=== PATIENT | female | born 1935 | race Caucasian/White ===

== ENCOUNTER 2018-02-13 10:07 | Inpatient (IN) | payer OTHER, MEDICAID ==
[~2018-02-13] VITALS: Ht 160 cm; Wt 59.4 kg
[2018-02-13] VITALS (33 sets, daily range): BP systolic 86–127; BP diastolic 27–73
--- NOTE | 2018-02-13 10:07 | NUR ---
Patient BIBYogesh ACLS accompanied by Haley THOMAS from [facility], transferred to bed 10. Dr. Eden, RN and RT evaluating patient at bedside.
[2018-02-13] MEDS ORDERED: NACL 0.9% 1,000 ML IV SCH ×2 (10:17→12:31)
--- NOTE | 2018-02-13 10:18 | NUR ---
rt at bedside
[2018-02-13] MEDS ORDERED: ALBUTEROL 0.083% 2.5 MG/3 ML NEBU INH ONE (10:20)
[2018-02-13] MEDS ORDERED: methylPREDNISolone SS 125 MG/2 ML VIAL IVP ONE (10:20)
[2018-02-13] MEDS ORDERED: IPRATROPIUM 0.02% 0.5 MG/2.5 ML NEBU INH ONE (10:20)
[2018-02-13] MEDS ORDERED: PIPERACILLIN/TAZOBACTAM 3.375 GM in DEXT 5% MINI-BAG PLUS 50 ML IV ONE (10:20)
--- NOTE | 2018-02-13 10:25 | NUR ---
PATIENT PRESENTS TO ED WITH brought in by [facility] for resp distress--- moderate retractions noted to supraclavicular area, intracostal, and nares--- existing yung catheter noted with paul urine and heavy sediment . contractures to extremities , kyphosis DENIES N/V/D; SKIN IS PINK/WARM/DRY; PT DENIES ANY FEVER, CP, SOB, OR COUGH AT THIS TIME; PATIENT STATES PAIN OF 0/10 AT THIS TIME; VSS; PATIENT POSITIONED FOR COMFORT; HOB ELEVATED; BEDRAILS UP X2; BED DOWN. ER MD MADE AWARE OF PT STATUS.
[2018-02-13] MEDS ORDERED: PRON INH ×2 (10:28)
[2018-02-13] MEDS ORDERED: DOXY100C9 PO (10:28)
[2018-02-13] MEDS ORDERED: DOCU-299 PO (10:28)
[2018-02-13] MEDS ORDERED: MAGN400S60 PO (10:28)
[2018-02-13] MEDS ORDERED: ACET-2619 PO (10:28)
[2018-02-13] MEDS ORDERED: ASCO500T45 PO (10:28)
[2018-02-13] MEDS ORDERED: MULT1SGL58 PO (10:28)
[2018-02-13] MEDS ORDERED: FERR325E14 PO (10:28)
[2018-02-13] MEDS ORDERED: PIPERACILLIN/TAZOBACTAM 3.375 GM VIAL IV ONE (10:31)
--- NOTE | 2018-02-13 10:44 | NUR ---
Breathing treatment administered at bedside by respiratory therapist.
[2018-02-13] MEDS ORDERED: ACETAMINOPHEN 650 MG SUPP RC ONE ×2 (10:58→11:00)
[2018-02-13 11:00] LABS: HEMATOCRIT 29.1 % (36-48); HEMOGLOBIN 9.7 g/dL (12.0-16.0); MEAN CORPUSCULAR HEMOGLOBIN 27 pg (27-31); MEAN CORPUSCULAR HGB CONC 33 g/dL (33-37); MEAN CORPUSCULAR VOLUME 80.6 fL (80-94); PLATELET COUNT (AUTO) 205 K/uL (140-450); RED BLOOD CELL COUNT(AUTO) 3.61 MIL/uL (4.20-5.40)
--- NOTE | 2018-02-13 11:08 | NUR ---
cxr at bedside
[2018-02-13 11:09] LABS: CHLORIDE 105 mmol/L (98-107); CREATININE 0.8 mg/dL (0.6-1.3); GLUCOSE 135 mg/dL (74-106); SODIUM SERUM 140 mmol/L (136-145); UREA NITROGEN, BLOOD 27 mg/dL (7-18)
--- NOTE | 2018-02-13 11:09 | NUR ---
prior to catheter insertion, pt had loose bm incontinence----cleaned , dry clean diaper placed and picture taken of sacral wound
[2018-02-13 11:12] LABS: PROTHROMBIN TIME 11.6 secs (10.8-13.4)
[2018-02-13 11:16] LABS: BASOPHILS % (MANUAL) 0 % (0-2); EOSINOPHILS % (MANUAL) 0 % (0-4); LYMPHOCYTES % (MANUAL) 7 % (20-46); MONOCYTES % (MANUAL) 8 % (5-12)
--- NOTE | 2018-02-13 11:20 | NUR ---
daughter at bedside---lab reported not enough urine sample provided for urine culture and ua. will wait for urine sample as tubing currently has minute amount
[2018-02-13 11:22] LABS: BILIRUBIN,URINE 1+ (NEGATIVE); BLOOD, URINE 3+ (NEGATIVE); COLOR,URINE YELLOW (YELLOW); LEUKOCYTE ESTERASE ,URINE 2+ (NEGATIVE); NITRITE, URINE NEGATIVE (NEGATIVE); UGLUCOSE NEGATIVE (NEGATIVE)
[2018-02-13 11:24] LABS: ALBUMIN 2.3 g/dL (3.4-5.0); ASPARTATE AMINOTRANSFERASE 47 U/L (15-37); TOTAL BILIRUBIN 1.9 mg/dL (0.0-1.0)
[2018-02-13 11:25] LABS: APPEARANCE,URINE HAZY (CLEAR)
[2018-02-13] MEDS ORDERED: NACL 0.9% 1,000 ML IV ONE (11:25)
[2018-02-13] MEDS ORDERED: AZTREONAM 1,000 MG in DEXTROSE 5% 50 ML IV SCH (11:25)
[2018-02-13] MEDS ORDERED: SODIUM BICARBONATE 8.4% PFS 50 MEQ/50 ML SYR IVP ONE (11:25)
[2018-02-13 11:33] LABS: RBC,URINE 11-20 (MOD) /HPF (0-5)
[2018-02-13 11:34] LABS: WBC,URINE 20-60 /HPF (0-5)
[2018-02-13 11:35] LABS: HYALINE CASTS, URINE 0-10 /LPF (None Seen); URINE AMORPHOUS URATE 1+ /HPF (None Seen)
[2018-02-13] MEDS ORDERED: AZTREONAM 1,000 MG VIAL ONE (11:35)
--- NOTE | 2018-02-13 11:45 | NUR ---
reverse trendelenberg position positioned
--- NOTE | 2018-02-13 11:50 | NUR ---
notified of hypotensive
--- NOTE | 2018-02-13 12:00 | NUR ---
pressors suggested to MD---will reassess after 2L bolus
--- NOTE | 2018-02-13 12:04 | NUR ---
md notified pt's breath sounds congested---cxr does not identifies chf as per ok to continue to 2L SHAQ jones
[2018-02-13] MEDS ORDERED: VANCOMYCIN PER PHARMACY MC PRN (12:25)
[2018-02-13] MEDS ORDERED: NOREPINEPHRINE 16 MG in DEXTROSE 5% 250 ML IV PRN (12:25)
[2018-02-13] MEDS ORDERED: NOREPINEPHRINE 8 MG in DEXTROSE 5% 250 ML IV PRN (12:25)
[2018-02-13] MEDS ORDERED: NACL 0.9% 2,000 ML IV SCH (12:34)
[2018-02-13] MEDS ORDERED: ACETAMINOPHEN 325 MG TAB PO PRN (12:35)
[2018-02-13] MEDS ORDERED: MORPHINE SULFATE 2 MG/ML SYR IVP PRN (12:35)
[2018-02-13] MEDS ORDERED: ONDANSETRON 4 MG/2 ML VIAL IM/IVP PRN (12:35)
[2018-02-13] MEDS ORDERED: DOCUSATE SODIUM 100 MG GELCAP PO PRN (12:35)
--- NOTE | 2018-02-13 12:39 | NUR ---
Dr. Contreras evaluating patient at bedside.
[2018-02-13] MEDS ORDERED: PIPER/TAZO 3.375GM/D5W PREMIX 50 ML IV SCH (13:04)
[2018-02-13] MEDS ORDERED: TPN PER PHARMACY MC PRN (13:15)
[2018-02-13] MEDS ORDERED: DOPamine 400 MG/D5W PREMIX 250 ML IV ONE ×2 (13:20→13:22)
[2018-02-13 13:26] LABS: CHOL/HDL RATIO 9.9 (1-4.5); MAGNESIUM 1.7 mg/dL (1.8-2.4); PHOSPHORUS 3.5 mg/dL (2.5-4.9); THYROID STIMULATING HORMONE 0.23 uIU/mL (0.34-3.74)
--- NOTE | 2018-02-13 13:30 | NUR ---
dopamine gtts initiated
[2018-02-13] MEDS ORDERED: ALBUTEROL SULFATE/IPRATROPIU 3 ML SOL INH PRN (13:35)
--- NOTE | 2018-02-13 13:40 | NUR ---
dopamine increased to 15mcg/kg/min
--- NOTE | 2018-02-13 13:45 | NUR ---
increased dopamine to 20mcg/kg/min
--- NOTE | 2018-02-13 13:59 | NUR ---
dopamine gtt decreased back to 15mcg/kg/min
--- NOTE | 2018-02-13 14:05 | NUR ---
RECEIVED PT VIA [place] FROM ER, REPORT FROM MONIQUE, RN AT BEDSIDE, PT IS LETHARGIC, RESPOND TO PAINFUL STIMULI, UNABLE TO FOLLOW COMMANDS AND MAKE NEEDS KNOWN, NO S/S OF DISTRESS, CLEAR LUNG SOUNDS PRAKASH., ON OXYGEN AT 4L VIA NC, SR ON DIRECTOR PATIENT, SOFT ROUND ABDOMEN WITH ACTIVE BOWEL SOUNDS, INCONTINENT WITH B&B'S, F/C IN PLACE DRAINING CLEAR YELLOW URINE VIA GRAVITY, BEDBOUND, CONTRACTURE TO ALL EXTREMITIES. SKIN IS WARM AND DRY TO TOUCH, OPEN WOUND PRESENT ( SEE WOUND ASSESSMENT), IV SITE TO LEFT WRIST, 20GA, PATENT AND SL, PICC LINE TO LEFT UPPER ARM, RUNNING D5 NS AT 90ML/HR, AND DOPAMINE DRIP AT 15MCG/MIN, VSS, FLACC 0, HOB ELEVATED TO 30 DEGREES, SAFETY MEASURES IN PLACE, WILL CONTINUE TO MONITOR.
--- NOTE | 2018-02-13 14:18 | NUR ---
Pt transferred to ICU via [facility] RM 1
[2018-02-13] MEDS: DEXT 5% /NACL 0.9% 1,000 ML IV SCH (14:51)
[2018-02-13] MEDS: VANCOMYCIN 750 MG in DEXTROSE 5% 250 ML IV SCH (14:51)
[2018-02-13] MEDS ORDERED: BISACODYL 10 MG SUPP RC SCH (15:47)
[2018-02-13] MEDS ORDERED: MAG SULF 2000 MG/WATER PREMIX 50 ML IV SCH (15:48)
--- NOTE | 2018-02-13 16:00 | NUR ---
PT IS OFF UNIT FOR CT SCAN VIA BED ACCOMPANIED WITH CT MECH AND RN.
--- NOTE | 2018-02-13 16:15 | NUR ---
WOUND CARE PROVIDED, POSITION CHANGED FOR OFF LOAD PRESSURE.
--- NOTE | 2018-02-13 16:47 | NUR ---
DR. CONN CAME IN TO SEE PT AT BEDSIDE, WILL FOLLOW UP WITH NEW ORDER.
[2018-02-13] MEDS: THERAHONEY GEL 42.5 GM TP SCH (16:52)
--- NOTE | 2018-02-13 18:00 | NUR ---
NO S/S OF DISTRESS, VSS, POSITION CHANGED FOR OFF LOAD PRESSURE.
--- NOTE | 2018-02-13 19:10 | NUR ---
REPORT GIVEN TO MOBILE APPLICATION TESTER NURSE FOR CONTINUE OF CARE, PT IS IN STABLE CONDITION AT THIS TIME.
[2018-02-13] MEDS: ALBUTEROL SULFATE/IPRATROPIU 3 ML SOL IH SCH (19:15)
--- NOTE | 2018-02-13 19:30 | NUR ---
RECEIVED PT FROM FROM DAY NURSE. NO ACUTE DISTRESS NOTED. WILL CONTINUE TO MONITOR.
--- NOTE | 2018-02-13 19:40 | NUR ---
DAUGHTER, DEZ, @ BEDSIDE.
--- NOTE | 2018-02-13 19:45 | NUR ---
DAUGHTER ASKED QUESTIONS REGARDING CODE STATUS; INFORMED ABOUT FULL CODE STATUS AND ADVANCED LIFE SUPPORT. DAUGHTER TO DISCUSS WITH BROTHER AND FOLLOW UP REGARDING ANY CHANGES. PER DAUGHTER DEZ, KEEP FULL CODE @ THIS TIME.
--- NOTE | 2018-02-13 19:50 | NUR ---
PT ASLEEP @ THIS TIME, EYES MOVE UPON VERBAL PROMPT. PT APPEARS COMFORTABLE IN BED, UPPER PERIPHERAL EXTREMITIES FLEXED WITH HANDS CLENCHED; TOWEL WRAPS IN PLACE FOR HANDS. LOWER EXTREMITIES RELAXED. +3 PERRL @ TIME. NO TRACKING NOTED. LUNGS CLEAR/ DIMINISHED @ THIS TIME, EVEN AND UNLABORED. S1 S2, NSR 60-70S, +1 TRACE EDEMA NOTED ABD SOFT NON DISTENDED, HYPOACTIVE BOWEL SOUNDS, NPO EXCEPT MEDS @ THIS TIME. HOOVER CATH IN PLACE, CLEAR YELLOW URINE NOTED. PT HAS WOUND TO SACRAL COCCYX AREA, WITH DRESSING CDI. L UPPER ARM DUAL LUMEN PICC LINE IN PLACE. DOPAMINE @ 5 MCG/KG/MIN AND IVF RUNNING @ 90ML/HR. NO ACUTE DISTRESS NOTED @ THIS TIME. WILL CONTINUE TO OBSERVE.
--- NOTE | 2018-02-13 20:00 | NUR ---
PT TURNED AND REPOSITIONED; KYPHOSIS TO NECK NOTED; PILLOWS IN PLACE FOR SUPPORT. NO S/S OF ACUTE DISTRESS NOTED. WILL CONTINUE TO OBSERVE.
[2018-02-13] MEDS: PIPER/TAZO 3.375GM/D5W PREMIX 50 ML IV SCH (21:04)
--- NOTE | 2018-02-13 21:25 | NUR ---
WOUND CULTURE OF SACRAL COCCYX WOUND TAKEN, NEW OPTIFOAM DRESSING APPLIED WITH THERAHONEY WILL CONTINUE TO OBSERVE
--- NOTE | 2018-02-13 22:00 | NUR ---
PT TURNED AND REPOSITIONED FOR COMFORT. NO ACUTE S/S OF DISTRESS NOTED. WILL CONTINUE TO OBSERVE.
--- NOTE | 2018-02-13 23:00 | NUR ---
DAUGHTER WAYNE @ BEDSIDE. SPOKE WITH BROTHER MYRA REGARDING CODE STATUS. MYRA WISHES TO DO ACLS DRUGS AND BIPAP ONLY; STATED SISTER DEZ WOULD SIGN AND GIVE CONSENT FOR MODIFIED CODE STATUS.
[2018-02-14] VITALS (92 sets, daily range): BP systolic 76–130; BP diastolic 42–84
--- NOTE | 2018-02-14 | NUR ---
UPDATED DR HASTINGS REGARDING FAMILY WISHES; DR. HASTINGS @ BEDSIDE AND SPOKE IN DEPTH ABOUT CODE STATUS. DAUGHTER DEZ AGREEABLE TO ACLS DRUGS, BIPAP, AND CARDIOVERSION ONLY. ANSWERED ALL FAMILY QUESTIONS AND PROVIDED SUPPORT. STATED CODE STATUS WOULD BE UPDATED IN [facility]. WILL CONTINUE TO OBSERVE.
--- NOTE | 2018-02-14 00:15 | NUR ---
PT TURNED @ REPOSITIONED FOR COMFORT, NO S/S OF ACUTE DISTRESS. WILL CONTINUE TO OBSERVE.
--- NOTE | 2018-02-14 02:00 | NUR ---
PT TURNED AND REPOSITIONED; FAMILY @ BEDSIDE. NO S/S OF ACUTE DISTRESS NOTED. WILL CONTINUE TO OBSERVE.
--- NOTE | 2018-02-14 04:00 | NUR ---
ORAL CARE DONE, BATH GIVEN, LINEN CHANGED. PT TURNED AND REPOSITIONED. PICC LINE DRESSING CHANGED. NO S/S OF ACUTE DISTRESS NOTED WILL CONTINUE TO OBSERVE.
[2018-02-14] MEDS: DEXT 5% /NACL 0.9% 1,000 ML IV SCH ×3 (04:14→22:56)
[2018-02-14] MEDS: PIPER/TAZO 3.375GM/D5W PREMIX 50 ML IV SCH ×3 (04:23→20:41)
--- NOTE | 2018-02-14 05:18 | NUR ---
PT AWAKE OPENING EYES SPONTANEOUSLY, DOES NOT FOLLOW COMMANDS. DOPAMINE DRIP @ 3 MCG/KG/MIN. WILL CONTINUE TO OBSERVE.
[2018-02-14] MEDS: ALBUTEROL SULFATE/IPRATROPIU 3 ML SOL IH SCH ×3 (06:19→19:28)
[2018-02-14] MEDS: DOPamine 400 MG/D5W PREMIX 250 ML IV SCH (07:23)
--- NOTE | 2018-02-14 07:28 | NUR ---
REPORT GIVEN TO DAY SHIFT NURSE, ORDERS ENDORSED FOR CONTINUITY OF CARE.
--- NOTE | 2018-02-14 07:35 | NUR ---
RECEIVED REPORT FROM [facility] NURSE. PT AWAKE NON VERBAL. NONTRACKING EYE MOVEMENTS. NO SIGNS OF ACUTE DISTRESS. UNABLE TO VERBALIZE NEEDS. AFEBRILE. LUNG SOUNDS DIMINISHED BILAT. 2LPM O2 VIA NC. NSR. PULSES PRESENT BUE/BLE. ABD SOFT NONTENDER. F/C IN PATENT. CLEAR YELLOW URINE NOTED. BILAT SCDS. RIGHT HAND SALINE LOCK. 20G. PATENT INTACT. SHAILESH PICC LINE DOUBLE LUMEN. PATENT. INTACT. WOUND DRESSING DRY INTACT. SIDE RAILS UP X4, BED IN LOWEST POSITION. CALL LIGHT WITHIN REACH. WILL CONTINUE TO MONITOR
[2018-02-14 08:00] LABS: ALBUMIN 1.9 g/dL (3.4-5.0); ANION GAP 2.7 (8-16); ASPARTATE AMINOTRANSFERASE 30 U/L (15-37); CARBON DIOXIDE 25.3 mmol/L (21-32); CHLORIDE 109 mmol/L (98-107); CREATININE 0.5 mg/dL (0.6-1.3); GLUCOSE 165 mg/dL (74-106); MAGNESIUM 2.3 mg/dL (1.8-2.4); PHOSPHORUS 2.8 mg/dL (2.5-4.9); SODIUM SERUM 134 mmol/L (136-145); TOTAL BILIRUBIN 1.2 mg/dL (0.0-1.0); UREA NITROGEN, BLOOD 18 mg/dL (7-18)
[2018-02-14 08:04] LABS: ANION GAP 7.5 (8-16); CARBON DIOXIDE 25.5 mmol/L (21-32); CHLORIDE 109 mmol/L (98-107); CREATININE 0.5 mg/dL (0.6-1.3); GLUCOSE 165 mg/dL (74-106); SODIUM SERUM 139 mmol/L (136-145); UREA NITROGEN, BLOOD 18 mg/dL (7-18)
[2018-02-14] MEDS ORDERED: DOCUSATE SODIUM 100 MG GELCAP PO SCH (09:00)
[2018-02-14] MEDS: MAGNESIUM HYDROXIDE 2400 MG/30 ML UDC PO SCH (09:00)
[2018-02-14] MEDS: PANTOPRAZOLE 40 MG INJ VIAL IVP SCH (09:03)
--- NOTE | 2018-02-14 09:18 | NUR ---
HOLD PO MEDICATION AT THIS TIME PER DR. KELLEY.
[2018-02-14] MEDS ORDERED: POTASSIUM CHLORIDE 40 MEQ, LIDOCAINE 1% 25 MG in NACL 0.9% 250 ML IV ONE (10:10)
--- NOTE | 2018-02-14 10:10 | NUR ---
02/11/18 RD INITIAL ASSESSMENT COMPLETED PLEASE REFER TO NUTRITION ASSESSMENT UNDER CARE ACTIVITY FOR ESTIMATED NUTRITIONAL NEEDS. 1. ONCE DIET ADVANCES FROM NPO CONSIDER TUBE FEED WITH TWO ELIAS HN AT GOAL RATE 45 ML/HR. START RATE 20 ML/HR, INCREASE BY 20 ML/HR Q6H. -THIS WILL PROVIDE 1080 ML, 2160 KCAL, 90 GM PROTEIN, MEETING 100% OF NEEDS. 2. WATER FLUSH [address] TO FOLLOW-UP 2-3 DAYS, HIGH RISK CHRISTINA YE RD
--- NOTE | 2018-02-14 10:59 | NUR ---
ECHO AT BEDSIDE. NO SIGNS OF ACUTE DISTRESS AT THIS TIME.
--- NOTE | 2018-02-14 11:46 | NUR ---
RAPID BLINKING AND SLIGHT FACIAL SWITCHES NOTED WITH LEFT SHOULDER MOVEMENT. ATIVAN GIVEN. WILL CONTINUE TO MONITOR. Addendum: 02/14/18 at 1247 by Ever Gilmore RN WRONG PATIENT CHARTED
[2018-02-14] MEDS: KCL 20 MEQ/WATER INJ PREMIX 100 ML IV SCH ×2 (12:11→14:27)
--- NOTE | 2018-02-14 12:49 | NUR ---
CXR AT BEDSIDE. NO SIGNS OF ACUTE DISTRESS AT THIS TIME. WILL CONTINUE TO MONITOR.
--- NOTE | 2018-02-14 14:00 | NUR ---
DR. PETERSEN CAME IN TO SEE PT AT BEDSIDE, NO NEW ORDERS AT THIS TIME.
[2018-02-14] MEDS ORDERED: PROBIOTIC SCREEN 1 EA MISC MC PRN (14:30)
[2018-02-14] MEDS: VANCOMYCIN 750 MG in DEXTROSE 5% 250 ML IV SCH (14:30)
--- NOTE | 2018-02-14 14:31 | NUR ---
1030 RECEIVED A CALL FROM SAGAR AT [facility] REQUESTING CLINICAL INFORMATION. PROVIDED SAGAR WITH A VERBAL UPDATE AND WILL SEND REVIEW AND CLINICAL DOCUMENTATION LATER TODAY. SAGAR'S CALL BACK IS [phone] AND FAX [phone].
--- NOTE | 2018-02-14 14:35 | NUR ---
NOTIFIED DR. AGUILLON REGARDING THE GI CONSULT.
--- NOTE | 2018-02-14 15:35 | NUR ---
CLINICAL REVIEW FAXED TO DOMINI[facility] AT [phone]
[2018-02-14] MEDS: THERAHONEY GEL 42.5 GM TP SCH (16:51)
--- NOTE | 2018-02-14 16:51 | NUR ---
General Labor Forklift Operator Note: Per Franklin from [facility] , patient is on a 7 day bed hold and is one of their fdc patients. He stated patient does not have an existing Advance Directive.
--- NOTE | 2018-02-14 18:04 | NUR ---
02/14/18 RD INITIAL ASSESSMENT COMPLETED PLEASE REFER TO NUTRITION ASSESSMENT UNDER CARE ACTIVITY FOR ESTIMATED NUTRITIONAL NEEDS. 1. CONTINUE NPO DIET TOLERATED 2. FOLLOW-UP TO CONFIRM ESTABLISHED FEEDING ROUTE 3. RECOMMEND MVI AND [id number] TO FOLLOW-UP 2-3 DAYS, HIGH RISK CHRISTINA YE, RD
--- NOTE | 2018-02-14 19:21 | NUR ---
ENDORSED CARE TO INCOMING SHIFT. PT IN STABLE CONDITION. NO SIGNS OF ACUTE DISTRESS. FAMILY AT BEDSIDE. CALL LIGHT WITHIN REACH.
--- NOTE | 2018-02-14 19:30 | NUR ---
RECEIVED REPORT FROM MORNING RN FOR CONTINUITY OF CARE. VS STABLE AT THIS TIME. FLACC 0. PT DOES NOT APPEAR TO BE IN ANY PAIN AND NO SIGNS OF DISTRESS. S1+S2 HEARD. SR ON MONITOR. PULSES ARE PALPABLE IN ALL EXTREMITIES. LUNG SOUNDS COARSE. PT ON OXYGEN AT 2L/MIN VIA NC. NO SOB NOTED. ABDOMEN ROUND, SOFT AND NONDISTENDED. BS HYPOACTIVE AT THIS TIME. PT HAS PERIPHERAL IV ACCESS ON RIGHT HAND 20G. PT ALSO HAS SHAILESH PICC LINE. ALL LINES ARE PATENT, INTACT AND ASYMPTOMATIC. PT CURRENTLY ON D5 NS AT 90ML/HR AND DOPAMINE AT 3MCG/MIN. PT DAUGHTER AT BEDSIDE AT THIS TIME. HOB KEPT AT 30 DEGREES. ALL SAFETY PRECAUTIONS ARE IN PLACE. WILL CONTINUE TO MONITOR PT.
--- NOTE | 2018-02-14 21:03 | NUR ---
DR. LIVINGSTON AT BEDSIDE TO SEE PT. PT'S DAUGHTER STILL AT BEDSIDE AND SPOKE WITH DR. LIVINGSTON; PER DR. LIVINGSTON HE WANTS LEFT UPPER ARM PICC LINE TO BE REPLACED. WILL NOTIFY RESIDENT DR. HUSSEIN.
--- NOTE | 2018-02-14 21:08 | NUR ---
CALLED DR. MARTINEZ AND INFORMED HER OF NEW ORDER FROM DR. LIVINGSTON.
--- NOTE | 2018-02-14 21:30 | NUR ---
PT DAUGHTER AT BEDSIDE, ASKING REGARDING GTUBE PLACEMENT THAT DR. AGUILLON DISCUSSED WITH HER. SHE WANTS TO KNOW IF IT IS SAFE FOR HER MOM, HOW LONG IT TAKES, AND IF SHE WILL BE ABLE TO TOLERATE IT. INFORMED HER THAT IT IS BETTER TO DISCUSS HER CONCERNS WITH THE DOCTOR. EDUCATION OFFICER SPOKE WITH PT'S SON REGARDING GIVING CONSENT TO GTUBE PLACEMENT, ACCORDING TO HIM HE HAS TO DISCUSS IT WITH HIS SISTER FIRST BEFORE GIVING CONSENT.
[2018-02-14 22:58] LABS: ANION GAP 11.4 (8-16); CARBON DIOXIDE 22.7 mmol/L (21-32); CHLORIDE 106 mmol/L (98-107); CREATININE 0.6 mg/dL (0.6-1.3); GLUCOSE 331 mg/dL (74-106); POTASSIUM 3.1 mmol/L (3.5-5.1); SODIUM SERUM 137 mmol/L (136-145); UREA NITROGEN, BLOOD 15 mg/dL (7-18)
[2018-02-15] VITALS (95 sets, daily range): BP systolic 80–145; BP diastolic 43–90
--- NOTE | 2018-02-15 | NUR ---
PT'S DAUGHTER CAME AT THE NURSE'S STATION TO ASK AGAIN REGARDING GTUBE PLACEMENT. INFORMED HER THAT WE ALREADY SPOKE WITH HER BROTHER AND THAT HE WILL DISCUSS IT WITH HER BEFORE MAKING DECISION AND GIVING CONSENT. SHE STATES THAT SHE UNDERSTANDS.
--- NOTE | 2018-02-15 00:19 | NUR ---
CONSENT FOR PICC LINE INSERTION OBTAINED. CONSENT GIVEN BY DAUGHTER.
--- NOTE | 2018-02-15 01:15 | NUR ---
VS STABLE AT THIS TIME. PT STILL ON DOPAMINE. PT DAUGHTER STILL AT BEDSIDE AT THIS TIME. PT DOES NOT APPEAR TO BE IN ANY PAIN OR IN ANY DISCOMFORT. HOB AT 30 DEGREES. ALL SAFETY PRECAUTIONS ARE IN PLACE. WILL CONTINUE TO MONITOR PT.
[2018-02-15] MEDS ORDERED: KCL 20 MEQ/WATER INJ PREMIX 100 ML IV SCH (03:00)
--- NOTE | 2018-02-15 03:30 | NUR ---
RT AT BEDSIDE TO SUCTION PT AND COLLECT SPUTUM SPECIMEN.
--- NOTE | 2018-02-15 03:46 | NUR ---
0330 SPUTUM UPTAINED AND SENT TO THE LAB
--- NOTE | 2018-02-15 04:33 | NUR ---
MORNING CARE PROVIDED TO PT. HOOVER CATHETER CARE PROVIDED. TOLERATED BEING TURNED WELL. PT STILL ON DOPAMINE DRIP. VS STABLE AT THIS TIME. ALL SAFETY PRECAUTIONS ARE IN PLACE. BED AT LOW POSSIBLE POSITION. WILL CONTINUE TO MONITOR PT.
[2018-02-15] MEDS: DEXT 5% /NACL 0.9% 1,000 ML IV SCH ×2 (04:55→20:48)
[2018-02-15] MEDS: PIPER/TAZO 3.375GM/D5W PREMIX 50 ML IV SCH ×3 (04:55→20:47)
[2018-02-15 05:05] LABS: BASOPHILS % (AUTO) 0.3 % (0.0-2.0); EOSINOPHILS % (AUTO) 0.2 % (0.0-4.0); HEMATOCRIT 24.1 % (36-48); HEMOGLOBIN 7.9 g/dL (12.0-16.0); LYMPHOCYTES # (AUTO) 0.7 K/uL (2.5-16.5); MEAN CORPUSCULAR HEMOGLOBIN 27 pg (27-31); MEAN CORPUSCULAR HGB CONC 33 g/dL (33-37); MEAN CORPUSCULAR VOLUME 81.8 fL (80-94); MONOCYTES # (AUTO) 0.7 K/uL (0.8-1.0); MONOCYTES % (AUTO) 6.4 % (1.7-9.3); NEUTROPHILS # (AUTO) 9.1 K/uL (1.8-7.7); NEUTROPHILS % (AUTO) 86.1 % (42.2-75.2); PLATELET COUNT (AUTO) 186 K/uL (140-450); RED BLOOD CELL COUNT(AUTO) 2.95 MIL/uL (4.20-5.40); RED CELL DISTRIBUTION WIDTH 17.7 % (11.6-13.7); WHITE BLOOD COUNT (AUTO) 10.6 K/uL (4.8-10.8)
--- NOTE | 2018-02-15 05:20 | NUR ---
LEAVE MESSAGE TO PICCLINE NURSE PT FOR PICCLINE INSERTION, WILL ENDORSE TO INCOMING SHIFT TO FOLLOW UP
[2018-02-15 06:18] LABS: T4 (THYROXINE) 8.3 ug/dL (4.5-12.0)
--- NOTE | 2018-02-15 06:20 | NUR ---
DR. KELLEY AT BEDSIDE TO SEE PT. WILL FOLLOW-UP FOR ANY NEW ORDERS.
[2018-02-15] MEDS: ALBUTEROL SULFATE/IPRATROPIU 3 ML SOL IH SCH ×3 (06:24→19:36)
--- NOTE | 2018-02-15 06:24 | NUR ---
PT SLEEPING NO SIGNS OF DISTRESS NOTED AT THIS TIME NO HHN GIVEN
[2018-02-15 07:01] LABS: ALBUMIN 1.9 g/dL (3.4-5.0); ANION GAP 11.9 (8-16); ASPARTATE AMINOTRANSFERASE 24 U/L (15-37); CARBON DIOXIDE 23.9 mmol/L (21-32); CHLORIDE 109 mmol/L (98-107); CREATININE 0.5 mg/dL (0.6-1.3); GLUCOSE 139 mg/dL (74-106); MAGNESIUM 1.9 mg/dL (1.8-2.4); POTASSIUM 3.8 mmol/L (3.5-5.1); SODIUM SERUM 141 mmol/L (136-145); TOTAL BILIRUBIN 1.2 mg/dL (0.0-1.0); UREA NITROGEN, BLOOD 13 mg/dL (7-18)
--- NOTE | 2018-02-15 07:10 | NUR ---
RECEIVED REPORT FROM PROCESS IMPROVEMENT ENGINEER RN. PT RESTING IN BED V/S WNL. SR ON MONITOR. OPENS EYES SPONTANEOUSLY, NON-VERBAL, WITHDRAWS TO PAIN. SKIN DRY AND WARM TO TOUCH. ON O2 VIA NC AT 2 LTR/MIN. LUNGS DIMINISHED ON AUSCULTATION. PICC LINE ON SHAILESH. DOPAMINE RUNNING AT 3 MCG/KG/MIN AND D5% NS RUNNING AT 90 ML/HR. BRUISES ON BUE. ABDOMINAL SOFT ROUND AND NON-TENDER. ACTIVE BOWEL SOUND. HOOVER CATHETER IN PLACE DRAINING YELLOW URINE VIA GRAVITY. SCDS ON PLACE. SACROCCYX WOUND COVERED WITH DRESSING, INTACT. EDEMATOUS BOTH UPPER AND LOWER EXTREMITIES. SIDE RAILS UP, BED IN LOWEST POSITION, LOCKED. CALL LIGHT WITHIN REACH. WILL CONTINUE TO MONITOR.
--- NOTE | 2018-02-15 07:30 | NUR ---
REMOVED OLD PICC LINE OF SHAILESH. STARTED NEW PERIPHERAL LINE ON RIGHT HAND 24G, INTACT.
--- NOTE | 2018-02-15 08:26 | NUR ---
NO ACTIVE BLEEDING ON S/P PICC LINE SITE. DRESSING INTACT, SECURED IN PLACE.
--- NOTE | 2018-02-15 08:28 | NUR ---
SEEN BY DR. STEELE AND RESIDENT GROUP. MADE AWARE ABOUT UNABLE TO ADMINISTER PO MEDS DUE NO ACCESS AND PT IS UNABLE TO TAKE FROM MOUTH.
[2018-02-15] MEDS: MAGNESIUM HYDROXIDE 2400 MG/30 ML UDC PO SCH (08:30)
--- NOTE | 2018-02-15 08:38 | NUR ---
BP 95/60 MM OF HG.
[2018-02-15] MEDS: PANTOPRAZOLE 40 MG INJ VIAL IVP SCH (08:49)
[2018-02-15] MEDS: MUPIROCIN CA NASAL 2% 1GM TUBE NS SCH (08:51)
[2018-02-15] MEDS: CHLORHEXADINE GLUC 2% CLOTH TP SCH (08:52)
--- NOTE | 2018-02-15 08:57 | NUR ---
ADMINISTERED MEDICATION. TOLERATING WELL.
--- NOTE | 2018-02-15 09:00 | NUR ---
BLANCHABLE REDNESS ON LEFT FOOT BIG TOE,INDEX, MIDDLE AND PINKY FINGER AND RIGHT FOOT INDEX.
--- NOTE | 2018-02-15 09:07 | NUR ---
FAXED CONCURRENT REVIEW TO [facility] [phone] PHONE SAGAR [phone]
--- NOTE | 2018-02-15 10:39 | NUR ---
WOUND ASSESSMENT DONE WITH WOUND NURSE. KEPT WOUND SITE CLEAN AND DRY. NO ACTIVE DRAINAGE AT WOUND SITE.
--- NOTE | 2018-02-15 10:54 | NUR ---
DAUGHTER DEZ AT BEDSIDE. FOLLOW UP WITH DAUGHTER IF SHE IS READY TO GIVE CONSENT FOR GTUBE PLACEMENT. SHE SAID PT MIGHTNOT TOLERATE THE PROCEDURE. EXPLAINED ABOUT PT NEEDS ABOUT FEEDING. STILL REFUSED TO SIGN CONSENT. DAUGHTER SAID HAVE HER BROTHER TO SPEAK WITH DR. AGUILLON. DR. AGUILLON MADE AWARE ABOUT DAUGHTER CONCERN AND PROVIDED SONS NUMBER. DR. AGUILLON SAID HE WILL CALL BROTHER.
--- NOTE | 2018-02-15 11:05 | NUR ---
WOUND CARE EVALUATION NOTES: REASON FOR EVALUATION: PRESSURE INJURY ON SACRALCOCCYX SKIN ASSESSMENT DONE ON THIS 82 [place]O F[place] [facility] [place] [facility], WITH INITIAL DIAGNOSIS OF RESPIRATORY DISTRESS, FEVER AND STAGE 4 PRESSURE INJURY. 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 ALL ABOVE INFORMATION WAS OBTAINED FROM THE ADMISSION H&P. LABS ARE WBC 10.6, H/H 7.9/24.1 GLUCOSE 139, ALBUMIN 1.9. PATIENT IS AWAKE WHEN TOUCHED. NECK, SHOULDER AND FINGERS CONTRACTURES NOTICE. SKIN WARM TO TOUCH, SKIN COLOR JUNDIACE WITH ABDOMEN AND BILATERAL THIGHS EDEMA, BLE NO HAIR GROWTH AND BILATERAL PEDAL PULSES PRESENT. HOOVER CATHETER PATENT AND INTACT TO [place] COLORED URINE IN MODERATE AMOUNT. PLAN OF CARE AND PRESSURE PREVENTIVE MEASURES DISCUSSED WITH PT, DAUGHTER ALEXANDER AND PRIMARY NURSE. PT EYES OPEN, NON-VERBAL. DAUGHTER VERBALIZES UNDERSTANDING. WILL REINFORCE TEACHING. INTEGUMENTARY: -LEFT UPPER ARM S/P PICC LINE REMOVAL SITE DRY, CLEAN AND INTACT -LEFT FOREARM OLD BRUISE 3X2 CM, SKIN INTACT -LEFT FOOT MULTIPLE DIGITS PRESSURE INJURY STAGE 1, HALLUX, 2ND TOE AND 5TH TOE WITH LARGEST ON 5TH DIGIT 1.5X1.5CM -SACRALCOCCYX STAGE 4 PRESSURE INJURY [id number] WITH UNDERMINING 3-5 OCLOCK AND DEEPEST 0.5CM AT 5 OCLOCK, WOUND BED IS PALE PINK, CLEAN SMALL AMOUNT SEROUS DRAINAGE, NO ODOR, WOUND EDGE WELL DEFINED, TEN-WOUND SKIN INTACT, SURROUNDING TISSUE PALE IN COLOR. -BILATERAL HEELS BLANCHABLE REDNESS RECOMMENDATIONS: -CLEANSE SACRALCOCCYX WOUND WITH WOUND CARE SOLUTION, PAT DRY, APPLY THERAHONEY GEL WITH ADAPTIC DRESSING QD AND COVER WITH DRY DRESSING QD AND PRN IF SOILING. -APPLY HYDRAGUARD TO LEFT TOES PRESSURE INJURY BID AND LEAVE IT OPEN TO AIR. -APPLY FORM DRESSING TO POSTERIOR THORACIC AREA CHANGE Q7DAYS AND PRN IF SOILING PREVENTION -TURN AND REPOSITION PATIENT Q2H -ASSESS AND MONITOR SKIN CONDITION DURING POSITION CHANGE, PLEASE PAY ATTENTION TO LEFT AND RIGHT BUTTOCKS -OFFLOAD BILATERAL HEELS BY PLACING PILLOWS UNDER CALVES AT ALL TIMES, UNLESS OTHERWISE CONTRAINDICATED -HEEL RAISERS TO BOTH HEELS AT ALL TIMES -PRESSURE REDISTRIBUTION SURFACE THERAPY -KEEP SKIN CLEAN AND DRY AT ALL TIMES. COMORBIDITIES RELATED TO SKIN BREAKS: -INFECTION -IMPAIRED OF MOBILITY -COGNITIVE IMPAIRMENT -CHRONIC BOWEL INCONTINENT -HOB ELEVATED THE MAJORITY OF THE DAY FOR MEDICAL CONDITION RECOMMENDATIONS DISCUSSED WITH PRIMARY RN WILL FOLLOW UP PATIENT Q 7 -10 DAYS AND PRN. PLEASE CONTACT WOUND CARE NURSE FOR ANY QUESTION OR CHANGES IN WOUND CONDITION
--- NOTE | 2018-02-15 11:26 | NUR ---
RECEIVED CALL FROM SON MYRA. SON WANTED TO KNOW ABOUT PATIENT BP AND CONDITION. UPDATED PT CURRENT BP, V/S AND CONDITION. ALSO, EXPLAIN THE NEED OF G-TUBE FOR PATIENT. STATED HE IS NOT GOING TO MAKE DECISION. HE WILL DISCUSS WITH HIS SISTER DEZ AND LET US KNOW.
--- NOTE | 2018-02-15 11:30 | NUR ---
PICC LINE NURSE AND US TECH AT BEDSIDE. TIME OUT DONE FOR THE PICC LINE PROCEDURE. PT ON STABLE CONDITION. V/S WNL.
--- NOTE | 2018-02-15 11:38 | NUR ---
HAVE MYRA TO SPEAK WITH ROLL ON WORKER.
--- NOTE | 2018-02-15 12:56 | NUR ---
PT SLEEPING WITH FAMILY AT BEDSIDE NO HHN GIVEN NO SIGNS OF DISTRESS NOTED
--- NOTE | 2018-02-15 13:14 | NUR ---
Manager Business Process Note: I met with patient's daughter Britta at bedside. Per Britta, she stated her brother Zhou (patient's son) will be the spokesperson. She stated Zhou and will make decisions together and Zhou will relay their decision to physician/s and/or nursing staff. I called and spoke with Zhou and verified he will be spokesperson, charge nurse Mar made aware.
[2018-02-15] MEDS: DOPamine 400 MG/D5W PREMIX 250 ML IV SCH (14:23)
[2018-02-15] MEDS: VANCOMYCIN 750 MG in DEXTROSE 5% 250 ML IV SCH (14:30)
--- NOTE | 2018-02-15 14:40 | NUR ---
CATHETER CARE DONE. PT CLEANED. KEPT IN COMFORTABLE POSITION. VS WNL. NO ACUTE RESPIRATORY DISTRESS NOTED. WILL CONTINUE TO MONITOR.
--- NOTE | 2018-02-15 15:38 | NUR ---
PT SEEN BY DR MANN. MADE AWARE ABOUT HB 7.9. CALLED SON MYRA LET HIM SPEAK TO DR. MANN. UPDATED PT CONDITION AND PROGNOSIS TO SON MYRA AND DAUGHTER DEZ DR. MANN. SON WANTS GTUBE PLACEMENT.
[2018-02-15] MEDS: THERAHONEY GEL 42.5 GM TP SCH (16:01)
[2018-02-15] MEDS: MIDODRINE 5 MG TAB PO SCH ×3 (16:08→20:02)
--- NOTE | 2018-02-15 16:33 | NUR ---
RECEIVED A CALL EARLIER FROM SAGAR FROM [facility]. SHE SAID THE PHYSICIAN FOR THIS PATIENT SHOULD BE THE PULMINARY GROUP. FESTUS ENCINASTURN OUT WORKER DIRECTOR SPOKE WITH DR. KELLEY AND HE WILL CHANGE THE PHYSICIAN TO DR. LOPEZ.
--- NOTE | 2018-02-15 16:37 | NUR ---
PT UNABLE TO TAKE MEDICINE FROM MOUTH. UNABLE TO OPEN MOUTH AND SWALLOW MEDICINE. DAUGHTER STATED SHE DOESNOT WANT HER MOM TO BE CHOCKED. UNABLE TO ADMINISTER PO MEDICINE. DR. KELLEY MADE AWARE.
--- NOTE | 2018-02-15 18:28 | NUR ---
PT RESTING IN BED. NO ACUTE RESPIRATORY DISTRESS NOTED. NO CHANGE IN LOC. VS WNL. CONTINUE ON DOPAMINE DRIP. CONTINUE ON MONITORING.
--- NOTE | 2018-02-15 19:16 | NUR ---
REPORT GIVEN TO SHEET METAL WORKER RN FOR CONTINUITY OF CARE. PT ON STABLE CONDITION.
--- NOTE | 2018-02-15 19:30 | NUR ---
RECEIVED BEDSIDE REPORT FROM MORNING SHIFT RN. PT IS UNABLE TO RESPOND TO COMMANDS, OPENS EYES SPONTANEOUSLY. LUNG SOUND DIMINISHED ON LOWER BILATERAL LOBES, ON 1LPM N/C. PT IS NPO EXCEPT MEDS. VAP ORAL CARE PROVIDED. BOWEL SOUNDS ARE HYPOACTIVE ON AUSCULTATION. PT IS ON MANAGER AGRICULTURE WITH DOPAMINE DRIP INFUSING 3MCG/MIN ON 24 GAUGE ON RIGHT HAND, PICC LINE IN RIGHT UPPER ARM. HOOVER CATHETER IN PLACE, URINE IS CLEAR AND DARK YELLOW. ON CONTACT ISOLATION, HOB ELEVATED ABOVE 30 DEG, BED IN LOWEST POSITION.
--- NOTE | 2018-02-15 20:30 | NUR ---
HELD MIDODRINE PER REPORT FROM MORNING SHIFT, AWARE. PT UNABLE TO SWALLOW.
--- NOTE | 2018-02-15 20:30 | NUR ---
UNABLE TO OBTAIN SPUTUM, CUP AT BED SIDE, PT WAS INSTRUCTED
--- NOTE | 2018-02-15 21:05 | NUR ---
DR. LIVINGSTON AT BEDSIDE, NO NEW ORDERS AT THIS TIME.
[2018-02-16] VITALS (92 sets, daily range): BP systolic 83–123; BP diastolic 30–81
--- NOTE | 2018-02-16 00:25 | NUR ---
PT REPOSITIONED, PILLOW SUPPORT PROVIDED. HYDRAGUARD CREAM APPLIED TO TOES. PT IS ON 1LPM N/C AND SCDS ON BOTH LEGS.
[2018-02-16] MEDS: HYDRAGUARD CREAM TP SCH ×2 (00:33→12:41)
--- NOTE | 2018-02-16 02:12 | NUR ---
PT REPOSITIONED, IN SEMI-HILL POSITION, HOB ELEVATED ABOVE 30 DEG, AND PILLOW SUPPORT PROVIDED. SCDS IN PLACE WITH BOOTS TO PROTECT FEET. PT VSS, PT ON CONTINUOUS DOPAMINE DRIP 3MCG/MIN AND 1LPM N/C. PT DOES IS SLEEPING QUIETLY AND DOES NOT APPEAR TO BE IN ANY DISTRESS.
--- NOTE | 2018-02-16 03:16 | NUR ---
HOOVER CATHETER IN PLACE. 700ML URINE OUTPUT AT THIS TIME. URINE IS YELLOW AND CLEAR. CONTACT PRECAUTIONS MAINTAINED.
[2018-02-16] MEDS: PIPER/TAZO 3.375GM/D5W PREMIX 50 ML IV SCH ×3 (04:31→21:04)
[2018-02-16] MEDS: MIDODRINE 5 MG TAB PO SCH ×3 (04:50→21:04)
--- NOTE | 2018-02-16 04:51 | NUR ---
HOOVER CARE, CLEAN GOWN, AND FRESH LINENS AND PAD PROVIDED. SACRO-COCCYX WOUND DRESSING IS CLEAN AND INTACT. PT REPOSITIONED AND PILLOW SUPPORT PROVIDED. ELEVATED HOB AND BED IN LOWEST POSITION.
[2018-02-16 05:11] LABS: BASOPHILS # (AUTO) 0.1 K/uL (0.00-0.22); BASOPHILS % (AUTO) 0.9 % (0.0-2.0); EOSINOPHILS # (AUTO) 0.1 K/uL (0-0.4); EOSINOPHILS % (AUTO) 0.9 % (0.0-4.0); HEMATOCRIT 26.4 % (36-48); HEMOGLOBIN 8.7 g/dL (12.0-16.0); LYMPHOCYTES % (AUTO) 13.9 % (20.5-51.1); MEAN CORPUSCULAR HEMOGLOBIN 27 pg (27-31); MEAN CORPUSCULAR HGB CONC 33 g/dL (33-37); MEAN CORPUSCULAR VOLUME 81.5 fL (80-94); MONOCYTES # (AUTO) 0.5 K/uL (0.8-1.0); MONOCYTES % (AUTO) 7.8 % (1.7-9.3); NEUTROPHILS # (AUTO) 5.3 K/uL (1.8-7.7); NEUTROPHILS % (AUTO) 76.5 % (42.2-75.2); PLATELET COUNT (AUTO) 233 K/uL (140-450); RED BLOOD CELL COUNT(AUTO) 3.24 MIL/uL (4.20-5.40); RED CELL DISTRIBUTION WIDTH 18.1 % (11.6-13.7); WHITE BLOOD COUNT (AUTO) 6.9 K/uL (4.8-10.8)
[2018-02-16 05:29] LABS: ANION GAP 10.3 (8-16); CARBON DIOXIDE 24.6 mmol/L (21-32); CHLORIDE 106 mmol/L (98-107); CREATININE 0.5 mg/dL (0.6-1.3); GLUCOSE 135 mg/dL (74-106); SODIUM SERUM 138 mmol/L (136-145); UREA NITROGEN, BLOOD 8 mg/dL (7-18)
[2018-02-16 05:33] LABS: PROTHROMBIN TIME 12.3 secs (10.8-13.4)
[2018-02-16 05:49] LABS: POTASSIUM 2.9 mmol/L (3.5-5.1)
[2018-02-16] MEDS: ALBUTEROL SULFATE/IPRATROPIU 3 ML SOL IH SCH ×3 (07:00→19:28)
[2018-02-16] MEDS ORDERED: KCL 20 MEQ/WATER INJ PREMIX 200 ML IV SCH (07:00)
--- NOTE | 2018-02-16 07:15 | NUR ---
RECEIVED REPORT FROM [place] BARISTA RN. PT RESTING IN BED. SR ON MONITOR. VS WNL. NO ACUTE RESPIRATORY DISTRESS NOTED. SKIN DRY AND WARM TO TOUCH. ON NC 1 LTR/MIN. LUNGS ARE CLEAR ON AUSCULTATION. PICC LINE ON [place], INTACT, GOOD BLOOD RETURNS. DOPAMINE RUNNING AT 3 MCG/KG/MIN AND D5% NS RUNNING AT 90 ML/HR. PERIPHERAL LINE NOTED ON RIGHT HAND 24G, INTACT, SALINE LOCK. MULTIPLE BRUISES ON BOTH UPPER EXTREMITIES. ABDOMEN SOFT, ROUND AND NON-TENDER. ACTIVE BOWEL SOUND. HOOVER CATH IN PLACE DRAINING CLEAR, YELLOW URINE. HEEL RAISER ON BLE. REDNESS ON MULTIPLE AREA OF BOTH FEET. EDEMA ON BOTH UPPER AND LOWER EXTREMITIES. PRESSURE ULCER ON SACRO COCCYX AREA, COVERED WITH DRESSING. DRESSING INTACT. KEPT HOB ELEVATED. BED IN LOW POSITION, LOCKED. WILL CONTINUE TO MONITOR.
--- NOTE | 2018-02-16 07:15 | NUR ---
REPORT GIVEN TO MORNING RN FOR CONTINUITY OF CARE. PT IN STABLE CONDITION AT THIS TIME.
--- NOTE | 2018-02-16 08:31 | NUR ---
RT AT BEDSIDE. PT ON BREATHING TREATMENT.
[2018-02-16] MEDS: PANTOPRAZOLE 40 MG INJ VIAL IVP SCH (08:32)
[2018-02-16] MEDS: MUPIROCIN CA NASAL 2% 1GM TUBE NS SCH (08:33)
[2018-02-16] MEDS: CHLORHEXADINE GLUC 2% CLOTH TP SCH (08:35)
--- NOTE | 2018-02-16 08:54 | NUR ---
RT MADE AWARE ABOUT SPUTUM RECOLLECTION FOR CULTURE.
--- NOTE | 2018-02-16 09:12 | NUR ---
MORNING CARE PROVIDED. KEPT PT CLEAN AND DRY IN COMFORTABLE POSITION.
--- NOTE | 2018-02-16 09:14 | NUR ---
[employer] Note: Per charge nurse Brittney, spoke with patient's son regarding hospice evaluation and she stated Zhou is in agreement with [facility] evaluation. I faxed inquiry to [facility], phone number , supportive employment case manager Keturah zuleta.
--- NOTE | 2018-02-16 10:07 | NUR ---
PAGED AND RECEIVED CALL FROM DR. MANN.UPDATED PT CONDITION. WILL FOLLOW UP ON ORDER.
[2018-02-16] MEDS ORDERED: TPN PER PHARMACY MC PRN (10:10)
--- NOTE | 2018-02-16 10:25 | NUR ---
SATURATION DROPPED DOWN TO 77%. REPOSITIONING AND SUCTIONING DONE. CALLED RT.
[2018-02-16] MEDS: DEXT 5% /NACL 0.9% 1,000 ML IV SCH ×2 (10:28→19:24)
--- NOTE | 2018-02-16 10:28 | NUR ---
RT AT BEDSIDE, EVALUATING PT.
--- NOTE | 2018-02-16 10:30 | NUR ---
SPO2 97% BP 103/47. NO ACUTE RESPIRATORY DISTRESS DISTRESS NOTED. WILL CONTINUE TO MONITOR.
[2018-02-16] MEDS ORDERED: KCL 20 MEQ/WATER INJ PREMIX 100 ML IV SCH (11:00)
--- NOTE | 2018-02-16 11:43 | NUR ---
CALLED LAB FOR BLOOD DRAW FOR MAGNESIUM AND PHOSPHORUS TEST.
[2018-02-16 12:21] LABS: MAGNESIUM 1.5 mg/dL (1.8-2.4); PHOSPHORUS 1.8 mg/dL (2.5-4.9)
[2018-02-16] MEDS ORDERED: DEXT 5% /NACL 0.9% 1,000 ML IV SCH (12:25)
--- NOTE | 2018-02-16 12:41 | NUR ---
MIDODRINE NOT ADMINISTERED. PT IS NOT ABLE TO SWALLOW. DR. MANN MADE AWARE.
[2018-02-16] MEDS ORDERED: MAG SULF 2000 MG/WATER PREMIX 100 ML IV ONE (12:45)
[2018-02-16] MEDS ORDERED: KCL 20 MEQ/WATER INJ PREMIX 200 ML IV ONE ×2 (12:45→17:45)
[2018-02-16] MEDS ORDERED: POTASSIUM PHOSPHATE 15 MM in NACL 0.9% 250 ML IV ONE (12:45)
--- NOTE | 2018-02-16 12:51 | NUR ---
CALLED LAB FOR VANCO TROUGH DRAW.
--- NOTE | 2018-02-16 12:59 | NUR ---
RESTING COMFORTABLY. NO SOB NOTED. VS WNL. ON CONTINUOUS MONITORING.
--- NOTE | 2018-02-16 13:24 | NUR ---
MAXIMO TROUGH TAKEN BY LAB.
--- NOTE | 2018-02-16 13:56 | NUR ---
DR. BOWERS MADE AWARE ABOUT BP 95/34, HR 97. PT ON CONTINUOUS MONITORING.
--- NOTE | 2018-02-16 14:19 | NUR ---
FAXED CONCURRENT REVIEW TO [facility] [phone] PHONE SAGAR [phone] SPOKE WITH SAGAR THIS AM AND INFORMED HER THAT ATTENDING HAS BEEN CHANGED TO DR. LOPEZ. ALSO INFORMED HER OF HOSPICE EVAL AND THAT PATIENT WILL START ON TPN.
[2018-02-16] MEDS: MAGNESIUM SULFATE 1GM in DEXTROSE 5% 100 ML PREMIX IV SCH ×2 (14:25→14:33)
--- NOTE | 2018-02-16 14:28 | NUR ---
Loss Mitigation Specialist Note: I called and spoke with Mansoor from [facility] , I requested for him to provide me with an update on status of referral. He stated he will have Shira Millan from [facility] will call me back and provide me with an update. I received a call from Shira Millan from [facility] , she stated she spoke with patient's son Zhou and she will be meeting with him tomorrow, I informed charge nurse Brittney of this.
[2018-02-16] MEDS: VANCOMYCIN 750 MG in DEXTROSE 5% 250 ML IV SCH (14:45)
[2018-02-16] MEDS: THERAHONEY GEL 42.5 GM TP SCH (15:30)
--- NOTE | 2018-02-16 16:18 | NUR ---
02/16/18 RD FOLLOW UP COMPLETED PLEASE REFER TO NUTRITION PROGRESS NOTE UNDER CARE ACTIVITY FOR ESTIMATED NUTRITIONAL NEEDS. 1. RECOMMEND TPN RATE PER PHARMACIST/MD RECOMMENDATIONS; MONITOR FOR REFEEDING SYNDROME 2. FOLLOW-UP TO REASSESS TPN AND ADJUST RATE/COMPOSITION NEEDED 3. RECOMMEND MVI AND 1000-2000MG VITAMIN C 4. RD TO FOLLOW-UP 2-3 DAYS, HIGH RISK CHRISTINA YE, RD
--- NOTE | 2018-02-16 16:40 | NUR ---
NG TUBE INSERTION DONE. POSITIVE PLACEMENT. PT TOLERATING WELL. WAITING FOR X-RAY RESULT.
--- NOTE | 2018-02-16 17:18 | NUR ---
MAGNESIUM SULFATE 2 BAGS ADMINISTERED. DOSE NOT MISSED.
--- NOTE | 2018-02-16 17:36 | NUR ---
SACROCOCCYX WOUND CULTURE SHOWS: PSEUDOMONAS AERUGINOSA, RARE STAPH AUREUS. DR. RICHTER MADE AWARE.
--- NOTE | 2018-02-16 17:43 | NUR ---
DR. MANN MADE AWARE ABOUT POTASSIUM 3.4 AND NG-TUBE PLACEMENT. ORDERED TO D/C TPN AND START NG-TUBE FEEDING. WILL FOLLOW UP ON ORDER.
--- NOTE | 2018-02-16 17:59 | NUR ---
DAUGHTER AT BEDSIDE.
[2018-02-16] MEDS: ALBUMIN HUMAN 25% 100 ML IV SCH (18:18)
--- NOTE | 2018-02-16 19:30 | NUR ---
RECEIVED REPORT FROM ALF ENCINAS, PT IS LETHARGIC,OPEN EYES TO VOICES,WITHDRAW WITH PAIN,NON VERBAL. CONT ON O2 VIA N/C AT 2LPM TOLERATED WELL, NO S/S OF RESP DISTRESS,NO SOB. BILATERAL LUNGS SOUND DIMINISHED.SR TO MONITOR. NO S/S OF PAIN ,NO FACIAL GRIMMICING NOTED. HOB UP 30-45 DEGREES.PICC LINE TO RIGHT UPPER ARM DOUBLE LUMENS. IV D5 IN NS AT 90 CC/HR,CONT ON KCL 40 LATISHA X1 ON GOING,CONT ON IV ABTS ZOSYN AND VANCOMYCIN ORDER.PT CONTINUE ON DOPAMIN DRIPS.B/P AT THIS TIME 102/51. NGT TO LEFT NARES. PLACEMENT CONFIRM BY AUSCULTATIONS. FEEDING JEVITY 1.2 AT 50 CC/HR AND H20 AT 200 CC Q 6 HRS TOLERATING WELL. ABD SOFT NON DISTENDED. POSITIVE BOWEL SOUNDS TO ALL QUADRANTS.CONTRACTURE TO UPPER EXTREMITY,GENERALIZED EDEMA PITTING+1.PRESSURE INJURY TO SACRAL, DRESSING IN PLACE. F/C IN P[LACE WITH YELLOW CLEAR COLOR. CONTINUE ON CONTACT ISOLATION PRECAUTION FOR MRSA NARES AND URINE.SKIN WARM TO TOUCH. KEPT CLEAN AND DRY. CALL LIGHT IN REACH.
--- NOTE | 2018-02-16 19:37 | NUR ---
IVF BAG NOT CHANGED,STILL RUNNING ORDER, ABOUT 700 CC IN THE BAG
--- NOTE | 2018-02-16 19:37 | NUR ---
REPORT GIVEN TO TEST PULLER RN FOR CONTINUITY OF CARE. PT ON STABLE CONDITION.
[2018-02-16] MEDS ORDERED: AMINO ACIDS IV SCH ×4 (20:00)
[2018-02-16] MEDS ORDERED: DEXTROSE IV SCH ×4 (20:00)
[2018-02-16] MEDS ORDERED: MULTIVITAMIN IV SCH ×4 (20:00)
[2018-02-16] MEDS ORDERED: [UNRECOGNIZED DRUG - OTHER] IV SCH ×4 (20:00)
--- NOTE | 2018-02-16 20:10 | NUR ---
DEZ DAUGHTER COME TO SEE PT AND UPDATE PT CONDITION
[2018-02-16] MEDS: DOPamine 400 MG/D5W PREMIX 250 ML IV SCH (21:09)
--- NOTE | 2018-02-16 21:20 | NUR ---
NIGHT MEDS GIVEN TOLERATING WELL
--- NOTE | 2018-02-16 22:00 | NUR ---
RANDOM BLOOD SUGAR CHECK DONE BS IS 123,NO INSULIN NEEDED.SKIN WARM TO TOUCH.
--- NOTE | 2018-02-16 22:32 | NUR ---
DECREASE THE DOPAMINE TO 10.98 MCG/KG/MIN=20.6 ML/HR. CONT TO MONITOR CLOSELY
--- NOTE | 2018-02-16 22:59 | NUR ---
REPORT GIVEN TO KATI ENCINAS PM SHIFT TO CONTINUE THE CARE.PT IS AWAKE. DAUGHTER AT BED SIDE.
--- NOTE | 2018-02-16 23:00 | NUR ---
RECEIVED REPORT FROM GLENN ENCINAS, PT IS LETHARGIC, OPEN EYES TO LIGHT PAIN, NON VERBAL, UNABLE TO MAKE NEEDS KNOWN. PATIENT ON 2L/M OXYGEN VIA N/C, 99% O2 SAT. BILATERAL LUNGS SOUND DIMINISHED. SR TO MONITOR. FLACC 0 NOTED. NO ACUTE DISTRESS NOTED. PICC LINE TO RIGHT UPPER ARM DOUBLE LUMENS RUNNING D5NS AT 90ML/HR AND DOPAMIN DRIPS 11MCG/KG/MIN. NGT TO LEFT NARES TO FEEDING, PLACEMENT CHECKED, RESIDUAL 20CC NOTED. FEEDING JEVITY 1.2 AT 50 CC/HR AND H20 FLUSH 200ML Q6H, TOLERATING WELL. POSITIVE BOWEL SOUNDS FROM ALL QUADS. CONTRACTURE TO BILATERAL UPPER EX'S AND GENERALIZED PITTING+1 EDEMA NOTED. PRESSURE INJURY TO SACRAL, OPTIFORM DRESSING IN PLACE. F/C IN PLACE WITH DRAINING YELLOW CLEAR COLOR URINE. ON CONTACT ISOLATION PRECAUTION FOR MRSA NARES AND URINE. SKIN WARM TO TOUCH. KEPT CLEAN AND DRY. HOB ELEVATED 30 DEGREE, BED IN LOW POSITION, CALL LIGHT WITHIN REACH. WILL CONTINUE TO MONITOR.
[2018-02-17] VITALS (95 sets, daily range): BP systolic 85–133; BP diastolic 35–84
[2018-02-17] MEDS: ALBUMIN HUMAN 25% 100 ML IV SCH ×5 (00:14→23:30)
[2018-02-17] MEDS: BLOOD GLUCOSE MONITORING 1 DEV DEV MC SCH ×5 (00:14→23:31)
[2018-02-17] MEDS: HYDRAGUARD CREAM TP SCH ×2 (00:16→13:00)
--- NOTE | 2018-02-17 00:20 | NUR ---
BS CHECKED 137 NOTED. ADMINISTERED IV ALBUMIN ORDERED, TOLERATED WELL. NO ACUTE DISTRESS NOTED. FLACC 0. WILL CONTINUE TO MONITOR.
[2018-02-17] MEDS: VANCOMYCIN 750 MG in DEXTROSE 5% 250 ML IV SCH ×2 (02:33→13:52)
[2018-02-17] MEDS: DEXT 5% /NACL 0.9% 1,000 ML IV SCH ×2 (02:34→17:17)
--- NOTE | 2018-02-17 02:40 | NUR ---
ADMINISTERED IV ABX ORDERED, TOLERATED WELL. NO ACUTE DISTRESS NOTED. FLACC 0. VSS. WILL CONTINUE TO MONITOR.
--- NOTE | 2018-02-17 04:30 | NUR ---
PATIENT OPENS HER EYES TO PAIN, NO TRACK. NO ACUTE DISTRESS NOTED. VSS WITH DOPAMINE DRIP. WILL CONTINUE TO MONITOR.
[2018-02-17] MEDS: PIPER/TAZO 3.375GM/D5W PREMIX 50 ML IV SCH ×3 (04:40→21:17)
[2018-02-17] MEDS: MIDODRINE 5 MG TAB PO SCH ×3 (04:40→21:17)
--- NOTE | 2018-02-17 04:45 | NUR ---
ADMINISTERED SCHEDULED IV ABX AND MIDODRINE ORDERED, TOLERATED WELL. NO ACUTE DISTRESS NOTED. FLACC 0. WILL CONTINUE TO MONITOR.
--- NOTE | 2018-02-17 06:00 | NUR ---
BS CHECKED 109 NOTED. ADMINISTERED SCHEDULED IV ALBUMIN, TOLERATED WELL. NO ACUTE DISTRESS NOTED. FLACC 0. WILL CONTINUE TO MONITOR.
[2018-02-17 06:24] LABS: HEMATOCRIT 25.7 % (36-48); HEMOGLOBIN 8.1 g/dL (12.0-16.0); MEAN CORPUSCULAR HEMOGLOBIN 26 pg (27-31); MEAN CORPUSCULAR HGB CONC 32 g/dL (33-37); MEAN CORPUSCULAR VOLUME 82.8 fL (80-94); PLATELET COUNT (AUTO) 255 K/uL (140-450); RED BLOOD CELL COUNT(AUTO) 3.11 MIL/uL (4.20-5.40); RED CELL DISTRIBUTION WIDTH 17.7 % (11.6-13.7); WHITE BLOOD COUNT (AUTO) 18.5 K/uL (4.8-10.8)
[2018-02-17 06:36] LABS: ANION GAP 12.7 (8-16); CARBON DIOXIDE 23.9 mmol/L (21-32); CHLORIDE 106 mmol/L (98-107); CREATININE 0.6 mg/dL (0.6-1.3); GLUCOSE 148 mg/dL (74-106); POTASSIUM 3.6 mmol/L (3.5-5.1); SODIUM SERUM 139 mmol/L (136-145); UREA NITROGEN, BLOOD 5 mg/dL (7-18)
[2018-02-17 06:51] LABS: PHOSPHORUS 2.6 mg/dL (2.5-4.9)
[2018-02-17] MEDS: ALBUTEROL SULFATE/IPRATROPIU 3 ML SOL IH SCH ×3 (06:51→20:25)
[2018-02-17 07:07] LABS: LYMPHOCYTES % (MANUAL) 4 % (20-46); MONOCYTES % (MANUAL) 2 % (5-12)
--- NOTE | 2018-02-17 07:10 | NUR ---
REPORT GIVEN TO MORNING NURSE TO CONTINUITY OF CARE.
--- NOTE | 2018-02-17 07:26 | NUR ---
REPORT RECEIVED FROM URSZULA BRANCH. PT AFEBRILE. DOES NOT RESPOND TO VERBAL STIMULI. UNABLE TO FOLLOW COMMANDS. NO SIGNS OF ACUTE DISTRESS ON 2LPM VIA NC. LUNG SOUNDS DIMINISHED. S1 + S2 PRESENT. COLUMBA PICC LINE PATENT. NGT TO LEFT NARES. NO RESIDUAL NOTED. FC PATENT. URINE CLEAR, YELLOW. BUE STIFFNESS NOTED. LOWER THORACIC DRESSING INTACT. BED IN LOWEST POSITION. CALL LIGHT WITHIN REACH. SIDE RAILS UP X4. WILL CONTINUE TO MONITOR.
[2018-02-17] MEDS: CHLORHEXADINE GLUC 2% CLOTH TP SCH (08:40)
[2018-02-17] MEDS: MUPIROCIN CA NASAL 2% 1GM TUBE NS SCH (08:40)
[2018-02-17] MEDS: PANTOPRAZOLE 40 MG INJ VIAL IVP SCH (08:40)
--- NOTE | 2018-02-17 08:46 | NUR ---
PROVIDED ORAL CARE AND TURNED PATIENT, POSITIONED FOR COMFORT. CALL LIGHT WITHIN REACH, BED LOCKED, ALARM ON AND BED IN LOWEST POSITION.
--- NOTE | 2018-02-17 09:12 | NUR ---
DOPAMINE DRIP TITRATED DOWN FROM 10MCG/KG/MIN TO 8MCG/KG/MIN. NO SIGNS OF DISTRESS NOTED AT THIS TIME.
--- NOTE | 2018-02-17 09:41 | NUR ---
SPOKE WITH DR. KELLEY ABOUT PT'S CA LEVEL OF 7.7; HE CALCULATED THE CA LEVEL TAKING INTO ACCOUNT A LOW ALBUMIN AND THE CA LEVEL CAME OUT TO 9.4.
--- NOTE | 2018-02-17 10:33 | NUR ---
SPOKE WITH DR. AGUILLON ABOUT PEG PLACEMENT CLEARANCE FROM DR. MANN. WILL SPEAK WITH DR. MANN AND LET PAL KNOW.
--- NOTE | 2018-02-17 11:09 | NUR ---
SPOKE WITH SAGAR FROM . AND GAVE AN UPDATE ON PATIENT STATUS. SHE IS WORKING ON THE CASE TO TRANSPORT PT TO [facility].
--- NOTE | 2018-02-17 11:20 | NUR ---
FNS CONSULT AT BEDSIDE. WILL INCREASE RATE OF JEVITY 1.2 FEEDING FROM 50ML/HR TO 55ML/HR TO REACH GOAL OF 60ML/HR. WILL MONITOR PATIENT RESIDUALS.
[2018-02-17] MEDS: DOPamine 400 MG/D5W PREMIX 250 ML IV SCH (11:23)
--- NOTE | 2018-02-17 12:39 | NUR ---
TITRATED DOPAMINE 8MCG/KG/MIN TO 6 MCG/KG/MIN = 11.25 ML/HR. WILL CONTINUE TO MONITOR BP.
[2018-02-17] MEDS: THERAHONEY GEL 42.5 GM TP SCH (13:00)
--- NOTE | 2018-02-17 13:01 | NUR ---
FAXED CONCURRENT REVIEW TO [facility] [phone] PHONE SAAGR [phone]
--- NOTE | 2018-02-17 13:03 | NUR ---
SPOKE WITH MYRA PT'S SON. HE IS VERY WORRIED ABOUT WHAT TO DO WITH HIS MOTHER. 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 HE SPOKE WITH [place] YESTERDAY FROM AND DOES NOT WANT TO FOLLOW THROUGH WITH ANY SORT OF SERVICES THAT DEPRIVE FEEDING.
--- NOTE | 2018-02-17 13:25 | NUR ---
INCREASED FEEDING, TO 60ML/HR
--- NOTE | 2018-02-17 13:31 | NUR ---
DOPAMINE PARAMETERS CLARIFIED WITH DR. LOPEZ. OK TO MAINTAIN SBP ABOVE 90 MMHG.
--- NOTE | 2018-02-17 13:33 | NUR ---
Dr. Torres here to see the patient, provided update. new orders received, will follow up. Requesting for a blood transfusion to keep the HGB above 9. Will call the son for blood transfusion consent.
--- NOTE | 2018-02-17 13:35 | NUR ---
called Zhou, pt's son, to speak with him about blood transfusion. Left a voicemail. Will call back
--- NOTE | 2018-02-17 13:36 | NUR ---
RECOMMENDED INCREASING TUBE FEEDING RATE TO 60 ML/HR OF JEVITY 1.2. INCREASE 5ML/HR Q1H -THIS WILL PROVIDE 1440 ML, 1728 KCAL, AND 80 GM OF PROTEIN WHICH MEETS 100% OF ESTIMATED KCAL NEEDS AND 96% OF ESTIMATED PROTEIN NEEDS. CHRISTINA YE, RD
[2018-02-17] MEDS ORDERED: VANCOMYCIN PER PHARMACY MC PRN (13:40)
--- NOTE | 2018-02-17 13:40 | NUR ---
DR. LIVINGSTON CAME TO SEE PT, STATUS UPDATED AND RECEIVED ORDERS TO RENEW VANCOMYCIN ORDER TO CONTINUE WITH THE DOSE AND TX OF PHARMACY TO DOSE
--- NOTE | 2018-02-17 14:07 | NUR ---
PAGED DR. AGUILLON ABOUT PEG TUBE CLEARANCE FROM DR. MANN.
--- NOTE | 2018-02-17 14:10 | NUR ---
DAUGHTER AT BEDSIDE.
--- NOTE | 2018-02-17 14:15 | NUR ---
spoke with Keturah from case management about the family's request that hospice not be an option at the moment. Per the son's request, Allison will call him to help find solutions for his mother.
[2018-02-17 14:20] LABS: BASOPHILS % (AUTO) 0.1 % (0.0-2.0); EOSINOPHILS # (AUTO) 0.2 K/uL (0-0.4); HEMATOCRIT 23.8 % (36-48); HEMOGLOBIN 7.6 g/dL (12.0-16.0); LYMPHOCYTES # (AUTO) 0.9 K/uL (2.5-16.5); LYMPHOCYTES % (AUTO) 5.4 % (20.5-51.1); MEAN CORPUSCULAR HEMOGLOBIN 27 pg (27-31); MEAN CORPUSCULAR HGB CONC 32 g/dL (33-37); MONOCYTES # (AUTO) 0.8 K/uL (0.8-1.0); MONOCYTES % (AUTO) 4.8 % (1.7-9.3); NEUTROPHILS # (AUTO) 14.7 K/uL (1.8-7.7); NEUTROPHILS % (AUTO) 88.7 % (42.2-75.2); PLATELET COUNT (AUTO) 241 K/uL (140-450); RED BLOOD CELL COUNT(AUTO) 2.87 MIL/uL (4.20-5.40); RED CELL DISTRIBUTION WIDTH 18.3 % (11.6-13.7); WHITE BLOOD COUNT (AUTO) 16.6 K/uL (4.8-10.8)
--- NOTE | 2018-02-17 14:20 | NUR ---
Provided patient education on PED tube placement, procedure and after care as well as on the bacteria found in sacral wound;(Pseudomonas)
--- NOTE | 2018-02-17 14:35 | NUR ---
Spoke with Shira Millan from [facility] about pt's family not being interested or wanting a hospice route. At this point Shira is going to refer the family to a center who is able to provide the needs the family is looking for their mother to have.
--- NOTE | 2018-02-17 15:03 | NUR ---
DR. AGUILLON AT BEDSIDE. SEEN AND EXAMINED PATIENT. MADE AWARE OF DR. LOPEZ'S RECOMMENDATION FOR TUBE PLACEMENT SCHEDULED FOR TOMORROW 02/18/18. NO EXACT TIME GIVEN. WITH ORDER NPO POST MIDNIGHT EXCEPT MEDS. ORDERS TRANSCRIBED AND CARRIED OUT.
--- NOTE | 2018-02-17 15:37 | NUR ---
WOUND CARE PROVIDED. THERAHONEY APPLIED TO SACRAL COCCYX AREA AND NEW DRESSING APPLIED. NEW DRESSING APPLIED TO BACK OF CERVICAL AREA. SOME EDEMA +1 NOTED TO UPPER THIGHS.
--- NOTE | 2018-02-17 16:21 | NUR ---
SPOKE TO MYRA WEBBER (SON) ON PHONE FOR TELEPHONE CONSENT REGUARDING BLOOD TRANSFUSION. VERIFIED BY ABAD SHAFFER RN AND ARABELLA CAMACHO RN.
--- NOTE | 2018-02-17 18:25 | NUR ---
STARTED BLOOD TRANSFUSION 1 UNIT PRBCS. PT IN STABLE CONDITION. NO HEMOLYTIC REACTION NOTED IN THE FIRST 15 MIN.
--- NOTE | 2018-02-17 19:28 | NUR ---
GAVE REPORT TO MARCIN RNNATALEE, FOR CONTINUATION OF CARE.
--- NOTE | 2018-02-17 19:30 | NUR ---
RECEIVED PT FROM DAY NURSE. NO ACUTE DISTRESS NOTED. WILL CONTINUE TO OBSERVE.
--- NOTE | 2018-02-17 19:47 | NUR ---
DAUGHTERDEZ @ BEDSIDE. PT APPEARS ASLEEP; DOES NOT RESPOND/FOLLOW COMMANDS @ THIS TIME. BUE STIFF WITH HANDS CLENCHED. BLE APPEARS RELAXED. +3 PERRL, KYPHOSIS NOTED. LUNGS DIMINISHED, SHALLOW EVEN AND UNLABORED. S1 S2 NOTED, +1 TRACE EDEMA. NSR 70-80S. ABD SOFT NON DISTENDED, NGT TO L NARES IN PLACE PATENT, AUSCULTATED; POSITIVE PLACEMENT. HOOVER CATH IN PLACE, CLEAR YELLOW URINE NOTED. PICC LINE TO R ARM NOTED. BLOOD TRANSFUSION INFUSING @ THIS TIME, NO REACTION NOTED. DOPAMINE DRIP @ 4 MCG/KG/MIN. SACRAL/COCCYX WOUND IN PLACE, DRESSING CDI, BILATERAL HEELS NON BLANCHABLE REDNESS NOTED, ELEVATED WITH PILLOWS. CALL LIGHT WITHIN REACH, BED LOCKED AND IN LOWEST POSITION. NO ACUTE S/S OF DISTRESS NOTED. FLACC 0. WILL CONTINUE TO OBSERVE.
--- NOTE | 2018-02-17 20:15 | NUR ---
PT TURNED AND REPOSITIONED FOR COMFORT, NO S/S OF ACUTE DISTRESS NOTED. WILL CONTINUE TO OBSERVE.
[2018-02-17] MEDS ORDERED: PIPER/TAZO 3.375GM/D5W PREMIX 50 ML IV SCH (21:00)
--- NOTE | 2018-02-17 21:15 | NUR ---
PROVIDED DAUGHTER, DEZ EDUCATION ABOUT ISOLATION PRECAUTIONS. MEDICATED PT WITH PRN TYLENOL. WILL CONTINUE TO OBSERVE.
--- NOTE | 2018-02-17 22:20 | NUR ---
PT APPEARS UNCOMFORTABLE; FLACC 5. WILL GIVE PRN PAIN MED. PT TURNED/ REPOSITIONED. TEN CARE PROVIDED. X2 LOOSE STOOLS, STOOL SAMPLE TAKEN SENT TO LAB. WILL CONTINUE TO OBSERVE.
[2018-02-17] MEDS: HYDROcodone/APAP 5/325 MG 1 TAB TAB PO PRN (22:27)
[2018-02-18] VITALS (41 sets, daily range): BP systolic 10–130; BP diastolic 41–80
--- NOTE | 2018-02-18 00:20 | NUR ---
PT TURNED AND REPOSITIONED; DAUGHTER @ BEDSIDE. NO S/S OF ACUTE DISTRESS NOTED. WILL CONTINUE TO OBSERVE.
[2018-02-18] MEDS: HYDRAGUARD CREAM TP SCH ×2 (01:18→12:12)
[2018-02-18] MEDS: VANCOMYCIN 750 MG in DEXTROSE 5% 250 ML IV SCH ×2 (02:55→14:00)
[2018-02-18] MEDS: DEXT 5% /NACL 0.9% 1,000 ML IV SCH ×2 (02:56→15:54)
--- NOTE | 2018-02-18 04:00 | NUR ---
AM CARE DONE, LINEN CHANGED. PT TURNED AND REPOSITIONED, NO OTHER S/S OF ACUTE DISTRESS NOTED. WILL CONTINUE TO OBSERVE.
[2018-02-18] MEDS: PIPER/TAZO 3.375GM/D5W PREMIX 50 ML IV SCH ×3 (04:46→20:16)
[2018-02-18] MEDS: HYDROcodone/APAP 5/325 MG 1 TAB TAB PO PRN ×2 (05:20→21:49)
[2018-02-18] MEDS: MIDODRINE 5 MG TAB PO SCH ×3 (05:20→20:14)
[2018-02-18] MEDS: BLOOD GLUCOSE MONITORING 1 DEV DEV MC SCH ×4 (05:20→23:08)
--- NOTE | 2018-02-18 06:00 | NUR ---
HOOVER CARE, DONE. PT TURNED AND REPOSITIONED . NO S/S OF ACUTE DISTRESS WILL CONTINUE TO OBSERVE.
[2018-02-18] MEDS ORDERED: ALBUMIN HUMAN 25% 0 ML IV ONE (06:18)
[2018-02-18] MEDS: ALBUMIN HUMAN 25% 100 ML IV SCH ×3 (06:41→17:18)
[2018-02-18 06:43] LABS: BASOPHILS % (AUTO) 0.3 % (0.0-2.0); EOSINOPHILS # (AUTO) 0.2 K/uL (0-0.4); EOSINOPHILS % (AUTO) 1.6 % (0.0-4.0); HEMATOCRIT 24.9 % (36-48); LYMPHOCYTES # (AUTO) 0.7 K/uL (2.5-16.5); LYMPHOCYTES % (AUTO) 5.2 % (20.5-51.1); MEAN CORPUSCULAR HEMOGLOBIN 27 pg (27-31); MEAN CORPUSCULAR HGB CONC 32 g/dL (33-37); MEAN CORPUSCULAR VOLUME 82.8 fL (80-94); MONOCYTES # (AUTO) 0.9 K/uL (0.8-1.0); MONOCYTES % (AUTO) 6.2 % (1.7-9.3); NEUTROPHILS # (AUTO) 12.3 K/uL (1.8-7.7); NEUTROPHILS % (AUTO) 86.7 % (42.2-75.2); PLATELET COUNT (AUTO) 194 K/uL (140-450); RED CELL DISTRIBUTION WIDTH 17.7 % (11.6-13.7); WHITE BLOOD COUNT (AUTO) 14.2 K/uL (4.8-10.8)
[2018-02-18 06:48] LABS: ANION GAP 12.9 (8-16); CARBON DIOXIDE 23.2 mmol/L (21-32); CHLORIDE 106 mmol/L (98-107); CREATININE 0.6 mg/dL (0.6-1.3); GLUCOSE 160 mg/dL (74-106); POTASSIUM 3.1 mmol/L (3.5-5.1); SODIUM SERUM 139 mmol/L (136-145); UREA NITROGEN, BLOOD 5 mg/dL (7-18)
[2018-02-18 06:54] LABS: MAGNESIUM 1.6 mg/dL (1.8-2.4); PHOSPHORUS 2.2 mg/dL (2.5-4.9)
--- NOTE | 2018-02-18 07:17 | NUR ---
REPORT GIVEN TO DAY SHIFT FOR CONTINUITY OF CARE.
--- NOTE | 2018-02-18 07:39 | NUR ---
REPORT RECIEVED FROM NOC JOSE CARLOS ALBRIGHT. PT DOES NOT RESPOND TO VERBAL STIMULI. SPONTANEOUS EYE OPENING. SKIN DRY. BUE STIFF. NORMAL SINUS ON MONITOR. S1S2 PRESENT. NO ACUTE RESP DISTRESS NOTED. BREATH SOUNDS DIMINISHED. COLUMBA PICC LINE. NGT LEFT NARE. HOOVER CATH IN PLACE. LOWER THORACIS DRESSING INTACT. BED IN LOW LOCK POSITION WITH CALL LIGHT IN REACH. SIDE RAILS UP X4. BLOOD URINE AND STOOL CULTURES PENDING. PEG TUBE PLACEMENT SCHEDULED FOR TODAY. CONSENTS SIGNED. WILL CONTINUE TO MONITOR.
[2018-02-18] MEDS: ALBUTEROL SULFATE/IPRATROPIU 3 ML SOL IH SCH ×3 (08:07→21:08)
--- NOTE | 2018-02-18 08:17 | NUR ---
RT AT BEDSIDE FOR BREATHING TREATMENT, NO SIGNS OF DISTRESS NOTED. WILL CONTINUE TO MONITOR
[2018-02-18] MEDS ORDERED: MAG SULF 2000 MG/WATER PREMIX 50 ML IV ONE (08:35)
[2018-02-18] MEDS: PANTOPRAZOLE 40 MG INJ VIAL IVP SCH (08:36)
[2018-02-18] MEDS: CHLORHEXADINE GLUC 2% CLOTH TP SCH (08:41)
[2018-02-18] MEDS: MUPIROCIN CA NASAL 2% 1GM TUBE NS SCH (08:42)
[2018-02-18] MEDS ORDERED: SODIUM PHOS / POTASSIUM PHOS 1 PKT PDR NG SCH (09:00)
[2018-02-18] MEDS ORDERED: KCL 20 MEQ/WATER INJ PREMIX 200 ML IV SCH (09:00)
[2018-02-18] MEDS ORDERED: fentaNYL 0.05 MG/ML VIAL ONE (11:09)
[2018-02-18] MEDS ORDERED: MIDAZOLAM 2 MG/2 ML VIAL ONE (11:09)
[2018-02-18] MEDS ORDERED: diphenhydrAMINE 50 MG/ML VIAL ONE (11:10)
--- NOTE | 2018-02-18 11:17 | NUR ---
Clinical review faxed to [facility] at [phone]
--- NOTE | 2018-02-18 11:20 | NUR ---
SURGICAL TEAM AT BED SIDE FOR PEG INSERTION
--- NOTE | 2018-02-18 11:22 | NUR ---
DR. AGUILLON IN TO DO PEG INSERTION, NO SIGNS OF DISTRESS NOTED. WILL CONTINUE TO MONITOR.
[2018-02-18] MEDS ORDERED: fentaNYL 0.025 MG/HR PATCH TD SCH (11:25)
--- NOTE | 2018-02-18 11:53 | NUR ---
PEG INSERTION COMPLETE, SAYS OKAY TO START FEEDING
[2018-02-18] MEDS: THERAHONEY GEL 42.5 GM TP SCH (12:11)
[2018-02-18] MEDS: MAGNESIUM SULFATE 1GM in DEXTROSE 5% 100 ML PREMIX IV SCH ×2 (12:12→13:00)
--- NOTE | 2018-02-18 12:53 | NUR ---
DR. LOPEZ IN TO SEE AND EXAMINE PATIENT. UPDATED ON PATIENT'S CONDITION. WILL FOLLOW UP ON ANY ORDERS.
[2018-02-18] MEDS ORDERED: MIDAZOLAM 2 MG/2 ML VIAL IV SCH (13:42)
[2018-02-18] MEDS ORDERED: fentaNYL 0.05 MG/ML VIAL IVP ONE (14:35)
--- NOTE | 2018-02-18 15:12 | NUR ---
DR. LIVINGSTON IN TO SEE AND EXAMINE PATIENT, UPDATED ON PATIENT'S CONDITION. WILL FOLLOW UP WITH ANY ORDERS
--- NOTE | 2018-02-18 15:57 | NUR ---
KIKO CATH INSERT AT 1555 Addendum: 02/18/18 at 1557 by Ellen Trujillo RN PT TOLERATED WELL Addendum: 02/18/18 at 1659 by Ellen Trujillo RN WRONG PATIENT
--- NOTE | 2018-02-18 16:02 | NUR ---
02/18/18 RD FOLLOW UP COMPLETED PLEASE REFER TO NUTRITION PROGRESS NOTE UNDER CARE ACTIVITY FOR ESTIMATED NUTRITIONAL NEEDS. 1. IF/WHEN MEDICALLY STABLE TO BEING TF, CONSIDER JEVITY 1.2 @60 ML/HR WITH FREE WATER FLUSH 100 ML Q4H 2. FOLLOW-UP TO MONITOR TF TOLERANCE 3. RD TO FOLLOW-UP 2-3 DAYS, HIGH RISK CHRISTINA YE, RD
[2018-02-18] MEDS: INSULIN LISPRO SLIDING SCALE 100 UNITS/ML VIAL SUBQ PRN ×2 (17:17→23:29)
[2018-02-18] MEDS: VANCOMYCIN 500 MG VIAL PO SCH ×2 (17:38→23:08)
[2018-02-18] MEDS: PHARMACY COMMENTS MC SCH (17:40)
--- NOTE | 2018-02-18 17:45 | NUR ---
Sole Leveler Note: Late entry for 02/17/18: I called and spoke with patient's son Zhou Herzog , he stated he did not agree to meet with any of [facility] representatives. He reported he does not want to speak with any hospice representatives at this time. He shared that he has been receiving multiple calls from [facility] inquiring if he is in agreement with hospice and/or whether he would like patient to return to [facility] upon discharge. He stated he does not want to meet with hospice representatives at this time because patient hasn't been pronounced as brain . He requested I fax inquiries to other snfs and inquire if they can accept patient, he reported that if there aren't any snfs able to accept patient, he is in agreement with patient's transfer patient back to [facility] upon discharge, manager rn case Keturah qureshi aware. Addendum: 02/18/18 at 1802 by Allison Rivera SS Zhou stated he has already talked to and informed him he isn't interested on hospice services for patient at this time.
--- NOTE | 2018-02-18 18:02 | NUR ---
Gy[place]um Block Setter Note: I faxed inquires to the following snfs: Per Irene from [facility] , they do not have any female beds available at this time. Per Tiffani from [facility] , they do not have any [facility] beds available at this time. Per Amparo from [facility] , they can't accept patient, no terminal superintendent beds available at this time. Pending response from Donnell at [facility] Patient's son Zhou requested I fax inquiries to other snfs, he is in agreement with patient's transfer patient back to [facility] upon discharge if no snf is able to accept patient. Addendum: 02/22/18 at 1228 by Allison Rivera SS Late entry for 02/21/18: Per Donnell at [facility] , they might possibly be able to accept patient. She reported she called patient's son Zhou and left him a message.
--- NOTE | 2018-02-18 18:34 | NUR ---
SPOKE WITH MYRA REGARDING PATIENTS DISCHARGE TOMORROW TO A CAR FACILITY. HE STATED UNDERSTANDING AND EXPLAINED THAT HIM AND HIS SISTER WOULD LOOK INTO [facility]. EXPLAINED HIS MOTHERS CONDITION POST G TUBE PLACEMENT.
--- NOTE | 2018-02-18 19:30 | NUR ---
RECEIVED REPORT FROM MORNING SHIFT RN. PT IS AWAKE AND RELAXED IN BED. PERRL. AFEBRILE. HOB ELELVATED ABOVE 30 DEG. LUNG SOUND RHONCHI ON BILATERAL UPPER AN LOWER LOBES, ON N/C 1L/MIN. GTUBE IN PLACE, SET TO FEEDING 60ML/HR. BOWEL SOUND ACTIVE ON AUSCULTATION. HOOVER CATHETER IN PLACE, URINE IS YELLOW AND CLEAR. PICC LINE ON RIGHT UPPER ARM, PERIPHERAL IV ON RIGHT HAND, D5/NS INFUSING AT 90ML/HR. WOUND ON SACRUM/COCCYX COVERED WITH DRESSING IS CLEAN, DRY, AND INTACT. FOAM DRESSING COVERING PROTRUSION ON NECK. SCDS ON BOTH LEGS, PILLOW SUPPORT PROVIDED. CONTACT PRECAUTIONS MAINTAINED.
--- NOTE | 2018-02-18 21:55 | NUR ---
PT HAD LOOSE STOOL, YELLOW/BROWN IN COLOR. CLEAN PAD AND TEN CARE PROVIDED. REPOSITIONED PT FOR COMFORT. DAUGHTER AT PT BEDSIDE.
[2018-02-19] VITALS (84 sets, daily range): BP systolic 71–140; BP diastolic 28–90
[2018-02-19] MEDS: HYDRAGUARD CREAM TP SCH ×2 (01:00→12:21)
[2018-02-19] MEDS: VANCOMYCIN 750 MG in DEXTROSE 5% 250 ML IV SCH ×2 (01:46→14:21)
--- NOTE | 2018-02-19 04:40 | NUR ---
SPOKE WITH DR COSTELLO ABOUT PT CONDITION. INFORMED MD ABOUT PT LABORED BREATHING, SCATTERED CRACKLES. MD ORDERED TO D/C IVF, X1 LASIX 20 MG IVP, CXR IN AM, BIPAP. WILL CARRY OUT ORDERS. WILL CONTINUE TO MONITOR.
[2018-02-19] MEDS ORDERED: FUROSEMIDE 20 MG/2 ML VIAL IVP SCH (05:00)
[2018-02-19] MEDS: MIDODRINE 5 MG TAB PO SCH ×3 (05:13→21:16)
[2018-02-19] MEDS: PIPER/TAZO 3.375GM/D5W PREMIX 50 ML IV SCH ×3 (05:13→21:15)
[2018-02-19] MEDS: BLOOD GLUCOSE MONITORING 1 DEV DEV MC SCH ×4 (05:14→23:41)
[2018-02-19] MEDS: VANCOMYCIN 500 MG VIAL PO SCH ×4 (05:14→23:41)
--- NOTE | 2018-02-19 05:16 | NUR ---
PLACED PT ON BIPAP PER DR MEDRANO ORDER. PT HAS INCREASED LABORED BREATHING, SETTINGS ON BIPAP ARE IPAP 10 EPAP5 RR 14 FIO2 30% KEEP SATS GREATER THAN 92%. DAUGHTER AT BEDSIDE
--- NOTE | 2018-02-19 05:30 | NUR ---
EMPTIED HOOVER, 650 URINE OUTPUT, DARK [place] URINE. DAUGHTER AT BEDSIDE.
[2018-02-19 06:51] LABS: HEMATOCRIT 27.9 % (36-48); HEMOGLOBIN 8.9 g/dL (12.0-16.0); MEAN CORPUSCULAR HEMOGLOBIN 26 pg (27-31); MEAN CORPUSCULAR HGB CONC 32 g/dL (33-37); MEAN CORPUSCULAR VOLUME 82.7 fL (80-94); PLATELET COUNT (AUTO) 236 K/uL (140-450); RED BLOOD CELL COUNT(AUTO) 3.38 MIL/uL (4.20-5.40); RED CELL DISTRIBUTION WIDTH 18.2 % (11.6-13.7)
[2018-02-19 07:01] LABS: ANION GAP 12.3 (8-16); CARBON DIOXIDE 23.2 mmol/L (21-32); CHLORIDE 103 mmol/L (98-107); CREATININE 0.8 mg/dL (0.6-1.3); GLUCOSE 192 mg/dL (74-106); SODIUM SERUM 136 mmol/L (136-145); UREA NITROGEN, BLOOD 12 mg/dL (7-18)
[2018-02-19 07:03] LABS: POTASSIUM 2.5 mmol/L (3.5-5.1)
[2018-02-19 07:08] LABS: WHITE BLOOD COUNT (AUTO) 36.8 K/uL (4.8-10.8)
[2018-02-19 07:09] LABS: LYMPHOCYTES % (MANUAL) 2 % (20-46); MAGNESIUM 2.2 mg/dL (1.8-2.4); MONOCYTES % (MANUAL) 4 % (5-12); PHOSPHORUS 1.7 mg/dL (2.5-4.9)
--- NOTE | 2018-02-19 07:45 | NUR ---
RECEIVED REPORT FROM [facility] NURSE. NONVERBAL. RESPONDS TO TACTILE STIMULI. UNABLE TO FOLLOW COMMANDS. PT ON BIPAP. NO SIGNS OF ACUTE DISTRESS AT THIS TIME. IV SITE RIGHT HAND 20G PATENT. PICC LINE RIGHT FA. SITE DRY, INTACT. ON DOPAMINE 5MCG/KG/MIN. F/C PATENT. GT TO LUQ. NO RESIDUAL NOTED. BED IN LOWEST POSITION. SIDERAIL UP X 4. CALL LIGHT WITHIN REACH.
[2018-02-19] MEDS ORDERED: POTASSIUM CHLORIDE 10 MEQ TABER PO SCH (08:00)
[2018-02-19] MEDS ORDERED: KCL 20 MEQ/WATER INJ PREMIX 200 ML IV SCH (08:30)
[2018-02-19] MEDS: PANTOPRAZOLE 40 MG INJ VIAL IVP SCH (08:58)
[2018-02-19] MEDS: POTASSIUM CHLORIDE 20% 40 MEQ/15 ML UDC GT SCH ×2 (08:59→11:39)
[2018-02-19] MEDS: MUPIROCIN CA NASAL 2% 1GM TUBE NS SCH (08:59)
[2018-02-19] MEDS: CHLORHEXADINE GLUC 2% CLOTH TP SCH (09:06)
--- NOTE | 2018-02-19 09:13 | NUR ---
FEEDING HELD. RESIDUAL 180 ML NOTED.
[2018-02-19] MEDS: ALBUTEROL SULFATE/IPRATROPIU 3 ML SOL IH SCH ×3 (09:29→19:26)
[2018-02-19] MEDS: DOPamine 400 MG/D5W PREMIX 250 ML IV SCH (10:55)
--- NOTE | 2018-02-19 11:50 | NUR ---
PATIENT'S SON MYRA CALLED. UPDATED OF PATIENT'S CONDITION. ALL CONCERNS AND QUESTIONS ANSWERED.
[2018-02-19] MEDS: THERAHONEY GEL 42.5 GM TP SCH (12:21)
--- NOTE | 2018-02-19 12:55 | NUR ---
YRIS FROM [facility] CALLED. UPDATED ON PT'S CONDITION.
[2018-02-19] MEDS: metroNIDAZOLE 500 MG/NS PREMIX 100 ML IV SCH ×2 (13:16→21:15)
--- NOTE | 2018-02-19 14:19 | NUR ---
PT TAKEN OFF OF BIPAP AND PLACED ON 3L NC. PT NOT SOB AND NOT IN RESPIRATORY DISTRESS AT THIS TIME. DAUGHTER IS BEDSIDE. WILL CONTINUE TO MONITOR.
--- NOTE | 2018-02-19 16:54 | NUR ---
SPOKE WITH DR. AGUILLON. INFORMED OF RESIDUAL FROM GTUBE >180ML. MAY RESUME FEEDING AND TO START REGLAN 10MG TID. WILL CONTINUE TO FOLLOWUP ANY NEEDS.
[2018-02-19] MEDS ORDERED: POTASSIUM PHOSPHATE 15 MM in NACL 0.9% 250 ML IV ONE (18:50)
--- NOTE | 2018-02-19 19:28 | NUR ---
ENDORSED CARE TO INCOMING SHIFT. NO SIGNS OF ACUTE DISTRESS AT THIS TIME.
--- NOTE | 2018-02-19 19:30 | NUR ---
RECEIVED REPORT FROM AM SHIFT. PT IS LETHARGIC, OPEN EYES, NO S/S OF RESP DISTRESS, NO SOB. CONT ON O2 VIA N/C AT 3LPM TOLERATING WELL, BIPAP PRN ORDER.BILATERAL LUNGS SOUND RHONCHI, CONT ON BREATHING TX ORDER. SR ON MONITOR. SKIN WARM TO TOUCH. PICC LINE TO COLUMBA DOUBLE LUMENS. WITH NO S/S OF INFECTIONS.GOOD BLOOD RETURN NOTED. PERIPHERAL LINE TO RFA NO 20 GAUGE. GT TO LEFT UPPER QUADRANT. PLACEMENT CONFIRM. GT RESIDUAL ABOUT 5 CC. GT FEEDING JEVITY 1.2 AT 30 CC/HR TO REACH GOAL AT 60 CC/HR. ABD SOFT NON DISTENDED. EDEMA NOTED BUE/BLE PITTING +1.ELEVATED ALL EXTREMITIES WITH PILLOWS. TURN/REPOSITION FOR COMFORT. BUE CONTRACTURES. DISCOLORATION TO BUE.PT CONTINUE ON CONTACT ISOLATION FOR MRSA NARES, URINE MRSA AND WOUND INFECTION.SACRAL PRESSURE INJURY COVER WITH DRY CLEAN DRESSINGS. F/C INPLACE WITH YELLOW CLEAR URINE.KEPT CLEAN AND DRY.CALL LIGHT IN REACH.
--- NOTE | 2018-02-19 20:44 | NUR ---
DEZ DAUGHTER AT BED SIDE
[2018-02-19] MEDS ORDERED: METOCLOPRAMIDE 10 MG TAB PO SCH (21:00)
[2018-02-19] MEDS ORDERED: VANCOMYCIN 500 MG VIAL ONE (21:03)
[2018-02-19] MEDS ORDERED: SODIUM PHOS / POTASSIUM PHOS 1 PKT PDR ONE (21:04)
[2018-02-19] MEDS: SODIUM PHOS / POTASSIUM PHOS 1 PKT PDR PO SCH (21:15)
--- NOTE | 2018-02-19 21:33 | NUR ---
COMING TO SEE PT, CONTINUE MEDS AT THIS TIME PER MD.
--- NOTE | 2018-02-19 21:40 | NUR ---
NIGHT MEDS GIVEN TOLERATING WELL, GT FEEDING INCREASE TO 40 C/HR.
--- NOTE | 2018-02-19 23:52 | NUR ---
BLOOD SUGAR IS 111,NO COVERAGE NEEDED. DOPAMINE DRIP DECREASE TO 2.99 MCG/KG/MIN=6.4 ML/HR. BP 140/86 ,HR 103,SPO2 96%.
[2018-02-20] VITALS (96 sets, daily range): BP systolic 75–134; BP diastolic 35–96
[2018-02-20] MEDS: PHARMACY COMMENTS MC SCH
[2018-02-20] MEDS: VANCOMYCIN 750 MG in DEXTROSE 5% 250 ML IV SCH ×2 (01:15→14:59)
[2018-02-20] MEDS: HYDRAGUARD CREAM TP SCH ×2 (01:15→12:39)
--- NOTE | 2018-02-20 01:30 | NUR ---
MID NIGHT MEDICATIONS GIVEN ORDER
--- NOTE | 2018-02-20 02:10 | NUR ---
REPOSITION PT FOR COMFORT. PT SLEEP WELL.
--- NOTE | 2018-02-20 03:30 | NUR ---
PT SLEEP WELL
--- NOTE | 2018-02-20 05:00 | NUR ---
AM CARE GIVEN, PT HAVE LARGE BM X1,SOFT STOOL,GOOD TEN CARE,GOOD PERINEAL CARE GIVEN. SPONGE BATH GIVEN.ORAL CARE GIVEN. KEPT CLEAN AND DRY.
[2018-02-20] MEDS: PIPER/TAZO 3.375GM/D5W PREMIX 50 ML IV SCH ×3 (05:16→20:12)
[2018-02-20] MEDS: VANCOMYCIN 500 MG VIAL PO SCH ×4 (05:17→23:22)
[2018-02-20] MEDS: BLOOD GLUCOSE MONITORING 1 DEV DEV MC SCH ×4 (05:17→23:21)
[2018-02-20] MEDS: metroNIDAZOLE 500 MG/NS PREMIX 100 ML IV SCH ×3 (05:17→20:12)
[2018-02-20] MEDS: MIDODRINE 5 MG TAB PO SCH ×3 (05:17→20:12)
--- NOTE | 2018-02-20 06:00 | NUR ---
AM MEDS GIVEN TOLERATING WELL BLOOD SUGAR WAS 116,NO COVERAGED NEEDED.
[2018-02-20 06:20] LABS: EOSINOPHILS # (AUTO) 0.2 K/uL (0-0.4); EOSINOPHILS % (AUTO) 1.2 % (0.0-4.0); HEMATOCRIT 27.8 % (36-48); LYMPHOCYTES # (AUTO) 1.1 K/uL (2.5-16.5); LYMPHOCYTES % (AUTO) 5.6 % (20.5-51.1); MEAN CORPUSCULAR HEMOGLOBIN 27 pg (27-31); MEAN CORPUSCULAR HGB CONC 32 g/dL (33-37); MEAN CORPUSCULAR VOLUME 82.3 fL (80-94); MONOCYTES # (AUTO) 1.5 K/uL (0.8-1.0); MONOCYTES % (AUTO) 7.9 % (1.7-9.3); NEUTROPHILS # (AUTO) 16.2 K/uL (1.8-7.7); NEUTROPHILS % (AUTO) 85.3 % (42.2-75.2); PLATELET COUNT (AUTO) 246 K/uL (140-450); RED BLOOD CELL COUNT(AUTO) 3.37 MIL/uL (4.20-5.40); RED CELL DISTRIBUTION WIDTH 18.7 % (11.6-13.7)
[2018-02-20 06:45] LABS: ANION GAP 12.6 (8-16); CARBON DIOXIDE 26.1 mmol/L (21-32); CHLORIDE 101 mmol/L (98-107); CREATININE 0.7 mg/dL (0.6-1.3); GLUCOSE 112 mg/dL (74-106); POTASSIUM 3.7 mmol/L (3.5-5.1); SODIUM SERUM 136 mmol/L (136-145); UREA NITROGEN, BLOOD 14 mg/dL (7-18)
[2018-02-20 06:56] LABS: MAGNESIUM 1.5 mg/dL (1.8-2.4); PHOSPHORUS 2.5 mg/dL (2.5-4.9)
[2018-02-20] MEDS: ALBUTEROL SULFATE/IPRATROPIU 3 ML SOL IH SCH ×3 (07:13→19:48)
--- NOTE | 2018-02-20 07:30 | NUR ---
RECEIVED REPORT FROM [facility] NURSE. PT IS NONVERBAL, OPEN EYES, DOES NOT FOLLOW SIMPLE COMMANDS. NORMAL SINUS RHYTHM ON MONITOR. PT IS ON O2 AT 3 LPM/NC. BREATH SOUNDS DIMINISHED. NO S/S OF RESP DISTRESS, NO SOB NOTED. BREATHING EVEN AND UNLABORED. PICC LINE TO RIGHT UPPER ARM DOUBLE LUMEN CATH ASYMPTOMATIC, PATENT AND INTACT. GOOD BLOOD RETURN NOTED. PERIPHERAL IV TO RIGHT HAND G20 INFILTRATED AND DISCONTINUED. G-TUBE IN PLACE, PT IS RECEIVING GT FEEDING JEVITY 1.2 AT 40 ML/HR TO REACH GOAL AT 60 CC/HR, WATER FLUSH 200 ML Q4H. GT RESIDUAL 20 ML NOTED. ABDOMEN SOFT NON DISTENDED. HOOVER CATH IN PLACE DRAINING YELLOW URINE TO GRAVITY DRAINAGE BAG, SEDIMENTS NOTED. SKIN IS DRY AND WARM TO TOUCH. ALL EXTREMITIES ELEVATED WITH PILLOWS. TURNED AND REPOSITIONED PT. PT IS ON CONTACT ISOLATION. DRY DRESSING INTACT TO SACRAL PRESSURE INJURY. HOB AT 30 DEGREES, BED IN LOWEST POSITION AND CALL LIGHT WITHIN REACH. WILL CONTINUE TO MONITOR.
--- NOTE | 2018-02-20 07:34 | NUR ---
REPORT GIVEN TO MATHEUS ENCINAS AM SHIFT. PT IS AWAKE AND STABLE AT THIS TIME.
--- NOTE | 2018-02-20 08:30 | NUR ---
DR. COSTELLO IN TO SEE AND EXAMINE PT. WILL FOLLOW UP ON ORDERS.
[2018-02-20] MEDS: PANTOPRAZOLE 40 MG INJ VIAL IVP SCH (08:33)
[2018-02-20] MEDS: SODIUM PHOS / POTASSIUM PHOS 1 PKT PDR PO SCH ×2 (08:33→20:12)
[2018-02-20] MEDS: METOCLOPRAMIDE 10 MG TAB PO SCH ×3 (08:33→16:59)
--- NOTE | 2018-02-20 08:45 | NUR ---
MEDICATIONS ADMINISTERED ORDERED. PT TOLERATED WELL.
--- NOTE | 2018-02-20 09:30 | NUR ---
DR. LIVINGSTON IN TO SEE PT. UPDATES GIVEN ON PT'S CONDITION. WILL FOLLOW UP WITH NEW ORDERS.
--- NOTE | 2018-02-20 10:24 | NUR ---
DR. COSTELLO MADE AWARE OF LOW MAGNESIUM LEVEL OF 1.5. ORDER RECEIVED.
[2018-02-20] MEDS ORDERED: MAG SULF 2000 MG/WATER PREMIX 50 ML IV ONE (10:25)
--- NOTE | 2018-02-20 12:00 | NUR ---
G-TUBE RESIDUALS 10 ML. TUBE FEEDING RATE INCREASED TO 50 ML/HR. GOAL = 60 ML/HR.
[2018-02-20] MEDS: MAGNESIUM SULFATE 1GM in DEXTROSE 5% 100 ML PREMIX IV SCH ×4 (12:06→15:00)
[2018-02-20] MEDS: HYDROCORTISONE NA SUCC 100 MG/2 ML VIAL IV SCH ×2 (12:27→20:12)
[2018-02-20] MEDS: THERAHONEY GEL 42.5 GM TP SCH (12:40)
--- NOTE | 2018-02-20 14:30 | NUR ---
PT'S DAUGHTER AT BEDSIDE. UPDATES GIVEN ON PT'S CONDITION.
--- NOTE | 2018-02-20 16:25 | NUR ---
GT RESIDUAL 60 ML NOTED. CONTINUED GT FEEDING AT 50 ML/HR.
--- NOTE | 2018-02-20 18:01 | NUR ---
NO CHANGE OF CONDITION AT THIS TIME. DAUGHTER AT BEDSIDE. CLEANED PT, TURNED AND REPOSITIONED FOR COMFORT.
[2018-02-20] MEDS: INSULIN LISPRO SLIDING SCALE 100 UNITS/ML VIAL SUBQ PRN (18:05)
[2018-02-20] MEDS: DOPamine 400 MG/D5W PREMIX 250 ML IV SCH (18:32)
--- NOTE | 2018-02-20 19:18 | NUR ---
REPORT GIVEN TO NIGHT NURSE FOR CONTINUITY OF CARE. PT IS IN STABLE CONDITION.
--- NOTE | 2018-02-20 19:30 | NUR ---
ASSUMED CARE OF PT.INITIAL ASSESSMENT COMPLETED.PT OPENS EYES BUT DOES NOT FOLLOW COMMANDS.SR ON MONITOR.ON 02NC AT 1LPM.NO SOB NOTED.W/PICC LINE TO COLUMBA INTACT INFUSING DOPAMINE DRIP 400MG IN 250ML D5W AT 3 MCG/KG/MIN(6.4ML/HR). W/GTUBE FEEDING JEVITY 1.2 AT 50ML/HR W/200ML WATER FLUSH Q4HRS.120ML RESIDUALS NOTED.PUT ON HOLD FOR NOW.WILL RECHECK RESIDUALS.W/HOOVER CATHETER TO BSD DRAINING YELLOW URINE W/SEDIMENTS.W/DRY AND INTACT DRESSING TO SACROCOCCYGEAL AREA.PRESSURE ULCER STILL NOTED.REPOSITIONED.FLACC 0
--- NOTE | 2018-02-20 20:30 | NUR ---
BM NOTED.LARGE AMT OF LOOSE BROWNISH STOOL.PT CLEANED.REPOSITIONED.
--- NOTE | 2018-02-20 22:00 | NUR ---
V/B DAUGHTER; UPDATED ON PTS CONDITION.QUESTIONS ANSWERED
--- NOTE | 2018-02-20 23:56 | NUR ---
BS CHECKED; 133; NO INSULIN REQUIRED.STILL ON GTUBE FEEDING.20ML RESIDUAL NOTED.CONTINUED ON GTUBE FEEDING.FLACC 0.REPOSITIONED
[2018-02-21] VITALS (23 sets, daily range): BP systolic 86–127; BP diastolic 46–80
--- NOTE | 2018-02-21 01:15 | NUR ---
BP 105/73 HR 69; DOPAMINE DRIP TURNED OFF.WILL CLOSELY MONITOR PTS V/S
[2018-02-21] MEDS: HYDRAGUARD CREAM TP SCH ×2 (01:34→12:18)
[2018-02-21] MEDS: VANCOMYCIN 750 MG in DEXTROSE 5% 250 ML IV SCH ×2 (01:40→14:20)
--- NOTE | 2018-02-21 02:18 | NUR ---
BM NOTED.MOD AMT OF LIQUID BROWNISH STOOL; PT WASHED.REPOSITIONED, FAMILY STILL AT BEDSIDE.NO RESP DISTRESS NOTED.WILL CONTINUE TO CLOSELY MONITOR PT.DOPAMINE DRIP OFF
--- NOTE | 2018-02-21 04:00 | NUR ---
PT ASLEEP; NOT IN ANY DISTRESS.STILL OFF DOPAMINE DRIP, TOLERATING AT THIS TIME.WILL CONTINUE TO CLOSELY MONITOR PT.FLACC 0.REPOSITIONED
[2018-02-21] MEDS: MIDODRINE 5 MG TAB PO SCH ×3 (05:07→21:25)
[2018-02-21] MEDS: metroNIDAZOLE 500 MG/NS PREMIX 100 ML IV SCH ×3 (05:08→22:12)
[2018-02-21] MEDS: VANCOMYCIN 500 MG VIAL PO SCH ×3 (05:08→17:10)
[2018-02-21] MEDS: PHARMACY COMMENTS MC SCH ×2 (05:08)
[2018-02-21] MEDS: HYDROCORTISONE NA SUCC 100 MG/2 ML VIAL IV SCH ×3 (05:08→21:24)
[2018-02-21] MEDS: PIPER/TAZO 3.375GM/D5W PREMIX 50 ML IV SCH ×3 (05:09→21:25)
[2018-02-21] MEDS: INSULIN LISPRO SLIDING SCALE 100 UNITS/ML VIAL SUBQ PRN ×3 (05:15→17:34)
[2018-02-21] MEDS: BLOOD GLUCOSE MONITORING 1 DEV DEV MC SCH ×3 (05:15→17:33)
--- NOTE | 2018-02-21 05:49 | NUR ---
ALL DUE MEDS GIVEN.BS 199 INSULIN COVERAGE GIVEN ORDERED. BM NOTED.LARGE LIQUID BROWNISH STOOL.REPOSITIONED.FLACC 0
[2018-02-21 06:40] LABS: BASOPHILS % (AUTO) 0.3 % (0.0-2.0); HEMATOCRIT 25.5 % (36-48); HEMOGLOBIN 8.5 g/dL (12.0-16.0); LYMPHOCYTES # (AUTO) 0.5 K/uL (2.5-16.5); LYMPHOCYTES % (AUTO) 3.7 % (20.5-51.1); MEAN CORPUSCULAR HEMOGLOBIN 27 pg (27-31); MEAN CORPUSCULAR HGB CONC 33 g/dL (33-37); MEAN CORPUSCULAR VOLUME 80.9 fL (80-94); MONOCYTES # (AUTO) 0.5 K/uL (0.8-1.0); MONOCYTES % (AUTO) 3.5 % (1.7-9.3); NEUTROPHILS # (AUTO) 12.1 K/uL (1.8-7.7); NEUTROPHILS % (AUTO) 92.5 % (42.2-75.2); PLATELET COUNT (AUTO) 239 K/uL (140-450); RED BLOOD CELL COUNT(AUTO) 3.15 MIL/uL (4.20-5.40); RED CELL DISTRIBUTION WIDTH 18.5 % (11.6-13.7); WHITE BLOOD COUNT (AUTO) 13.1 K/uL (4.8-10.8)
[2018-02-21 07:18] LABS: CARBON DIOXIDE 24.6 mmol/L (21-32); CHLORIDE 102 mmol/L (98-107); CREATININE 0.6 mg/dL (0.6-1.3); GLUCOSE 234 mg/dL (74-106); SODIUM SERUM 137 mmol/L (136-145); UREA NITROGEN, BLOOD 16 mg/dL (7-18)
[2018-02-21 07:22] LABS: POTASSIUM 2.6 mmol/L (3.5-5.1)
[2018-02-21 07:29] LABS: MAGNESIUM 2.3 mg/dL (1.8-2.4); PHOSPHORUS 3.2 mg/dL (2.5-4.9)
--- NOTE | 2018-02-21 07:30 | NUR ---
RECEIVED REPORT FROM TESTER OPERATOR HELPER NURSE AT BEDSIDE, PT IS DROWSY, APHASIC, UNABLE TO FOLLOW COMMANDS AND MAKE NEEDS KNOWN, NO S/S OF DISTRESS, CLEAR LUNG SOUNDS PRAKSAH., ON OXYGEN AT 2L VIA NC, SR ON DROP WIRE OPERATOR, SOFT ROUND ABDOMEN WITH ACTIVE BOWEL SOUNDS, GT IN PLACE FEEDING WITH JEVITY 1.2 AT 50ML/HR, 50 ML RESIDUALS NOTED. INCONTINENT WITH B&B'S, F/C IN PLACE DRAINING CLEAR YELLOW URINE VIA GRAVITY, DIARRHEA NOTED, BEDBOUND, CONTRACTURE TO ALL EXTREMITIES, GENERALIZED NONPITTING EDEMA NOTED . SKIN IS WARM AND DRY TO TOUCH, OPEN WOUND PRESENT ( SEE WOUND ASSESSMENT), PICC LINE TO RIGHT UPPER ARM, KVO AT THIS TIME, VSS, FLACC 0, HOB ELEVATED TO 30 DEGREES, SAFETY MEASURES IN PLACE, WILL CONTINUE TO MONITOR.
[2018-02-21] MEDS ORDERED: POTASSIUM CHLORIDE 20% 40 MEQ/15 ML UDC GT SCH ×2 (07:55→11:00)
[2018-02-21] MEDS ORDERED: KCL 20 MEQ/WATER INJ PREMIX 100 ML IV SCH (08:00)
[2018-02-21] MEDS: PANTOPRAZOLE 40 MG INJ VIAL IVP SCH (08:17)
[2018-02-21] MEDS: SODIUM PHOS / POTASSIUM PHOS 1 PKT PDR PO SCH (08:18)
[2018-02-21] MEDS: METOCLOPRAMIDE 10 MG TAB PO SCH ×3 (08:30→17:09)
--- NOTE | 2018-02-21 08:30 | NUR ---
DR. COSTELLO CAME IN TO SEE PT AT BEDSIDE, WILL FOLLOW UP WITH NEW ORDERS.
[2018-02-21] MEDS: KCL 20 MEQ/WATER INJ PREMIX 100 ML IV SCH ×2 (08:34→12:01)
[2018-02-21] MEDS: ALBUTEROL SULFATE/IPRATROPIU 3 ML SOL IH SCH ×3 (09:50→20:22)
--- NOTE | 2018-02-21 12:00 | NUR ---
NO S/S OF DISTRESS, PT IS RESTING IN BED, VSS, FLACC 0, POSITION CHANGED FOR OFF LOAD PRESSURE.
[2018-02-21] MEDS: THERAHONEY GEL 42.5 GM TP SCH (12:18)
--- NOTE | 2018-02-21 12:22 | NUR ---
Booster Operator Note: I faxed microbiology results to [facility], phone number .
--- NOTE | 2018-02-21 13:47 | NUR ---
FAXED CONCURRENT REVIEW TO [facility] [phone] PHONE SAGAR [phone]
--- NOTE | 2018-02-21 15:15 | NUR ---
LOC AWAKE STABLE NO EVIDENCE OF PULMONARY DISTRESS NOTED [facility] Addendum: 02/21/18 at 1527 by John Merchant RT [facility] V60 BIPAP AT BEDSIDE
--- NOTE | 2018-02-21 16:00 | NUR ---
NO S/S OF DISTRESS, VSS, FLACC 0, PT'S DAUGHTER AT BEDSIDE.
--- NOTE | 2018-02-21 16:32 | NUR ---
02/21/18 RD FOLLOW UP COMPLETED PLEASE REFER TO NUTRITION PROGRESS NOTE UNDER CARE ACTIVITY FOR ESTIMATED NUTRITIONAL NEEDS. IF/WHEN MEDICALLY STABLE FOR TF, CONSIDER D/C JEVITY 1.2 AND INITIATE VITAL AF 1.2, GOAL RATE AT @60 ML/HR WITH FREE WATER FLUSH 150 ML Q4H. START AT 20ML/HR AND INCREASE 20ML Q6HR. THIS WILL PROVIDE 100% ESTIMATED NEEDS (1728 KCAL, 108 G PROTEIN, AND 1768 ML WATER) RECOMMEND PROBIOTIC CULTURELLE WITH LT ANTIBIOTIC USE RD TO FOLLOW-UP 2-3 DAYS, HIGH RISK CHRISTINA YE, RD
--- NOTE | 2018-02-21 18:10 | NUR ---
TRANSFERRED PT TO ROOM 117, REPORT GIVEN TO HUANG WHITE AT BEDSIDE, PT IS IN STABLE CONDITION AT THIS TIME, ALL BELONGS GOES WITH PT, PT'S DAUGHTER AT BEDSIDE.
--- NOTE | 2018-02-21 18:11 | NUR ---
RECEIVED PT FROM ICU NURSE. PT IS ON 2L O2 VIA NC. PT IS AAOX1. MUMBLING, DOES NOT FOLLOW COMMAND. NO S/S OF DISTRESS, CLEAR LUNG SOUNDS PRAKASH. ABD SOUND ACTIVE, ABD NONTENDER, SOFT AND ROUND. GT IN PLACE, DRESSING CLEAN AND DRY. F/C IN PLACE DRAINING CLEAR YELLOW URINE. NO BM AT THIS TIME. PT IS BEDBOUND, HAS CONTRACTURE IN THE ARMS, BLE RIGID. SKIN IS WARM AND DRY TO TOUCH, OPEN WOUND AT COCCYX, DRESSING CLEAN AND INTACT. PICC LINE TO RIGHT UPPER ARM, TKO AT THIS TIME, VITALS TAKEN, BP 106/73. HR 86, TEMP 97.7 RR20, O2 SAT 95%. HOB ELEVATED TO 30 DEGREES, SAFETY MEASURES IN PLACE, CALL LIGHT WITHIN REACH, DAUGHTER AT BEDSIDE. WILL CONTINUE TO MONITOR. Addendum: 02/21/18 at 2002 by Dm Antonio RN FLACC 0
--- NOTE | 2018-02-21 18:30 | NUR ---
CHECK G TUBE RESIDUAL 5ML. FEED STARTED VITAL 1.2 STARTED AT 20ML PER HR. H2O FLUSH 200ML Q4H HAS SEEN SET UP WITH THE FEEDING MACHINE.
--- NOTE | 2018-02-21 19:45 | NUR ---
REPORT GIVEN TO BELT BRANDER RNMARTINA, PT IN STABLE CONDITION, DAUGHTER AT BEDSIDE.
--- NOTE | 2018-02-21 20:00 | NUR ---
RECEIVED ON SEMI FOWLERS POSITION.AWAKE,APHASIC.FAMILY @ THE BS. GT CHECKED FOR RESIDUAL ;NONE. GT FEEDINGS VITAL 1.2 @20ML/HR INFUSING WELL.ON TAWANNA MATTRESS.SACRAL DRESSING D/I.
[2018-02-22] VITALS: BP 135/61
[2018-02-22] MEDS: VANCOMYCIN 500 MG VIAL PO SCH ×4 (00:12→18:00)
[2018-02-22] MEDS: BLOOD GLUCOSE MONITORING 1 DEV DEV MC SCH ×4 (00:17→18:00)
[2018-02-22] MEDS: HYDRAGUARD CREAM TP SCH ×2 (00:20→13:00)
--- NOTE | 2018-02-22 00:30 | NUR ---
V/S STABLE.AFEBRILE.NO INDICATION OF PAIN NOTED. GT FEEDING INCREASED 40 ML/HR. NO RESIDUAL.
[2018-02-22] MEDS ORDERED: VANCOMYCIN 1,000 MG VIAL ONE (02:12)
[2018-02-22] MEDS: VANCOMYCIN 750 MG in DEXTROSE 5% 250 ML IV SCH (02:35)
--- NOTE | 2018-02-22 03:00 | NUR ---
HAD LARGE LOOSE BM,BROWN IN COLOR .CLEAN BY BIN FILLER & REPOSITIONED.
[2018-02-22 04:00] VITALS: BP 112/58
[2018-02-22] MEDS: PIPER/TAZO 3.375GM/D5W PREMIX 50 ML IV SCH (04:34)
[2018-02-22] MEDS: metroNIDAZOLE 500 MG/NS PREMIX 100 ML IV SCH (05:39)
[2018-02-22] MEDS: HYDROCORTISONE NA SUCC 100 MG/2 ML VIAL IV SCH (05:39)
[2018-02-22] MEDS: MIDODRINE 5 MG TAB PO SCH (05:40)
[2018-02-22] MEDS: INSULIN LISPRO SLIDING SCALE 100 UNITS/ML VIAL SUBQ PRN ×2 (06:28→11:55)
--- NOTE | 2018-02-22 06:45 | NUR ---
ENDORSED IN NO ACUTE DISTRESS. SAFETY MAINTAINED.GT FEEDINGS @ 60 ML/HR INFUSING WELL.NO RESIDUAL. NO INDICATION OF PAIN NOTED.NO S/S OF HYPO/HYPERGLYCEMIA NOTED.
[2018-02-22 06:46] LABS: BASOPHILS % (AUTO) 0.1 % (0.0-2.0); EOSINOPHILS % (AUTO) 0.1 % (0.0-4.0); HEMATOCRIT 22.5 % (36-48); HEMOGLOBIN 7.5 g/dL (12.0-16.0); LYMPHOCYTES # (AUTO) 0.5 K/uL (2.5-16.5); LYMPHOCYTES % (AUTO) 5.1 % (20.5-51.1); MEAN CORPUSCULAR HEMOGLOBIN 27 pg (27-31); MEAN CORPUSCULAR HGB CONC 34 g/dL (33-37); MEAN CORPUSCULAR VOLUME 81.5 fL (80-94); MONOCYTES # (AUTO) 0.4 K/uL (0.8-1.0); MONOCYTES % (AUTO) 3.5 % (1.7-9.3); NEUTROPHILS # (AUTO) 9.5 K/uL (1.8-7.7); NEUTROPHILS % (AUTO) 91.2 % (42.2-75.2); PLATELET COUNT (AUTO) 203 K/uL (140-450); RED BLOOD CELL COUNT(AUTO) 2.76 MIL/uL (4.20-5.40); RED CELL DISTRIBUTION WIDTH 18.7 % (11.6-13.7); WHITE BLOOD COUNT (AUTO) 10.4 K/uL (4.8-10.8)
[2018-02-22 07:11] LABS: ANION GAP 11.3 (8-16); CHLORIDE 110 mmol/L (98-107); CREATININE 0.7 mg/dL (0.6-1.3); GLUCOSE 196 mg/dL (74-106); SODIUM SERUM 142 mmol/L (136-145); UREA NITROGEN, BLOOD 15 mg/dL (7-18)
[2018-02-22] MEDS: ALBUTEROL SULFATE/IPRATROPIU 3 ML SOL IH SCH ×2 (07:20→13:00)
--- NOTE | 2018-02-22 07:28 | NUR ---
RECEIVED PATIENT REPORT FROM NIGHTSHIFT NURSE. PATIENT IS LAYING IN SEMI-FOWLERS POSITION. PATIENT IS NONVERBAL. PATIENT HAS 2L O2 VIA NC AND VITAL AF 1.2 G-TUBE FEEDING RUNNING AT 60 ML/HR. PATIENT HAS A HOOVER CATHETER IN PLACE DRAINING [place] YELLOW URINE. NO DISTRESS NOTED AT THIS TIME. FLACC SCORE IS 0. PATIENT HAS A RIGHT PICC LINE ONE UPPER ARM. PICC LINE SITE IS ASYMPTOMATIC. LOWERED BED TO LOWEST SETTING. UPDATED BOARD IN PATIENT'S ROOM. APPROPRIATE SIGNS PLACED OUTSIDE OF PATIENT'S ROOM. WILL CONTINUE TO MONITOR PATIENT CLOSELY.
[2018-02-22 08:00] VITALS: BP 107/48
[2018-02-22 08:15] LABS: POTASSIUM 2.3 mmol/L (3.5-5.1)
[2018-02-22] MEDS: PANTOPRAZOLE 40 MG INJ VIAL IVP SCH (09:28)
[2018-02-22] MEDS: METOCLOPRAMIDE 10 MG TAB PO SCH ×3 (09:29→16:30)
--- NOTE | 2018-02-22 10:25 | NUR ---
CHANGED PATIENT AND REPOSITIONED HER WITH WELL SHOOTER. CHANGED PATIENT'S MEPILEX DRESSING. PATIENT TOLERATED WELL.
--- NOTE | 2018-02-22 10:42 | NUR ---
Jd Edwards Consultant Note: Late entry for 02/21/18: I called and spoke with Franklin from [facility], phone number , informed him patient is positive for c-diff. I called and spoke with Franklin from [facility] today 02/22/18, he stated they have an isolation bed for patient today if patient is discharged today.
[2018-02-22] MEDS: POTASSIUM CHLORIDE 20% 40 MEQ/15 ML UDC GT SCH ×2 (11:04→16:24)
--- NOTE | 2018-02-22 12:23 | NUR ---
Wire Mesh Knitter Note: Per Franklin from [facility] , patient can go to bed 32A after 3pm today, accepting physician is , briefcase sewer Michelle zuleta. briefcase sewer Michelle will follow up regarding transportation. Addendum: 02/22/18 at 1230 by Allison Rivera SS I called and spoke with patient's son Zhou, he stated he is in agreement with patient's transfer to [facility] today. He reported he received a message from Donnell from [facility], but he prefers patient to return to [facility]. He thanked me for sending inquiries to [facility] and contacting [facility]. Addendum: 02/22/18 at 1700 by Allison Rivera SS Per patient's nurse Pranav Rios Transportation will be coming around 6:30pm today to pick up attendant patient. I requested Pranav to contact patient's son Zhou and notify Zhou of pick up attendant time.
[2018-02-22] MEDS: metroNIDAZOLE 500 MG TAB PEG SCH ×2 (12:57→16:24)
[2018-02-22] MEDS: THERAHONEY GEL 42.5 GM TP SCH (13:00)
[2018-02-22] MEDS ORDERED: MIDODRINE 5 MG TAB PO SCH (13:00)
--- NOTE | 2018-02-22 13:27 | NUR ---
pt sleeping with no signs of distress at this time no hhn given
--- NOTE | 2018-02-22 15:07 | NUR ---
Clinical review faxed to [facility] at [phone] and Patient will return to [facility] after 1730 room 32 A.
[2018-02-22 16:00] VITALS: BP 109/58
--- NOTE | 2018-02-22 17:00 | NUR ---
CALLED SON OF PATIENT MYRA WEBBER AND NOTIFIED HIM OF PATIENT'S DEPARTURE TIME FROM HOSPITAL. SON IS AWARE OF PATIENT'S DESTINATION.
--- NOTE | 2018-02-22 17:38 | NUR ---
SPOKE TO DR. LIVINGSTON REGARDING PATIENT. NO ANTIBIOTICS ORDERED.
--- NOTE | 2018-02-22 18:01 | NUR ---
CALLED REPORT TO HUANG ORELLANA OF [facility]. LEFT CALL BACK NUMBER FOR ADDITIONAL QUESTIONS.
--- NOTE | 2018-02-22 19:28 | NUR ---
GAVE REPORT TO NIGHTSHIFT NURSE. PATIENT IN STABLE CONDITION.
--- NOTE | 2018-02-22 19:29 | NUR ---
RECD. RESTING IN BED, AWAKE, ALERT, CONFUSED. ON 02 AT 2 LITERS VIA N/C, 02 SAT - 93%. RESPIRATION EVEN AND UNLABORED. F/C PATENT DRAINING CLEAR, YELLOW URINE. DAUGHTER AT THE BEDSIDE. ADDITIONAL DISCHARGE INSTRUCTIONS GIVEN, DAUGHTER VERBALIZED UNDERSTANDING. WAITING FOR [facility] TO SOLID TIRE TUBER MACHINE OPERATOR PATIENT, FOR TRANSFER TO [facility], RM 32A ENDORSED BY AM NURSE. NO APPEARANCE OF PAIN NOTED 0/10.
--- NOTE | 2018-02-22 19:41 | NUR ---
REMOVED PATIENT'S PICC LINE USING STERILE TECHNIQUE. PATIENT TOLERATED WELL.
[2018-02-22 19:45] VITALS: BP 110/51
--- NOTE | 2018-02-22 19:45 | NUR ---
REPORT AND DISCHARGE PACKET GIVEN TO [facility] PERSONNEL.
--- NOTE | 2018-02-22 19:55 | NUR ---
Patient's Plan of Care was discussed and reviewed with GUMMED TAPE PRESS OPERATOR: JONATAN SONG
--- NOTE | 2018-02-22 20:00 | NUR ---
AMBULANCE PERSONNEL PLACED PATIENT ON GURNEY READY FOR TRANSFER. DAUGHTER WILL FOLLOW IN HER OWN CAR.
--- NOTE | 2018-02-22 20:10 | NUR ---
TAKEN TO HOSPITAL LOBBY PARKING IN STABLE CONDITION ACCOMPANIED BY AMBULANCE PERSONNEL FOR TRANSFER TO [facility].
--- NOTE | 2018-02-22 20:38 | NUR ---
CALLED [facility] AND ABLE TO TALK TO ALYSSA ORELLANA TAKING CARE OF PT THERE. MADE AWARE THAT PT STILL NEED ANOTHER DOSE OF POTASSIUM 40 MEQ THROUGH THE GT.
[2018-02-23] MEDS ORDERED: predniSONE 10 MG TAB PEG SCH (09:00)
== END 2018-02-22 20:10 | DRG 314 ==
LOC: MED 10:07 → MIC 12:31 → MTU 02-21 18:00
PROVIDERS: ADMIT Internal Medicine Pulmonary Disease; ATTEND Internal Medicine Pulmonary Disease
PROC: 02HV33Z Insertion of Infusion Device into Superior Vena Cava, Percutaneous Approach (ICD-10-PCS; 2018-02-15)
PROC: B548ZZA Ultrasonography of Superior Vena Cava, Guidance (ICD-10-PCS; 2018-02-15)
PROC: 02PAX3Z Removal of Infusion Device from Heart, External Approach (ICD-10-PCS; 2018-02-15)
PROC: 0DH63UZ Insertion of Feeding Device into Stomach, Percutaneous Approach (ICD-10-PCS; principal; 2018-02-18 10:50)
PROC: 5A09357 Assistance with Respiratory Ventilation, Less than 24 Consecutive Hours, Continuous Positive Airway Pressure (ICD-10-PCS; 2018-02-19)
DX: T80.211A Bloodstream infection due to central venous catheter, initial encounter (principal); A41.9 Sepsis, unspecified organism; L89.154 Pressure ulcer of sacral region, stage 4; R65.21 Severe sepsis with septic shock; E43 Unspecified severe protein-calorie malnutrition; I50.43 Acute on chronic combined systolic (congestive) and diastolic (congestive) heart failure; G93.41 Metabolic encephalopathy; J96.01 Acute respiratory failure with hypoxia; J69.0 Pneumonitis due to inhalation of food and vomit; N17.0 Acute kidney failure with tubular necrosis; A04.72 Enterocolitis due to Clostridium difficile, not specified as recurrent; E87.2 Acidosis; N39.0 Urinary tract infection, site not specified; J98.11 Atelectasis; E87.1 Hypo-osmolality and hyponatremia; I42.2 Other hypertrophic cardiomyopathy; D64.9 Anemia, unspecified; E78.5 Hyperlipidemia, unspecified; E87.6 Hypokalemia; G20 Parkinson's disease; F02.80 Dementia in other diseases classified elsewhere, unspecified severity, without behavioral disturbance, psychotic disturbance, mood disturbance, and anxiety; I12.9 Hypertensive chronic kidney disease with stage 1 through stage 4 chronic kidney disease, or unspecified chronic kidney disease; J45.909 Unspecified asthma, uncomplicated; E86.0 Dehydration; I95.9 Hypotension, unspecified; E80.6 Other disorders of bilirubin metabolism; Z66 Do not resuscitate; B96.5 Pseudomonas (aeruginosa) (mallei) (pseudomallei) as the cause of diseases classified elsewhere; K21.9 Gastro-esophageal reflux disease without esophagitis; M19.90 Unspecified osteoarthritis, unspecified site; N18.9 Chronic kidney disease, unspecified; R13.10 Dysphagia, unspecified; R62.7 Adult failure to thrive; Y84.8 Other medical procedures as the cause of abnormal reaction of the patient, or of later complication, without mention of misadventure at the time of the procedure; Y95 Nosocomial condition; Z22.322 Carrier or suspected carrier of Methicillin resistant Staphylococcus aureus; Z74.01 Bed confinement status; Z88.2 Allergy status to sulfonamides; Y92.89 Other specified places as the place of occurrence of the external cause; Z88.1 Allergy status to other antibiotic agents; Z79.899 Other long term (current) drug therapy; Z82.49 Family history of ischemic heart disease and other diseases of the circulatory system; Z68.23 Body mass index [BMI] 23.0-23.9, adult
CPT/HCPCS: 36415; 36600; 51702; 71045; 76705; 80048; 80053; 80202; 81001; 82140; 82803; 82948; 83036; 83605; 83690; 83735; 83880; 84100; 84132; 84436; 84443; 84479; 84484; 85025; 85610; 85730; 86886; 86900; 86901; 86920; 87040; 87070; 87081; 87086; 87186; 87205; 89220; 93005; 94640; 94660; 96365; 96375; 99291; A9153; C1751; C9113; J1200; J1265; J1720; J1815; J1940; J2250; J2543; J2930; J3010; J3370; J3475; J3480; J3490; J7030; J7042; J7060; J7613; J7620; J7644; J8597; P9046; Q0092

== ENCOUNTER 2019-04-28 10:11 | Inpatient (IN) | payer OTHER ==
[~2019-04-28] VITALS: Ht 152.4 cm; Wt 67.1 kg
[~2019-04-28 10:11] MED LIST: ACET-2619 PO; ASCO500T45 PO; DOCU-299 PO; DOXY100C9 PO; FERR325E14 PO; MAGN400S60 PO; MULT1SGL58 PO; PRON INH
--- NOTE | 2019-04-28 10:11 | NUR ---
Patient BIBA BLS, transferred to bed 2. RN evaluating patient at bedside.
[2019-04-28 10:26] VITALS: BP 85/52
[2019-04-28] MEDS ORDERED: NACL 0.9% 1,000 ML IV SCH ×3 (11:11→19:30)
--- NOTE | 2019-04-28 11:34 | NUR ---
CLEANED PT , RECTAL TEMP 97.3 . STRAIGHT CATH PAT, NO URINE RETURN AT THIS TIME , LEFT THE CATH FOR THE POSSIBLE RETURN OF THE URINE . STOOL SPECIMEN COLLECETED. WOUND ON THE SACROCYYX REGION. PICTURE OBTAINED. PT STABLE AT THIS TIME.
--- NOTE | 2019-04-28 11:37 | NUR ---
PT BIBA FROM [facility] WITH C/O ABNORMAL LABS WBC 44.7, K+ 3.0, +C.DIFF, HYPOTENSION. PT HAS HAD ACTIVE DIARRHEA FOR 2 DAYS. G-TUBE, PT IS NON VERBAL, EYE OPENING TO VERBAL AND TACTILE STIMULI, PT BASELINE. AAOX1, OPENS EYES SLIGHTLY TO TACTILE STIMULUS. BREATHING NON-LABORED AND EVEN. PRESENTED WITH WATERY STOOL, GREENISH IIN COLOR, STRONG FOUL OROR. CONNECTED TO MONITOR. PT HAS IV ACCESS ON THE LFT WRIST, PATENT AND FLUSHED WELL. WILL CONTINUE TO MONITOR PT.
--- NOTE | 2019-04-28 11:54 | NUR ---
Patient taken to CT scan via gurney by Qwenty.
--- NOTE | 2019-04-28 12:38 | NUR ---
CHECKED ON URINE RETUN, NO URINE OUTPUT. HOOVER STILL LEFT WITH FOR URINE RETURN.
[2019-04-28 12:47] LABS: PROTHROMBIN TIME 13.3 secs (10.8-13.4)
[2019-04-28 12:57] LABS: HEMATOCRIT 47.4 % (36-48); HEMOGLOBIN 15.4 g/dL (12.0-16.0); MEAN CORPUSCULAR HEMOGLOBIN 29 pg (27-31); MEAN CORPUSCULAR HGB CONC 33 g/dL (33-37); MEAN CORPUSCULAR VOLUME 87.9 fL (80-94); PLATELET COUNT (AUTO) 236 K/uL (140-450); RED BLOOD CELL COUNT(AUTO) 5.39 MIL/uL (4.20-5.40); RED CELL DISTRIBUTION WIDTH 16.2 % (11.6-13.7)
[2019-04-28 13:01] LABS: ALBUMIN 2.1 g/dL (3.4-5.0); ANION GAP 13.2 (8-16); ASPARTATE AMINOTRANSFERASE 13 U/L (15-37); CARBON DIOXIDE 23.2 mmol/L (21-32); CHLORIDE 109 mmol/L (98-107); CREATININE 0.9 mg/dL (0.6-1.3); GLUCOSE 110 mg/dL (74-106); POTASSIUM 3.4 mmol/L (3.5-5.1); SODIUM SERUM 142 mmol/L (136-145); TOTAL BILIRUBIN 0.7 mg/dL (0.0-1.0)
[2019-04-28 13:05] LABS: UREA NITROGEN, BLOOD 76 mg/dL (7-18)
[2019-04-28 13:14] LABS: WHITE BLOOD COUNT (AUTO) 43.2 K/uL (4.8-10.8)
[2019-04-28 13:19] LABS: LYMPHOCYTES % (MANUAL) 7 % (20-46); MONOCYTES % (MANUAL) 2 % (5-12)
[2019-04-28] MEDS ORDERED: [UNRECOGNIZED DRUG - OTHER] GT (14:00)
[2019-04-28] MEDS ORDERED: NA P135N RC (14:00)
[2019-04-28] MEDS ORDERED: VAN500I GT (14:00)
[2019-04-28] MEDS ORDERED: METR500S14 IV (14:00)
[2019-04-28] MEDS ORDERED: LACT1TAB38 PO (14:00)
[2019-04-28] MEDS ORDERED: VANCOMYCIN 1,000 MG in DEXTROSE 5% 250 ML IV ONE (14:20)
[2019-04-28] MEDS ORDERED: metroNIDAZOLE 500 MG/NS PREMIX 100 ML IV ONE (14:20)
--- NOTE | 2019-04-28 14:40 | NUR ---
SPOKE TO PT SON MYRA [phone] AND UPDATED ON PTS STATUS.
[2019-04-28] MEDS ORDERED: VANCOMYCIN 1,000 MG VIAL ONE (16:03)
[2019-04-28] MEDS ORDERED: ONDANSETRON 4 MG/2 ML VIAL IVP PRN (16:40)
[2019-04-28] MEDS ORDERED: ACETAMINOPHEN 325 MG TAB PO PRN (16:40)
[2019-04-28] MEDS ORDERED: HYDROcodone/APAP 7.5/325 MG 1 TAB PO PRN (16:40)
--- NOTE | 2019-04-28 17:08 | NUR ---
TRANSFERRED PT TO ICU PER 'S ORDERS. PT FAMILY WISHES TO KEEP PT FULL CODE SO PT WILL BE TREATED IN ICU. ENDORSED PT TO SUMMER ICU NURSE. ALL NEEDS BEING CARED FOR BY ICU TEAM.
--- NOTE | 2019-04-28 17:30 | NUR ---
Patient will be admitted to care of DR STEELE. Admited to [facility] FLOOR . Will go to room 114. Belongings list completed. Report to RN KANA. PT STABLE. INFORMED RN THAT URINE SAMPLE NEEDS TO BE COLLECTED, UNABLE TO OBTAIN AT ER , STRAIGHT CTAH DONE. WAS MADE AWARE.
[2019-04-28 17:35] VITALS: BP 74/44
--- NOTE | 2019-04-28 17:35 | NUR ---
RECEIVED REPORT FROM ED NURSE JERI. PT IS AAOX1, OPENS EYES TO PAIN. PT HAS IV IN THE LEFT WRIST 24G INFUSING VANCOMYCIN FROM ED AT 165ML/HR. PT SKIN IS NON-INTACT. PT HAS SACRAL DEEP OPEN WOUND. PT EXPERIENCING DIARRHEA. PT HAS WEAKNESS TO BUE AND BLE. PT UNABLE TO UNDERSTAND TEACHING. CHECKED ROOM ENVIRONMENT. UPON CHECKING VITALS, BP LOW AT 74/44. AWARE AND TRYING TO GET A HOLD OF FAMILY TO SEE IF FAMILY WANTS PT TO BE DNR. AWAITING PT FAMILY ANSWER TO EITHER PLACE PT DNR OR MOVE PT TO ICU. PT BED IN LOW POSITION, CALL LIGHT WITHIN REACH. WILL ROUND FREQUENTLY ON PT AND MONITOR VITALS CAREFULLY.
--- NOTE | 2019-04-28 17:49 | NUR ---
ORDERED IV BOLUS FOR LOW PB. WILL CONTINUE TO MONITOR PT BP FOR IMPROVEMENT.
[2019-04-28] MEDS ORDERED: VANCOMYCIN 500 MG VIAL PO SCH (18:00)
[2019-04-28 18:20] LABS: FREE T4 (FREE THYROXINE) 1.37 ng/dL (0.76-1.46); MAGNESIUM 2.5 mg/dL (1.8-2.4); PHOSPHORUS 3.2 mg/dL (2.5-4.9); THYROID STIMULATING HORMONE 0.4 uIU/mL (0.34-3.74)
--- NOTE | 2019-04-28 19:00 | NUR ---
RECEIVED BEDSIDE REPORT FROM [facility] HUANG ROGER. PATIENT ON CONTACT PRECAUTIONS FOR C-DIFF. ACCORDING TO [facility] NURSE PATIENT WAS UNRESPONSIVE AND HAD ALOC. PATIENT UNRESPONSIVE TO NAME OR LIGHT PAIN. PUPILS ARE EQUAL AND REACTIVE BILATERALLY SIZE 3. SR ON MONITOR. BP 74/48 HR 78 O2SAT 99% ON 2 L NC, TEMP 96.7 RR 18 EVEN AND UNLABORED FLACC-0. SYMMETRICAL CHEST RISE AND FALL, LUNG SOUNDS CLEAR BILATERALLY, S1 AND S2 HEARD, PULSES PALPATED AND ARE EVEN ON ALL EXTREMITIES BILATERALLY, CAP REFILL LESS THAN [address] G-TUBE IN PLACE ABDOMEN SOFT AND NONDISTENDED, BOWEL SOUNDS HEARD IN ALL QUADRANTS, NO FACIAL GRIMACING WHEN PALPATED. LEFT WRIST 24 [address] DRESSING CLEAN DRY AND INTACT. NOTED SACRAL PRESSURE ULCER OPEN TO AIR. BED IN LOWEST POSITION, DAUGHTER AT BEDSIDE QUESTIONS ANSWERED. WILL CONTINUE TO FREQUENTLY MONITOR.
[2019-04-28] MEDS ORDERED: LORazepam 2 MG/ML VIAL IVP ONE (19:25)
[2019-04-28] MEDS: NACL 0.9% 1,000 ML IV SCH (19:48)
[2019-04-28 20:00] VITALS: BP 74/48
--- NOTE | 2019-04-28 20:25 | NUR ---
BROTHER MYRA WEBBER GAVE VERBAL CONSENT VIA TELEPHONE TO HAVE PICC LINE INSERTED TO DR HARKINS AND CHARGE NURSE.
[2019-04-28] MEDS ORDERED: ceFAZolin 1,000 MG VIAL ONE (20:38)
[2019-04-28] MEDS ORDERED: DOCUSATE 100 MG/10 ML UDC GT PRN (20:40)
[2019-04-28] MEDS ORDERED: cefTRIAXone 1,000 MG VIAL ONE (20:40)
[2019-04-28] MEDS ORDERED: metroNIDAZOLE 500 MG/NS PREMIX 100 ML IV SCH (21:00)
[2019-04-28] MEDS ORDERED: DOCUSATE SODIUM 100 MG GELCAP PO SCH (21:00)
--- NOTE | 2019-04-28 21:25 | NUR ---
BOILER/CHILLER OPERATOR AT BEDSIDE TO CONFIRM PICC LINE PLACEMENT
[2019-04-28] MEDS ORDERED: metroNIDAZOLE 500 MG TAB GT SCH (22:00)
--- NOTE | 2019-04-28 22:30 | NUR ---
DR LIVINGSTON AT BEDSIDE DID ASSESSMENT UPDATE GIVEN WILL CONTINUE WITH ORDERS.
[2019-04-28] MEDS ORDERED: THERAHONEY GEL 42.5 GM TP PRN (22:40)
[2019-04-29] VITALS (91 sets, daily range): BP systolic 65–132; BP diastolic 25–100
[2019-04-29] MEDS ORDERED: VANCOMYCIN 500 MG VIAL GT SCH
--- NOTE | 2019-04-29 | NUR ---
D/C IV IN LEFT HAND 24 G CATH INTACT
[2019-04-29] MEDS: VANCOMYCIN 1,000 MG VIAL PO SCH ×4 (00:04→17:24)
[2019-04-29] MEDS ORDERED: NOREPINEPHRINE 4 MG/4 ML VIAL IV ONE (00:56)
[2019-04-29] MEDS: NOREPINEPHRINE 8 MG in DEXTROSE 5% 250 ML IV PRN (01:17)
--- NOTE | 2019-04-29 01:33 | NUR ---
CALLED DR HARKINS TO NOTIFY HR WENT TO 140'S AND BP 176/83 AFTER LEVOPHED INFUSING AT 5 MCG STARTED. EXPLAINED WE TRY TO TITRATE LEVOPHED DOWN TO 2 MCG AND HR STILL IN 130'S. DR HARKINS AT BEDSIDE ORDERS TO HOLD LEVOPHED. INCREASE MAINTENANCE FLUIDS TO 150 ML/HR AND FLUID BOLUS PATIENT WITH 500 ML NS. BP 120/93 MAP 101 HR 131.
[2019-04-29] MEDS ORDERED: NACL 0.9% 500 ML IV ONE ×3 (01:45→02:10)
[2019-04-29] MEDS: NACL 0.9% 1,000 ML IV SCH (01:48)
--- NOTE | 2019-04-29 02:05 | NUR ---
ORDERS TO BOLUS PATIENT WITH ANOTHER 500 ML AND TO START ON LEVOPHED 1 MCG BP NOW 87/60 MAP 69 HR 125
--- NOTE | 2019-04-29 02:09 | NUR ---
DR HARKINS AT BEDSIDE ANSWERING DAUGHTERS QUESTIONS
[2019-04-29] MEDS ORDERED: NACL 0.9% 1,000 ML IV ONE ×2 (02:15→04:00)
--- NOTE | 2019-04-29 02:15 | NUR ---
STATED BY DR SHAHANA ARIAS ORDERS ANOTHER 1 L BOLUS AND TO START PATIENT ON HYDROCORTISONE. WILL FOLLOW WITH ORDERS
[2019-04-29] MEDS ORDERED: HYDROCORTISONE NA SUCC 100 MG/2 ML VIAL IV SCH ×4 (02:30→12:00)
[2019-04-29] MEDS ORDERED: GAUZE TP PRN (04:10)
--- NOTE | 2019-04-29 04:57 | NUR ---
INCREASED LEVOPHED TO [address] HARKINS ORDER
[2019-04-29] MEDS ORDERED: VANCOMYCIN 1,000 MG VIAL ONE (06:26)
--- NOTE | 2019-04-29 06:30 | NUR ---
DUE VANCO GIVEN
[2019-04-29 06:40] LABS: ANION GAP 15.6 (8-16); CARBON DIOXIDE 17.4 mmol/L (21-32); CHLORIDE 120 mmol/L (98-107); CREATININE 0.6 mg/dL (0.6-1.3); GLUCOSE 100 mg/dL (74-106); SODIUM SERUM 150 mmol/L (136-145); UREA NITROGEN, BLOOD 37 mg/dL (7-18)
[2019-04-29 06:45] LABS: MAGNESIUM 1.7 mg/dL (1.8-2.4); PHOSPHORUS 2.6 mg/dL (2.5-4.9)
[2019-04-29 06:57] LABS: CHOL/HDL RATIO 4.6 (1-4.5)
--- NOTE | 2019-04-29 07:25 | NUR ---
OBTAINED REPORT FROM NECKTIE MAKER NURSE AT BEDSIDE, PT IS LETHARGIC, UNABLE TO EXAM EYES DUE TO TIGHTLY CLOSED AND HARD TO OPEN, APHASIC, UNABLE TO FOLLOW COMMANDS AND MAKE NEEDS KNOWN, VSS, FLACC 0, NO S/S OF DISTRESS, DIMINISHED LUNG SOUNDS PRAKASH. ON O2 AT 2L VIA NC, O2 SAT 100%, ST ON MEAT PICKLER, SOFT ABDOMEN WITH HYPOACTIVE BOWEL SOUNDS, GT IN PLACE, NPO EXCEPT MEDS AT THIS TIME, INCONTINENT WITH B&B'S, BEDBOUND, RIGID TO ALL EXTREMITIES, SKIN IS COOL AND DRY, OPEN WOUND PRESENT( SEE WOUND ASSESSMENT), PICC LINE TO COLUMBA, PATENT, RUNNING NS AT 150ML/HR, AND LEVOPHED AT 2 MCG/KG/MIN. HOB ELEVATED TO 30 DEGREES, SAFETY MEASURE IN PLACE, POSITION CHANGED FOR OFF LOAD PRESSURE, WILL CONTINUE TO MONITOR.
[2019-04-29] MEDS ORDERED: POTASSIUM CHLORIDE 20% 40 MEQ/15 ML UDC GT SCH (07:30)
[2019-04-29] MEDS ORDERED: MAG SULF 2000 MG/WATER PREMIX 50 ML IV SCH (07:30)
[2019-04-29] MEDS: DEXT 5% / NACL 0.45% 1,000 ML IV SCH ×2 (07:41→19:07)
[2019-04-29 07:45] LABS: HEMATOCRIT 42.9 % (36-48); HEMOGLOBIN 13.8 g/dL (12.0-16.0); MEAN CORPUSCULAR HEMOGLOBIN 29 pg (27-31); MEAN CORPUSCULAR HGB CONC 32 g/dL (33-37); MEAN CORPUSCULAR VOLUME 90.2 fL (80-94); PLATELET COUNT (AUTO) 203 K/uL (140-450); RED BLOOD CELL COUNT(AUTO) 4.75 MIL/uL (4.20-5.40); RED CELL DISTRIBUTION WIDTH 16.7 % (11.6-13.7)
[2019-04-29 08:05] LABS: LYMPHOCYTES % (MANUAL) 1 % (20-46); MONOCYTES % (MANUAL) 1 % (5-12)
[2019-04-29] MEDS: metroNIDAZOLE 500 MG TAB GT SCH ×3 (08:17→17:24)
--- NOTE | 2019-04-29 08:30 | NUR ---
SCHEDULED MEDICATION GIVEN, PT TOLERATED WELL.
--- NOTE | 2019-04-29 08:31 | NUR ---
PATIENT HAS BEEN SCREENED AND CATEGORIZED HIGH NUTRITION RISK. PATIENT WILL BE SEEN WITHIN 1-2 DAYS OF ADMISSION. 04/29/19-04/30/[address]
[2019-04-29] MEDS: PHARMACY COMMENTS MC SCH (09:00)
[2019-04-29] MEDS ORDERED: ASCORBIC ACID 500 MG TAB GT SCH (09:00)
--- NOTE | 2019-04-29 10:00 | NUR ---
NO S/S OF DISTRESS, VSS, FLACC 0, POSITION CHANGED FOR OFF LOAD PRESSURE.
[2019-04-29] MEDS: THIAMINE 200 MG in NACL 0.9% 50 ML IV SCH ×2 (10:03→20:21)
--- NOTE | 2019-04-29 10:25 | NUR ---
DR. PARK CAME IN TO SEE PATIENT AT BEDSIDE, UPDATED PATIENT'S CONDITION, WILL FOLLOW UP WITH NEW ORDERS.
--- NOTE | 2019-04-29 10:40 | NUR ---
PER ALF OF [facility], PATIENT IS ON 7 DAY BED HOLD.
--- NOTE | 2019-04-29 11:50 | NUR ---
DR. HERNÁNDEZ CAME IN TO SEE PATIENT, SPOKE TO PATIENT'S DAUGHTER AT BEDSIDE, WILL FOLLOW UP WITH NEW ORDERS.
[2019-04-29] MEDS ORDERED: ASCORBIC ACID INJ 1,500 MG in NACL 0.9% 100 ML IV SCH (12:00)
--- NOTE | 2019-04-29 12:00 | NUR ---
NO S/S OF DISTRESS, VSS, FLACC 0, POSITION CHANGED FOR OFF LOAD PRESSURE.
--- NOTE | 2019-04-29 13:00 | NUR ---
WOUND CARE PROVIDED, PATIENT TOLERATED WELL.
--- NOTE | 2019-04-29 13:13 | NUR ---
04/29/19 RD INITIAL ASSESSMENT COMPLETED PLEASE REFER TO NUTRITION ASSESSMENT UNDER CARE ACTIVITY FOR ESTIMATED NUTRITIONAL NEEDS. RD RECOMMENDATIONS: 1.WHEN MEDICALLY APPROPRIATE TO START TUBE FEEDING, CONSIDER OSMOLITE 1.5 AT GOAL RATE OF 55 ML/HR. -START AT 25 ML/HR AND ADVANCE 10 ML/HR Q4H TO GOAL RATE -AT GOAL RATE, TUBE FEEDING WILL PROVIDE 1980 KCAL, 83 GM OF PROTEIN (ADEQUATE TO MEET NUTRITIONAL NEEDS). 2.CONSIDER 150 ML FREE WATER FLUSH Q4H FOR APPROPRIATE HYDRATION. 3. CONSIDER PROSOURCE DAILY TO OPTIMIZE PROTEIN INTAKE AND PROMOTE WOUND HEALING. 4. CONSIDER MVI/MIN AND 500 MG VITAMIN C DAILY TO PROMOTE WOUND HEALING. 5. RD WILL F/U 2-3 DAYS; HIGH RISK. KEMAR GAGNON, RD
--- NOTE | 2019-04-29 14:00 | NUR ---
NO CHANGE OF CONDITION AT THIS TIME, VSS, FLACC 0, POSITION CHANGED FOR OFF LOAD PRESSURE.
--- NOTE | 2019-04-29 15:00 | NUR ---
DR. AGUILLON CAME IN TO SEE PATIENT AT BEDSIDE, NO NEW ORDER AT THIS TIME.
--- NOTE | 2019-04-29 16:00 | NUR ---
ORAL CARE AND PM CARE PROVIDED, VSS, FLACC 0, NO S/S OF DISTRESS, POSITION CHANGED FOR OFF LOAD PRESSURE.
--- NOTE | 2019-04-29 19:10 | NUR ---
RECEIVED BEDSIDE REPORT FROM DAY SHIFT RN KATY, PATIENT ON CONTACT PRECAUTIONS FOR HX C-DIFF, RESULTS STILL PENDING, PATIENT IN BED AAOX1 TO PERSON, OPENED EYES WHEN NAME BEING CALLED. PUPILS ARE EQUAL ROUND AND REACTIVE BILATERALLY SIZE 3. A-FIB ON MONITOR, RIGHT UPPER ARM PICC INFUSING LEVOPHED INFUSING AT 2 MCG BP 100/69 MAP 82 HR 98 RR 23 O2SAT 99% ON 2 L NC FLACC-0 TEMP 98.0 F TEMPORAL AND D5/1/2 NS AT 90 ML/HR. LUNG SOUNDS CLEAR BILATERALLY S1 AND S2 HEARD PULSES PALPATED CAP REFILL LESS THAN 3 SECONDS SKIN WARM. PATIENT HAD ONE SOFT BROWN BM AND URINE YELLOW. TEN CARE PROVIDED, PATIENT REPOSITIONED FOR COMFORT. BARE HUGGER IN PLACE. NOTED SACRAL ULCER DRESSING CHANGED. G-TUBE IN PLACE INFUSING OSMOLITE WITH PRESOURSE 1 PACK DAILY AT 20 ML/HR WITH WATER FLUSH 150 Q4H. WILL CONTINUE TO CLOSELY MONITOR
--- NOTE | 2019-04-29 20:00 | NUR ---
REPOSITIONED PATIENT FOR COMFORT, BED IN LOWEST POSITION, WILL CONTINUE TO MONITOR
[2019-04-30] VITALS (96 sets, daily range): BP systolic 72–134; BP diastolic 29–87
--- NOTE | 2019-04-30 00:08 | NUR ---
DR LIVINGSTON AT BEDSIDE UPDATE GIVEN NO CHANGE IN ORDERS
[2019-04-30] MEDS: VANCOMYCIN 1,000 MG VIAL PO SCH ×4 (00:39→17:38)
--- NOTE | 2019-04-30 00:40 | NUR ---
DUE VANCO GIVEN
--- NOTE | 2019-04-30 02:49 | NUR ---
CALL BACK FROM LAB C-DIFF POSITIVE NOTIFIED DR EMERSON NO CHANGE IN ORDERS SINCE PATIENT IS ON VANCO 500 MG Q6H
--- NOTE | 2019-04-30 04:00 | NUR ---
REPOSITIONED PATIENT FOR COMFORT, PATIENT HAD LARGE BM, TEN CARE PROVIDED.
--- NOTE | 2019-04-30 06:00 | NUR ---
DUE VANCO GIVEN
[2019-04-30 06:16] LABS: HEMATOCRIT 41.9 % (36-48); HEMOGLOBIN 13.4 g/dL (12.0-16.0); MEAN CORPUSCULAR HEMOGLOBIN 29 pg (27-31); MEAN CORPUSCULAR HGB CONC 32 g/dL (33-37); MEAN CORPUSCULAR VOLUME 90.6 fL (80-94); PLATELET COUNT (AUTO) 224 K/uL (140-450); RED BLOOD CELL COUNT(AUTO) 4.62 MIL/uL (4.20-5.40); RED CELL DISTRIBUTION WIDTH 16.8 % (11.6-13.7)
[2019-04-30] MEDS: DEXT 5% / NACL 0.45% 1,000 ML IV SCH ×2 (06:18→17:38)
[2019-04-30 06:40] LABS: MAGNESIUM 2.3 mg/dL (1.8-2.4)
--- NOTE | 2019-04-30 06:40 | NUR ---
CALL FROM LAB K 2.6 PHOS 1.0 BUN 22 CA 22 WBC 33.4 NOTIFIED RESIDENTS NO CHANGE IN ORDERS
[2019-04-30 06:51] LABS: WHITE BLOOD COUNT (AUTO) 33.4 K/uL (4.8-10.8)
[2019-04-30 06:52] LABS: EOSINOPHILS % (MANUAL) 1 % (0-4); LYMPHOCYTES % (MANUAL) 10 % (20-46); MONOCYTES % (MANUAL) 9 % (5-12)
--- NOTE | 2019-04-30 07:22 | NUR ---
OBTAINED REPORT FROM AUTOMOBILE REPAIR SERVICE ESTIMATOR NURSE AT BEDSIDE, PT OPEN EYES, APHASIC, UNABLE TO FOLLOW COMMANDS AND MAKE NEEDS KNOWN, VSS, FLACC 0, NO S/S OF DISTRESS, DIMINISHED LUNG SOUNDS PRAKASH. ON O2 AT 2L VIA NC, O2 SAT 100%, SR ON COMMERCIAL SALES DIRECTOR, SOFT ABDOMEN WITH ACTIVE BOWEL SOUNDS, GT IN PLACE, FEEDING WITH OSMOLITE 1.5 AT 55ML/HR, INCONTINENT WITH B&B'S, BEDBOUND, RIGID TO ALL EXTREMITIES, SKIN IS WARM AND DRY, OPEN WOUND PRESENT( SEE WOUND ASSESSMENT), PICC LINE TO COLUMBA, PATENT, RUNNING D5 1/2 NS AT 90ML/HR, AND LEVOPHED AT 2 MCG/KG/MIN. HOB ELEVATED TO 30 DEGREES, SAFETY MEASURE IN PLACE, POSITION CHANGED FOR OFF LOAD PRESSURE, WILL CONTINUE TO MONITOR.
[2019-04-30] MEDS ORDERED: KCL 20 MEQ/WATER INJ PREMIX 200 ML IV SCH (07:30)
[2019-04-30] MEDS ORDERED: POTASSIUM CHLORIDE 20% 40 MEQ/15 ML UDC GT SCH (07:30)
[2019-04-30] MEDS: ASCORBIC ACID 500 MG/5 ML ORASYR GT SCH (08:26)
[2019-04-30] MEDS: metroNIDAZOLE 500 MG TAB GT SCH ×3 (08:26→17:38)
[2019-04-30] MEDS: PHARMACY COMMENTS MC SCH (08:36)
[2019-04-30] MEDS: THIAMINE 200 MG in NACL 0.9% 50 ML IV SCH ×2 (08:42→20:07)
--- NOTE | 2019-04-30 08:45 | NUR ---
SCHEDULED MEDICATION GIVEN, PT TOLERATED WELL.
--- NOTE | 2019-04-30 09:50 | NUR ---
DR. PARK CAME IN TO SEE PATIENT AT BEDSIDE, WILL FOLLOW UP WITH NEW ORDERS.
[2019-04-30 09:59] LABS: ANION GAP 14.1 (8-16); CARBON DIOXIDE 19.6 mmol/L (21-32); CHLORIDE 117 mmol/L (98-107); CREATININE 0.8 mg/dL (0.6-1.3); GLUCOSE 281 mg/dL (74-106); SODIUM SERUM 148 mmol/L (136-145); UREA NITROGEN, BLOOD 23 mg/dL (7-18)
--- NOTE | 2019-04-30 10:00 | NUR ---
NO CHANGE OF CONDITION, VSS, FLACC 0, POSITION CHANGED FOR OFF LOAD PRESSURE.
[2019-04-30 10:03] LABS: POTASSIUM 2.7 mmol/L (3.5-5.1)
[2019-04-30] MEDS: SODIUM PHOS / POTASSIUM PHOS 1 PKT PDR PO SCH ×2 (10:46→20:07)
[2019-04-30] MEDS ORDERED: MIDODRINE 5 MG TAB GT SCH (10:55)
--- NOTE | 2019-04-30 12:00 | NUR ---
NO S/S OF DISTRESS, VSS, FLACC 0, POSITION CHANGED FOR OFF LOAD PRESSURE.
--- NOTE | 2019-04-30 12:28 | NUR ---
DR. AGUILLON CAME IN TO SEE PATIENT AT BEDSIDE, NO NEW ORDERS AT THIS TIME.
[2019-04-30] MEDS ORDERED: NACL 0.9% 1,000 ML IV ONE (12:55)
--- NOTE | 2019-04-30 13:00 | NUR ---
WOUND CARE PROVIDED, PT TOLERATED WELL.
[2019-04-30] MEDS: MIDODRINE 5 MG TAB GT SCH ×2 (13:25→20:06)
--- NOTE | 2019-04-30 13:30 | NUR ---
TUBE FEEDING CHANGED TO A NEW BAG AND FEEDING TUBE CHANGED, PT TOLERATED WELL.
--- NOTE | 2019-04-30 14:00 | NUR ---
TRIED TO STRAIGHT CATH TO COLLECT URINE, COULD NOT COLLECT IT BY TWO NURSES AT THIS TIME, WILL TRY AGAIN LATER.
[2019-04-30] MEDS ORDERED: HYDRAGUARD CREAM TP ONE (15:15)
[2019-04-30] MEDS: HYDRAGUARD CREAM TP SCH (15:44)
--- NOTE | 2019-04-30 16:00 | NUR ---
PM CARE AND ORAL CARE PROVIDED, VSS, FLACC 0, TEN CARE PROVIDED, POSITION CHANGED FOR OFF LOAD PRESSURE.
--- NOTE | 2019-04-30 16:45 | NUR ---
3ML OF URINE COLLECTED BY STRAIGHT CATH, SENT TO LAB.
--- NOTE | 2019-04-30 18:00 | NUR ---
NO CHANGE OF CONDITION, VSS, DENIES PAIN, POSITION CHANGED FOR OFF LOAD PRESSURE.
[2019-04-30 18:43] LABS: APPEARANCE,URINE SL CLOUDY (CLEAR); BILIRUBIN,URINE NEGATIVE (NEGATIVE); BLOOD, URINE 3+ (NEGATIVE); COLOR,URINE YELLOW (YELLOW); LEUKOCYTE ESTERASE ,URINE TRACE (NEGATIVE); NITRITE, URINE NEGATIVE (NEGATIVE); PH,URINE 5.5 (5.0-9.0); UGLUCOSE 1+ (NEGATIVE)
[2019-04-30 18:49] LABS: RBC,URINE 20-50 /HPF (0-5); WBC,URINE 0-5 /HPF (0-5)
[2019-04-30 18:50] LABS: URINE AMORPHOUS URATE 1+ /HPF (None Seen)
--- NOTE | 2019-04-30 19:17 | NUR ---
REPORT GIVEN TO WASH CREW PERSON NURSE AT BEDSIDE FOR CONTINUE OF CARE, PT IS IN STABLE CONDITION AT THIS TIME.
--- NOTE | 2019-04-30 19:20 | NUR ---
RECEIVED REPORT FROM AM NURSE. PT AT BED EYES CLOSED, PERRL 3MM, BRISK, HEART RATE IRREGULAR, A. FIB ON MONITOR, S1S2, PULSES 2+ BILATERAL UPPER AND LOWER EXTREMITIES, LUNG SOUNDS CLEAR THROUGHOUT, PT ON NC RUNNING 02 2L/MIN, ABDOMEN SOFT, ROUND, NONDISTENDED, NONTENDER, BOWEL SOUNDS ACTIVE IN ALL QUADRANTS, PEG TUBE IN PLACE RUNNING OSMOLITE 1.5 AT 55 ML/HR WITH 150 ML/HR WATER FLUSH AT Q6HR, PT HAS GENERALIZED WEAKNESS, SKIN ON INTACT, DRESSING IN PLACE ON SACRAL AREA, DRY AND INTACT, OPEN WOUND NOTED. SKIN, DRY, WARM, APPROPRIATE TO ETHNICITY. PT IS AFEBRILE AT 97.6. PT HAS RIGHT UPPER ARM PICC LINE, RUNNING LEVOPHED AT 2 MCG/MIN, D5 1/2 NS RUNNING AT 90 ML/HR. HOB 30 DEGREES, SIDE RAILS X2, BED AT LOWEST POSITION.
--- NOTE | 2019-04-30 20:54 | NUR ---
PT AT BED AWAKE, BREATHING REGULARLY, REPOSITIONED. HOB 30 DEGREES, SIDE RAILS UP X2, BED AT LOWEST POSITION.
--- NOTE | 2019-04-30 22:40 | NUR ---
DR. LIVINGSTON AT BEDSIDE, UPDATED MD ON PT CONDITION. NO NEW ORDERS.
[2019-05-01] VITALS (93 sets, daily range): BP systolic 73–136; BP diastolic 29–97
--- NOTE | 2019-05-01 00:15 | NUR ---
ADMINISTERED 125 MG VANCOMYCIN GT, CHECK RESIDUAL >150 ML. GTUBE FEEDING HELD FOR NOW. AM CARE PROVIDED. PT TOLERATED PROCEDURE WELL. DRESSINGS CHANGED. HOB 30 DEGREES, SIDE RAILS UP X2, BED AT LOWEST POSITION. WILL CONTINUE TO MONITOR Addendum: 05/01/19 at 0103 by Blaze Barbosa RN CORRECTION ADMINISTERED VANCOMYCIN AT 500 MG AT 20 ML
[2019-05-01] MEDS: VANCOMYCIN 1,000 MG VIAL PO SCH ×5 (00:44→23:59)
--- NOTE | 2019-05-01 02:15 | NUR ---
PT AT BED EYES CLOSED, BREATHING REGULARLY, HOB 30 DEGREES, SIDERAILS UP X2, BED AT LOWEST POSITION. WILL CONTINUE TO MONITOR.
--- NOTE | 2019-05-01 04:17 | NUR ---
PT AT BED EYES CLOSED, BREATHING REGULARLY, HOB 30 DEGREES, SIDERAILS UP X2, BED AT LOWEST POSITION. WILL CONTINUE TO MONITOR.
[2019-05-01] MEDS: MIDODRINE 5 MG TAB GT SCH (04:46)
[2019-05-01 04:50] LABS: HEMATOCRIT 42.9 % (36-48); HEMOGLOBIN 13.7 g/dL (12.0-16.0); MEAN CORPUSCULAR HEMOGLOBIN 29 pg (27-31); MEAN CORPUSCULAR HGB CONC 32 g/dL (33-37); MEAN CORPUSCULAR VOLUME 90.2 fL (80-94); PLATELET COUNT (AUTO) 207 K/uL (140-450); RED BLOOD CELL COUNT(AUTO) 4.76 MIL/uL (4.20-5.40); RED CELL DISTRIBUTION WIDTH 16.8 % (11.6-13.7)
[2019-05-01] MEDS: DEXT 5% / NACL 0.45% 1,000 ML IV SCH ×3 (05:16→20:59)
[2019-05-01] MEDS: NOREPINEPHRINE 8 MG in DEXTROSE 5% 250 ML IV PRN (05:24)
--- NOTE | 2019-05-01 05:33 | NUR ---
ADMINISTERED MEDICATION. PT AT BED AWAKE, BREATHING REGULARLY, HOB 30 DEGREES, SIDE RAILS UP X2, BED AT LOWEST POSITION, WILL CONTINUE TO MONITOR.
[2019-05-01 07:11] LABS: WHITE BLOOD COUNT (AUTO) 27.3 K/uL (4.8-10.8)
[2019-05-01 07:12] LABS: LYMPHOCYTES % (MANUAL) 8 % (20-46); MONOCYTES % (MANUAL) 4 % (5-12)
--- NOTE | 2019-05-01 07:21 | NUR ---
CHANGE OF SHIFT REPORT GIVEN TO AM NURSE. PT AT STABLE CONDITION AT THIS TIME.
--- NOTE | 2019-05-01 07:30 | NUR ---
RECEIVED REPORT FROM PM NURSE. PT EYES CLOSED, PERRL 3MM, BRISK, HEART RATE IRREGULAR, BEDSIDE MONITOR SHOWS A-FIB, S1S2, PULSES 2+ BILATERAL UPPER AND LOWER EXTREMITIES, PT ON NC RUNNING 02 2L/MIN. NO S/S OF RESPIRATORY DISTRESS NOTED. PT HAS RIGHT UPPER ARM PICC LINE, RUNNING LEVOPHED AT 2 MCG/MIN, D5 1/2 NS RUNNING AT 90 ML/HR.SITE INTACT AND PATENT. ABDOMEN SOFT, ROUND, NONDISTENDED, NONTENDER, BOWEL SOUNDS ACTIVE IN ALL QUADRANTS, PEG TUBE IN PLACE RUNNING OSMOLITE 1.5 AT 55 ML/HR WITH 150 ML/HR WATER FLUSH AT Q6HR, RESIDUAL CHECKED ZERO. SKIN NON INTACT( SEE WOUND ASSESSMENT ) HOB 30 DEGREES, SIDE RAILS X2, BED AT LOWEST POSITION. WILL CONTINUE TO MONITOR.
--- NOTE | 2019-05-01 07:45 | NUR ---
PT HAD DIARRHEA, CLEANED PT. SACRAL DRESSING CHANGED.
[2019-05-01 07:47] LABS: ANION GAP 10.3 (8-16); CARBON DIOXIDE 22.7 mmol/L (21-32); CHLORIDE 117 mmol/L (98-107); CREATININE 0.5 mg/dL (0.6-1.3); GLUCOSE 123 mg/dL (74-106); SODIUM SERUM 146 mmol/L (136-145); UREA NITROGEN, BLOOD 12 mg/dL (7-18)
[2019-05-01 07:48] LABS: MAGNESIUM 1.9 mg/dL (1.8-2.4)
[2019-05-01] MEDS: ASCORBIC ACID 500 MG/5 ML ORASYR GT SCH (09:18)
[2019-05-01] MEDS: metroNIDAZOLE 500 MG TAB GT SCH ×3 (09:18→16:27)
[2019-05-01] MEDS: PHARMACY COMMENTS MC SCH (09:19)
[2019-05-01] MEDS: THIAMINE 200 MG in NACL 0.9% 50 ML IV SCH (09:19)
[2019-05-01] MEDS ORDERED: SODIUM PHOS / POTASSIUM PHOS 1 PKT PDR GT SCH ×2 (09:30→21:00)
--- NOTE | 2019-05-01 09:30 | NUR ---
PT HAD DIARRHEA, CLEANED PT. ALL BEDSHEET CHANGED.
[2019-05-01] MEDS: MIDODRINE 5 MG TAB PO SCH ×2 (13:01→20:59)
--- NOTE | 2019-05-01 13:22 | NUR ---
DR. CONNER IN TO CHECK PT. WILL F/U WITH ORDERS.
--- NOTE | 2019-05-01 14:28 | NUR ---
cleaned pt. bed bath given. pt tolerated well. sacral dressing changed as ordered.
[2019-05-01] MEDS ORDERED: POTASSIUM PHOSPHATE 15 MM in NACL 0.9% 250 ML IV SCH (16:00)
--- NOTE | 2019-05-01 19:05 | NUR ---
RECEIVED REPORT FROM AM NURSE. PT AT BED EYES CLOSED, PERRL 3MM, BRISK, HEART RATE IRREGULAR, A. FIB ON MONITOR, S1S2, PULSES 2+ BILATERAL UPPER AND LOWER EXTREMITIES, LUNG SOUNDS CLEAR THROUGHOUT, PT ON NC RUNNING 02 2L/MIN, ABDOMEN SOFT, ROUND, NONDISTENDED, NONTENDER, BOWEL SOUNDS ACTIVE IN ALL QUADRANTS, PEG TUBE IN PLACE RUNNING OSMOLITE 1.5 AT 55 ML/HR WITH 150 ML/HR WATER FLUSH AT Q6HR, PT HAS GENERALIZED WEAKNESS, SKIN ON INTACT, DRESSING IN PLACE ON SACRAL AREA, DRY AND INTACT, OPEN WOUND NOTED. SKIN, DRY, WARM, APPROPRIATE TO ETHNICITY. PT IS AFEBRILE AT 97.3. PT HAS RIGHT UPPER ARM PICC LINE, RUNNING LEVOPHED AT 2 MCG/MIN, D5 1/2 NS RUNNING AT 90 ML/HR. K-PHOS RUNNING AT 42.5 ML/HR, HOB 30 DEGREES, SIDE RAILS X2, BED AT LOWEST POSITION.
--- NOTE | 2019-05-01 21:15 | NUR ---
MEDICATIONS GIVEN. REPOSITIONED PT. SUCTIONED MOUTH WITH WHITE MODERATE AMOUNT OF MUCOUS.
--- NOTE | 2019-05-01 23:20 | NUR ---
PT AT BED AWAKE, BREATHING REGULARLY, HOB 30 DEGREES, SIDERAILS UP X2, BED AT LOWEST POSITION. WILL CONTINUE TO MONITOR.
[2019-05-02] VITALS (94 sets, daily range): BP systolic 89–151; BP diastolic 18–89
--- NOTE | 2019-05-02 01:23 | NUR ---
PT AT BED, EYES CLOSED BREATHING REGULARLY, HOB 30 DEGREES, SIDERAILS UP X2, BED AT LOWEST POSITION.
--- NOTE | 2019-05-02 03:10 | NUR ---
AM CARE PROVIDED, DRESSING CHANGED, PT TOLERATED PROCEDURE WELL. PT AT BED, EYES CLOSED BREATHING REGULARLY, HOB 30 DEGREES, SIDERAILS UP X2, BED AT LOWEST POSITION.
--- NOTE | 2019-05-02 05:07 | NUR ---
PT AT BED, EYES CLOSED BREATHING REGULARLY, HOB 30 DEGREES, SIDERAILS UP X2, BED AT LOWEST POSITION.
[2019-05-02 05:38] LABS: HEMOGLOBIN 13.1 g/dL (12.0-16.0); MEAN CORPUSCULAR HEMOGLOBIN 29 pg (27-31); MEAN CORPUSCULAR HGB CONC 33 g/dL (33-37); MEAN CORPUSCULAR VOLUME 89.4 fL (80-94); PLATELET COUNT (AUTO) 233 K/uL (140-450); RED BLOOD CELL COUNT(AUTO) 4.47 MIL/uL (4.20-5.40); RED CELL DISTRIBUTION WIDTH 16.9 % (11.6-13.7)
[2019-05-02] MEDS: MIDODRINE 5 MG TAB PO SCH ×3 (05:55→20:06)
[2019-05-02] MEDS: VANCOMYCIN 1,000 MG VIAL PO SCH ×3 (05:55→18:26)
[2019-05-02] MEDS: NOREPINEPHRINE 8 MG in DEXTROSE 5% 250 ML IV PRN (06:20)
[2019-05-02 06:30] LABS: ANION GAP 9.7 (8-16); CARBON DIOXIDE 22.8 mmol/L (21-32); CHLORIDE 113 mmol/L (98-107); CREATININE 0.4 mg/dL (0.6-1.3); GLUCOSE 151 mg/dL (74-106); POTASSIUM 3.5 mmol/L (3.5-5.1); SODIUM SERUM 142 mmol/L (136-145); UREA NITROGEN, BLOOD 10 mg/dL (7-18)
[2019-05-02 06:41] LABS: MAGNESIUM 1.6 mg/dL (1.8-2.4); PHOSPHORUS 1.6 mg/dL (2.5-4.9)
--- NOTE | 2019-05-02 07:30 | NUR ---
CHANGE OF SHIFT REPORT GIVEN TO AM NURSE. PT AT STABLE CONDITION AT THIS TIME.
--- NOTE | 2019-05-02 07:30 | NUR ---
RECEIVED REPORT FROM HUANG CHRISTIAN. OPENS EYES SPONTANEOUSLY. DOES NOT FOLLOW COMMANDS. NECK STIFF, TURNED TO RT SIDE. LEVOPHED AT 2 MCG/MIN. IV D5 0.45% NS AT 90 ML/ HR VIA RT UA PICC LINE. RESP. UNLABORED, 02 AT 3 L/M/NC. 02 SAT 93% TO 95%. INCONTINENT OF URINE AND MUCOIDY STOOLS WITH SSMALL AMT. STREAKS OF BLOOD. PERINEAL CARE DONE. BATH GIVEN. RECTAL BAG APPLIED.
--- NOTE | 2019-05-02 07:45 | NUR ---
GEN. EDEMA NOTED 1+ PITTING.
[2019-05-02 08:11] LABS: WHITE BLOOD COUNT (AUTO) 27.1 K/uL (4.8-10.8)
[2019-05-02 08:13] LABS: EOSINOPHILS % (MANUAL) 2 % (0-4); LYMPHOCYTES % (MANUAL) 10 % (20-46); MONOCYTES % (MANUAL) 8 % (5-12)
[2019-05-02] MEDS ORDERED: SODIUM PHOS / POTASSIUM PHOS 1 PKT PDR PO SCH (09:00)
[2019-05-02] MEDS: ASCORBIC ACID 500 MG/5 ML ORASYR GT SCH (09:00)
[2019-05-02] MEDS: metroNIDAZOLE 500 MG TAB GT SCH (09:00)
[2019-05-02] MEDS ORDERED: POTASSIUM PHOSPHATE 15 MM in NACL 0.9% 250 ML IV SCH (09:00)
--- NOTE | 2019-05-02 09:00 | NUR ---
SCDS APPLIED TO LOWER EXT. BILATERALLY.
[2019-05-02] MEDS: HYDRAGUARD CREAM TP SCH (09:01)
[2019-05-02] MEDS: PHARMACY COMMENTS MC SCH (09:01)
[2019-05-02] MEDS: MAG SULF 2000 MG/WATER PREMIX 100 ML IV SCH ×2 (09:04→11:00)
[2019-05-02] MEDS: DEXT 5% / NACL 0.45% 1,000 ML IV SCH ×2 (09:24→20:07)
--- NOTE | 2019-05-02 10:00 | NUR ---
INCONTINENT OF URINE. RECTAL BAG WITH MOD. AMT BROWNISH STOOLS. PERINEAL CARE DONE.
--- NOTE | 2019-05-02 12:00 | NUR ---
GT RESIDUAL CHECKED 5 ML. UPPER EXT. ELEVATE ON PILLOWS DUE TO EDEMA.
[2019-05-02] MEDS: metroNIDAZOLE 500 MG/NS PREMIX 100 ML IV SCH ×2 (12:15→20:06)
--- NOTE | 2019-05-02 15:03 | NUR ---
05/02/19 RD FOLLOW UP COMPLETED PLEASE REFER TO NUTRITION ASSESSMENT UNDER CARE ACTIVITY FOR ESTIMATED NUTRITIONAL NEEDS. 1. OSMOLITE 1.5 AT GOAL RATE OF 55 ML/HR WITH PROSOURCE -AT GOAL RATE, TUBE FEEDING WILL PROVIDE 1980 KCAL, 83 GM OF PROTEIN 2.CONTINUE 150 ML FREE WATER FLUSH Q4H FOR APPROPRIATE HYDRATION. 3. CONTINUE 500 MG VITAMIN C DAILY TO PROMOTE WOUND HEALING 4. RD WILL F/U 2-3 DAYS; HIGH RISK CHRISTINA YE RD
--- NOTE | 2019-05-02 16:03 | NUR ---
WOUND CARE EVALUATION NOTES: REASON FOR EVALUATION: PRESSURE ULCER ON SACRALCOCCYX SKIN ASSESSMENT DONE ON THIS 83 Y/O FEMALE PATIENT TO [facility], WITH INITIAL DIAGNOSIS OF SEPSIS AND PT. ADMITTED WITH CHRONIC PRESSURE ULCER STAGE 4. 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 ALL ABOVE INFORMATION WAS OBTAINED FROM THE ADMISSION H&P. SKIN WARM TO TOUCH, SKIN COLOR PALE WITH ABDOMEN DISTENTION. BLE NO HAIR GROWTH AND BILATERAL PEDAL PULSES PRESENT. HOOVER CATHETER PATENT AND INTACT TO [place] COLORED URINE IN MODERATE AMOUNT. RECTAL BAG IN PLACE. WATERY LOOSE BM OBSERVED. PLAN OF CARE DISCUSSED WITH PRIMARY RN. INTEGUMENTARY: -GT TEN-STOMA SKIN REDNESS WITH RASHES, SKIN INTACT -INCONTINENT ASSOCIATED DERMATITIS TO R/L BUTTOCKS, FRAGILE SKIN WITH REDNESS -SACRALCOCCYX STAGE 4 PRESSURE ULCER [id number] WITH NO UNDERMINING. WOUND BED IS PALE PINK, CLEAN SMALL AMOUNT SEROUS DRAINAGE, NO ODOR, WOUND EDGE WELL DEFINED, TEN-WOUND SKIN INTACT, SURROUNDING TISSUE PALE IN COLOR. -BILATERAL HEELS BLANCHABLE REDNESS RECOMMENDATIONS: --CLEANSE GT-SITE TEN-STOMA SKIN WITH NS, PAT DRY AND APPLY EKING RING Q5DAYS AND PRN IF SOILING -CLEANSE R/L BUTTOCKS WITH SOAP AND WATER, PAT DRY AND APPLY Z GUARD BID AND PRN IF SOILING -CLEANSE SACRALCOCCYX WOUND WITH WOUND CARE SOLUTION, PAT DRY, APPLY THERAHONEY GEL WITH ADAPTIC DRESSING QD AND COVER WITH DRY DRESSING QD AND PRN IF SOILING. -TURN AND REPOSITION PATIENT Q2H -ASSESS AND MONITOR SKIN CONDITION DURING POSITION CHANGE, PLEASE PAY ATTENTION TO LEFT AND RIGHT BUTTOCKS -OFFLOAD BILATERAL HEELS BY PLACING PILLOWS UNDER CALVES AT ALL TIMES, UNLESS OTHERWISE CONTRAINDICATED -HEEL PROTECTORS TO BOTH HEELS AT ALL TIMES -PRESSURE REDISTRIBUTION SURFACE THERAPY -KEEP SKIN CLEAN AND DRY AT ALL TIMES. RECOMMENDATIONS DISCUSSED WITH PRIMARY RN WILL FOLLOW UP PATIENT Q 7 -10 DAYS AND PRN. PLEASE CONTACT WOUND CARE NURSE FOR ANY QUESTION OR CHANGES IN WOUND CONDITION
--- NOTE | 2019-05-02 18:00 | NUR ---
DAUGHTER AT BEDSIDE. UPDATED ON PT'S CONDITION.
--- NOTE | 2019-05-02 18:15 | NUR ---
PT'S SON MYRA CALLED. UPDATED ON PT'S CONDITION.
--- NOTE | 2019-05-02 18:30 | NUR ---
RECTAL BAG LEAKING LARGE AMT. OF LIQUID BROWNISH STOOLS. INCONTINENT OF LARGE AMT URINE ALSO. PERINEAL CARE DONE.
--- NOTE | 2019-05-02 19:10 | NUR ---
RECEIVED BEDSIDE REPORT FROM DAY SHIFT RN, PATIENT IN BED, ON CONTACT PRECAUTIONS FOR C-DIFF. AAOX 1 TO NAME, OPENS EYES BUT DOES NOT HAVE VERBAL CONVERSATION OR ABLE TO MOUTH WORDS. PATIENT NOT ABLE TO FOLLOW SIMPLE COMMANDS. ON LEVOPHED DRIP AT 1 MCG BP 95/53 MAP 84 HR 95 RR 12 100% O2SAT ON 3 L NC TEMP 96.9 F FLACC-0. SYMMETRICAL CHEST RISE AND FALL, LUNG SOUNDS CLEAR, S1 AND S2 HEARD, PULSES PALPATED IN ALL EXTREMITIES, CAP REFILL LESS THAN 3 SECONDS. SKIN IS WARM AND DRY, GENERALIZED EDEMA NOTED. RIGHT UPPER ARM PICC LINE INFUSING LEVOPHED AT 1 MCG AND D5/1/2 NS AT 90 ML/HR DRESSING CLEAN DRY AND INTACT. G-TUBE IN PLACE INFUSING OSMOLITE AT 55 ML/HR WITH 150 H20 FLUSH Q4H. SCD IN PLACE, NOTED SACRAL PRESSURE ULCER AND REDNESS AROUND G-TUBE SITE. BED IN LOWEST POSITION, WILL CONTINUE TO FREQUENTLY MONITOR.
--- NOTE | 2019-05-02 20:00 | NUR ---
TURNED OFF LEVOPHED BP WENT TO 84/51 MAP 60 HR 90. TURNED LEVOPHED BACK ON. ALL SCHEDULED MEDICATIONS GIVEN. 30 ML TUBE FEED RESIDUALS NOTED.
[2019-05-03] VITALS (57 sets, daily range): BP systolic 71–140; BP diastolic 43–82
[2019-05-03] MEDS: VANCOMYCIN 1,000 MG VIAL PO SCH ×4 (00:15→18:25)
[2019-05-03] MEDS: Z-GUARD PASTE TP SCH ×2 (00:15→13:00)
--- NOTE | 2019-05-03 00:15 | NUR ---
DUE VANCO GIVEN STOPPED LEVOPHED BP 76/44 MAP 52 HR 92 TURNED BACK ON
--- NOTE | 2019-05-03 02:15 | NUR ---
PATIENT SLEEPING IN BED, NO SIGNS OF DISTRESS OR PAIN V/S STABLE WITH LEVOPHED 1 MCG WILL CONTINUE TO FREQUENCY MONITOR
--- NOTE | 2019-05-03 04:20 | NUR ---
REPOSITIONED PATIENT FOR COMFORT PATIENT HAD 1 LARGE WATER BM
[2019-05-03] MEDS: metroNIDAZOLE 500 MG/NS PREMIX 100 ML IV SCH ×3 (05:30→20:36)
[2019-05-03] MEDS: MIDODRINE 5 MG TAB PO SCH ×3 (05:31→20:35)
--- NOTE | 2019-05-03 06:00 | NUR ---
ALL DUE MEDICATIONS GIVEN
[2019-05-03] MEDS ORDERED: HYDROCORTISONE NA SUCC 100 MG/2 ML VIAL IV SCH (07:21)
--- NOTE | 2019-05-03 07:30 | NUR ---
RECEIVED PT FROM PM NURSE. PT OPENS EYES BUT FALL ASLEEP AGAIN. UNABLE TO FOLLOW COMMANDS, BEDSIDE MONITOR SHOWS SR. ON O2 3L/MIN NC. NO RESPIRATORY DISTRESS NOTED. PT HAS RIJ TLC RUNNING LEVOPHED AT 1 MCG/MIN AND D5 1/2 NS AT 90 CC /HR. PT HAS G-TUBE IN PLACE, RESIDUAL CHECKED NONE. HAD BM, CLEANED PT. NON PITTING EDEMA NOTED TO BOTH LOWER EXTREMITIES. SCD IN PLACE. TRANSFERRED PT TO WOUND MATTRESS. SKIN NON INTACT, SEE WOUND ASSESSMENT. HOB ELEVATED 30 DEGREES WITH LOW BED POSITION, WILL CONTINUE TO MONITOR.
[2019-05-03] MEDS ORDERED: POTASSIUM PHOSPHATE 15 MM in NACL 0.9% 250 ML IV SCH (08:00)
[2019-05-03 08:03] LABS: HEMATOCRIT 37.7 % (36-48); HEMOGLOBIN 12.2 g/dL (12.0-16.0); MEAN CORPUSCULAR HEMOGLOBIN 29 pg (27-31); MEAN CORPUSCULAR HGB CONC 32 g/dL (33-37); MEAN CORPUSCULAR VOLUME 89.8 fL (80-94); PLATELET COUNT (AUTO) 223 K/uL (140-450); RED CELL DISTRIBUTION WIDTH 16.9 % (11.6-13.7); WHITE BLOOD COUNT (AUTO) 20.7 K/uL (4.8-10.8)
[2019-05-03 08:53] LABS: LYMPHOCYTES % (MANUAL) 7 % (20-46); MONOCYTES % (MANUAL) 6 % (5-12)
[2019-05-03 08:54] LABS: METAMYELOCYTES % 1 % (0-0); MYELOCYTES % 1 % (0-0)
[2019-05-03 08:55] LABS: EOSINOPHILS % (MANUAL) 2 % (0-4)
[2019-05-03] MEDS: ASCORBIC ACID 500 MG/5 ML ORASYR GT SCH (09:07)
[2019-05-03] MEDS: MAG SULF 2000 MG/WATER PREMIX 100 ML IV SCH ×2 (09:10→10:38)
[2019-05-03] MEDS: PHARMACY COMMENTS MC SCH (09:11)
[2019-05-03] MEDS: HYDRAGUARD CREAM TP SCH (09:11)
--- NOTE | 2019-05-03 10:20 | NUR ---
CONTACTED GAUDENCIO AT [phone] REGARDING LTAC EVAL. HE STATED HE WILL BE HERE TO EVAL THE PATIENT.
[2019-05-03 11:14] LABS: MAGNESIUM 2.3 mg/dL (1.8-2.4)
[2019-05-03 11:31] LABS: ANION GAP 7.8 (8-16); CARBON DIOXIDE 26.9 mmol/L (21-32); CHLORIDE 110 mmol/L (98-107); GLUCOSE 144 mg/dL (74-106); POTASSIUM 3.7 mmol/L (3.5-5.1); SODIUM SERUM 141 mmol/L (136-145); UREA NITROGEN, BLOOD 10 mg/dL (7-18)
[2019-05-03 11:32] LABS: CREATININE 0.4 mg/dL (0.6-1.3)
[2019-05-03] MEDS: DEXT 5% / NACL 0.45% 1,000 ML IV SCH ×2 (12:13→23:10)
[2019-05-03] MEDS: HYDROCORTISONE NA SUCC 100 MG/2 ML VIAL IV SCH ×2 (12:45→20:34)
--- NOTE | 2019-05-03 13:00 | NUR ---
TURNED AND REPOSITIONED PT. WOUND CARE DONE, DRESSING CHANGED. PT OPENS EYES SPONTANEOUSLY. PT HAD DIARRHEA, CLEANED PT. PT TOLERATED WELL.
--- NOTE | 2019-05-03 14:43 | NUR ---
CONTACTED PATIENT'S SON MYRA WEBBER AT [phone] REGARDING LTACH EVALUATION. HE SAID HE WANTED DR. JOHNSON TO GIVE HIM UPDATE REGARDING PATIENT'S CONDITION. DR. GUERRA MADE AWARE.
--- NOTE | 2019-05-03 16:30 | NUR ---
turned and repositioned pt. pt had BM, cleaned pt. pt tolerated well
--- NOTE | 2019-05-03 17:05 | NUR ---
RECEIVED A CALL FROM RADHA FROM [facility], HE STATED THEY ARE ABLE TO ACCEPT THE PATIENT. PATIENT WILL GO TO [facility] ROOM 504, UNDER THE CARE OF DR. Ross STEELE. REQUESTED FOR THE PATIENT TO BE TRANSFERRED AFTER 7PM. CONTACTED PATIENT'S SON MYRA AND INFORMED HIM THAT I WILL SET UP TRANSPORT.
[2019-05-03] MEDS ORDERED: VAN1I PO (17:10)
[2019-05-03] MEDS ORDERED: Therahoney Gel TP (17:10)
[2019-05-03] MEDS ORDERED: PRO5 PO (17:10)
[2019-05-03] MEDS ORDERED: SC100I IV (17:10)
[2019-05-03] MEDS ORDERED: METR250T2 PO (17:13)
--- NOTE | 2019-05-03 17:14 | NUR ---
PATIENT'S SON MYRA, INFORMED HER THAT OPERATIONS ACCOUNTANT WILL BE AT 1900. HE REFUSED TRNASFER AT THIS TIME. DR. JOHNSON MADE AWARE. PRIMARY RN MADE AWARE. GO GO TRANSPORT INFORMED.
--- NOTE | 2019-05-03 19:25 | NUR ---
RECEIVED CHANGE OF SHIFT REPORT FROM AM NURSE. PATIENT IS RESTING AND A/O X1. PERRL IS PRESENT WITH PUPILS BILATERAL SIZE 3MM. SKIN IS COOL DRY, AND INTACT EXCEPT FOR STAGE 4 SACRAL PRESSURE ULCER. 3+ PITTING EDEMA NOTED IN LEFT HAND, AND 2+ PITTING EDEMA NOTED BILATERALLY IN FEET AND LOWER LEGS. PULSES 2+ BILATERAL UPPER AND LOWER EXTREMITIES. LUNG SOUNDS ARE CLEAR BUT DIMINISHED THROUGHOUT. PATIENT IS ON NASAL CANNULA 2L/MIN. NSR ON ANTENNA ENGINEER. S1 AND S2 SOUND PRESENT. RIGHT UPPER ARM DOUBLE LUMEN PICC LINE WITH DRESSING/SITE DRY/INTACT AND BOTH LUMENS ARE PATENT. D5 1/2 NS IS RUNNING AT 90 ML/H. PATIENT HAS G TUBE IN PLACE WITH NO GASTRIC RESIDUALS AT THIS TIME, AND TUBE IS PATENT AND POSITIVE FOR PLACEMENT. FEEDING FORMULA IS OSMOLITE 1.5 RUNNING AT 55 ML/H. PATIENT IS INCONTINENT AND URINE IS CAROLINA AND CLEAR. LAST BOWEL MOVEMENT DURING AM SHIFT WAS DESCRIBED DIARRHEA X4 (PATIENT IS C Diff POSITIVE), BUT NO BOWEL MOVEMENT NOTED AT THIS TIME. BED LEFT IN LOW SEMI FOWLERS POSITION, SIDE RAILS UPX2 WITH CALL LIGHT WITHIN REACH. WILL CONTINUE TO MONITOR.
--- NOTE | 2019-05-03 20:50 | NUR ---
GAVE SCHEDULED MEDS, CHANGED PATIENTS TOWEL, AND REASSESSED PATIENT. NO CHANGES IN PATIENT'S CONDITION AT THIS TIME AND PATIENT IS SLEEPING.
--- NOTE | 2019-05-03 21:20 | NUR ---
DR. LIVINGSTON AT BEDSIDE TO SEE PT. UPDATED HIM REGARDING PT'S CONDITION
[2019-05-04] VITALS (9 sets, daily range): BP systolic 103–132; BP diastolic 46–68
--- NOTE | 2019-05-04 00:30 | NUR ---
CHANGED PATIENTS POSITION AND CHECKED ON PATIENTS OVERALL CONDITION - NO CHANGES IN PATIENT'S CONDITION AT THIS TIME AND PATIENT IS SLEEPING. WITH GIVE SCHEDULED MEDS AT THIS TIME.
[2019-05-04] MEDS: VANCOMYCIN 1,000 MG VIAL PO SCH ×3 (00:39→12:58)
[2019-05-04] MEDS: Z-GUARD PASTE TP SCH ×2 (00:47→12:59)
--- NOTE | 2019-05-04 02:45 | NUR ---
REASSESSED PATIENT - NO CHANGES IN PATIENT'S CONDITION AT THIS TIME AND SHE IS CURRENTLY SLEEPING. WILL CONTINUE TO MONITOR.
--- NOTE | 2019-05-04 04:30 | NUR ---
PATIENT HAS BOWEL MOVEMENT - MEDIUM/BROWN SOFT DIARRHEA NOTED. ALL LINENS WERE CHANGED AND PATIENT WAS CLEANED. PATIENT TOLERATED CARE WELL AT THIS TIME. WILL CONTINUE TO MONITOR
[2019-05-04] MEDS: DEXT 5% / NACL 0.45% 1,000 ML IV SCH (04:57)
[2019-05-04] MEDS: HYDROCORTISONE NA SUCC 100 MG/2 ML VIAL IV SCH ×2 (05:13→12:59)
[2019-05-04] MEDS: MIDODRINE 5 MG TAB PO SCH ×2 (05:13→12:59)
[2019-05-04] MEDS: metroNIDAZOLE 500 MG/NS PREMIX 100 ML IV SCH ×2 (05:13→12:59)
[2019-05-04 06:13] LABS: HEMATOCRIT 38.6 % (36-48); HEMOGLOBIN 12.5 g/dL (12.0-16.0); MEAN CORPUSCULAR HEMOGLOBIN 29 pg (27-31); MEAN CORPUSCULAR HGB CONC 32 g/dL (33-37); MEAN CORPUSCULAR VOLUME 90.7 fL (80-94); PLATELET COUNT (AUTO) 213 K/uL (140-450); RED BLOOD CELL COUNT(AUTO) 4.26 MIL/uL (4.20-5.40); RED CELL DISTRIBUTION WIDTH 16.6 % (11.6-13.7); WHITE BLOOD COUNT (AUTO) 17.2 K/uL (4.8-10.8)
[2019-05-04 06:57] LABS: BASOPHILS % (MANUAL) 0 % (0-2); EOSINOPHILS % (MANUAL) 0 % (0-4); LYMPHOCYTES % (MANUAL) 6 % (20-46); METAMYELOCYTES % 2 % (0-0); MONOCYTES % (MANUAL) 3 % (5-12); MYELOCYTES % 1 % (0-0)
[2019-05-04 07:02] LABS: ANION GAP 9.4 (8-16); CARBON DIOXIDE 26.5 mmol/L (21-32); CHLORIDE 109 mmol/L (98-107); CREATININE 0.4 mg/dL (0.6-1.3); GLUCOSE 277 mg/dL (74-106); POTASSIUM 3.9 mmol/L (3.5-5.1); SODIUM SERUM 141 mmol/L (136-145); UREA NITROGEN, BLOOD 11 mg/dL (7-18)
[2019-05-04 07:05] LABS: MAGNESIUM 2.5 mg/dL (1.8-2.4); PHOSPHORUS 2.5 mg/dL (2.5-4.9)
--- NOTE | 2019-05-04 07:30 | NUR ---
RECEIVED PT FROM PM NURSE. PT MUMBLING. UNABLE TO FOLLOW COMMANDS, BEDSIDE MONITOR SHOWS SR. ON O2 2L/MIN NC. NO RESPIRATORY DISTRESS NOTED. PT HAS RIJ TLC RUNNING D5 1/2 NS AT 90 CC /HR. PT HAS G-TUBE IN PLACE, RESIDUAL CHECKED NONE. HAD BM, CLEANED PT. PITTING EDEMA NOTED TO BOTH LOWER EXTREMITIES AND UPPER EXTREMITIES. SCD IN PLACE. SKIN NON INTACT, SEE WOUND ASSESSMENT. HOB ELEVATED 30 DEGREES WITH LOW BED POSITION, WILL CONTINUE TO MONITOR. NO FEVER.
--- NOTE | 2019-05-04 08:38 | NUR ---
CONTACTED SAMANTHA OF [facility] AT [phone] REGARDING PATIENT NOT ABLE TO BE TRANSFERRED LAST NIGHT. MAY USE THE SAME TRANSPORT IF TRANSFERRED TODAY.
[2019-05-04] MEDS: ASCORBIC ACID 500 MG/5 ML ORASYR GT SCH (09:03)
[2019-05-04] MEDS: PHARMACY COMMENTS MC SCH (09:03)
[2019-05-04] MEDS: HYDRAGUARD CREAM TP SCH (09:03)
--- NOTE | 2019-05-04 09:15 | NUR ---
due meds given. pt tolerated well. oral care and lee care given. no sob noted .
--- NOTE | 2019-05-04 10:29 | NUR ---
JENNIFER contacted Ester from [facility]. JENNIFER arranged for transportation to be at 1:15PM. JENNIFER contacted patient's son Zhou [phone] to inform him. Zhou verbalized understanding. JENNIFER will follow up if needed.
--- NOTE | 2019-05-04 11:49 | NUR ---
called [facility] icu department. report given to lori. notified Lori pt will be transferred to her facility and diamond picker time is 1315.
--- NOTE | 2019-05-04 11:57 | NUR ---
CONTACTED PATIENT'S SON MYRA WEBBER AT [phone] REGARDING transfer. pt's son stated he knew already, case management called him. also updated pt's most recent vitals. pt's son is happy his mom has been off Levophed drip since yesterday noon.
--- NOTE | 2019-05-04 12:40 | NUR ---
HOLD G-TUBE FEEDING, FLUSHED WITH FREE WATER. WOUND PICTURE TAKEN. PT VOIDS BUT WITHOUT BM NOTED AT THIS TIME. CLEANED PT.
--- NOTE | 2019-05-04 13:41 | NUR ---
PT left with transportation team with stable vitals. all personal belongings with pt.
== END 2019-05-04 13:45 | disposition home or self-care (01) | DRG 871 ==
LOC: MED 10:11 → MTU 16:40 → MIC 18:45
PROVIDERS: ADMIT General Practice; ATTEND General Practice
PROC: 02HV33Z Insertion of Infusion Device into Superior Vena Cava, Percutaneous Approach (ICD-10-PCS; principal; 2019-04-28)
PROC: B548ZZA Ultrasonography of Superior Vena Cava, Guidance (ICD-10-PCS; 2019-04-28)
DX: A41.9 Sepsis, unspecified organism (principal); R65.21 Severe sepsis with septic shock; E43 Unspecified severe protein-calorie malnutrition; J96.01 Acute respiratory failure with hypoxia; G93.41 Metabolic encephalopathy; R53.2 Functional quadriplegia; A04.71 Enterocolitis due to Clostridium difficile, recurrent; D68.9 Coagulation defect, unspecified; E87.1 Hypo-osmolality and hyponatremia; J90 Pleural effusion, not elsewhere classified; J98.11 Atelectasis; N17.9 Acute kidney failure, unspecified; Z68.27 Body mass index [BMI] 27.0-27.9, adult; E83.39 Other disorders of phosphorus metabolism; E87.6 Hypokalemia; F02.80 Dementia in other diseases classified elsewhere, unspecified severity, without behavioral disturbance, psychotic disturbance, mood disturbance, and anxiety; G20 Parkinson's disease; I12.9 Hypertensive chronic kidney disease with stage 1 through stage 4 chronic kidney disease, or unspecified chronic kidney disease; L89.90 Pressure ulcer of unspecified site, unspecified stage; M19.90 Unspecified osteoarthritis, unspecified site; K21.9 Gastro-esophageal reflux disease without esophagitis; E83.42 Hypomagnesemia; M85.80 Other specified disorders of bone density and structure, unspecified site; N18.9 Chronic kidney disease, unspecified; R13.10 Dysphagia, unspecified; Z74.01 Bed confinement status; Z88.2 Allergy status to sulfonamides; Z93.1 Gastrostomy status; Z86.73 Personal history of transient ischemic attack (TIA), and cerebral infarction without residual deficits; Z88.1 Allergy status to other antibiotic agents
CPT/HCPCS: 36415; 71045; 74018; 80048; 80053; 81001; 82150; 82550; 83036; 83605; 83690; 83735; 83880; 84100; 84439; 84443; 84484; 85025; 85610; 85730; 87040; 87070; 87081; 87086; 93005; 96361; 96365; 99285; C1751; C1758; J0690; J0696; J1720; J3370; J3411; J3475; J3480; J3490; J7030; J7060; Q0092

== ENCOUNTER 2019-06-21 22:49 | Inpatient (IN) | payer OTHER ==
[~2019-06-21] VITALS: Ht 172.7 cm; Wt 58.1 kg
[~2019-06-21 22:49] MED LIST changes: -DOCU-299 PO; -DOXY100C9 PO; -FERR325E14 PO; +LACT1TAB38 PO; -MAGN400S60 PO; +METR250T2 PO; +PRO5 PO; -PRON INH; +SC100I IV; +Therahoney Gel TP; +VAN1I PO; +[UNRECOGNIZED DRUG - OTHER] GT
[2019-06-21 23:03] VITALS: BP 97/52
--- NOTE | 2019-06-21 23:09 | NUR ---
FIRST CONTACT PATIENT CHARISSA FROM [facility] SEPSIS AND MRSA, PER EMS REPORT NURSE WAS DOING ROUTINE CHECK WHEN SHE CHECKED PATIENT SAO2, SAT WERE MID 80'S ON RA. PER REPORT PATIENT IS NOTE ON OXYGEN AT FACILITY, BASELINE, SAT HIGH 90'S. PATIENT WAS PLACED ON NONREBREATHER MASK AT 15L +O2 IMPROVEMENT TO 95-99%. PATIENT WAS GIVEN 1 NEBULIZER TREATMENT ENROUTE. PATIENT BASELINE IS NONVERBAL, BUE/BLE CONTRACTORS. PATIENT IS NOTED TO HAVE WOUND TO L FOOT. PATIENT BREATHING IS EVEN, UNLABORED, EQUAL RISE AND FALL OF CHEST, +EXPIRATORY WHEEZING. PATIENT HR 100-110 ST ON CM, NO ECTOPY NOTED. PATIENT ABD IS SOFT, NON TENDER TO PALP, +G-TUBE PLACEMENT, DRY AND INTACT. IV WAS EST 20G TO RFA, C/D/P. PATIENT SBP 90'S MAP 67- BUT PER REPORT FROM EMS, THAT IS PATIENTS BASELINE. PATIENT CONNECT TO , DR LARIOS MADE AWARE, BED IN LOWEST POSITION, NO ACUTE DISTRESS NOTED, WILL CONTINUE TO MONITOR AND WAIT FOR ORDERS
--- NOTE | 2019-06-22 00:10 | NUR ---
XRAY AT BEDSIDE
[2019-06-22 00:51] LABS: BASOPHILS % (AUTO) 0.3 % (0.0-2.0); EOSINOPHILS # (AUTO) 0.1 K/uL (0-0.4); EOSINOPHILS % (AUTO) 1.4 % (0.0-4.0); HEMATOCRIT 37.3 % (36-48); HEMOGLOBIN 12.1 g/dL (12.0-16.0); LYMPHOCYTES # (AUTO) 0.9 K/uL (2.5-16.5); MEAN CORPUSCULAR HEMOGLOBIN 30 pg (27-31); MEAN CORPUSCULAR HGB CONC 33 g/dL (33-37); MEAN CORPUSCULAR VOLUME 91.9 fL (80-94); MONOCYTES # (AUTO) 0.9 K/uL (0.8-1.0); MONOCYTES % (AUTO) 10.5 % (1.7-9.3); NEUTROPHILS # (AUTO) 6.4 K/uL (1.8-7.7); NEUTROPHILS % (AUTO) 76.8 % (42.2-75.2); PLATELET COUNT (AUTO) 173 K/uL (140-450); RED BLOOD CELL COUNT(AUTO) 4.05 MIL/uL (4.20-5.40); RED CELL DISTRIBUTION WIDTH 15.2 % (11.6-13.7); WHITE BLOOD COUNT (AUTO) 8.3 K/uL (4.8-10.8)
--- NOTE | 2019-06-22 00:57 | NUR ---
WOUND TO LT MEDIAL HEEL, SKIN BLACK, PICTURED TAKEN AND PLACED IN CHART. WOUND TO SACRAL AREA, PICTURE TAKEN AND PLACED IN CHART.
--- NOTE | 2019-06-22 00:59 | NUR ---
HOOVER CATHETER PLACED IN PT. PT TOLERATED PROCEDURE WELL. VSS AT THIS TIME, WILL CONTINUE TO MONITOR.
[2019-06-22 01:32] LABS: SODIUM SERUM 139 mmol/L (136-145)
[2019-06-22 01:33] LABS: ANION GAP 12.5 (8-16); CARBON DIOXIDE 28.3 mmol/L (21-32); CHLORIDE 102 mmol/L (98-107); CREATININE 0.4 mg/dL (0.6-1.3); GLUCOSE 99 mg/dL (74-106); POTASSIUM 3.8 mmol/L (3.5-5.1); TOTAL BILIRUBIN 0.4 mg/dL (0.0-1.0); UREA NITROGEN, BLOOD 15 mg/dL (7-18)
[2019-06-22 01:34] LABS: ALBUMIN 2.9 g/dL (3.4-5.0); ASPARTATE AMINOTRANSFERASE 27 U/L (15-37)
[2019-06-22 01:36] LABS: PROTHROMBIN TIME 9.7 secs (10.8-13.4)
[2019-06-22 02:45] LABS: APPEARANCE,URINE CLEAR (CLEAR); BILIRUBIN,URINE NEGATIVE (NEGATIVE); BLOOD, URINE NEGATIVE (NEGATIVE); COLOR,URINE YELLOW (YELLOW); LEUKOCYTE ESTERASE ,URINE NEGATIVE (NEGATIVE); NITRITE, URINE NEGATIVE (NEGATIVE); UGLUCOSE NEGATIVE (NEGATIVE)
--- NOTE | 2019-06-22 03:33 | NUR ---
DR LARIOS MADE AWARE OF +FLU B
--- NOTE | 2019-06-22 03:46 | NUR ---
DR LARIOS ON PHONE WITH [facility]
[2019-06-22] MEDS ORDERED: ONDANSETRON 4 MG/2 ML VIAL IM/IVP PRN (04:15)
--- NOTE | 2019-06-22 04:55 | NUR ---
ADMITTED A 83F FROM ER. CAME BY [place] DUE TO FEER AND HYPOXIA. CAME FROM [facility]. TELEMETRY PT-SR. APHASIC . BEDBOUND. WITH O2 4L/NC. 96%. NO SOB NOTED, AFEBRILE TEMP 98.9. INITIATE CONTACT ISOLATION FOR MRSA WOUND. DROPLET FOR INFLUENZA AND BLEACH ISOLATION DUE TO HX,C DIFF. INITIATE HIGH RISK FOR FALL. PROTOCOL. BED ON LOW POSITION.,FREQ CHECK, ROOM CLOSE TO STATION ,SIDE RAILS UP X2.CALL LIGHT WITHIN REACH. POSITIONED FOR COMFORT. WILL FOLLOW UP ADMIT ORDERS. AND WILL CONTINUE TO MONITOR.
[2019-06-22] MEDS ORDERED: MIDODRINE 5 MG TAB PO SCH (05:00)
--- NOTE | 2019-06-22 05:00 | NUR ---
PROAMATINE SCHEDULED NOT GIVEN .NO DIET ORDER YET. WILL FOLLOW UP.
--- NOTE | 2019-06-22 05:03 | NUR ---
Patient will be admitted to care of [facility]. Admited to TELE. Will go to room 107B. Belongings list completed. Report to YANIV ENCINAS.
[2019-06-22 05:37] LABS: FREE T4 (FREE THYROXINE) 1.08 ng/dL (0.76-1.46); MAGNESIUM 1.8 mg/dL (1.8-2.4); PHOSPHORUS 3.7 mg/dL (2.5-4.9)
[2019-06-22 05:38] LABS: CHOL/HDL RATIO 3.3 (1-4.5); THYROID STIMULATING HORMONE 0.07 uIU/mL (0.34-3.74)
[2019-06-22] MEDS: NACL 0.9% 1,000 ML IV SCH ×2 (05:45→21:34)
[2019-06-22] MEDS ORDERED: PIPERACILLIN/TAZOBACTAM 3.375 GM in DEXTROSE 5% 100 ML IV SCH (07:00)
--- NOTE | 2019-06-22 07:20 | NUR ---
ENDORSED PT TO AM NURSE IN STABLE CONDITION.
--- NOTE | 2019-06-22 07:49 | NUR ---
Received report from night auditor nurse. Pt is in bed. No signs of distress. Call light in reach. [id number]
[2019-06-22] MEDS: ALBUTEROL SULFATE/IPRATROPIU 3 ML SOL IH SCH ×3 (07:51→19:35)
[2019-06-22 08:00] VITALS: BP 109/53
[2019-06-22] MEDS ORDERED: LACTOBACILLUS RHAMNOSUS GG 1 EACH CAP PO SCH (09:00)
[2019-06-22] MEDS: LACTOBACILLUS RHAMNOSUS GG 1 EACH CAP GT SCH (09:52)
[2019-06-22] MEDS: OSELTAMIVIR PHOSPHATE 75 MG CAP GT SCH ×2 (09:53→21:29)
--- NOTE | 2019-06-22 11:11 | NUR ---
PATIENT HAS BEEN SCREENED AND CATEGORIZED HIGH NUTRITION RISK. PATIENT WILL BE SEEN WITHIN 1-2 DAYS OF ADMISSION. 06/23/19 06/24/[address]
--- NOTE | 2019-06-22 11:26 | NUR ---
Pt is resting in bed. No signs of distress. Pt on O2 4L NC. Call light in reach. Son Zhou by bedside. [id number]
[2019-06-22 12:00] VITALS: BP 108/56
[2019-06-22] MEDS: MIDODRINE 5 MG TAB GT SCH ×4 (12:34→21:29)
--- NOTE | 2019-06-22 12:39 | NUR ---
Pt's blood pressure was noted at 131/66. Informed Dr. Calhoun. Midodrine 10 mg not given as request by Dr. Calhoun. Pt is in bed resting with no signs of distress. Call light in reach.
[2019-06-22 13:14] LABS: BASOPHILS % (AUTO) 0.4 % (0.0-2.0); EOSINOPHILS # (AUTO) 0.1 K/uL (0-0.4); EOSINOPHILS % (AUTO) 0.6 % (0.0-4.0); HEMATOCRIT 36.7 % (36-48); HEMOGLOBIN 11.9 g/dL (12.0-16.0); LYMPHOCYTES # (AUTO) 0.7 K/uL (2.5-16.5); LYMPHOCYTES % (AUTO) 8.9 % (20.5-51.1); MEAN CORPUSCULAR HEMOGLOBIN 30 pg (27-31); MEAN CORPUSCULAR HGB CONC 32 g/dL (33-37); MEAN CORPUSCULAR VOLUME 91.2 fL (80-94); MONOCYTES # (AUTO) 0.9 K/uL (0.8-1.0); MONOCYTES % (AUTO) 10.7 % (1.7-9.3); NEUTROPHILS # (AUTO) 6.5 K/uL (1.8-7.7); NEUTROPHILS % (AUTO) 79.4 % (42.2-75.2); PLATELET COUNT (AUTO) 164 K/uL (140-450); RED BLOOD CELL COUNT(AUTO) 4.03 MIL/uL (4.20-5.40); RED CELL DISTRIBUTION WIDTH 14.6 % (11.6-13.7); WHITE BLOOD COUNT (AUTO) 8.2 K/uL (4.8-10.8)
[2019-06-22 13:51] LABS: ANION GAP 9.3 (8-16); CARBON DIOXIDE 30.8 mmol/L (21-32); CHLORIDE 103 mmol/L (98-107); CREATININE 0.4 mg/dL (0.6-1.3); GLUCOSE 93 mg/dL (74-106); POTASSIUM 4.1 mmol/L (3.5-5.1); SODIUM SERUM 139 mmol/L (136-145); UREA NITROGEN, BLOOD 12 mg/dL (7-18)
--- NOTE | 2019-06-22 14:55 | NUR ---
Pt is resting in bed. No signs of distress. Call light in reach. [id number]
[2019-06-22 16:00] VITALS: BP 80/48
--- NOTE | 2019-06-22 16:00 | NUR ---
Pt is resting in bed. No signs of distress. Call light in reach. [id number]
--- NOTE | 2019-06-22 19:23 | NUR ---
Report given to date night caregiver nurse. Pt is in bed. No distress. Call light in reach. [id number]
--- NOTE | 2019-06-22 19:25 | NUR ---
Received bedside report from AM nurse. Pt is sleeping in bed. No distress noted. Pt is on o2 2.5 LPM via nasal cannula. Pt on droplet precaution for influenza, bleach precaution for Hx of C-Diff, and contact precaution for MRSA wound. IV access on Right wrist 20 gauge. Patent intact and asymptomatic. Ramirez catheter in place draining yellow colored urine. G-tube patent and intact with feeding of Osmolite 60ml/hr and water flush of 100ml/hr. Board updated. Bed in low for fall risk. Side rails up x2. Call light placed within pt reach. Will continue to monitor pt.
[2019-06-22 20:05] VITALS: BP 97/30
[2019-06-22] MEDS: HYDROcodone/APAP 7.5/325 MG 1 TAB PO PRN (21:30)
[2019-06-22] MEDS: Z-GUARD PASTE TP SCH (21:32)
[2019-06-22] MEDS ORDERED: VANCOMYCIN PER PHARMACY MC PRN (21:45)
--- NOTE | 2019-06-22 21:45 | NUR ---
DR. LIVINGSOTN CAME. SEEN AN ASSESSED PT. WITH ORDERS AND WILL FOLLOW UP.
[2019-06-22] MEDS ORDERED: VANCOMYCIN 1GM/DEXT 5% PREMIX 200 ML IV SCH (22:00)
--- NOTE | 2019-06-22 22:03 | NUR ---
Rounds done. Pt asleep. Visible chest rise and fall noted. Will continue to monitor pt.
[2019-06-22] MEDS ORDERED: cefTRIAXone 1,000 MG VIAL ONE (22:50)
[2019-06-22] MEDS ORDERED: VANCOMYCIN 1,000 MG VIAL ONE (22:53)
[2019-06-23] VITALS (7 sets, daily range): BP systolic 95–122; BP diastolic 47–66
--- NOTE | 2019-06-23 00:15 | NUR ---
Vital signs taken. No SOB or distress noted. Will continue to monitor pt.
--- NOTE | 2019-06-23 02:04 | NUR ---
Rounds done. Pt asleep. Visible chest rise and fall noted. Will continue to monitor.
--- NOTE | 2019-06-23 04:30 | NUR ---
Vital signs taken. Pt mouth suctioned with moderate amount of saliva. o2 93% on 3LPM via NC. Will continue to monitor.
[2019-06-23] MEDS: MIDODRINE 5 MG TAB GT SCH ×3 (04:56→21:49)
[2019-06-23] MEDS: MORPHINE SULFATE 2 MG/ML SYR IVP PRN ×3 (04:56→05:20)
[2019-06-23] MEDS: ALBUTEROL SULFATE/IPRATROPIU 3 ML SOL IH SCH ×3 (05:47→20:01)
--- NOTE | 2019-06-23 06:12 | NUR ---
KIKO OTPUT 200ML THIS AM. DR. BOWERS ,RESIDENT MADE AWARE. NO NEW ORDER MADE.
[2019-06-23 06:50] LABS: BASOPHILS % (AUTO) 0.3 % (0.0-2.0); EOSINOPHILS % (AUTO) 0.2 % (0.0-4.0); HEMATOCRIT 34.5 % (36-48); HEMOGLOBIN 11.2 g/dL (12.0-16.0); LYMPHOCYTES # (AUTO) 0.9 K/uL (2.5-16.5); LYMPHOCYTES % (AUTO) 10.8 % (20.5-51.1); MEAN CORPUSCULAR HEMOGLOBIN 30 pg (27-31); MEAN CORPUSCULAR HGB CONC 33 g/dL (33-37); MEAN CORPUSCULAR VOLUME 91.1 fL (80-94); MONOCYTES # (AUTO) 0.9 K/uL (0.8-1.0); MONOCYTES % (AUTO) 10.9 % (1.7-9.3); NEUTROPHILS # (AUTO) 6.7 K/uL (1.8-7.7); NEUTROPHILS % (AUTO) 77.8 % (42.2-75.2); PLATELET COUNT (AUTO) 170 K/uL (140-450); RED BLOOD CELL COUNT(AUTO) 3.79 MIL/uL (4.20-5.40); RED CELL DISTRIBUTION WIDTH 14.6 % (11.6-13.7); WHITE BLOOD COUNT (AUTO) 8.6 K/uL (4.8-10.8)
--- NOTE | 2019-06-23 07:15 | NUR ---
Pt O2 is 87% on 4LPM 02 via NC. Respiration 24-25 BPM. RT notified and will see and assess pt.
--- NOTE | 2019-06-23 07:29 | NUR ---
Pt in stable condition. Endorsed to Am shift nurse Mario Alberto for continuity of care.
--- NOTE | 2019-06-23 07:30 | NUR ---
Received report from rn night nurse. Pt is in bed resting. No signs of distress. Call light in reach [id number]
[2019-06-23 07:31] LABS: ANION GAP 11.6 (8-16); CARBON DIOXIDE 27.6 mmol/L (21-32); CHLORIDE 103 mmol/L (98-107); CREATININE 0.4 mg/dL (0.6-1.3); GLUCOSE 156 mg/dL (74-106); POTASSIUM 4.2 mmol/L (3.5-5.1); SODIUM SERUM 138 mmol/L (136-145); UREA NITROGEN, BLOOD 18 mg/dL (7-18)
[2019-06-23 07:35] LABS: MAGNESIUM 1.9 mg/dL (1.8-2.4)
[2019-06-23] MEDS: LACTOBACILLUS RHAMNOSUS GG 1 EACH CAP GT SCH (10:05)
[2019-06-23] MEDS: OSELTAMIVIR PHOSPHATE 75 MG CAP GT SCH ×2 (10:05→21:49)
[2019-06-23] MEDS: Z-GUARD PASTE TP SCH ×2 (10:06→21:57)
--- NOTE | 2019-06-23 10:15 | NUR ---
WOUND CARE EVALUATION NOTES: REASON FOR EVALUATION: PRESSURE ULCER ON SACRALCOCCYX AND LEFT MEDIAL HEEL SKIN ASSESSMENT DONE ON THIS 83 Y/O FEMALE PATIENT TO [facility], WITH INITIAL DIAGNOSIS OF INFLUENZA. ADMITTED WITH CHRONIC PRESSURE ULCER STAGE 4. 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 ALL ABOVE INFORMATION WAS OBTAINED FROM THE ADMISSION H&P. CONTRACTURES TO NECK AND UPPER EXTREMITIES, SKIN WARM TO TOUCH, SKIN COLOR PALE WITH ABDOMEN DISTENTION. BLE NO HAIR GROWTH AND BILATERAL PEDAL PULSES PRESENT. HOOVER CATHETER PATENT AND INTACT PLAN OF CARE DISCUSSED WITH PRIMARY RN. INTEGUMENTARY: -GT TEN-STOMA SKIN INTACT -SACRALCOCCYX STAGE 4 PRESSURE ULCER 1.5X1X1.5CM WITH NO UNDERMINING. WOUND BED IS 100% GRANULATING PINK TISSUE, CLEAN, SMALL AMOUNT SEROUS DRAINAGE, NO ODOR, WOUND EDGE WELL DEFINED, TEN-WOUND SKIN INTACT -LEFT MEDIAL HEEL PRESSURE ULCER UN-STAGEABLE 2X2.5CM BLACK NECROTIC TISSUE RECOMMENDATIONS: -CLEANSE SACRALCOCCYX WOUND WITH NS, PAT DRY, APPLY THERAHONEY GEL WITH ADAPTIC DRESSING AND COVER WITH DRY DRESSING QM-W-F AND PRN IF SOILING. -APPLY SOAKED BETADINE 2X2 GAUZES TO LEFT MEDIAL HEEL COVER WITH DRY DRESSING QD -TURN AND REPOSITION PATIENT Q2H -ASSESS AND MONITOR SKIN CONDITION DURING POSITION CHANGE, PLEASE PAY ATTENTION TO LEFT AND RIGHT BUTTOCKS -OFFLOAD BILATERAL HEELS BY PLACING PILLOWS UNDER CALVES AT ALL TIMES, UNLESS OTHERWISE CONTRAINDICATED -HEEL RAISERS TO LEFT HEEL AT ALL TIMES -PRESSURE REDISTRIBUTION SURFACE THERAPY -KEEP SKIN CLEAN AND DRY AT ALL TIMES. RECOMMENDATIONS DISCUSSED WITH PRIMARY RN WILL FOLLOW UP PATIENT Q 7 -10 DAYS AND PRN. PLEASE CONTACT WOUND CARE NURSE FOR ANY QUESTION OR CHANGES IN WOUND CONDITION
--- NOTE | 2019-06-23 10:30 | NUR ---
Pt's oxygen saturation was at 70. Called RT and reported. RT made as assessment. O2 increased to 6L NC with oximizer. Pt's O2 saturation at 96 after increasing O2 and with oximizer. Pt's blood pressure was low at 99/47. Reported to resident Dr. Cool.
[2019-06-23] MEDS: NACL 0.9% 1,000 ML IV SCH (13:33)
[2019-06-23] MEDS: GAUZE TP SCH (13:36)
[2019-06-23] MEDS: THERAHONEY GEL 42.5 GM TP SCH (13:39)
--- NOTE | 2019-06-23 13:56 | NUR ---
06/23/19 RD INITIAL ASSESSMENT COMPLETED PLEASE REFER TO NUTRITION ASSESSMENT UNDER CARE ACTIVITY FOR ESTIMATED NUTRITIONAL NEEDS. 1. RECOMMEND NEPRO WITH CARBSTEADY @ 40ML/HR -THIS WILL PROVIDE 1728KCAL AND 77G OF PROTIEN 2. FWF OF 200ML Q6H. 3. RD TO FOLLOW-UP 2-3 DAYS, HIGH RISK CHRISTINA YE, RD
--- NOTE | 2019-06-23 13:56 | NUR ---
Pt's is in bed with labored breathing. Rt is by bedside giving breathing tx. O2 sat at 92. Call light in reach. [email or web address]
--- NOTE | 2019-06-23 16:01 | NUR ---
Pt is in bed. Noted with labored breathing at 32 breaths per minute. RT is aware. Pt is on 5L O2 Oxymizer.
[2019-06-23] MEDS: ACETAMINOPHEN 325 MG TAB PO PRN (16:24)
--- NOTE | 2019-06-23 17:19 | NUR ---
Pt's temperature at 1600 was 102.2 Reported to resident . Rechecked temperature at 1700 at 100.0 Pt is in bed with eyes open. Labored breathing noted.
--- NOTE | 2019-06-23 18:12 | NUR ---
sxn pt with mod amt off white thick secs blood tinged left on 5lpm oxymizer
--- NOTE | 2019-06-23 19:35 | NUR ---
RECIEVED PT , ON BED , WITH FLUACTUATING O2 SAT , APHASIC , WITH O2 OXIMIZER /NC AT 5LPM , ON CONTACT PRECAUTION - MRSA WOUND ON SACRAL AND HEEL RIGHT , AND POSITIVE FLU TYPE B , ON G TUBE FEEDING AT 60 CC /NR. WITJ IV SITE INTACT AND PATENT - IVF INFUSING WELL AT 60CC /HR . WITH FC DRAINING CLEAR U.O . FEBRILE 100.0 . DNR . ON SAFETY / FALL PRECAUTION PROTOCOL -CALL LIGHT WITHIN REACH - BED ALARM ON .PLAN OF CARE DISCUSSED BUT POOR RESPONSE DUE TO PRESENT CONDITION . WITH CONTRACTURE OF THE LIMBS . PER ERICK THE PT. WILL TRANSFER TO ICU -WAITING FOR AVAILABILITY OF ICU BED .WILL CONT. TO MONITOR.
--- NOTE | 2019-06-23 19:41 | NUR ---
Shift report given to night order selector nurse. Pt is resting in bed.
--- NOTE | 2019-06-23 20:30 | NUR ---
TRANSFER TO ICU FOR CONT. OF CARE AND MGT . REPORT GIVEN TO ICU NOD.
--- NOTE | 2019-06-23 20:35 | NUR ---
RECEIVED REPORT FROM JUDITH ENCINAS, PT HAS EYES CLOSED, AROUSABLE, ABLE TO OPEN EYES; NON VERBAL, UNABLE TO FOLLOW SIMPLE COMMANDS. S1 S2, TRACE EDEMA NOTED, +1 WEAK BILATERAL RADIAL/PEDAL PULSES. LUNGS DIMINISHED BILATERAL UPPER AND LOWER BREATH SOUNDS. PT ON OXIMIZER @ 4L. ABD SOFT NON DISTENDED, PEG TUBE IN PLACE, + PLACEMENT. NO RESIDUALS @ THIS TIME. HOOVER CATH IN PLACE CLEAR YELLOW URINE. SKIN NON INTACT; WOUND TO SACRAL AREA, AND BLANCHABLE REDNESS TO L HEEL. GENERALIZED WEAKNESS, KYPHOSIS PRESENT. RIGID POSTURE. 20 G TO R WRIST NOTED. DROPLET PRECAUTIONS IN PLACE, + INFLUENZA B. BED LOCKED IN LOWEST POSITION. WILL CONTINUE TO OBSERVE.
[2019-06-23] MEDS ORDERED: OSELTAMIVIR PHOSPHATE 75 MG CAP ONE (21:32)
[2019-06-23] MEDS: VANCOMYCIN 1,000 MG in DEXTROSE 5% 250 ML IV SCH (21:49)
[2019-06-23] MEDS: HYDROcodone/APAP 7.5/325 MG 1 TAB PO PRN (21:57)
--- NOTE | 2019-06-23 22:18 | NUR ---
SPO2 99% ON 4 L OXIMIZER, RR 15-21, 104/56 BP, FLACC 0. PT TURNED AND REPOSITIONED. VSS WILL CONTINUE TO OBSERVE.
[2019-06-24] VITALS (12 sets, daily range): BP systolic 89–130; BP diastolic 42–69
--- NOTE | 2019-06-24 00:03 | NUR ---
PT TURNED AND REPOSITIONED; FLACC 0 VSS, WILL CONTINUE TO OBSERVE.
--- NOTE | 2019-06-24 04:35 | NUR ---
AM CARE DONE, LINEN CHANGED. VSS. WILL CONTINUE TO OBSERVE
[2019-06-24] MEDS: MIDODRINE 5 MG TAB GT SCH ×3 (04:55→20:16)
[2019-06-24] MEDS: NACL 0.9% 1,000 ML IV SCH (06:13)
[2019-06-24] MEDS: HYDROcodone/APAP 7.5/325 MG 1 TAB PO PRN ×2 (06:37→12:30)
[2019-06-24] MEDS: ALBUTEROL SULFATE/IPRATROPIU 3 ML SOL IH SCH ×3 (07:06→19:25)
--- NOTE | 2019-06-24 07:23 | NUR ---
report given to matteo marion for continuity of care.
[2019-06-24 07:24] LABS: ANION GAP 10.2 (8-16); CHLORIDE 104 mmol/L (98-107); CREATININE 0.4 mg/dL (0.6-1.3); GLUCOSE 138 mg/dL (74-106); POTASSIUM 4.2 mmol/L (3.5-5.1); SODIUM SERUM 139 mmol/L (136-145); UREA NITROGEN, BLOOD 20 mg/dL (7-18)
--- NOTE | 2019-06-24 07:24 | NUR ---
RECEIVED REPORT FROM SUPERVISOR SKI PRODUCTION RN. PT RESTING IN BED. OPENS EYES SPONTANEOUSLY, NON-VERBAL, IMMOBILE. SR ON MONITOR. RR NOTED 30. ON OXYMIZER AT 4 LTR/MIN. SPO2 NOTED 98%. PUPILS REACTIVE TO LIGHT. LUNGS COARSE. PERIPHERAL LINE NOTED ON RIGHT WRIST 20. INTACT LINE. FLUSHED. BRUISE NOTED ON RIGHT NS 0.9% INFUSING AT 60 ML/HR. ABDOMEN SOFT, ROUND AND NON-TENDER. HYPOACTIVE BOWEL SOUND. G-TUBE NOTED ON LUQ. 0 RESIDUAL. ON G-TUBE FEEDING NEPRO 40 ML/HR. ON FC DRAINING CLEAR YELLOW URINE VIA GRAVITY. EDEMATOUS BOTH LOWER EXTREMITIES. PRESSURE WOUND NOTED ON SACROCOCCYX AND LEFT HEEL. NO DRAINAGE NOTED. COVERED WITH DRESSING. INTACT DRESSING. FLACC 0. HOB ELEVATED. BED IN LOW POSITION LOCKED. WILL CONTINUE TO MONITOR.
[2019-06-24 07:29] LABS: MAGNESIUM 1.9 mg/dL (1.8-2.4); PHOSPHORUS 2.9 mg/dL (2.5-4.9)
[2019-06-24 07:39] LABS: BASOPHILS % (AUTO) 0.3 % (0.0-2.0); EOSINOPHILS # (AUTO) 0.1 K/uL (0-0.4); EOSINOPHILS % (AUTO) 1.1 % (0.0-4.0); LYMPHOCYTES % (AUTO) 10.7 % (20.5-51.1); MEAN CORPUSCULAR HEMOGLOBIN 30 pg (27-31); MEAN CORPUSCULAR HGB CONC 32 g/dL (33-37); MEAN CORPUSCULAR VOLUME 91.5 fL (80-94); MONOCYTES # (AUTO) 0.9 K/uL (0.8-1.0); MONOCYTES % (AUTO) 8.9 % (1.7-9.3); NEUTROPHILS # (AUTO) 7.7 K/uL (1.8-7.7); PLATELET COUNT (AUTO) 197 K/uL (140-450); RED BLOOD CELL COUNT(AUTO) 3.71 MIL/uL (4.20-5.40); RED CELL DISTRIBUTION WIDTH 14.9 % (11.6-13.7); WHITE BLOOD COUNT (AUTO) 9.7 K/uL (4.8-10.8)
[2019-06-24] MEDS: LACTOBACILLUS RHAMNOSUS GG 1 EACH CAP GT SCH (08:50)
[2019-06-24] MEDS: OSELTAMIVIR PHOSPHATE 75 MG CAP GT SCH ×2 (08:51→20:15)
[2019-06-24] MEDS: MUPIROCIN CA NASAL 2% 1GM TUBE NS SCH (08:53)
[2019-06-24] MEDS ORDERED: SCOPOLAMINE 1.5 MG/72 HR PATCH TD SCH (09:00)
[2019-06-24] MEDS: SCOPOLAMINE 1.5 MG/72 HR PATCH TD SCH (09:09)
[2019-06-24] MEDS: Z-GUARD PASTE TP SCH ×2 (09:19→21:01)
[2019-06-24] MEDS: CHLORHEXADINE GLUC 2% CLOTH TP SCH (09:19)
--- NOTE | 2019-06-24 09:30 | NUR ---
PT NOTED WITH F/C OUT. INSERTED NEW F/C SUCCESSFULLY. COLLECTED URINE SAMPLE FOR URINE CULTURE AND TAKEN TO THE LAB.
[2019-06-24] MEDS: ACETYLCYSTEINE 10% (100 MG/ML) 100 MG/ML VIAL INH SCH ×3 (12:00→18:00)
[2019-06-24] MEDS: GAUZE TP SCH (12:25)
[2019-06-24] MEDS: methylPREDNISolone SS 40 MG/ML VIAL IVP SCH ×2 (12:25→20:16)
[2019-06-24] MEDS: THERAHONEY GEL 42.5 GM TP SCH (12:27)
--- NOTE | 2019-06-24 12:55 | NUR ---
RESTING IN BED COMFORTABLY. NO RESPIRATORY DISTRESS NOTED. CONTINUE ON OXYMIZER AT 4 LTR/MIN. MEDICATED PER SCHEDULE. TOLERATING WELL. OFFLOADED PRESSURE AREA. HEEL PROTECTORS ON. SCD ON.
--- NOTE | 2019-06-24 13:16 | NUR ---
DR. HERNÁNDEZ INTO SEE PT. UPDATED PT STATUS. MADE AWARE OF TACHYPNEA AND EDEMATOUS BOTH LOWER EXTREMITIES. ORDERED TO DC NS AND CHEST X-RAY. DC'D NS AND CALLED X-RAY.
--- NOTE | 2019-06-24 14:07 | NUR ---
[place] [facility] [phone], SPOKE TO HUANG PILLAI REGARDING PT'S IMMUNIZATION STATUS. SAID SHE COULD NOT FIND THE CHART AT THIS TIME. WILL CALL US BACK WHEN SHE GETS INFORMATION. LEFT PHONE NUMBER TO CALL US BACK.
--- NOTE | 2019-06-24 15:04 | NUR ---
RECEIVED CALL FROM THE SON MYRA WEBEBR. UPDATED PT STATUS.
--- NOTE | 2019-06-24 17:21 | NUR ---
KEPT PT CLEAN AND DRY. REPOSITIONED. HOB ELEVATED. NO RESPIRATORY DISTRESS NOTED. NO CHANGE IN STATUS. RR 15 SPO2 98% BP 103/60. IV SITE INTACT. FLACC 0.
--- NOTE | 2019-06-24 19:18 | NUR ---
REPORT GIVEN TO SLURRY WORKER RN FOR CONTINUITY OF CARE. PT ON STABLE CONDITION.
--- NOTE | 2019-06-24 19:30 | NUR ---
RECEIVED REPORT FROM MORNING RN, ALF, FOR CONTINUITY OF CARE. VS STABLE AT THIS TIME. ABLE TO OPEN EYES SPONTANEOUSLY BUT UNABLE TO MAKE NEEDS KNOWN. PT UNABLE TO FOLLOW COMMANDS WELL. PERRL. FLACC 0. AFEBRILE. LUNG SOUNDS DIMINISHED. NO SOB NOTED. OXYGEN SATURATION WNL. CHEST RISE SYMMETRIC. ON OXYGEN AT 4L/MIN VIA OXIMIZER. S1+S2 HEARD. PULSES PALPABLE IN ALL EXTREMITIES. SR ON MONITOR. ABDOMEN ROUND, SOFT AND NONDISTENDED. BS ACTIVE IN ALL QUADRANTS. GTUBE IN PLACE. NEPRO RUNNING AT 40ML/HR. NO RESIDUAL ASPIRATED AT THIS TIME. HOOVER CATHETER IN PLACE, DRAINING CLEAR AND YELLOW URINE. NO BM NOTED AT THIS TIME. PT HAS PERIPHERAL IV ACCESS ON RIGHT WRIST 20G THAT IS SALINE LOCKED. FLUSHED THE IV ACCESS. LINE IS PATENT, INTACT AND ASYMPTOMATIC. PT TURNED AND REPOSITIONED. KEPT HOB AT 30 DEGREES. ALL SAFETY PRECAUTIONS ARE KEPT IN PLACE. WILL CONTINUE TO MONITOR PT.
[2019-06-24] MEDS: VANCOMYCIN 1,000 MG in DEXTROSE 5% 250 ML IV SCH (20:15)
--- NOTE | 2019-06-24 21:18 | NUR ---
DR. LIVINGSTON AT BEDSIDE TO SEE PT. UPDATED HIM REGARDING PT'S CONDITION. NO CHANGE IN ORDERS AT THIS TIME.
--- NOTE | 2019-06-24 22:05 | NUR ---
DR. WEST AT BEDSIDE TO SEE PT. NO CHANGE IN ORDERS
[2019-06-25] VITALS (9 sets, daily range): BP systolic 100–134; BP diastolic 49–70
--- NOTE | 2019-06-25 00:33 | NUR ---
SR ON MONITOR. AFEBRILE. NO CHANGE IN PT'S CONDITION AT THIS TIME. CHEST RISE SYMMETRIC. NO SOB NOTED. OXYGEN SATURATION WNL. PT TURNED AND REPOSITIONED. TOLERATED WELL. HOB KEPT AT 30 DEGREES. ALL SAFETY PRECAUTIONS IN PLACE. NO RESIDUAL NOTED ON GTUBE. WILL CONTINUE TO MONITOR PT
--- NOTE | 2019-06-25 01:56 | NUR ---
VS STABLE. RESPIRATIONS EVEN AND UNLABORED. CHEST RISE SYMMETRIC. OXYGEN SATURATION WNL. NO CHANGE IN PT'S CONDITION. SR ON MONITOR. WILL CONTINUE TO MONITOR PT.
--- NOTE | 2019-06-25 04:20 | NUR ---
PM CARE PROVIDED TO PT. PT TOLERATED BEING TURNED AND REPOSITIONED FAIRLY. NO BM NOTED. LEAK WAS NOTED FROM HOOVER CATHETER AND WAS REINFORCED. VS WNL. AFEBRILE. HOB KEPT AT 30 DEGREES. BED AT A LOW POSITION. ALL SAFETY PRECAUTIONS ARE IN PLACE. WILL CONTINUE TO MONITOR PT.
[2019-06-25] MEDS: MIDODRINE 5 MG TAB GT SCH ×4 (05:00→20:19)
[2019-06-25] MEDS: methylPREDNISolone SS 40 MG/ML VIAL IVP SCH ×3 (05:17→20:18)
[2019-06-25] MEDS: ACETYLCYSTEINE 10% (100 MG/ML) 100 MG/ML VIAL INH SCH ×3 (06:00→19:18)
--- NOTE | 2019-06-25 07:10 | NUR ---
RECEIVED REPORT FROM RADIOCHEMICAL TECHNICIAN RN. PT RESTING IN BED. OPENS EYES SPONTANEOUSLY, NON-VERBAL, IMMOBILE. SR ON MONITOR. RR NOTED 17. ON OXYMIZER AT 4 LTR/MIN. SPO2 NOTED 95%. PUPILS REACTIVE TO LIGHT. LUNGS DIMINISHED. PERIPHERAL LINE NOTED ON RIGHT WRIST 20G. INTACT LINE. FLUSHED. BRUISE NOTED ON RIGHT ARM. ABDOMEN SOFT, ROUND AND NON-TENDER. ACTIVE BOWEL SOUND. G-TUBE NOTED ON LUQ. 0 RESIDUAL. ON G-TUBE FEEDING NEPRO 40 ML/HR. ON FC DRAINING CLEAR YELLOW URINE VIA GRAVITY. EDEMATOUS BOTH LOWER EXTREMITIES. PRESSURE WOUND NOTED ON SACROCOCCYX AND LEFT HEEL. NO DRAINAGE NOTED. COVERED WITH DRESSING. INTACT DRESSING. FLACC 0. HOB ELEVATED. BED IN LOW POSITION LOCKED. WILL CONTINUE TO MONITOR.
[2019-06-25] MEDS ORDERED: CHLO118S2 TP (07:18)
[2019-06-25] MEDS ORDERED: MUPI2CRE22 NS (07:18)
[2019-06-25] MEDS ORDERED: METH4TAB1 PO (07:18)
[2019-06-25] MEDS ORDERED: SCOP1PAT TP (07:19)
[2019-06-25] MEDS ORDERED: CEFT1SOL1 IV (07:22)
[2019-06-25] MEDS: ALBUTEROL SULFATE/IPRATROPIU 3 ML SOL IH SCH ×3 (07:41→19:18)
--- NOTE | 2019-06-25 07:41 | NUR ---
SATURATION 97% ON SUPPLEMENTAL OXYGEN AT 4 LPM VIA OXYMIZER POST HHN THERAPY CHANGED OXYGEN DEVICE TO NASAL CANNULA AT 3 LPM ALF/RN AT BEDSIDE AND AWARE
--- NOTE | 2019-06-25 08:00 | NUR ---
ORAL CARE PROVIDED. SPONGING DONE. FEVER NOTED OF 100.5 DEGREE F. COOLING MEASURES IN PLACE FOR FEVER. DR. LÓPEZ MADE AWARE ABOUT FEVER. PT KEPT CLEAN AND DRY. REPOSITIONED. PT ON O2 VIA NC. SPO2 95%. HOB ELEVATED.
--- NOTE | 2019-06-25 08:04 | NUR ---
SPOKE TO ANGELA MEDEIROS: DISCHARGE TO [facility] TODAY. AWARE THAT PT. IS POSITIVE FOR INFLUENZA B, AND POSITIVE FOR MRSA OF THE NARES.NO ISOLATION BED AVAILABLE AT THIS TIME. WILL CALL US BACK LATER.
[2019-06-25] MEDS: OSELTAMIVIR PHOSPHATE 75 MG CAP GT SCH ×2 (08:05→20:18)
[2019-06-25] MEDS: LACTOBACILLUS RHAMNOSUS GG 1 EACH CAP GT SCH (08:05)
[2019-06-25] MEDS: CHLORHEXADINE GLUC 2% CLOTH TP SCH (08:06)
[2019-06-25] MEDS: MUPIROCIN CA NASAL 2% 1GM TUBE NS SCH (08:06)
[2019-06-25] MEDS: Z-GUARD PASTE TP SCH ×2 (08:06→20:23)
[2019-06-25] MEDS: ACETAMINOPHEN 325 MG TAB PO PRN (08:08)
--- NOTE | 2019-06-25 09:24 | NUR ---
RECEIVED [place] FROM [facility] [place] SPOKE TO LES. LES SAID THERE IS NO ISOLATION BED AVAILABLE IN [facility] [place]. FLLOW UP FOR BED TOMORROW. SHE ALSO SAID THAT PT'S CHART IS IN MEDICAL RECORD AND IT IS CLOSED TODAY. WILL PROVIDE IMMUNIZATION STATUS TOMORROW WHEN MR OPENS.
--- NOTE | 2019-06-25 10:45 | NUR ---
DR. HERNÁNDEZ INTO SEE PT. UPDATED PT STATUS. MADE AWARE OF FEVER. NO NEW ORDER THIS TIME.
[2019-06-25 10:59] LABS: HEMATOCRIT 31.2 % (36-48); HEMOGLOBIN 10.2 g/dL (12.0-16.0); LYMPHOCYTES # (AUTO) 0.3 K/uL (2.5-16.5); LYMPHOCYTES % (AUTO) 6.3 % (20.5-51.1); MEAN CORPUSCULAR HEMOGLOBIN 30 pg (27-31); MEAN CORPUSCULAR HGB CONC 33 g/dL (33-37); MEAN CORPUSCULAR VOLUME 90.3 fL (80-94); MONOCYTES # (AUTO) 0.4 K/uL (0.8-1.0); MONOCYTES % (AUTO) 8.2 % (1.7-9.3); NEUTROPHILS # (AUTO) 4.4 K/uL (1.8-7.7); NEUTROPHILS % (AUTO) 85.5 % (42.2-75.2); PLATELET COUNT (AUTO) 186 K/uL (140-450); RED BLOOD CELL COUNT(AUTO) 3.45 MIL/uL (4.20-5.40); RED CELL DISTRIBUTION WIDTH 14.8 % (11.6-13.7); WHITE BLOOD COUNT (AUTO) 5.2 K/uL (4.8-10.8)
[2019-06-25 11:10] LABS: ANION GAP 10.6 (8-16); CARBON DIOXIDE 30.9 mmol/L (21-32); CHLORIDE 103 mmol/L (98-107); POTASSIUM 3.5 mmol/L (3.5-5.1); SODIUM SERUM 141 mmol/L (136-145)
[2019-06-25 11:11] LABS: CREATININE 0.6 mg/dL (0.6-1.3); GLUCOSE 160 mg/dL (74-106); UREA NITROGEN, BLOOD 20 mg/dL (7-18)
[2019-06-25 11:13] LABS: MAGNESIUM 1.8 mg/dL (1.8-2.4); PHOSPHORUS 1.2 mg/dL (2.5-4.9)
[2019-06-25] MEDS: VANCOMYCIN 750 MG in DEXTROSE 5% 250 ML IV SCH ×2 (11:13→21:11)
--- NOTE | 2019-06-25 11:41 | NUR ---
FEVER WENT DOWN TO 98.7 DEGREE F. NOTED WITH LIQIUDY, BROWNISH BMX1. CLEANED AND DRY. TEN CARE AND CATHETER CARE PROVIDED. REPOSITIONED. KEPT HOB ELEVATED. CONTINUE ON G-TUBE FEEDING. NO RESPIRATORY DISTRESS NOTED. WOUND CARE PROVIDED. DRESSING DRY INTACT. OFFLOADED PRESSURE AREAS. FLACC 0.
[2019-06-25] MEDS: GAUZE TP SCH (12:35)
[2019-06-25] MEDS: THERAHONEY GEL 42.5 GM TP SCH (12:36)
[2019-06-25] MEDS ORDERED: NACL 0.9% 1,000 ML IV SCH (14:30)
--- NOTE | 2019-06-25 14:30 | NUR ---
PT NOTED WITH IRREGULAR HEART RATE GOING UP TO 140 SOMETIMES AND BP 95/56. DR. LÓPEZ MADE AWARE. SAID GIVE 1 LTR BOLUS AND GIVE PO AMIODARONE. WILL GIVE BOLUS AND AMIODARONE VIA GT. Addendum: 06/25/19 at 1435 by Mercedes Galvez RN [PO MIDODRINE Addendum: 06/25/19 at 1601 by Mercedes Galvez RN NOT AMIODARONE. IT IS MIDODRINE. DR. LÓPEZ CHANGED THE IVF AMOUNT TO BE INFUSED BOLUS TO 500 ML INSTEAD.
[2019-06-25] MEDS: HYDROcodone/APAP 7.5/325 MG 1 TAB PO PRN (14:52)
--- NOTE | 2019-06-25 15:19 | NUR ---
HR 106. BP 109/64 AT THIS TIME. NO SOB OR ACUTE RESPIRATORY DISTRESS NOTED.
--- NOTE | 2019-06-25 15:44 | NUR ---
UNABLE TO MEASURE ACCURATE HOURLY URINE OUTPUT DUE TO URINE LEAKAGE DESPITE OF HAVING HOOVER CATHETER IN PLACE WITH INFLATED BALLOON. BLADDER SCAN SHOWED 25 ML URINE. NO BLADDER DISTENSION NOTED. DR. LÓPEZ MADE AWARE. WET CHUCKS NOTED. CHANGED CHUCKS. KEPT PT CLEAN AND DRY. WOUND SITE DRESSING DRY AND INTACT. REPOSITIONED. NO SOB OR RESPIRATORY DISTRESS NOTED. HOB ELEVATED. TOLERATING FEEDING RESIDUAL 0.
--- NOTE | 2019-06-25 16:00 | NUR ---
NS 0.9% 500 ML BOLUS ADMINISTERED PER DR. LÓPEZ. IV SITE INTACT.
[2019-06-25] MEDS ORDERED: NACL 0.9% 500 ML IV SCH (16:04)
--- NOTE | 2019-06-25 16:40 | NUR ---
DR. LÓPEZ MADE AWARE OF PHOSPHORUS LEVEL 1.2.
[2019-06-25] MEDS ORDERED: POTASSIUM PHOSPHATE 15 MM in NACL 0.9% 250 ML IV ONE (16:55)
[2019-06-25] MEDS ORDERED: SODIUM PHOS / POTASSIUM PHOS 1 PKT PDR GT ONE (16:55)
--- NOTE | 2019-06-25 17:30 | NUR ---
UNABLE TO GET IV POTASSIUM PHOSPHATE IV AND SODIUM PHOS/POTASSIUM PHOS PKT FROM [facility]. WEATHER TEACHER EDGARDO MADE AWARE.
--- NOTE | 2019-06-25 17:44 | NUR ---
RESTING IN BED. NO SOB OR RESPIRATORY DISTRESS NOTED. SR ON MONITOR. CONTINUE ON O2 AT 3 LTR/MIN. AFEBRILE. IV SITE INTACT.
--- NOTE | 2019-06-25 19:15 | NUR ---
REPORT GIVEN TO SQL DATABASE ADMINISTRATOR RN FOR CONTINUITY OF CARE. PT ON STABLE CONDITION.
[2019-06-25] MEDS ORDERED: SODIUM PHOS / POTASSIUM PHOS 1 PKT PDR PO SCH (19:20)
--- NOTE | 2019-06-25 19:30 | NUR ---
RECEIVED REPORT FROM MORNING RN, ALF, FOR CONTINUITY OF CARE. VS STABLE AT THIS TIME. ABLE TO OPEN EYES SPONTANEOUSLY BUT UNABLE TO MAKE NEEDS KNOWN. PT UNABLE TO FOLLOW COMMANDS WELL. PERRL. FLACC 0. AFEBRILE. LUNG SOUNDS DIMINISHED. NO SOB NOTED. OXYGEN SATURATION WNL. CHEST RISE SYMMETRIC. PT RECEIVING OXYGEN AT 3L/MIN VIA NC. S1+S2 HEARD. PULSES PALPABLE IN ALL EXTREMITIES. SR ON MONITOR. BP WNL. ABDOMEN ROUND, SOFT AND NONDISTENDED. BS ACTIVE IN ALL QUADRANTS. GTUBE IN PLACE. NEPRO RUNNING AT 40ML/HR. NO RESIDUAL ASPIRATED AT THIS TIME. HOOVER CATHETER IN PLACE, DRAINING CLEAR AND YELLOW URINE. NO BM NOTED AT THIS TIME. NO LEAKAGE NOTED FROM HOOVER CATHETER WELL. PT HAS PERIPHERAL IV ACCESS ON LEFT FOREARM 22G. FLUSHED THE IV ACCESS. LINE IS PATENT, INTACT AND ASYMPTOMATIC. PT TURNED AND REPOSITIONED. KEPT HOB AT 30 DEGREES. ALL SAFETY PRECAUTIONS ARE KEPT IN PLACE. WILL CONTINUE TO MONITOR PT.
[2019-06-25] MEDS ORDERED: SODIUM PHOS / POTASSIUM PHOS 1 PKT PDR ONE (19:51)
--- NOTE | 2019-06-25 21:07 | NUR ---
DR. LIVINGSTON IN THE UNIT TO SEE PT. UPDATED HIM REGARDING PT'S CONDITION. RECEIVED NO NEW ORDERS AT THIS TIME.
--- NOTE | 2019-06-25 23:29 | NUR ---
NO CHANGE IN PT'S CONDITION AT THIS TIME. VS REMAINS STABLE. OXYGEN SATURATION WNL. NO SOB NOTED. PT REMAINS ON OXYGEN AT 3L/MIN VIA NC.
[2019-06-26] VITALS (7 sets, daily range): BP systolic 94–146; BP diastolic 58–94
--- NOTE | 2019-06-26 02:20 | NUR ---
VS STABLE. SR ON MONITOR. NO CHANGE IN PT'S CONDITION. NO SOB NOTED. RESPIRATIONS REMAIN EVEN AND UNLABORED. ALL SAFETY PRECAUTIONS ARE STILL IN PLACE.
--- NOTE | 2019-06-26 04:45 | NUR ---
MORNING CARE PROVIDED TO PT. ABLE TO TOLERATE BEING TURNED AND REPOSITIONED. HOOVER CATHETER STILL LEAKING. PADS WERE CHANGED. PT'S DRESSING WERE CHANGED. RESUMED FEEDING. TOLERATING WELL AND NO RESIDUAL NOTED. PERIPHERAL IV ACCESS IS PATENT, INTACT, AND ASYMPTOMATIC
[2019-06-26] MEDS: MIDODRINE 5 MG TAB GT SCH ×3 (05:11→21:00)
[2019-06-26] MEDS: methylPREDNISolone SS 40 MG/ML VIAL IVP SCH ×3 (05:11→21:42)
[2019-06-26 06:45] LABS: ANION GAP 11.6 (8-16); CARBON DIOXIDE 30.1 mmol/L (21-32); CHLORIDE 104 mmol/L (98-107); CREATININE 0.4 mg/dL (0.6-1.3); GLUCOSE 154 mg/dL (74-106); POTASSIUM 3.7 mmol/L (3.5-5.1); SODIUM SERUM 142 mmol/L (136-145); UREA NITROGEN, BLOOD 15 mg/dL (7-18)
[2019-06-26] MEDS: ALBUTEROL SULFATE/IPRATROPIU 3 ML SOL IH SCH ×3 (07:16→20:19)
[2019-06-26] MEDS: ACETYLCYSTEINE 10% (100 MG/ML) 100 MG/ML VIAL INH SCH ×3 (07:16→20:19)
--- NOTE | 2019-06-26 07:25 | NUR ---
REPORT RECEIVED FROM HEAD OF OPERATION AND LOGISTICS NURSE, PT RESTING QUIETLY, OPENS EYES WITH CARE, DOES NOT FOLLOW COMMANDS, NON VERBAL, PT ON CARDIC MONITOR, RESP EVEN UNLABORED, SLIGHTLY TACHYPNEIC 30, BREATH SOUNDS COARSE, 02 3L VIA NC, SKIN DRY, FLUSHED, HOT TO TOUCH, IV TO LEFT FA, NS TKO, SITE WNL, ABD SOFT NON DISTENDED, GT FEED ONGOING NEPRO AT 40ML/HR, NO RESIDUAL, HOOVER DRAINING CLEAR YELLOW URINE TO GRAVITY, POC REVIEWED, ALL SAFETY MEASURES IN PLACE, BED LOCKED IN LOW POSITION, BED ALARM ON, SCD ON.
[2019-06-26] MEDS: ACETAMINOPHEN 325 MG TAB PO PRN (07:43)
--- NOTE | 2019-06-26 07:52 | NUR ---
TEM 100.9 TA, TYLENOL GIVEN PER ORDER. EXTRA BLANCKETS REMOVED.
--- NOTE | 2019-06-26 08:06 | NUR ---
DR STEELE AND MED TEAM AT BEDSIDE, NOTIFIED OF TEMP, INCREASED HR AND RR, BLOOD CX RESULT.
--- NOTE | 2019-06-26 08:26 | NUR ---
LOOSE BM X1, PERICARE DONE, POSITION CHANGED, COOL SPONGE BATH GIVEN, POSITION CHANGED.
[2019-06-26] MEDS: OSELTAMIVIR PHOSPHATE 75 MG CAP GT SCH ×2 (08:38→21:41)
[2019-06-26] MEDS: Z-GUARD PASTE TP SCH ×2 (08:38→21:42)
[2019-06-26] MEDS: LACTOBACILLUS RHAMNOSUS GG 1 EACH CAP GT SCH (08:38)
[2019-06-26] MEDS: CHLORHEXADINE GLUC 2% CLOTH TP SCH (08:39)
[2019-06-26] MEDS: MUPIROCIN CA NASAL 2% 1GM TUBE NS SCH (08:39)
--- NOTE | 2019-06-26 09:20 | NUR ---
PT LESS FLUSHED, TEMP 99.3 NOW, PT APPEARS MORE COMFORTABLE, HR 88, RR 24.
--- NOTE | 2019-06-26 10:45 | NUR ---
PT RESTING QUIETLY, APPEARS COMFORTABLE, RESP EVEN UNLABORED RR 22, ALL SAFETY MEASURES IN PLACE, WILL CONTINUE TO MONITOR.
--- NOTE | 2019-06-26 11:46 | NUR ---
PT REPOSITIONED, SKIN WARN AND DRY, NO LONGER FLUSHED.
--- NOTE | 2019-06-26 12:08 | NUR ---
DR HERNÁNDEZ AT BEDSIDE.
--- NOTE | 2019-06-26 12:24 | NUR ---
MIDODRIN HELD, BP 124/84.
--- NOTE | 2019-06-26 13:14 | NUR ---
06/26/19 RD FOLLOW UP COMPLETED PLEASE REFER TO NUTRITION ASSESSMENT UNDER CARE ACTIVITY FOR ESTIMATED NUTRITIONAL NEEDS. 1. CONTINUE NEPRO WITH CARBSTEADY @ 40ML/HR -THIS WILL PROVIDE 1728KCAL AND 77G OF PROTEIN 2. CONTINUE FREE WATER FLUSH OF 200ML Q6H 3. RECOMMEND VITAMIN C 500 MG ONCE DAILY 4. RECOMMEND PROSOURCE BID -THIS WILL PROVIDE AN ADDITIONAL 30 GM OF PROTEIN AND [address] TO FOLLOW-UP 2-3 DAYS, HIGH RISK CHRISTINA YE, RD
[2019-06-26] MEDS: SODIUM PHOS / POTASSIUM PHOS 1 PKT PDR GT SCH ×2 (13:44→16:22)
[2019-06-26] MEDS: GAUZE TP SCH (13:48)
[2019-06-26] MEDS: THERAHONEY GEL 42.5 GM TP SCH (13:48)
--- NOTE | 2019-06-26 14:16 | NUR ---
RT AT BEDSIDE FOR DEEP SUCTIONING AND NEB TREATMENT.
[2019-06-26] MEDS ORDERED: PROBIOTIC SCREEN 1 EA MISC MC PRN (14:30)
--- NOTE | 2019-06-26 15:09 | NUR ---
HOOVER CATH LEAKING AT MEATUS, BALLOON DEFLATED AND RE-INFLATED, DRAINING CLEAR LIGHT YELLOW URINE, PAD CHANGED, POSITION CHANGED, PT AWAKE WITH EYES OPEN, MUMBLING/TALKING, RESP EVEN UNLABORED, APPEARS COMFORTABLE, WILL CONTINUE TO MONITOR.
--- NOTE | 2019-06-26 16:55 | NUR ---
HOOVER CATH STILL WITH LARGE AMT OF LEAKING ON PADS, PERICARE DONE, PADS CHANGED, HOOEVR CATH REPLACED WITH STERILE TECHNIQUE, CLEAR LIGHT YELLOW URINE RETURNED, PT FANY WELL, WILL CONTINUE TO MONITOR.
--- NOTE | 2019-06-26 18:17 | NUR ---
POSITION CHANGED, HOOVER DRAINING WELL, NO LEAKING NOTED AT THIS TIME, TEMP 100.1, COOL WASH CLOTH APPLIED. PT RESTING COMFORTABLY, RESP EVEN UNLABORED ON O2 3L NC, GT FEEDING ONGOING AT 40ML/HR, SKIN WARM DRY COLOR WNL, ALL SAFETY MEASURES IN PLACE, WILL CONTINUE TO MONITOR.
--- NOTE | 2019-06-26 18:41 | NUR ---
SON MYRA CALLED ON THE PHONE, UPDATED HIM WITH PT'S CONDITION.
--- NOTE | 2019-06-26 19:25 | NUR ---
CHANGE OF SHIFT REPORT GIVEN AT BEDSIDE BY DAY NURSE BROOKE. STATES DROPLET PRECAUTIONS. DAY SHIFT NURSE STATES LOOSE STOOLS BUT NOT WATERY X2 ON DAY SHIFT. PATIENT HAS MULTIPLE CONTRACTURES BUT ABLE TO MOVE ARMS. PATIENT MUMBLING BUT UNABLE TO MAKE NEEDS KNOWN. 3L OXYGEN VIA NASAL CANNULA. HEEL PROTECTORS PRESENT. SCDS IN PLACE. PATIENTS EYES OPEN. WATCHING STAFF PRESENT AT BEDSIDE. 98.4 TEMPERATURE TAKEN VIA TEMPORAL SCAN. PATIENT LUNGS DIMINISHED SOUNDING. RT TO GIVE BREATHING TREATMENT. RESPIRATIONS SYMMETRICAL AND UNLABORED. GTUBE PRESENT RUNNING 40 OF NEPRO WITH WATER FLUSH OF 200 Q6H PER DAY SHIFT. BOWEL SOUNDS ACTIVE ATT 4 QUADRANTS. DAY SHIFT STATES CATHETER REPLACED TODAY. YELLOW CLEAR URINE PRESENT IN HOOVER CATHETER BAG. MILD REDNESS NOTED ON CHEST. NURSE STATES FROM POSSIBLE MEDICATION RXN AND TO FOLLOW UP WITH DR. LIVINGSTON ON WHAT ANTIBIOTIC TO GIVE. BED IN LOWEST POSITION. SIDE RAILS UP. SAFETY MEASURES IN PLACE. VSS. NO SOB OR S/S OF DISTRESS NOTED. REPOSITIONED WITH CHARGE NURSE. WILL CONTINUE TO MONITOR.
--- NOTE | 2019-06-26 19:30 | NUR ---
REPORT GIVEN TO HEAD START ASSISTANT TEACHER SHIFT NURSE, PT IN STABLE CONDITION.
--- NOTE | 2019-06-26 20:13 | NUR ---
RT AT BEDSIDE. NO SOB OR S/S OF DISTRESS NOTED.
--- NOTE | 2019-06-26 20:32 | NUR ---
RECEIVED PATIENT ON 3L NASAL CANNULA, PULSE OX SAT 99%. SCHEDULED BREATHING TREATMENTS ADMINISTERED. TOLERATED TREATMENTS WELL WITHOUT ADVERSE SIDE EFFECTS. NO ACUTE RESPIRATORY DISTRESS NOTED. WILL CONTINUE TO MONITOR.
--- NOTE | 2019-06-26 20:40 | NUR ---
MEDICATION ADMINISTERED PER MD ORDERS. HELD PROAMATINE BP 112/66. PATIENT TOLERATED WELL. NO RESIDUAL FROM TUBE FEEDING. WHEN DISCUSSING MEDICATIONS WITH PATIENT, PATIENT WOULD MUMBLE BACK. PATIENT APPEARED CALM. MOVING HANDS FOR NURSE WHEN USING GTUBE. FLACC O. FOLLOWED NURSE WITH EYES WHILE IN THE ROOM DURING MED PASS. SUCTIONED PATIENT AND ORAL CARE PERFORMED. REPOSITIONED PATIENT. PATIENT APPEARS CALM AND CONTENT. FLACC O. NO SOB OR DISTRESS NOTED. WILL CONTINUE TO MONITOR. TEMP. 98.2.
--- NOTE | 2019-06-26 21:20 | NUR ---
SEEN BY DR. LIVINGSTON, UPDATED HIM ON PATIENT'S MEDICAL CONDITION ESPECIALLY ON PT'S ANTIBIOTIC; HE SAID PATIENT'S REDNESS IS NOT DUE TO FAST INFUSION OF VANCOMYCIN SO CONTINUE SAME DOSE OF VANCOMYCIN SINCE PATIENT NEEDS IT FOR SHE HAS MRSA. DR. WEST WAS INFORMED AND NOTIFIED ABOUT THIS AND HE SAID HE'LL PUT BACK THE ORDER FOR VANCOMYCIN DOSE.
--- NOTE | 2019-06-26 23:16 | NUR ---
PATIENT LYING IN BED. RESPIRATIONS WNL AND UNLABORED. NO SOB ORE DISTRESS NOTED. WILL CONTINUE TO MONITOR.
[2019-06-27] VITALS (10 sets, daily range): BP systolic 89–136; BP diastolic 44–78
--- NOTE | 2019-06-27 00:50 | NUR ---
PATIENT TUBE FEEDING CHANGED. FLUSHED GTUBE. PATENT AND FLUSHING WELL. PATIENT AWAKE AND FOLLOWING NURSE IN ROOM. AWAKE AND MUMBLING TO NURSE WHILE DISCUSSING WHAT NURSE IS PERFORMING AT BEDSIDE. SUCTIONED PATIENT ORALLY AND NASALLY. NO BLEEDING. NO OPEN WOUNDS. FREE OF INJURY. WILL CONTINUE TO MONITOR. REPOSITIONED. NURSE: ARE YOU FEELING OK NOW? PATIENT: "YEAH" FLACC 0 TEMP 98.2
[2019-06-27] MEDS ORDERED: VANCOMYCIN PER PHARMACY MC PRN (04:40)
--- NOTE | 2019-06-27 04:41 | NUR ---
CALLED RESIDENT TO REMIND HIM OF THE VANCOMYCIN RE ORDER PER DR. LIVIGNSTON. CHARGE NURSE SPOKE WITH YARA AND RESIDENT TO CONFIRM REORDER. WILL CONTINUE TO MONITOR PATIENT.
--- NOTE | 2019-06-27 04:48 | NUR ---
LAB HERE TO DRAW BLOOD ON PATIENT. VSS. WILL CONTINUE TO MONITOR.
[2019-06-27] MEDS ORDERED: VANCOMYCIN 1GM/DEXT 5% PREMIX 200 ML IV SCH (05:00)
[2019-06-27] MEDS: MIDODRINE 5 MG TAB GT SCH (05:00)
--- NOTE | 2019-06-27 05:06 | NUR ---
CALLED PHARMACY TO CONFIRM ORDER WITH PSYCHIATRIC SECRETARY PHARMACY. RAFI STATES SHE WILL CHANGE THE ORDER IT WAS NOT CORRECT AND WILL SLOW DOWN THE RATE PER "ELMER SYNDROME" PER DAY SHIFT AND CHARGE NURSE. SPOKE WITH DR. LIVINGSTON AND RESIDENT WHO STATE OK TO BEGIN VANCOMYCIN AGAIN PER PHARMACY ORDERS. WILL CONTINUE TO MONITOR
[2019-06-27] MEDS ORDERED: VANCOMYCIN 1,000 MG VIAL ONE (05:19)
[2019-06-27 05:26] LABS: HEMATOCRIT 32.4 % (36-48); HEMOGLOBIN 10.6 g/dL (12.0-16.0); MEAN CORPUSCULAR HEMOGLOBIN 30 pg (27-31); MEAN CORPUSCULAR HGB CONC 33 g/dL (33-37); PLATELET COUNT (AUTO) 208 K/uL (140-450); RED CELL DISTRIBUTION WIDTH 15.1 % (11.6-13.7); WHITE BLOOD COUNT (AUTO) 7.2 K/uL (4.8-10.8)
[2019-06-27] MEDS ORDERED: VANCOMYCIN 1,000 MG in DEXTROSE 5% 250 ML IV SCH (05:30)
[2019-06-27] MEDS: methylPREDNISolone SS 40 MG/ML VIAL IVP SCH ×3 (05:41→20:09)
[2019-06-27] MEDS: ACETYLCYSTEINE 10% (100 MG/ML) 100 MG/ML VIAL INH SCH ×3 (06:00→19:22)
[2019-06-27 06:09] LABS: LYMPHOCYTES % (MANUAL) 5 % (20-46); MONOCYTES % (MANUAL) 4 % (5-12)
--- NOTE | 2019-06-27 06:15 | NUR ---
MORNING CARE PERFORMED. NO REDNESS NOTED. WILL BEGIN VANCOMYCIN AGAIN PER MD ORDERS. NO FEVER NOTED. CATHETER CARE PERFORMED. NOSE AND MOUTH SUCTIONED. WILL CONTINUE TO MONITOR.
[2019-06-27] MEDS: ALBUTEROL SULFATE/IPRATROPIU 3 ML SOL IH SCH ×4 (06:33→19:22)
[2019-06-27 06:56] LABS: PHOSPHORUS 3.7 mg/dL (2.5-4.9)
--- NOTE | 2019-06-27 07:08 | NUR ---
RECEIVED BEDSIDE REPORT FROM PHI LINE MAINTENANCE RN, FOR CONTINUITY OF CARE. PATIENT OPENS EYES SPONTANEOUSLY, RESPONDS TO PAIN. SKIN IS WARM, DRY, AFEBRILE, SHE HAS A CLOSED WOUND TO SACROCOCCYX, AND BILATERAL HEELS. PATIENT IS ON NASAL CANNULA AT 3LPM, BREATHING EVEN AND UNLABORED. GTUBE IN LUQ AND HOOVER CATHETER IN PLACE. NO SIGNS OF DISTRESS NOTED. WILL CONTINUE TO MONITOR.
[2019-06-27 07:11] LABS: ANION GAP 9.5 (8-16); CHLORIDE 106 mmol/L (98-107); CREATININE 0.4 mg/dL (0.6-1.3); GLUCOSE 160 mg/dL (74-106); POTASSIUM 3.5 mmol/L (3.5-5.1); SODIUM SERUM 145 mmol/L (136-145); UREA NITROGEN, BLOOD 23 mg/dL (7-18)
--- NOTE | 2019-06-27 07:20 | NUR ---
CALLED RT TO CHECK PATIENT BREATHING. BREATHING BECOMING LABORED. SUCTIONED NOSE AND MOUTH. THICK SECRETIONS. RT AT PATIENT BEDSIDE. COLOR WNL. BREATHING TX BEING GIVEN. TOLERATING WELL.
--- NOTE | 2019-06-27 07:33 | NUR ---
NO SOB OR DISTRESS NOTED. ENDORSED TO DAY SHIFT. VSS.
--- NOTE | 2019-06-27 07:59 | NUR ---
PATIENT HAD 1 MODERATE BM, PATIENT CLEANED AND REPOSITIONED. NO SIGNS OF DISTRESS NOTED
[2019-06-27] MEDS: ASCORBIC ACID 500 MG/5 ML ORASYR GT SCH (08:13)
[2019-06-27] MEDS: MUPIROCIN CA NASAL 2% 1GM TUBE NS SCH (08:14)
[2019-06-27] MEDS: LACTOBACILLUS RHAMNOSUS GG 1 EACH CAP GT SCH (08:14)
[2019-06-27] MEDS: OSELTAMIVIR PHOSPHATE 75 MG CAP GT SCH ×2 (08:14→20:10)
[2019-06-27] MEDS: SCOPOLAMINE 1.5 MG/72 HR PATCH TD SCH (08:16)
[2019-06-27] MEDS: SODIUM PHOS / POTASSIUM PHOS 1 PKT PDR GT SCH (08:16)
[2019-06-27] MEDS: Z-GUARD PASTE TP SCH ×2 (08:17→20:45)
[2019-06-27] MEDS: CHLORHEXADINE GLUC 2% CLOTH TP SCH (08:17)
--- NOTE | 2019-06-27 08:29 | NUR ---
SCHEDULED MEDS ADMINISTERED, PATIENT TOLERATED WELL.
--- NOTE | 2019-06-27 10:50 | NUR ---
DR. HERNÁNDEZ IS HERE TO SEE AND EXAMINE PATIENT, UPDATED ON PATIENT'S CONDITION. WILL FOLLOW UP ON ANY ORDERS
[2019-06-27] MEDS ORDERED: FUROSEMIDE 40 MG/4 ML VIAL IVP SCH (11:00)
--- NOTE | 2019-06-27 11:01 | NUR ---
PATIENT'S TEMP IS 100.9, WILL GIVE PRN TYLENOL 650MG
[2019-06-27] MEDS: ACETAMINOPHEN 325 MG TAB PO PRN ×2 (11:06→17:00)
[2019-06-27] MEDS: GAUZE TP SCH (12:45)
[2019-06-27] MEDS: THERAHONEY GEL 42.5 GM TP SCH (12:45)
--- NOTE | 2019-06-27 12:50 | NUR ---
PATIENT'S TEMP IS 100.2
--- NOTE | 2019-06-27 14:16 | NUR ---
PATIENT WAS CLEANED AND REPOSITIONED, SHE HAD 1 MODERATE BROWN BM.
--- NOTE | 2019-06-27 16:21 | NUR ---
US TECH AT BEDSIDE
[2019-06-27] MEDS: VANCOMYCIN 750 MG in DEXTROSE 5% 250 ML IV SCH (17:00)
--- NOTE | 2019-06-27 17:21 | NUR ---
PATIENT HAD TEMP OF 101.2, ACETAMINOPHEN 650 MG PO GIVEN, WILL CONTINUE TO MONITOR
--- NOTE | 2019-06-27 19:02 | NUR ---
ENDORSED CONTINUITY OF CARE TO STAMP PRESSER RNGINO. NO SIGNS OF DISTRESS NOTED.
--- NOTE | 2019-06-27 19:15 | NUR ---
PT AT BED EYES CLOSED, PERRL 3MM, PT IS NONVERBAL, OPENS EYES SIMULTANEOUSLY, PT BREATHING REGULARLY ON NC RUNNING O2 AT 3L/MIN. BILATERAL UPPER LOBES CLEAR, WHEEZING ON LEFT MIDDLE LOBE, DIMINISHED AT BASES, HEART RATE IRREGULAR, SINUS ARRHYTHMIA, S1S2 PRESENT, CAP REFILL <3S, PULSES 2+ BILATERAL UPPER AND LOWER EXTREMITIES, ABDOMEN, SOFT, ROUND, NONDISTENDED, BOWEL SOUNDS ACTIVE IN ALL QUADRANTS, GTUBE IN PLACE, RUNNING NEPRO AT 40 ML/HR, WATER FLUSH AT 200 ML Q6HR, RESIDUAL 0 ML, BLADDER, SOFT, NONTENDER, ROUND, HOOVER CATHETER IN PLACE. PT HAS GENERALIZED WEAKNESS, PT SKIN WARM, DRY, NON INTACT, PT HAS OPEN WOUND ON SACRAL AREA, DRESSING IN PLACE, DRY AND INTACT, LEFT HEEL HAS SKIN DISCOLORATION, RIGHT HEEL HAS HEALED WOUND, BILATERAL HEEL PROTECTORS IN PLACE, SCD IN PLACE, PT HAS PERIPHERAL IV ON LEFT FOREARM 22 GAUGE, RUNNING NS AT 5 ML/HR. PT IS AFEBRILE 99.1 F. HOB 30 DEGREES, SIDE RAILS UP X2, BED AT LOWEST POSITION.
--- NOTE | 2019-06-27 21:15 | NUR ---
DR LIVINGSTON AT BEDSIDE. UPDATED MD ON PT CONDITION. NO NEW ORDERS AT THIS TIME.
[2019-06-27] MEDS ORDERED: LEVOFLOXACIN 500 MG/D5W PREMIX 100 ML IV SCH (22:00)
--- NOTE | 2019-06-27 23:34 | NUR ---
PT AT BED, EYES CLOSED, BREATHING REGULARLY AT O2 NC 3L/MIN, HOB 30 DEGREES, SIDE RAILS UP X2, BED AT LOWEST POSITION.
[2019-06-28] VITALS (7 sets, daily range): BP systolic 94–166; BP diastolic 41–81
--- NOTE | 2019-06-28 02:50 | NUR ---
PT AT BED, EYES CLOSED, BREATHING REGULARLY AT O2 NC 3L/MIN, HOB 30 DEGREES, SIDE RAILS UP X2, BED AT LOWEST POSITION.
--- NOTE | 2019-06-28 05:05 | NUR ---
PT AT BED, EYES CLOSED, BREATHING REGULARLY AT O2 NC 3L/MIN, HOB 30 DEGREES, SIDE RAILS UP X2, BED AT LOWEST POSITION.
[2019-06-28] MEDS: methylPREDNISolone SS 40 MG/ML VIAL IVP SCH ×2 (05:16→12:17)
[2019-06-28] MEDS: VANCOMYCIN 750 MG in DEXTROSE 5% 250 ML IV SCH ×4 (06:00→17:34)
--- NOTE | 2019-06-28 06:16 | NUR ---
AM CARE PROVIDED, PT TOLERATED PROCEDURE WELL. WILL CONTINUE TO MONITOR.
--- NOTE | 2019-06-28 06:46 | NUR ---
SPOKE WITH PHARMACY WITH VANCOMYCIN TROUGH RESULT 10.1, PHARMACIST RECOMMENDED TO HOLD THE VANCO DUE TO LOW THERAPEUTIC AMOUNT FOR PNEUMONIA, RECOMMENDED TO REDOSE THE VANCOMYCIN.
[2019-06-28] MEDS: ALBUTEROL SULFATE/IPRATROPIU 3 ML SOL IH SCH ×2 (06:51→13:12)
[2019-06-28] MEDS: ACETYLCYSTEINE 10% (100 MG/ML) 100 MG/ML VIAL INH SCH ×2 (06:52→13:13)
[2019-06-28 06:53] LABS: ANION GAP 7.2 (8-16); CARBON DIOXIDE 36.6 mmol/L (21-32); CHLORIDE 101 mmol/L (98-107); CREATININE 0.5 mg/dL (0.6-1.3); GLUCOSE 159 mg/dL (74-106); SODIUM SERUM 142 mmol/L (136-145); UREA NITROGEN, BLOOD 26 mg/dL (7-18)
[2019-06-28 07:06] LABS: MAGNESIUM 1.8 mg/dL (1.8-2.4); PHOSPHORUS 3.3 mg/dL (2.5-4.9)
--- NOTE | 2019-06-28 07:07 | NUR ---
BANG, PHARMACIST, RECOMMENDED TO GIVE VANCOMYCIN 750 MG, ORIGINALLY ORDERED WITH VANCO TROUGH RESULT OF 10.1.
[2019-06-28 07:10] LABS: HEMATOCRIT 35.1 % (36-48); HEMOGLOBIN 11.3 g/dL (12.0-16.0); MEAN CORPUSCULAR HEMOGLOBIN 29 pg (27-31); MEAN CORPUSCULAR HGB CONC 32 g/dL (33-37); MEAN CORPUSCULAR VOLUME 90.3 fL (80-94); PLATELET COUNT (AUTO) 230 K/uL (140-450); RED BLOOD CELL COUNT(AUTO) 3.88 MIL/uL (4.20-5.40); RED CELL DISTRIBUTION WIDTH 15.5 % (11.6-13.7); WHITE BLOOD COUNT (AUTO) 7.4 K/uL (4.8-10.8)
[2019-06-28 07:13] LABS: POTASSIUM 2.8 mmol/L (3.5-5.1)
--- NOTE | 2019-06-28 07:15 | NUR ---
BEDSIDE REPORT RECEIVED FROM REACTOR SERVICE OPERATOR NURSE, PT IN NO ACUTE DISTRESS.
--- NOTE | 2019-06-28 07:45 | NUR ---
DR STEELE AND MED TEAM AT BEDSIDE, REPORTED K LEVEL 2.8.
[2019-06-28] MEDS ORDERED: LEVO750T2 IV (08:15)
--- NOTE | 2019-06-28 08:18 | NUR ---
PT RESTING QUIETLY WITH EYES CLOSED, OPENS EYES SPONTANEOUSLY, DOES NOT ANSWER QUESTIONS, DOES NOT FOLLOW COMMANDS, RESP EVEN UNLABORED, ON 2L NC, LUNG SOUNDS DIMINISHED THROUGHOUT, ABD SOFT, GT FEED ON GOING, NO RESIDUAL NOTED, HOOVER TO GRAVITY DRAINING CLEAR YELLOW URINE, 1-2 PITTING EDEMA TO BILAT LOWER EXT, IV SITE LEFT FA 22G, TKO, SITE WNL.
[2019-06-28] MEDS ORDERED: POTASSIUM CHLORIDE 20% 40 MEQ/15 ML UDC GT SCH (08:30)
[2019-06-28] MEDS: OSELTAMIVIR PHOSPHATE 75 MG CAP GT SCH (08:49)
[2019-06-28] MEDS: LACTOBACILLUS RHAMNOSUS GG 1 EACH CAP GT SCH (08:49)
[2019-06-28] MEDS: MUPIROCIN CA NASAL 2% 1GM TUBE NS SCH (08:49)
[2019-06-28] MEDS: ACETAMINOPHEN 325 MG TAB PO PRN (08:49)
[2019-06-28] MEDS: ASCORBIC ACID 500 MG/5 ML ORASYR GT SCH (08:49)
[2019-06-28] MEDS: CHLORHEXADINE GLUC 2% CLOTH TP SCH (08:50)
[2019-06-28] MEDS: Z-GUARD PASTE TP SCH (08:52)
--- NOTE | 2019-06-28 09:13 | NUR ---
AM MEDS GIVEN, PT FANY WELL.
[2019-06-28] MEDS ORDERED: POTASSIUM CHLORIDE 40 MEQ, LIDOCAINE MPF 1% 25 MG in NACL 0.9% 250 ML IV SCH (09:30)
--- NOTE | 2019-06-28 09:30 | NUR ---
Discharge Planning: Pt to be discharge today and transfer back to [facility] under Dr. Culp today for IV Levaquin 500 mg daily and Vancomycin 750 mg Q12H X 7 days. Clinicals faxed to [facility] . Addendum: 06/28/19 at 1004 by Alexandra Barrow CM [facility] faxed [facility] for transportation authorizartion. Addendum: 06/28/19 at 1006 by Alexandra Barrow CM Spoke with Tamiko from [facility] . Santana Morrison the nurse is reviewing the clinicals at this time. Addendum: 06/28/19 at 1050 by Alexandra Barrow CM Tamiko from [facility] called and informed me pt is going to room 12B. Addendum: 06/28/19 at 1337 by Alexandra Barrow CM JOHNNY KAMARA for transportaion [id number]. Addendum: 06/28/19 at 1413 by Alexandra Barrow CM Arranged transportation with Eda . Pt will be picked up here in [facility] IC08/A at 1500 and transported to [facility] [address] [address] to room 12 B. Informed Z[facility] for time of pickle processor. Addendum: 06/28/19 at 1415 by Alexandra Barrow CM Called [facility] and spoke with Helen and informed her that pt will be picked up here in the hospital at 1500 and transported to [facility] room 12 B.
--- NOTE | 2019-06-28 10:02 | NUR ---
DR YOUSSEF AT BEDSIDE TO EVALUATE WOUNDS, NO ORDERS RECEIVED.
--- NOTE | 2019-06-28 10:21 | NUR ---
LEFT FA IV LEAKING, NEW IV STARTED TO RIGHT FA 20G, PT FANY WELL, VANCO AND K RIDER INFUSION RESUMED.
[2019-06-28 11:12] LABS: LYMPHOCYTES % (MANUAL) 8 % (20-46); MONOCYTES % (MANUAL) 5 % (5-12)
[2019-06-28 11:48] LABS: ANION GAP 8.3 (8-16); CHLORIDE 104 mmol/L (98-107); CREATININE 0.6 mg/dL (0.6-1.3); GLUCOSE 200 mg/dL (74-106); POTASSIUM 4.3 mmol/L (3.5-5.1); SODIUM SERUM 142 mmol/L (136-145); UREA NITROGEN, BLOOD 31 mg/dL (7-18)
--- NOTE | 2019-06-28 12:05 | NUR ---
DR. HERNÁNDEZ IN TO SEE PT, MADE AWARE THAT PT'S TEMP WAS 100.1. UPDATES GIVEN ON PT'S CONDITION. NO NEW ORDER RECEIVED AT THIS TIME.
[2019-06-28] MEDS: GAUZE TP SCH (12:17)
[2019-06-28] MEDS: THERAHONEY GEL 42.5 GM TP SCH (12:18)
--- NOTE | 2019-06-28 12:30 | NUR ---
PHYSICAL THERAPY SORAIDA AT BEDSIDE. Addendum: 06/28/19 at 1340 by Margie Arellano RN PLEASE DISREGARD ABOVE NOTE, WRONG PT.
--- NOTE | 2019-06-28 13:00 | NUR ---
DISCHARGE INSTRUCTION AND RX GIVEN AND EXPLAINED TO PT'S SON GERALD, ALL QUESTIONS ASKED AND ANSWERED, GERALD VERBALIZED FULL UNDERSTANDING, IV DC'D, CATH TIP INTACT, BLEEDING CONTROLLED, CARDIOPULM MONITOR LEADS AND PT ID BANDS REMOVED, PT ASSISTED BY FAMILY TO CHANGE TO HIS CLOTHES, ASSISTED TO WHEELCHAIR, ALL BELONGINGS TAKEN BY FAMILY, ESCORTED OUT IN WHEELCHAIR, SWITCHED TO PT'S OWN O2 TANK, ASSISTED INTO SON'S CAR TO DC HOME WITH FAMILY AT THIS TIME, CORN HUSKER TO CALL PT'S FAMILY WITH FOLLOW UP APPOINTMENT. Addendum: 06/28/19 at 1339 by Margie Arellano RN PLEASE DISREGARD ABOVE NOTE, WRONG PT.
--- NOTE | 2019-06-28 14:15 | NUR ---
WOUND CARE DONE, PHOTO TAKEN, POSITION CHANGED. PT IN NO ACUTE DISTRESS AT THIS TIME.
--- NOTE | 2019-06-28 14:45 | NUR ---
PT'S SON MYRA CONTACTED TO INFORM HIM OF TRANSFER BACK TO [facility] TODAY, MYRA WAS SURPRISED WITH THE PLAN, HE REQUESTS TO SPEAK WITH DOCTOR BEFORE TRANSFER, DR HASTINGS MADE AWARE OF HIS REQUEST.
--- NOTE | 2019-06-28 14:58 | NUR ---
SPOKE WITH LINDA FROM [facility], AWARE THAT PATIENT IS NOT ON DROPLET ISOLATION OR CONTACT ISOLATION. STATES THAT THE NEXT AVAILABLE TRANSPORTATION PICKUP IS AT 10PM.
--- NOTE | 2019-06-28 15:07 | NUR ---
CALLED [facility] AT [phone], REPORT GIVEN TO HUANG MILLER. MADE ANGELA AWARE THAT THE TRANSPORTATION WILL BE AT 10 PM.
--- NOTE | 2019-06-28 15:29 | NUR ---
PT'S SON MYRA DOES NOT WANT PATIENT TRANSFERRED AT NIGHT TIME. PER IT PROGRAMMER ANALYST BRID, CALLED [facility] [phone], BREAK OUT [place]EN [id number] [facility] FA[place] FACE SHEET AND AUTHO TO [phone].
--- NOTE | 2019-06-28 15:39 | NUR ---
HUANG MILLER [place] [facility] THAT TRANSPORTATION SLAB WORKER TIME HAS CHANGED TO 18:00-19:00 TODAY.
--- NOTE | 2019-06-28 15:42 | NUR ---
PT'S SON MYRA UPDATED WITH EARLIER TRANSPORTATION TIME BETWEEN 18 &1900, HE IS AGREEABLE WITH THE TRANSFER.
--- NOTE | 2019-06-28 17:35 | NUR ---
[facility] IVPB STARTED PER SCHEDULE, IV SITE WNL, PT RESTING QUIETLY IN NO ACUTE DISTRESS, AWAITING TRANSPORT BACK [place] [facility] BETWEEN 18&1900. NO IMMEDIATE NEEDS AT THIS TIME, ALL SAFETY MEASURES IN PLACE, WILL CONTINUE TO MONITOR.
--- NOTE | 2019-06-28 18:00 | NUR ---
CALLED [facility] ([facility]) [phone], TO CONFIRM O2 AMIABILITY. PER [facility], THEY ARE RUNNING A LITTLE LATE MAY ARRIVE AROUND 1930.
--- NOTE | 2019-06-28 19:00 | NUR ---
PT AT BED EYES CLOSED, PERRL 3MM, PT IS NONVERBAL, OPENS EYES SIMULTANEOUSLY, PT BREATHING REGULARLY ON NC RUNNING O2 AT 3L/MIN. BILATERAL UPPER LOBES CLEAR, WHEEZING ON LEFT MIDDLE LOBE, DIMINISHED AT BASES, HEART RATE IRREGULAR, SINUS ARRHYTHMIA, S1S2 PRESENT, CAP REFILL <3S, PULSES 2+ BILATERAL UPPER AND LOWER EXTREMITIES, ABDOMEN, SOFT, ROUND, NONDISTENDED, BOWEL SOUNDS ACTIVE IN ALL QUADRANTS, GTUBE IN PLACE, RUNNING NEPRO AT 40 ML/HR, WATER FLUSH AT 200 ML Q6HR, RESIDUAL 0 ML, BLADDER, SOFT, NONTENDER, ROUND, HOOVER CATHETER IN PLACE. PT HAS GENERALIZED WEAKNESS, PT SKIN WARM, DRY, NON INTACT, PT HAS OPEN WOUND ON SACRAL AREA, DRESSING IN PLACE, DRY AND INTACT, LEFT HEEL HAS SKIN DISCOLORATION, RIGHT HEEL HAS HEALED WOUND, BILATERAL HEEL PROTECTORS IN PLACE, SCD IN PLACE, PT HAS PERIPHERAL IV ON RIGHT WRIST 2O GAUGE, RUNNING NS AT 5 ML/HR. PT IS AFEBRILE. 98.6 F HOB 30 DEGREES, SIDE RAILS UP X2, BED AT LOWEST POSITION.
--- NOTE | 2019-06-28 19:45 | NUR ---
PT LEFT THE UNIT WITH [facility] ON [facility].
[2019-06-29] MEDS ORDERED: VANC750S IV (06:45)
== END 2019-06-28 19:45 | DRG 177 ==
LOC: MED 22:49 → MTU 06-22 04:17 → MIC 06-23 21:12
PROVIDERS: ADMIT General Practice; ATTEND General Practice
DX: J69.0 Pneumonitis due to inhalation of food and vomit (principal); L89.154 Pressure ulcer of sacral region, stage 4; J96.01 Acute respiratory failure with hypoxia; R53.2 Functional quadriplegia; E43 Unspecified severe protein-calorie malnutrition; Z68.1 Body mass index [BMI] 19.9 or less, adult; R65.10 Systemic inflammatory response syndrome (SIRS) of non-infectious origin without acute organ dysfunction; G20 Parkinson's disease; I12.9 Hypertensive chronic kidney disease with stage 1 through stage 4 chronic kidney disease, or unspecified chronic kidney disease; J10.08 Influenza due to other identified influenza virus with other specified pneumonia; J15.1 Pneumonia due to Pseudomonas; M19.90 Unspecified osteoarthritis, unspecified site; N18.9 Chronic kidney disease, unspecified; R13.10 Dysphagia, unspecified; K21.9 Gastro-esophageal reflux disease without esophagitis; L97.509 Non-pressure chronic ulcer of other part of unspecified foot with unspecified severity; L89.620 Pressure ulcer of left heel, unstageable; I95.9 Hypotension, unspecified; M40.293 Other kyphosis, cervicothoracic region; Z74.01 Bed confinement status; Z86.14 Personal history of Methicillin resistant Staphylococcus aureus infection; Z88.2 Allergy status to sulfonamides; Z93.1 Gastrostomy status; Z86.73 Personal history of transient ischemic attack (TIA), and cerebral infarction without residual deficits; Z88.1 Allergy status to other antibiotic agents
CPT/HCPCS: 36415; 36600; 71045; 80048; 80053; 80202; 81003; 82550; 82553; 82803; 83036; 83605; 83735; 83874; 83880; 84100; 84439; 84443; 84484; 85025; 85610; 85730; 87040; 87070; 87081; 87086; 87186; 87205; 87804; 93005; 93925; 94640; 99285; J0696; J1644; J1940; J1956; J2001; J2270; J2920; J3370; J3480; J7030; J7042; J7060; J7620; Q0092; Q0163

== ENCOUNTER 2019-09-16 23:02 | Inpatient (IN) | payer OTHER ==
[~2019-09-16] VITALS: Ht 149.9 cm; Wt 63.0 kg
[2019-09-16 23:02] VITALS: BP 147/71
[~2019-09-16 23:02] MED LIST changes: +CHLO118S2 TP; +LEVO750T2 IV; +METH4TAB1 PO; -METR250T2 PO; +MUPI2CRE22 NS; -SC100I IV; +SCOP1PAT TP; -VAN1I PO; +VANC750S IV
--- NOTE | 2019-09-16 23:02 | NUR ---
PT CHARISSA ALS. TAKEN TO BED 8
[2019-09-16] MEDS ORDERED: ALBUTEROL 0.083% 2.5 MG/3 ML NEBU INH ONE (23:05)
--- NOTE | 2019-09-16 23:05 | NUR ---
PT 83 Y/O FEMALE BIBA [facility] FOR [facility]. PT UNABLE TO VERBALIZE NEEDS. RESIRATIONS ARE LABORED. WHEEZES AND RONCHI NOTED BLIAT UPPER LOBES. PT AFEBRILE. PT ON NON REBREATHER MASK @ 15L/MIN O2SAT @ 90%. RECTAL TEMP 103.4. PT NOTED WITH G-TUBE. SOME IS CLEAN DRY AND INTACT. NO DRAINAGE NOTED AROUND STOMA. PT ON MOITOR. RT CALLED. MED HX: PARKINSONS, GERD CHRONIC KIDNEY DISEASE, DYSPHAGIA. ALLERGIES: SULFA, CLYNDAMICYN.
[2019-09-16] MEDS ORDERED: BLOOD GLUCOSE MONITORING 1 DEV DEV FS STA (23:13)
[2019-09-16] MEDS ORDERED: NACL 0.9% 0 ML IV STA (23:13)
--- NOTE | 2019-09-16 23:20 | NUR ---
LABS COLLECTED BY RN AND SENT TO LAB.
--- NOTE | 2019-09-16 23:21 | NUR ---
BREATHING TREATMENT STARTED BY NURSE. BILAT UPPER LOBE WHEEZING AND RHONCHI. RIGHT LOWER LOBE DIMINISHED WITH WHEEZING AND RONCHI. PLACED ON MASK WITH NEBULIZER @15LPM.
[2019-09-16] MEDS ORDERED: ACETAMINOPHEN 650 MG SUPP RC ONE (23:40)
[2019-09-16] MEDS ORDERED: ACETAMINOPHEN 650 MG/20.3 ML UDC PO ONE (23:45)
[2019-09-16] MEDS ORDERED: ACETAMINOPHEN 160 MG/5 ML UDC ONE (23:45)
[2019-09-16 23:56] LABS: BASOPHILS % (AUTO) 0.1 % (0.0-2.0); EOSINOPHILS % (AUTO) 0.1 % (0.0-4.0); LYMPHOCYTES # (AUTO) 1.9 K/uL (2.5-16.5); LYMPHOCYTES % (AUTO) 12.1 % (20.5-51.1); MEAN CORPUSCULAR HEMOGLOBIN 28 pg (27-31); MEAN CORPUSCULAR HGB CONC 32 g/dL (33-37); MEAN CORPUSCULAR VOLUME 87.5 fL (80-94); MONOCYTES % (AUTO) 6.3 % (1.7-9.3); NEUTROPHILS # (AUTO) 12.8 K/uL (1.8-7.7); PLATELET COUNT (AUTO) 153 K/uL (140-450); RED BLOOD CELL COUNT(AUTO) 5.71 MIL/uL (4.20-5.40); RED CELL DISTRIBUTION WIDTH 15.9 % (11.6-13.7); WHITE BLOOD COUNT (AUTO) 15.8 K/uL (4.8-10.8)
--- NOTE | 2019-09-16 23:59 | NUR ---
LOOSE BROWN STOOLS X 2. PERINEAL HYGIENE PROVIDED.
--- NOTE | 2019-09-17 | NUR ---
# 16 FR Ramirez catheter with 10 ml utilizing sterile technique. Immediate return of 10 ml light yellow urine noted. Bedside drainage bag placed below level of bladder. Pt tolerated procedure well. Not enough urine to collect for sample.
--- NOTE | 2019-09-17 00:06 | NUR ---
EMT PERFORMING EKG AT BEDSIDE.
--- NOTE | 2019-09-17 00:17 | NUR ---
PT ON NON-REBREATHER MASK @ 15L/MIN. O2 SAT @ 87%. DR LARIOS NOTIFED AND GAVE ORDER FOR BIPAP PLACEMENT.
[2019-09-17 00:21] LABS: NEUTROPHILS % (AUTO) 81.4 % (42.2-75.2)
[2019-09-17 00:22] LABS: PROTHROMBIN TIME 9.9 secs (10.8-13.4)
[2019-09-17 00:24] LABS: ALBUMIN 3.4 g/dL (3.4-5.0); ANION GAP 9.6 (8-16); ASPARTATE AMINOTRANSFERASE 33 U/L (15-37); CARBON DIOXIDE 35.6 mmol/L (21-32); CHLORIDE 100 mmol/L (98-107); CREATININE 0.6 mg/dL (0.6-1.3); GLUCOSE 114 mg/dL (74-106); POTASSIUM 4.2 mmol/L (3.5-5.1); SODIUM SERUM 141 mmol/L (136-145); TOTAL BILIRUBIN 0.4 mg/dL (0.0-1.0); UREA NITROGEN, BLOOD 28 mg/dL (7-18)
[2019-09-17] MEDS ORDERED: VANCOMYCIN 1,000 MG in DEXTROSE 5% 250 ML IV STA ×2 (00:29→01:19)
[2019-09-17] MEDS ORDERED: CEFEPIME 500 MG in DEXTROSE 5% 50 ML IV STA ×2 (00:29→01:19)
--- NOTE | 2019-09-17 00:30 | NUR ---
PT PLACED ON BIPAP. PT O2SAT AT 90%. DAUGHTER AT BEDSIDE.
[2019-09-17] MEDS ORDERED: DOCUSATE SODIUM 100 MG GELCAP PO PRN (01:00)
[2019-09-17] MEDS ORDERED: ACETAMINOPHEN 325 MG TAB PO PRN (01:00)
[2019-09-17] MEDS ORDERED: ONDANSETRON 4 MG/2 ML VIAL IM/IVP PRN (01:00)
[2019-09-17] MEDS ORDERED: MORPHINE SULFATE 2 MG/ML SYR IVP PRN (01:00)
[2019-09-17] MEDS: NACL 0.9% 1,000 ML IV SCH ×2 (01:00→18:06)
--- NOTE | 2019-09-17 01:10 | NUR ---
30 ML YELLOW, CLEAR URINE COLLECTED FROM HOOVER AND SENT TO LAB.
--- NOTE | 2019-09-17 01:15 | NUR ---
INCREASED WOB NOTED WITH BIPAP ALTHOUGH PT SPO2 IS IMPROVED AT 97%.SKIN IS COOL, CLAMMY. ORAL AND NASAL SUCTION PROVIDED FOR CLEAR SECRETIONS. DAUGHTER STANDING AT BEDSIDE.
--- NOTE | 2019-09-17 01:25 | NUR ---
ABT NOT AVAILABLE AT THIS TIME. WAITING FOR SENIOR ANALYTICAL CHEMIST TO DELIVER. DR. LARIOS MADE AWARE.
[2019-09-17] MEDS ORDERED: VANCOMYCIN 1,000 MG VIAL ONE (01:26)
[2019-09-17 01:53] LABS: APPEARANCE,URINE HAZY (CLEAR); BILIRUBIN,URINE NEGATIVE (NEGATIVE); BLOOD, URINE 3+ (NEGATIVE); COLOR,URINE YELLOW (YELLOW); LEUKOCYTE ESTERASE ,URINE NEGATIVE (NEGATIVE); NITRITE, URINE NEGATIVE (NEGATIVE); UGLUCOSE NEGATIVE (NEGATIVE)
[2019-09-17] MEDS ORDERED: DOCU-299 PO (02:01)
[2019-09-17] MEDS ORDERED: DULO20EC GT (02:02)
[2019-09-17 02:08] LABS: RBC,URINE 11-20 (MOD) /HPF (0-5)
[2019-09-17 02:09] LABS: WBC,URINE 0-5 /HPF (0-5)
[2019-09-17] MEDS ORDERED: CEFEPIME 1,000 MG VIAL ONE (02:09)
--- NOTE | 2019-09-17 02:50 | NUR ---
RECEIVED MEDICATION FROM WOOL FLEECE GRADER. ONLY MAXIPIME 1GM AVAILABLE. NOTIFED AND GAVE OK TO GIVE HALF DOSE. PT RECIVED MAXIPIME 25ML, 500MG.
--- NOTE | 2019-09-17 03:15 | NUR ---
PT BROUGHT UP BY TR[facility]ON JAY ON BIPAP ESCORTED BY EMT , RT AND RN JEANETTE, REPORT GIVEN BY JEANETTE AT BEDSIDE FOR CONTINUITY OF CARE, PT IN STABLE CONDITION. PT WAS SWABBED FOR MRSA AND TH E FLU A AND B. PT IS AOX1, WITH SMALL OPENING ON SACRAL AREA. (PICTURE TAKEN IN ER.) PT HAS 2 IV SITES RIGHT HAND 24G AND LEFT F/A 22G BOTH INTACT AND FLUSHED PATENT. SHE ALSO HAS A GT SITE WHICH IS INTACT AND FLUSHED PATENT. V/S FOLLOWS: T 97 P 77 R 22 ON BIPAP B/P 81/41 02 97% WITH ALL BIPAP SETTINGS. 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 DIET IS NPO.
--- NOTE | 2019-09-17 03:25 | NUR ---
Patient will be admitted to care of . Admited to [facility]. Will go to room 108 B. Belongings list completed. Report to ALDA.
[2019-09-17 03:30] VITALS: BP 81/41
[2019-09-17 03:36] LABS: MAGNESIUM 2.2 mg/dL (1.8-2.4); PHOSPHORUS 3.3 mg/dL (2.5-4.9); THYROID STIMULATING HORMONE 0.28 uIU/mL (0.34-3.74)
[2019-09-17] MEDS ORDERED: NACL 0.9% 500 ML IV ONE (04:20)
[2019-09-17] MEDS ORDERED: MIDODRINE 5 MG TAB ONE (04:54)
[2019-09-17] MEDS: MIDODRINE 5 MG TAB GT SCH ×3 (05:00→21:39)
--- NOTE | 2019-09-17 05:00 | NUR ---
PT WAS GIVEN X1 BOLUS OF 500MLS PLUS MIDODRINE FOR LOW B/P . BED LOW ALL FALLS AND CONTACT PRECAUTIONS IN PLACE.
[2019-09-17] MEDS ORDERED: CRUSHER, PILL MC ONE (05:06)
--- NOTE | 2019-09-17 06:50 | NUR ---
LAB CALLED TO REPORT A CRITICAL ON PT FOR POSITIVE FOR FLU A. MD ROMAN ADMITTING MD MADE AWARE.
[2019-09-17] MEDS: ALBUTEROL SULFATE/IPRATROPIU 3 ML SOL IH SCH ×3 (06:54→19:19)
--- NOTE | 2019-09-17 07:10 | NUR ---
RECEIVED BEDSIDE REPORT FROM COPY EDITOR NURSE FOR CONTINUITY OF CARE. PT AWAKE AND RESTING ON BED. VISITOR BY BEDSIDE. PT IS AAOX1, MUMBLING AND BEDBOUND. RESPIRATION EVEN AND UNLABORED ON BIPAP. NO SIGNS OF DISTRESS NOTED. IV ON LFA 22G AND R HAND 24G, CLEAN AND INTACT, INFUSING NS AT 60 ML/HR. SACRAL WOUND NOTED. PT IS INCONTINENT AND HOOVER IN PLACE, DRAINING YELLOW URINE WITH GRAVITY. DROPLET PRECAUTION IN PLACE AND SIGN POSTED ON DOOR. TELE MONITOR ATTACHED. SAFETY MEASURES IN PLACE. FALL RISK PRECAUTION IN PLACE. BED IN LOW POSITION AND CALL LIGHT WITHIN REACH.
[2019-09-17 08:00] VITALS: BP 114/69
[2019-09-17 08:20] LABS: BASOPHILS # (AUTO) 0.1 K/uL (0.00-0.22); BASOPHILS % (AUTO) 0.3 % (0.0-2.0); EOSINOPHILS % (AUTO) 0.2 % (0.0-4.0); HEMATOCRIT 43.4 % (36-48); HEMOGLOBIN 13.8 g/dL (12.0-16.0); LYMPHOCYTES % (AUTO) 5.9 % (20.5-51.1); MEAN CORPUSCULAR HEMOGLOBIN 28 pg (27-31); MEAN CORPUSCULAR HGB CONC 32 g/dL (33-37); MEAN CORPUSCULAR VOLUME 87.9 fL (80-94); MONOCYTES % (AUTO) 5.8 % (1.7-9.3); NEUTROPHILS # (AUTO) 14.8 K/uL (1.8-7.7); NEUTROPHILS % (AUTO) 87.8 % (42.2-75.2); PLATELET COUNT (AUTO) 136 K/uL (140-450); RED BLOOD CELL COUNT(AUTO) 4.94 MIL/uL (4.20-5.40); RED CELL DISTRIBUTION WIDTH 15.8 % (11.6-13.7); WHITE BLOOD COUNT (AUTO) 16.8 K/uL (4.8-10.8)
[2019-09-17 08:40] LABS: ANION GAP 12.9 (8-16); CARBON DIOXIDE 30.3 mmol/L (21-32); CHLORIDE 102 mmol/L (98-107); CREATININE 0.6 mg/dL (0.6-1.3); GLUCOSE 120 mg/dL (74-106); POTASSIUM 4.2 mmol/L (3.5-5.1); SODIUM SERUM 141 mmol/L (136-145); UREA NITROGEN, BLOOD 27 mg/dL (7-18)
--- NOTE | 2019-09-17 08:45 | NUR ---
RECEIVED CRITICAL LAB VALUE FOR LACTIC ACID, REPORTED TO DR MELENDEZ, AND DR MELENDEZ WAS AWARE. NO ORDER RECEIVED AT THIS TIME.
[2019-09-17] MEDS: OSELTAMIVIR PHOSPHATE 75 MG CAP PO SCH ×2 (09:20→21:40)
[2019-09-17] MEDS: LACTOBACILLUS RHAMNOSUS GG 1 EACH CAP GT SCH (09:21)
--- NOTE | 2019-09-17 09:21 | NUR ---
INFORMED DR MELENDEZ THAT PT'S PLT IS 136 FROM AM LAB, PER DR MELENDEZ, IT'S OK TO ADMINISTER HEPARIN SUBQ AND HOLD IF PLT IS 100 AND OR BELOW. ADMINISTERED AM SCHEDULED MEDS PER MD ORDER, MEDS ED PROVIDED TO PT AND REINFORCEMENT NEEDED. CHECKED RESIDUAL OF G-TUBE AND RECEIVED < 3 ML. PT IS RESTING ON BED WITH BIPAP ON, SPO2 AT 98%. FLACC 0. NO SIGNS OF DISTRESS NOTED. TELE MONITOR ATTACHED. SAFETY MEASURES IN PLACE. BED IN LOW POSITION AND CALL LIGHT WITHIN REACH. BED ALARM ACTIVATED.
--- NOTE | 2019-09-17 11:29 | NUR ---
ASSISTED NAVAL ARCHITECT TO CLEAN AND REPOSITIONED PT, CHANGED G-TUBE DRESSING, PT TOLERATED WELL. APPLIED HEEL PROTECTORS BILATERALLY. STARTED PT ON G-TUBE FEEDING WITH NEPHOR ADDED PROSOURCE AT 10 ML/HR, FLUSH Q6H WITH 200 ML/HR. PT IS ON BIPAP, SPO2 98%. FLACC 0. NO SIGNS OF DISTRESS NOTED. TELE MONITOR ATTACHED. SAFETY MEASURES IN PLACE. BED ALARM ACTIVATED.
--- NOTE | 2019-09-17 11:35 | NUR ---
HOLD TUBE FEEDING FOR NOW, AWAITING FOR DR MELENDEZ'S ORDER.
[2019-09-17 12:00] VITALS: BP 96/60
[2019-09-17 12:15] LABS: CHOL/HDL RATIO 2.9 (1-4.5); MAGNESIUM 1.8 mg/dL (1.8-2.4); PHOSPHORUS 3.2 mg/dL (2.5-4.9)
[2019-09-17] MEDS ORDERED: VANCOMYCIN PER PHARMACY MC PRN (12:25)
--- NOTE | 2019-09-17 12:34 | NUR ---
CONTINUE G-TUBE FEEDING PER DR MELENDEZ ORDER, PT TOLERATED WELL. NO SIGNS OF DISTRESS NOTED. TELE MONITOR ATTACHED. SAFETY MEASURES IN PLACE.
[2019-09-17] MEDS ORDERED: Z-GUARD PASTE TP SCH (13:00)
[2019-09-17] MEDS: PIPERACILLIN/TAZOBACTAM 3.375 GM in DEXTROSE 5% 50 ML IV SCH ×2 (13:10→21:40)
[2019-09-17] MEDS: HYDRAGUARD CREAM TP PRN (13:11)
[2019-09-17] MEDS: Z-GUARD PASTE TP SCH (13:11)
--- NOTE | 2019-09-17 13:11 | NUR ---
CHECKED G-TUBE RESIDUAL AND RECEIVED < 5ML, FLUSH BEFORE AND AFTER MED ADMINISTER, PT TOLERATED WELL. MED EDUCATION PROVIDED AND REINFORCEMENT NEEDED. PT IS ON BIPAP, SPO2 AT 98%. FLACC 0. NO SIGNS OF DISTRESS NOTED. WITH ASSIST FROM MANAGER SUPPORT, PROVIDED WOUND CARE. APPLIED Z-GUARD ON SACRAL AREA AND HEART-SHAPED OPTIFOAM, AND HYDRAGUARD ON PERINEAL AREA. PT TOLERATED WELL. TELE MONITOR ATTACHED. SAFETY MEASURES IN PLACE. BED ALARM ACTIVATED.
--- NOTE | 2019-09-17 13:29 | NUR ---
RECEIVED CRITICAL VALUE FOR LACTIC ACID 2.8, REPORTED TO DR MELENDEZ. DR MELENDEZ WAS AWARE AND NO ORDER RECEIVED AT THIS TIME.
--- NOTE | 2019-09-17 15:17 | NUR ---
CALLED [facility] AND SPOKE WITH DYLON FOR PT'S VACCINATION STATUS. PER DYLON, THEY OFFERED PN AND FLU VACCINES ON 2018, PT DECLINED BOTH VACCINES.
--- NOTE | 2019-09-17 15:31 | NUR ---
PT IS RESTING ON BED AT THIS TIME. RESPIRATION EVEN AND SHALLOW ON BIPAP, SPO2 AT 100%. FLACC 0. NO SIGNS OF DISTRESS NOTED. TELE MONITOR ATTACHED. SAFETY MEASURES IN PLACE. BED ALARM ACTIVATED.
--- NOTE | 2019-09-17 15:43 | NUR ---
PT TAKEN OFF BIPAP AND PLACED ON 4L OXYMIZER. SPO2 95%. WILL CONTINUE TO MONITOR.
[2019-09-17 16:00] VITALS: BP 134/73
--- NOTE | 2019-09-17 17:22 | NUR ---
ASSISTED UTILITY INSPECTOR TO REPOSITION AND TURN PT, PT TOLERATED WELL. PT IS RESTING ON BED WITH 4LMP VIA OXIMIZER. FLACC 0. NO SIGNS OF DISTRESS NOTED. TELE MONITOR ATTACHED. SAFETY MEASURES IN PLACE. BED ALARM ACTIVATED.
[2019-09-17] MEDS: VANCOMYCIN 1,250 MG in DEXTROSE 5% 250 ML IV SCH (18:06)
--- NOTE | 2019-09-17 18:06 | NUR ---
ADMINISTERED VANCOMYCIN VIA IVPB PER MD ORDER, MED ED PROVIDED AND REINFORCEMENT NEEDED. PT IS RESTING ON BED WITH 4 LPM VIA OXIMIZER SPO2 AT 97%. FLACC 0. NO SIGNS OF DISTRESS NOTED. TELE MONITOR ATTACHED. SAFETY MEASURES IN PLACE. BED ALARM ACTIVATED.
--- NOTE | 2019-09-17 18:36 | NUR ---
PT'S DAUGHTER DEZ IS BY BEDSIDE. INFORMED THAT MYRA CALLED AND WOULD LIKE HER TO CALL HIM BACK. DEZ WAS AWARE. UPDATED DEZ WITH PATIENT'S CURRENT CONDITION. PT IS RESTING ON BED WITH 4 LPM VIA OXIMIZER AND SPO2 AT 97%. FLACC 0. NO SIGNS OF DISTRESS NOTED. TELE MONITOR ATTACHED. SAFETY MEASURES IN PLACE. BED ALARM ACTIVATED.
--- NOTE | 2019-09-17 19:15 | NUR ---
ENDORSED PT AT BEDSIDE TO CONSERVATION WORKER NURSE FOR CONTINUITY OF CARE. PT IS RESTING ON BED WITH 4LPM VIA OXIMIZER, SPO2 AT 97%. FLACC 0. NO SIGNS OF DISTRESS NOTED. TELE MONITOR ATTACHED. PT IS IN STABLE CONDITION. DAUGHTER IS AT BEDSIDE. SAFETY MEASURES IN PLACE. BED ALARM ACTIVATED.
--- NOTE | 2019-09-17 19:32 | NUR ---
RECEIVED PT ON 4L OXY WITH SP02 OF 98% AND DIMINISHED BREATH SOUNDS. NO RESPIRATORY DISTRESS NOTED AT THIS TIME. HHN TX GIVEN ORDERED WITH NO ADVERSE REACTION. FAMILY AT BEDSIDE .WILL CONTINUE TO MONITOR PT
[2019-09-17 20:00] VITALS: BP 105/69
--- NOTE | 2019-09-17 20:17 | NUR ---
RECEIVED REPORT FROM AM SHIFT. PT AOX1. UNABLE TO VERBALIZE NEEDS. ON DROPLET PRECAUTION AT THIS TIME. SR ON MONITOR. RESPIRATIONS EVEN UNLABORED. 4L ON NC. SR ON MONITOR. GT TO FEED. ON NEPRO 40 ML/HR. NO RESIDUAL NOTED. AFEBRILE AT THIS TIME. GENERALIZED WEAKNESS NOTED. FAMILY AT BEDSIDE. IV SITE R FA 22G. PATENT INTACT. NO SIGNS OF ACUTE DISTRESS AT THIS TIME. BED IN LOWEST POSITION. WILL CONTNUE TO MONITOR.
--- NOTE | 2019-09-17 22:14 | NUR ---
PT AFEBRILE. NO SIGNS OF ACUTE DISTRESS NOTED. BED IN LOWEST POSITION. DAUGHTER AT BEDSIDE.
[2019-09-18] VITALS: BP 110/72
--- NOTE | 2019-09-18 00:58 | NUR ---
CONTINUE TO OBSERVE. BED IN LOWEST POSITION. SR UP X4 HOB 30
[2019-09-18 04:00] VITALS: BP 114/74
[2019-09-18] MEDS: MIDODRINE 5 MG TAB GT SCH ×3 (04:47→20:47)
[2019-09-18] MEDS: PIPERACILLIN/TAZOBACTAM 3.375 GM in DEXTROSE 5% 50 ML IV SCH ×3 (04:47→21:50)
--- NOTE | 2019-09-18 07:18 | NUR ---
ENDORSED CARE TO INCOMING SHIFT RN FOR CONTINUITY OF CARE.
--- NOTE | 2019-09-18 07:22 | NUR ---
RECEIVED BEDSIDE REPORT FROM FOOD AND BEVERAGE LEAD NURSE FOR CONTINUITY OF CARE. PT IS RESTING ON BED. PT IS AAOX1, MUMBLING AND BEDBOUND. RESPIRATION EVEN AND UNLABORED ON 4LPM VIA OXYMIZER. PT IS GETTING BREATHING TREATMENT AT THIS TIME. NO SIGNS OF DISTRESS NOTED. IV ON LFA 22G AND R HAND 24G, CLEAN AND INTACT, INFUSING NS AT 60 ML/HR. SACRAL WOUND AND INCONTINENT DERMATITIS NOTED. PT IS INCONTINENT AND HOOVER IN PLACE, DRAINING YELLOW URINE WITH GRAVITY. DROPLET PRECAUTION IN PLACE AND SIGN POSTED ON DOOR. TELE MONITOR ATTACHED. SAFETY MEASURES IN PLACE. FALL RISK PRECAUTION IN PLACE. BED IN LOW POSITION AND CALL LIGHT WITHIN REACH.
[2019-09-18] MEDS: ALBUTEROL SULFATE/IPRATROPIU 3 ML SOL IH SCH ×3 (07:23→20:54)
[2019-09-18 07:55] LABS: BASOPHILS % (AUTO) 0.1 % (0.0-2.0); HEMATOCRIT 38.8 % (36-48); HEMOGLOBIN 12.5 g/dL (12.0-16.0); LYMPHOCYTES # (AUTO) 1.3 K/uL (2.5-16.5); LYMPHOCYTES % (AUTO) 7.9 % (20.5-51.1); MEAN CORPUSCULAR HEMOGLOBIN 28 pg (27-31); MEAN CORPUSCULAR HGB CONC 32 g/dL (33-37); MONOCYTES # (AUTO) 0.9 K/uL (0.8-1.0); MONOCYTES % (AUTO) 5.5 % (1.7-9.3); NEUTROPHILS # (AUTO) 13.9 K/uL (1.8-7.7); NEUTROPHILS % (AUTO) 86.5 % (42.2-75.2); PLATELET COUNT (AUTO) 133 K/uL (140-450); RED BLOOD CELL COUNT(AUTO) 4.51 MIL/uL (4.20-5.40); RED CELL DISTRIBUTION WIDTH 15.8 % (11.6-13.7)
[2019-09-18 08:00] VITALS: BP 114/49
[2019-09-18 08:13] LABS: ANION GAP 9.6 (8-16); CARBON DIOXIDE 29.7 mmol/L (21-32); CHLORIDE 102 mmol/L (98-107); CREATININE 0.5 mg/dL (0.6-1.3); GLUCOSE 121 mg/dL (74-106); POTASSIUM 3.3 mmol/L (3.5-5.1); SODIUM SERUM 138 mmol/L (136-145); UREA NITROGEN, BLOOD 18 mg/dL (7-18)
[2019-09-18] MEDS: LACTOBACILLUS RHAMNOSUS GG 1 EACH CAP GT SCH (09:15)
[2019-09-18] MEDS: OSELTAMIVIR PHOSPHATE 75 MG CAP PO SCH ×2 (09:16→20:47)
--- NOTE | 2019-09-18 09:18 | NUR ---
CHECKED G-TUBE RESIDUAL AND RECEIVED < 3 ML. FLUSHED BEFORE AND AFTER MEDS ADMINISTER, MEDS ED PROVIDED TO PT AND REINFORCEMENT NEEDED. PT TOLERATED WELL. RESPIRATION EVEN AND UNLABORED ON 4LPM VIA OXIMIZER AND SPOS2 AT 95%. FLACC 0. NO SIGNS OF DISTRESS NOTED. TELE MONITOR ATTACHED. SAFETY MEASURES IN PLACE. BED ALARM ACTIVATED.
--- NOTE | 2019-09-18 10:04 | NUR ---
PATIENT HAS BEEN SCREENED AND CATEGORIZED HIGH NUTRITION RISK. PATIENT WILL BE SEEN WITHIN 1-2 DAYS OF ADMISSION. 09/18/[address]
--- NOTE | 2019-09-18 11:05 | NUR ---
ASSISTED FUND ACCOUNTING MANAGER AND CANAL SUPERINTENDENT TO REPOSITION AND CLEAN PT, PT TOLERATED WELL. NO SIGNS OF DISTRESS NOTED. TELE MONITOR ATTACHED. SAFETY MEASURES IN PLACE. BED ALARM ACTIVATED.
--- NOTE | 2019-09-18 11:15 | NUR ---
WOUND CARE EVALUATION NOTES: REASON FOR EVALUATION: PRESSURE ULCER ON SACRALCOCCYX SKIN ASSESSMENT DONE ON THIS 83 Y/O FEMALE PATIENT ADMITTED TO [facility], WITH INITIAL DIAGNOSIS OF INFLUENZA. ADMITTED WITH CHRONIC PRESSURE ULCER STAGE 4. 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 ALL ABOVE INFORMATION WAS OBTAINED FROM THE ADMISSION H&P. CONTRACTURES TO NECK (LATERAL TOWARD RIGHT) AND UPPER EXTREMITIES. SKIN WARM TO TOUCH, ABDOMEN SOFT AND DISTENTION. BLE NO HAIR GROWTH AND BILATERAL PEDAL PULSES PRESENT. HOOVER CATHETER PATENT AND INTACT PLAN OF CARE DISCUSSED WITH PRIMARY RN. INTEGUMENTARY: -GT TEN-STOMA SKIN INTACT -SACRALCOCCYX STAGE 4 PRESSURE ULCER 0.8X0.8X0.5CM WITH NO UNDERMINING. WOUND BED IS 100% GRANULATING PINK TISSUE, CLEAN, SMALL AMOUNT SEROUS DRAINAGE, NO ODOR, WOUND EDGE WELL DEFINED, TEN-WOUND SKIN INTACT -INTERTRIGO TO RIGHT NECK SKIN FOLD AND LOWER ABDOMINAL SKIN FOLDS, SKIN RED AND INTACT -IAD TO RIGHT AND LEFT INNER BUTTOCKS, SKIN RED AND INTACT RECOMMENDATIONS: -CLEANSE SACRALCOCCYX WOUND WITH NS, PAT DRY, APPLY HYDROGEL WITH ADAPTIC DRESSING AND COVER WITH DRY DRESSING QD AND PRN IF SOILING. -APPLY THIN LAYER OF Z GUARD TO RIGHT AND LEFT BUTTOCKS BID -APPLY INTER-DRY CLOTH TO RIGHT NECK AND LOWER ABDOMINAL AREA Q 7 DAYS AND PRN IF SOILING -TURN AND REPOSITION PATIENT Q2H -ASSESS AND MONITOR SKIN CONDITION DURING POSITION CHANGE, PLEASE PAY ATTENTION TO LEFT AND RIGHT BUTTOCKS -OFFLOAD BILATERAL HEELS BY PLACING PILLOWS UNDER CALVES AT ALL TIMES, UNLESS OTHERWISE CONTRAINDICATED -PRESSURE REDISTRIBUTION SURFACE THERAPY -KEEP SKIN CLEAN AND DRY AT ALL TIMES. RECOMMENDATIONS DISCUSSED WITH PRIMARY RN WILL FOLLOW UP PATIENT Q 7 -10 DAYS AND PRN. PLEASE CONTACT WOUND CARE NURSE FOR ANY QUESTION OR CHANGES IN WOUND CONDITION
[2019-09-18] MEDS: NACL 0.9% 1,000 ML IV SCH (11:52)
[2019-09-18 12:00] VITALS: BP 97/50
[2019-09-18] MEDS: INTERDRY CLOTH TP SCH (13:25)
[2019-09-18] MEDS: SKINTEGRITY HYDROGEL TP SCH (13:26)
[2019-09-18] MEDS: Z-GUARD PASTE TP SCH (13:26)
--- NOTE | 2019-09-18 13:27 | NUR ---
ADMINISTERED MEDS RI MD ORDER, MEDS EDUCATION PROVIDED TO PT AND REINFORCEMENT NEEDED. CHECKED G-TUBE RESIDUAL AND RECEIVED < 5 ML. FLUSHED BEFORE AND AFTER MED ADMINISTER. WITH ASSISTED FROM TILLER MAN, PACKED SACRAL WOUND WITH HYDROGEL AND ADAPTIC DRESSING, SECURED WITH HEART-SHAPED OPTIFOAM. PT TOLERATED WELL. NO SIGNS OF DISTRESS NOTED. TELE MONITOR ATTACHED. SAFETY MEASURES IN PLACE. BED ALAR ACTIVATED.
[2019-09-18 16:00] VITALS: BP 115/46
--- NOTE | 2019-09-18 17:30 | NUR ---
HUNG A NEW BOTTLE OF TUBE FEEDING AND RUNNING PER MD ORDER. PT IS RESTING ON BED AT THIS TIME. FLACC 0. RESPIRATION EVEN AND UNLABORED ON 4LPM VIA OXIMIZER. NO SIGNS OF DISTRESS NOTED. TELE MONITOR ATTACHED. SAFETY MEASURES IN PLACE. BED ALARM ACTIVATED.
--- NOTE | 2019-09-18 17:34 | NUR ---
09/18/19 RD INITIAL ASSESSMENT COMPLETED PLEASE REFER TO NUTRITION ASSESSMENT UNDER CARE ACTIVITY FOR ESTIMATED NUTRITIONAL NEEDS. 1. CONTINUE NEPRO @ 40 ML/HR THIS WILL PROVIDE 960 ML IN VOLUME, 1728 KCALS AND 78 GM OF PROTEIN. THIS MEETS >100 % OF PTS PROTEIN AND CALORIC NEEDS. 2. RECOMMEND DECREASE WATER FLUSH TO [address] TO FOLLOW-UP 2-3 DAYS, HIGH RISK CHRISTINA YE RD
[2019-09-18] MEDS: VANCOMYCIN 1,250 MG in DEXTROSE 5% 250 ML IV SCH (17:41)
[2019-09-18] MEDS ORDERED: POTASSIUM CHLORIDE 40 MEQ, LIDOCAINE MPF 1% 25 MG in NACL 0.9% 250 ML IV ONE (19:15)
--- NOTE | 2019-09-18 19:15 | NUR ---
RECEIVED PATIENT IN STABLE CONDITION FROM AM SHIFT NURSE FOR CONTINUITY OF CARE. PATIENT IS ABLE TO MAKE NEEDS KNOWN. RESPIRATIONS EVEN, UNLABORED. SKIN WARM, DRY TO TOUCH. IV SITE TO LEFT FOREARM 24G, INFUSING FLUIDS WELL. IV SITE TO RIGHT HAND 24G SALINE LOCK. DROPLET PRECAUTIONS OBSERVED. NO C/O PAIN. NO S/SX ACUTE DISTRESS. CALL LIGHT WITHIN REACH. WILL CONTINUE TO MONITOR.
--- NOTE | 2019-09-18 19:16 | NUR ---
ENDORSED PT AT BEDSIDE TO CRISIS INTERVENTION SPECIALIST NURSE FOR CONTINUITY OF CARE. PT IS RESTING ON BED. RESPIRATION EVEN AND UNLABORED. FLACC 0. NO SIGNS OF DISTRESS NOTED. TELE MONITOR ATTACHED. PT IS IN STABLE CONDITION. SAFETY MEASURES IN PLACE. BED ALARM ACTIVATED.
[2019-09-18 20:00] VITALS: BP 126/67
[2019-09-18] MEDS ORDERED: POTASSIUM CHLORIDE 20% 40 MEQ/15 ML UDC GT SCH (20:30)
--- NOTE | 2019-09-18 21:05 | NUR ---
RECEIVED PATIENT ON 3L OXYMIZER, PULSE OX SAT 97%. SCHEDULED BREATHING TREATMENT ADMINISTERED. TOLERATED WELL WITHOUT ADVERSE SIDE EFFECTS. NO ACUTE RESPIRATORY DISTRESS NOTED. WILL CONTINUE TO MONITOR.
--- NOTE | 2019-09-18 21:10 | NUR ---
MADE ROUNDS, PATIENT CONTINUES IN STABLE CONDITION. NO S/SX PAIN. NO S/SX ACUTE DISTRESS. CALL LIGHT WITHIN REACH. WILL CONTINUE TO MONITOR.
--- NOTE | 2019-09-18 23:40 | NUR ---
PATIENT CONTINUES IN STABLE CONDITION. WEIGHED PATIENT AT 139 LBS. INCONTINENT CARE PROVIDED BY STAFF. DUE MEDS GIVEN, TOLERATED WELL. NO S/SX ACUTE DISTRESS. NO C/O PAIN. CALL LIGHT WITHIN REACH. WILL CONTINUE TO MONITOR.
[2019-09-19] VITALS: BP 145/65
--- NOTE | 2019-09-19 01:40 | NUR ---
PATIENT IS IN STABLE CONDITION. ALL NEEDS ANTICIPATED AND MET. NO S/SX PAIN. NO S/SX ACUTE DISTRESS. CALL LIGHT WITHIN REACH. WILL CONTINUE TO MONITOR.
[2019-09-19] MEDS: NACL 0.9% 1,000 ML IV SCH (03:00)
--- NOTE | 2019-09-19 03:13 | NUR ---
AWAKE AND IN STABLE CONDITION. NO C/O PAIN. NO S/SX ACUTE DISTRESS. CALL LIGHT WITHIN REACH. WILL CONTINUE TO MONITOR.
[2019-09-19] MEDS: HYDROcodone/APAP 5/325 MG 1 TAB TAB PO PRN ×2 (03:31→22:18)
--- NOTE | 2019-09-19 03:31 | NUR ---
PATIENT GRIMACING. REPOSITIONED FOR COMFORT AND MEDICATED FOR PAIN ORDERED. CALL LIGHT WITHIN REACH. WILL CONTINUE TO MONITOR.
[2019-09-19 04:00] VITALS: BP 139/79
[2019-09-19] MEDS: MIDODRINE 5 MG TAB GT SCH ×3 (04:26→20:44)
[2019-09-19] MEDS: PIPERACILLIN/TAZOBACTAM 3.375 GM in DEXTROSE 5% 50 ML IV SCH ×3 (04:30→20:44)
--- NOTE | 2019-09-19 04:31 | NUR ---
PATIENT IS AWAKE WITH NO S/SX OF PAIN AT THIS TIME. INCONTINENT CARE PROVIDED WITH BEE ROBBER AT BEDSIDE. X1 BM NOTED. NO S/SX ACUTE DISTRESS. CALL LIGHT WITHIN REACH. WILL CONTINUE TO MONITOR.
--- NOTE | 2019-09-19 05:50 | NUR ---
MADE ROUNDS. PATIENT CONTINUES IN STABLE CONDITION. NO S/SX PAIN. NO S/SX ACUTE DISTRESS. DUE MEDS GIVEN ORDERED. CALL LIGHT WITHIN REACH. WILL CONTINUE TO MONITOR.
--- NOTE | 2019-09-19 07:10 | NUR ---
RECEIVED REPORT FROM ARMATURE VARNISHER NURSE FOR CONTINUATION OF CARE. PATIENT IS RESTING IN BED, AA0X1, OXIMIZER ON AT 4 L. IV IN LEFT HAND RUNNING NS AT 60 ML/HR. RIGHT HAND IV SALINE LOCKED. LACTIC ACID 0.9. SPO2 98%. BED IS IN LOW POSITION, CALL LIGHT ON AND WITHIN REACH. PLAN OF CARE REVIEWED. WILL CONTINUE TO MONITOR.
--- NOTE | 2019-09-19 07:23 | NUR ---
ENDORSED PATIENT TO AM SHIFT NURSE IN STABLE CONDITION FOR CONTINUITY OF CARE.
[2019-09-19] MEDS: ALBUTEROL SULFATE/IPRATROPIU 3 ML SOL IH SCH ×3 (07:25→19:24)
[2019-09-19 07:38] LABS: BASOPHILS % (AUTO) 0.1 % (0.0-2.0); EOSINOPHILS % (AUTO) 0.1 % (0.0-4.0); HEMATOCRIT 37.1 % (36-48); HEMOGLOBIN 12.1 g/dL (12.0-16.0); LYMPHOCYTES # (AUTO) 0.5 K/uL (2.5-16.5); LYMPHOCYTES % (AUTO) 7.2 % (20.5-51.1); MEAN CORPUSCULAR HEMOGLOBIN 28 pg (27-31); MEAN CORPUSCULAR HGB CONC 33 g/dL (33-37); MONOCYTES # (AUTO) 0.6 K/uL (0.8-1.0); MONOCYTES % (AUTO) 7.4 % (1.7-9.3); NEUTROPHILS # (AUTO) 6.5 K/uL (1.8-7.7); NEUTROPHILS % (AUTO) 85.2 % (42.2-75.2); PLATELET COUNT (AUTO) 113 K/uL (140-450); RED BLOOD CELL COUNT(AUTO) 4.32 MIL/uL (4.20-5.40); RED CELL DISTRIBUTION WIDTH 15.9 % (11.6-13.7); WHITE BLOOD COUNT (AUTO) 7.6 K/uL (4.8-10.8)
[2019-09-19 07:52] LABS: ANION GAP 9.6 (8-16); CARBON DIOXIDE 29.1 mmol/L (21-32); CHLORIDE 105 mmol/L (98-107); CREATININE 0.4 mg/dL (0.6-1.3); GLUCOSE 144 mg/dL (74-106); POTASSIUM 3.7 mmol/L (3.5-5.1); SODIUM SERUM 140 mmol/L (136-145); UREA NITROGEN, BLOOD 13 mg/dL (7-18)
[2019-09-19 08:00] VITALS: BP 138/83
[2019-09-19 08:23] LABS: MAGNESIUM 1.8 mg/dL (1.8-2.4); PHOSPHORUS 1.7 mg/dL (2.5-4.9)
[2019-09-19] MEDS: LACTOBACILLUS RHAMNOSUS GG 1 EACH CAP GT SCH (08:30)
[2019-09-19] MEDS: OSELTAMIVIR PHOSPHATE 75 MG CAP PO SCH ×2 (08:30→20:43)
--- NOTE | 2019-09-19 10:00 | NUR ---
PATIENT IS AAOX1, SHALLOW RAPID BREATHING, MEDICATIONS TOLERATED WELL THROUGH GTUBE, WOUND ASSESSED AND DRESSING UNSOILED, INTACT. INTERDRY TUCKED IN RIGHT SIDE OF NECK DUE TO CONTRACTURE OF NECK AND CONSTANT SKIN TO SKIN INTERACTION WITH MOISTURE, SKIN IS REDDENED. PATIENT ON 4 L O2 OXIMIZER. BED IS IN LOW POSITION, CALL LIGHT ON AND WITHIN REACH. WILL CONTINUE TO MONITOR.
[2019-09-19 12:00] VITALS: BP 132/80
--- NOTE | 2019-09-19 12:10 | NUR ---
Industrial Psychology Professor Note: Basic Screen: Yes High Risk DC Screen Yes Name: MYRA Yu Relationship: SON Pre-Admission Living Arrangements: SNF Prior ADL Total/Dependent Current Home Health Name/Tel: N/A Current DME/02 Name/Tel: N/A Current Hospice Name/Tel: N/A Current Dialysis Name/Tel: N/A Healthcare Decision Maker: Next of Kin Advance Directive No Physician Orders for Life Sustaining Treatment Form Yes Discipline: Case Mgt/Social Svcs Tentative Discharge Plan/Destination: SNF/ECF Will require assistance post discharge: No Referred to Supervisor Finishing: No Tentative Discharge Plan Summary: Patient is an 83-year-old female admitted for sepsis. Patient has PMHX of Parkinson's Disorder, sacrococcyx pressure ulcer stage 4, pressure ulcer bilateral heel, dysphagia, GERD. Patient was admitted from [facility]. SW contacted Pauldeedee from [facility] [phone]. Per Brant, patient is skilled nursing and currently on a bed hold. Patient needs assistance with all ADLs Patient has no advanced directive on file. Patients tentative discharge plan is to return to [facility]. No further needs identified. Signature: STEFANO Prajapati Date: Sep 19, 2019 Time: 12:09
--- NOTE | 2019-09-19 12:30 | NUR ---
PATIENT IS RESTING IN BED, IV FLUID CHANGED DUE TO BEING EMPTY, NS RUNNING AT 20 ML/HR PER MD ORDERS. NO SIGNS OF DISTRESS NOTED. VITAL SIGNS ARE STABLE. GTUBE RUNNING FEEDING NEPHRO 45 ML/HR. BED IN LOW POSITION CALL LIGHT ON AND WITHIN REACH. WILL CONTINUE TO MONITOR.
[2019-09-19] MEDS: SKINTEGRITY HYDROGEL TP SCH (13:15)
[2019-09-19] MEDS: Z-GUARD PASTE TP SCH (13:15)
--- NOTE | 2019-09-19 15:00 | NUR ---
DRESSING ON SACRAL WOUND SOILED, DRESSING CHANGED; CLEANED WITH GAUZE SOAKED NS THEN PAT DRY WITH GAUZE. HYDRAGEL ADMINISTERED INSIDE SACRAL STAGE 4 PRESSURE ULCER THEN COVERED WITH OPTIFOAM. PATIENT WAS GIVEN MORPHINE PRIOR TO DRESSING CHANGE DUE TO INCREASED BP, FACIAL GRIMACE, AND INCREASED RESPIRATORY RATE WHILE MOVING. BED LOW, CALL LIGHT ON AND WITHIN REACH WILL CONTINUE TO MONITOR.
[2019-09-19 16:00] VITALS: BP 101/43
--- NOTE | 2019-09-19 17:00 | NUR ---
PATIENT RESTING IN BED, NO SIGNS OF DISTRESS NOTED AT THIS TIME, CALL LIGHT ON AND WITHIN REACH. WILL CONTINUE TO MONITOR.
--- NOTE | 2019-09-19 19:18 | NUR ---
BEDSIDE SHIFT REPORT GIVEN TO WEARING APPAREL PRESSER NURSE FOR CONTINUATION OF CARE.
[2019-09-19] MEDS ORDERED: VANCOMYCIN 1,000 MG VIAL ONE (19:31)
--- NOTE | 2019-09-19 19:34 | NUR ---
RECEIVED PT ON 4L OXIMIZER WITH SP02 OF 99% AND A WHEEZING BREATH SOUNDS ON THE UPPER LOBES. NO RESPIRATORY DISTRESS NOTED AT THIS TIME. HHN TX GIVEN ORDERED WITH NO ADVERSE REACTION AND A COARSE BREATH SOUNDS AFTER TX. WILL CONTINUE TO MONITOR PT.
[2019-09-19] MEDS: VANCOMYCIN 1,000 MG in DEXTROSE 5% 250 ML IV SCH (19:48)
--- NOTE | 2019-09-19 19:56 | NUR ---
RECEIVED PATIENT IN STABLE CONDITION FROM AM SHIFT NURSE FOR CONTINUITY OF CARE. TELE PATIENT. RESPIRATIONS EVEN, UNLABORED. CONTINUES ON O2 4L OXIMIZER, O2 SAT 98%. SALINE LOCK TO RIGHT HAND 24G PATENT/INTACT. IV SITE TO LEFT FOREARM 22G PATENT/INTACT AND INFUSING IV FLUIDS WELL. CONTINUES ON ENTERAL FEEDING, TOLERATING WELL. HOOVER CATHETER PATENT WITH YELLOW URINE DRAINING TO GRAVITY. DROPLET ISOLATION PRECAUTIONS OBSERVED. FLACC - O, NO S/S/SX ACUTE DISTRESS. CALL LIGHT WITHIN REACH. WILL CONTINUE TO MONITOR.
[2019-09-19 20:00] VITALS: BP 99/51
--- NOTE | 2019-09-19 21:55 | NUR ---
SPOKE WITH SON MYRA ON THE PHONE WHO WANTED AN UPDATE ON HIS MOM. INFORMED HIM THAT PATIENT IS TO CONTINUE WITH ANTIBIOTIC THERAPY AND REMAINS IN ISOLATION. SON WAS SATISFIED WITH CARE PROVIDED AND SAID HE WOULD CALL AGAIN AROUND THIS TIME TOMORROW NIGHT TO SEE HOW HIS MOM WAS DOING.
--- NOTE | 2019-09-19 22:18 | NUR ---
PATIENT IS GRIMACING AND MUMBLING TO SELF. MEDICATED FOR PAIN ORDERED. CALL LIGHT WITHIN REACH. WILL CONTINUE TO MONITOR.
--- NOTE | 2019-09-19 23:18 | NUR ---
REASSESSED PATIENT'S PAIN LEVEL. PATIENT IS ASLEEP. NO C/O PAIN. NO S/SX ACUTE DISTRESS. CALL LIGHT WITHIN REACH. WILL CONTINUE TO MONITOR.
[2019-09-20] VITALS (7 sets, daily range): BP systolic 92–121; BP diastolic 40–68
--- NOTE | 2019-09-20 00:54 | NUR ---
PATIENT IS ASLEEP. NO C/O PAIN. NO S/SX ACUTE DISTRESS. REPOSITIONED FOR COMFORT. CALL LIGHT WITHIN REACH. WILL CONTINUE TO MONITOR.
[2019-09-20] MEDS: NACL 0.9% 1,000 ML IV SCH (02:08)
--- NOTE | 2019-09-20 02:39 | NUR ---
PATIENT CONTINUES IN STABLE CONDITION. NO S/SX PAIN. NO S/SX ACUTE DISTRESS. HOB UP 30 DEGREES. REPOSITIONED FOR COMFORT. CALL LIGHT WITHIN REACH. WILL CONTINUE TO MONITOR.
[2019-09-20] MEDS: MIDODRINE 5 MG TAB GT SCH ×3 (04:02→22:13)
[2019-09-20] MEDS: PIPERACILLIN/TAZOBACTAM 3.375 GM in DEXTROSE 5% 50 ML IV SCH ×3 (04:02→22:13)
--- NOTE | 2019-09-20 04:20 | NUR ---
PATIENT IS ASLEEP AND IN STABLE CONDITION. NO S/SX PAIN. NO S/SX ACUTE DISTRESS. CALL LIGHT WITHIN REACH. WILL CONTINUE TO MONITOR.
--- NOTE | 2019-09-20 06:13 | NUR ---
MADE ROUNDS. PATIENT CONTINUES IN STABLE CONDITION. NO C/O PAIN. NO S/SX ACUTE DISTRESS. CALL LIGHT WITHIN REACH. WILL CONTINUE TO MONITOR.
[2019-09-20 07:24] LABS: BASOPHILS % (AUTO) 0.2 % (0.0-2.0); EOSINOPHILS % (AUTO) 0.7 % (0.0-4.0); HEMATOCRIT 37.3 % (36-48); HEMOGLOBIN 12.2 g/dL (12.0-16.0); LYMPHOCYTES # (AUTO) 0.9 K/uL (2.5-16.5); MEAN CORPUSCULAR HEMOGLOBIN 28 pg (27-31); MEAN CORPUSCULAR HGB CONC 33 g/dL (33-37); MEAN CORPUSCULAR VOLUME 85.8 fL (80-94); MONOCYTES # (AUTO) 0.7 K/uL (0.8-1.0); MONOCYTES % (AUTO) 10.1 % (1.7-9.3); NEUTROPHILS # (AUTO) 5.1 K/uL (1.8-7.7); PLATELET COUNT (AUTO) 135 K/uL (140-450); RED BLOOD CELL COUNT(AUTO) 4.35 MIL/uL (4.20-5.40); WHITE BLOOD COUNT (AUTO) 6.6 K/uL (4.8-10.8)
--- NOTE | 2019-09-20 07:30 | NUR ---
SHIFT REPORT RECEIVED FROM FELT CARBONIZER NURSE. PT IS IN BED RESTING AT HIS TIME. NO DISTRESS NOTED. CALL LIGHT IN REACH.
[2019-09-20] MEDS: ALBUTEROL SULFATE/IPRATROPIU 3 ML SOL IH SCH ×3 (07:33→19:29)
[2019-09-20 07:49] LABS: ANION GAP 9.4 (8-16); CARBON DIOXIDE 30.8 mmol/L (21-32); CHLORIDE 107 mmol/L (98-107); CREATININE 0.4 mg/dL (0.6-1.3); GLUCOSE 105 mg/dL (74-106); POTASSIUM 3.2 mmol/L (3.5-5.1); SODIUM SERUM 144 mmol/L (136-145); UREA NITROGEN, BLOOD 9 mg/dL (7-18)
[2019-09-20] MEDS: VANCOMYCIN 1,000 MG in DEXTROSE 5% 250 ML IV SCH ×2 (08:24→20:00)
[2019-09-20] MEDS: OSELTAMIVIR PHOSPHATE 75 MG CAP PO SCH (08:24)
[2019-09-20] MEDS: LACTOBACILLUS RHAMNOSUS GG 1 EACH CAP GT SCH (08:24)
--- NOTE | 2019-09-20 09:30 | NUR ---
PT IS IN BED IN STABLE CONDITION. NO DISTRESS NOTED. NO COMPLAINS OF PAIN. CALL LIGHT IN REACH.
--- NOTE | 2019-09-20 11:44 | NUR ---
PT IS IN BED IN STABLE CONDITION. NO DISTRESS NOTED. CALL LIGHT IN REACH.
--- NOTE | 2019-09-20 12:00 | NUR ---
PT WAS NOTED WITH LABORED BREATHING AT 34 BREATHS PER MINUTE. O2 SATS AT 89. REQUESTED RT TO PUT BIPAP ON. RT ALSO FOLLOWED UP A PRN BREATHING TX. NOTIFIED RESIDENT
[2019-09-20] MEDS: Z-GUARD PASTE TP SCH (14:40)
[2019-09-20] MEDS: SKINTEGRITY HYDROGEL TP SCH (14:40)
[2019-09-20] MEDS ORDERED: POTASSIUM CHLORIDE 20% 40 MEQ/15 ML UDC GT ONE (15:35)
[2019-09-20] MEDS: POTASSIUM CHLORIDE 20% 40 MEQ/15 ML UDC GT SCH ×2 (17:51→22:13)
--- NOTE | 2019-09-20 19:34 | NUR ---
SHIFT REPORT GIVEN TO GASOLINE ENGINE ASSEMBLER NURSE. PT IS STILL HAVING LABORED BREATHING. PT ON BIPAP MACHINE. FAMILY BY BEDSIDE. CALL LIGHT IN REACH
--- NOTE | 2019-09-20 19:35 | NUR ---
RECEIVED PATIENT IN STABLE CONDITION FROM AM SHIFT NURSE FOR CONTINUITY OF CARE. TELE PATIENT. PT AO X 0, LETHARGIC, BEDBOUND. RESPIRATIONS EVEN, UNLABORED. CONTINUES ON BIPAP AT 45 % FIO2 O2 SAT 96%. SALINE LOCK TO RIGHT HAND 24G PATENT/INTACT. IV SITE TO LEFT FOREARM 22G PATENT/INTACT AND INFUSING NS IVF AT 20 ML/HR CONTINUES ON ENTERAL FEEDING, TOLERATING WELL. HOOVER CATHETER PATENT WITH YELLOW URINE DRAINING TO GRAVITY. DROPLET ISOLATION PRECAUTIONS OBSERVED. CALL LIGHT WITHIN REACH. WILL CONTINUE TO MONITOR.
--- NOTE | 2019-09-20 19:45 | NUR ---
RECEIVED PT ON BiPAP SETTINGS ORDERED WITH SP02 OF 96% AND A COARSE BREATH SOUNDS ON THE UPPER LOBES. BiPAP MACHINE PLUGGED INTO RED OUTLET, ALARMS ARE SET AND AUDIBLE, AND BVM AT BEDSIDE. PT IS NO RESPIRATORY DISTRESS NOTED AT THIS TIME. HHN TX GIVEN ORDERED WITH NO ADVERSE REACTION. FAMILY AT BEDSIDE. WILL CONTINUE TO MONITOR PT
[2019-09-20] MEDS ORDERED: SODIUM PHOS / POTASSIUM PHOS 1 PKT PDR ONE (22:09)
[2019-09-20] MEDS: OSELTAMIVIR PHOSPHATE 30 MG CAP PO SCH (22:14)
--- NOTE | 2019-09-20 22:16 | NUR ---
PATIENT CHECKED BY RT WITH DAUGHTER AT BEDSIDE, RT EXPLAINED THE RESPIRATORY SIDE, PT WITH RR = 24 BPM AND I ON THE OTHER HAND, EXPLAINED THE MEDS TO BE GIVEN AND THE SIDE EFFECTS. DAUGHTER VERBALIZED UNDERSTANDING.
[2019-09-20] MEDS: HYDRAGUARD CREAM TP PRN (23:29)
--- NOTE | 2019-09-20 23:45 | NUR ---
PT SLEEPING, BUT TURNED PT AND CHECKED ON WOUND CARE, PLACED PT WITH PILLOWS
[2019-09-21] VITALS: BP 105/63
--- NOTE | 2019-09-21 02:15 | NUR ---
PT SLEEPING, TURNED PATIENT AND CLEANED PT WITH 1 BM; SACROCOCCYX DRESSING INTACT
[2019-09-21] MEDS: NACL 0.9% 1,000 ML IV SCH (03:00)
--- NOTE | 2019-09-21 04:12 | NUR ---
PLACED PT ON ANOTHER SIDE W/ THE HELP OF CHANGE ADVISOR; REPOSITIONED, CHECKED ON G TUBE AND HOOVER CATHETER.
[2019-09-21] MEDS: MIDODRINE 5 MG TAB GT SCH ×3 (05:19→21:01)
[2019-09-21] MEDS: PIPERACILLIN/TAZOBACTAM 3.375 GM in DEXTROSE 5% 50 ML IV SCH ×3 (05:27→21:27)
[2019-09-21 06:00] VITALS: BP 137/60
--- NOTE | 2019-09-21 07:09 | NUR ---
ENDORSED TO NEXT SHIFT FOR CONTINUITY OF CARE; FOR MONITORING STILL ON BIPAP
--- NOTE | 2019-09-21 07:10 | NUR ---
RECEIVED REPORT FROM FLOWERS SALESPERSON NURSE. PT IS ASLEEP WITH BPAP. NO SIGNS OF DISTRESS. PT HAS SALINE LOCK ON THE RT HAND 24G AND LEFT HAND 22G WITH NS INFUSING AT 20ML/HR. PT HAS TUBE FEEDING OF NEPHRO 40ML/HR, WATER FLUSH OF 170 Q6 HRS. CALL LIGHT WITHIN PT'S REACH, BED ON LOW, SIDERAILS UP. WILL CONTINUE TO MONITOR
[2019-09-21 08:00] VITALS: BP 128/44
[2019-09-21] MEDS: ALBUTEROL SULFATE/IPRATROPIU 3 ML SOL IH SCH ×4 (08:09→19:56)
--- NOTE | 2019-09-21 08:09 | NUR ---
SATURATION 90% ON SUPPLEMENTAL OXYGEN AT 4 LPM VIA OXYMIZER POST HHN THERAPY INCREASED FIO2 TO 5 LPM
[2019-09-21 08:37] LABS: BASOPHILS % (AUTO) 0.1 % (0.0-2.0); EOSINOPHILS % (AUTO) 0.2 % (0.0-4.0); HEMATOCRIT 35.6 % (36-48); HEMOGLOBIN 11.4 g/dL (12.0-16.0); LYMPHOCYTES # (AUTO) 1.2 K/uL (2.5-16.5); LYMPHOCYTES % (AUTO) 16.3 % (20.5-51.1); MEAN CORPUSCULAR HEMOGLOBIN 28 pg (27-31); MEAN CORPUSCULAR HGB CONC 32 g/dL (33-37); MEAN CORPUSCULAR VOLUME 86.5 fL (80-94); MONOCYTES # (AUTO) 0.7 K/uL (0.8-1.0); NEUTROPHILS # (AUTO) 5.5 K/uL (1.8-7.7); NEUTROPHILS % (AUTO) 74.4 % (42.2-75.2); PLATELET COUNT (AUTO) 166 K/uL (140-450); RED BLOOD CELL COUNT(AUTO) 4.12 MIL/uL (4.20-5.40); RED CELL DISTRIBUTION WIDTH 15.9 % (11.6-13.7); WHITE BLOOD COUNT (AUTO) 7.4 K/uL (4.8-10.8)
[2019-09-21 09:15] LABS: ANION GAP 8.4 (8-16); CARBON DIOXIDE 32.7 mmol/L (21-32); CHLORIDE 103 mmol/L (98-107); CREATININE 0.5 mg/dL (0.6-1.3); GLUCOSE 126 mg/dL (74-106); POTASSIUM 4.1 mmol/L (3.5-5.1); SODIUM SERUM 140 mmol/L (136-145); UREA NITROGEN, BLOOD 11 mg/dL (7-18)
[2019-09-21 09:19] LABS: MAGNESIUM 1.8 mg/dL (1.8-2.4); PHOSPHORUS 2.1 mg/dL (2.5-4.9)
[2019-09-21] MEDS: VANCOMYCIN 1,000 MG in DEXTROSE 5% 250 ML IV SCH ×2 (09:40→19:40)
[2019-09-21] MEDS: OSELTAMIVIR PHOSPHATE 30 MG CAP PO SCH ×2 (09:41→21:27)
[2019-09-21] MEDS: LACTOBACILLUS RHAMNOSUS GG 1 EACH CAP GT SCH (09:44)
--- NOTE | 2019-09-21 09:45 | NUR ---
VANCO THROUGH IS 14.4. CALLED PHARMACY AND SPOKE TO MACARIO. HE CONFIRMED TO GIVE VANCOMYCIN TO PT. OTHER SCHEDULED MEDS GIVEN VIA G-TUBE. RESIDUAL OF 2ML NOTED. WILL CONTINUE TO MONITOR
--- NOTE | 2019-09-21 11:30 | NUR ---
ASSIST TREASURY ASSOCIATE IN GIVING SPONGE BATH. SUCTIONED SECRETIONS, CALLED RT BECAUSE O2 SAT WENT TO 85. ADJUSTED O2 THEN SAT WENT TO 95. WOND CARE DONE. HYDROGEL AND HYDRAGUARD APPLIED. WILL CONTINUE TO MONITOR
[2019-09-21 12:00] VITALS: BP 125/51
--- NOTE | 2019-09-21 13:15 | NUR ---
SCHEDULED MEDS GIVEN VIA G-TUBE AND OTHER MEDS VIA IV. PT'S O2 SAT IS 96. FRANCISCO CONTINUE TO MONITOR
[2019-09-21] MEDS: Z-GUARD PASTE TP SCH (13:46)
[2019-09-21] MEDS: SKINTEGRITY HYDROGEL TP SCH (13:46)
--- NOTE | 2019-09-21 15:53 | NUR ---
09/21/19 RD FOLLOW UP COMPLETED PLEASE REFER TO NUTRITION ASSESSMENT UNDER CARE ACTIVITY FOR ESTIMATED NUTRITIONAL NEEDS. 1. CONTINUE NEPRO @ 40 ML/HR -THIS WILL PROVIDE 960 ML IN VOLUME, 1728 KCALS AND 78 GM OF PROTEIN. THIS MEETS >100 % OF PTS PROTEIN AND CALORIC NEEDS. 2. CONTINUE WATER FLUSH TO [address] TO FOLLOW-UP 2-3 DAYS, HIGH RISK CHRISTINA YE RD
[2019-09-21 16:00] VITALS: BP 120/48
[2019-09-21] MEDS ORDERED: FUROSEMIDE 20 MG/2 ML VIAL IVP SCH (16:30)
--- NOTE | 2019-09-21 17:20 | NUR ---
SCHEDULED MEDS GIVEN VIA IV. PT'S O2 SAT IS 96. BED ON LOW, SIDERAILS UP. ASSIST PHOTOGRAPHIC COLORIST IN REPOSITIONING THE PT. WILL CONTINUE TO MONITOR
--- NOTE | 2019-09-21 19:40 | NUR ---
VERIFIED W/ HUANG [place] VANCOCIN 1 GRAM. BAR CODE NOT WORKING
--- NOTE | 2019-09-21 19:50 | NUR ---
REPORT GIVEN TO SILVER MINER BLASTING NURSE FOR CONTINUITY OF CARE. PT IS STABLE. CALL LIGHT WITHIN PT'S REACH, BED ON LOW. SIDERAILS UP. NO SIGNS OF DISTRESS.
--- NOTE | 2019-09-21 19:51 | NUR ---
RECEIVED PATIENT IN STABLE CONDITION FROM AM SHIFT NURSEALEE FOR CONTINUITY OF CARE. TELE PATIENT. PT AO X 0, LETHARGIC, BEDBOUND. RESPIRATIONS EVEN, UNLABORED. CONTINUES ON BIPAP AT 50 % FIO2 O2 SAT 99%. SALINE LOCK TO RIGHT HAND 24G PATENT/INTACT. IV SITE TO LEFT FOREARM 22G PATENT/INTACT AND INFUSING NS IVF AT 20 ML/HR CONTINUES ON ENTERAL FEEDING, TOLERATING WELL. RESIDUAL 5 CC, FLUSHED. HOOVER CATHETER PATENT WITH YELLOW URINE DRAINING TO GRAVITY. DROPLET ISOLATION PRECAUTIONS OBSERVED. CALL LIGHT WITHIN REACH. WILL CONTINUE TO MONITOR. Addendum: 09/21/19 at 2324 by Annita Adamson RN AMEND RESIDUAL TO 3 CC
--- NOTE | 2019-09-21 19:58 | NUR ---
RECEIVED PATIENT FROM DAY SHIFT ON BIPAP 12/,14,50%, BIPAP PLUGGED INTO RED OUTLET. BMV AT BEDSIDE. ALARMS AUDIBLE AND WORKING. PT RECEIVED BREATHING TX. WILL CONT TO MONITOR.
[2019-09-21 20:00] VITALS: BP 141/63
--- NOTE | 2019-09-21 21:01 | NUR ---
MEDICATED EXPLAINED TO THE DAUGHTER SIDE EFFECTS OF THE MEDS. WILL MONITOR
--- NOTE | 2019-09-21 21:27 | NUR ---
PATIENT;S TAMIFLU GIVEN MANUAL CODE DONE; VERIFIED W/ CHARGE NURSE BECAUSE SCANNER OF COW MACHINE NOT WORKING.
--- NOTE | 2019-09-21 22:29 | NUR ---
PT STABLE AT THIS TIME, RT CAME TO CHECK PATIENT EARLIER, NO RESPIRATORY DISTRESS WILL CONTINUE TO MONITOR
--- NOTE | 2019-09-21 23:10 | NUR ---
PT TURNED TO SIDE AND REPOSITIONED, WILL INFORM RT TO GET FOR SPUTUM CULTURE
--- NOTE | 2019-09-21 23:23 | NUR ---
PT MUMBLING, BUT HER EYES CLOSED, AND STILL VERY CONTRACTED MARIEL. NECK IN FORWARD FLEXED CONTRACTED POSITION. WITH INTERDRY CLOTH STILL IN PLACE. CLEANED OUT THE SALIVA DROOLING FROM MOUTH AND REINFORCED THE INTERDRY CLOTH BETWEEN THE NECK.
[2019-09-21] MEDS: HYDRAGUARD CREAM TP PRN (23:28)
[2019-09-22] VITALS: BP 139/66
--- NOTE | 2019-09-22 | NUR ---
COLLECTED SPUTUM C/O RT TODAY. WILL SEND TO LAB C/O RT
[2019-09-22] MEDS: NACL 0.9% 1,000 ML IV SCH (00:32)
--- NOTE | 2019-09-22 02:18 | NUR ---
PT AWOKE, AND OPENED HER EYES, MUMBLES AND THEN WENT BACK TO SLEEP. RET WAS HERE TO CHECK PATIENT EARLIER. NOT IN RESPIRATORY DISTRESS.
[2019-09-22 04:00] VITALS: BP 135/66
--- NOTE | 2019-09-22 04:23 | NUR ---
PT CLEANED AND TURNED REPOSITIONED; PT TOLERATED WELL, WITH GOOD O2 SAT.
[2019-09-22] MEDS: PIPERACILLIN/TAZOBACTAM 3.375 GM in DEXTROSE 5% 50 ML IV SCH ×3 (04:29→21:38)
[2019-09-22] MEDS: MIDODRINE 5 MG TAB GT SCH ×3 (05:13→21:00)
--- NOTE | 2019-09-22 05:33 | NUR ---
PT LEFT ON BIPAP ON DOCUMENTED SETTING. BIPAP IS PLUGGED INTO RED OUTLET. ALARMS AUDIBLE AND WORKING. PT IS IN NO DISTRESS.
--- NOTE | 2019-09-22 07:10 | NUR ---
RECEIVE BEDSIDE REPORT FROM NIGHT NURSE, PT IS ON BIPAP, NEPHRO FEEDING AT 40 ML, FLUSH OF 170 WATER Q4H, LFA 22G INTACT RUNNING NS AT 20 ML/H, HOOVER CATH IN PLACE WITH YELLOW URINE, PT IS ASLEEP, UPDATE WHITEBOARD, SAFETY MEASURES IN PLACE
--- NOTE | 2019-09-22 07:20 | NUR ---
PT SLEEPING, PT NONVERBAL, STILL ON BIPAP MACHINE AT 50% FI02 ; O2 SAT 98-99% WILL ENDORSE TO NEXT SHIFT.
[2019-09-22] MEDS: ALBUTEROL SULFATE/IPRATROPIU 3 ML SOL IH PRN (07:32)
[2019-09-22 07:35] LABS: BASOPHILS % (AUTO) 0.1 % (0.0-2.0); EOSINOPHILS % (AUTO) 0.5 % (0.0-4.0); HEMATOCRIT 36.3 % (36-48); HEMOGLOBIN 11.7 g/dL (12.0-16.0); MEAN CORPUSCULAR HEMOGLOBIN 28 pg (27-31); MEAN CORPUSCULAR HGB CONC 32 g/dL (33-37); MEAN CORPUSCULAR VOLUME 86.4 fL (80-94); MONOCYTES # (AUTO) 0.9 K/uL (0.8-1.0); MONOCYTES % (AUTO) 11.3 % (1.7-9.3); NEUTROPHILS % (AUTO) 75.1 % (42.2-75.2); PLATELET COUNT (AUTO) 157 K/uL (140-450); RED CELL DISTRIBUTION WIDTH 15.8 % (11.6-13.7)
[2019-09-22 07:42] LABS: CHLORIDE 100 mmol/L (98-107); CREATININE 0.6 mg/dL (0.6-1.3); GLUCOSE 132 mg/dL (74-106); SODIUM SERUM 142 mmol/L (136-145); UREA NITROGEN, BLOOD 13 mg/dL (7-18)
[2019-09-22 07:46] LABS: ANION GAP 8.2 (8-16); CARBON DIOXIDE 36.6 mmol/L (21-32)
--- NOTE | 2019-09-22 07:46 | NUR ---
RCV'D PT ON BIPAP WITH CHARTED SETTINGS. HHN TX GIVING INLINE WITH NO ADVERSE REACTION. PT IS NOT IN ANY DISTRESS AT THIS MOMENT. BIPAP OFF. PLACED PT ON 4 L OXIMIZER. RN AWARE. WILL CONTINUE TO MONITOR.
[2019-09-22 07:47] LABS: MAGNESIUM 1.7 mg/dL (1.8-2.4); PHOSPHORUS 1.6 mg/dL (2.5-4.9); POTASSIUM 2.8 mmol/L (3.5-5.1)
[2019-09-22 08:00] VITALS: BP 178/92
[2019-09-22] MEDS: VANCOMYCIN 1,000 MG in DEXTROSE 5% 250 ML IV SCH ×2 (08:22→19:58)
[2019-09-22] MEDS: LACTOBACILLUS RHAMNOSUS GG 1 EACH CAP GT SCH (08:23)
[2019-09-22] MEDS: OSELTAMIVIR PHOSPHATE 30 MG CAP PO SCH ×2 (08:23→20:17)
--- NOTE | 2019-09-22 08:23 | NUR ---
GAVE PT ORDERED MEDICATION, PT EDUCATION GIVEN, PT TOLERATED WELL, PT IS STABLE, CALL LIGHT WITHIN REACH.
--- NOTE | 2019-09-22 10:24 | NUR ---
PT IS STABLE IN BED, 5L OXIMIZER, CALL LIGHT WITHIN REACH.
[2019-09-22 12:00] VITALS: BP 165/67
[2019-09-22] MEDS: Z-GUARD PASTE TP SCH (13:00)
[2019-09-22] MEDS: SKINTEGRITY HYDROGEL TP SCH (13:00)
--- NOTE | 2019-09-22 13:00 | NUR ---
PT IS STABLE IN BED, ON 5L OXIMIZER, WILL CONTINUE TO MONITOR.
[2019-09-22] MEDS ORDERED: POTASSIUM PHOSPHATE 15 MM in NACL 0.9% 250 ML IV SCH (13:30)
[2019-09-22] MEDS: ALBUTEROL SULFATE/IPRATROPIU 3 ML SOL IH SCH ×2 (13:50→19:26)
--- NOTE | 2019-09-22 14:00 | NUR ---
TURN PT IN BED, PT TOLERATED IT WELL, PT IS STABLE,
--- NOTE | 2019-09-22 15:58 | NUR ---
DC PLANN[age] YRS OLD FEMALE PATIENT WAS ADMITTED FROM [facility] WITH A DX OF SEPSIS, FEVER UNKNOWN ORIGIN, FAILURE TO THRIVE AND HYPOXIA. 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 PT IS NON-VERBAL AT BASELINE. PLACE PT ON BIPAP CXR SMALL RT PLEURAL EFFUSION ADMINISTERED IV ROCEPHIN AND VANCOMYCIN,RT PROTOCOL FOR BREATHING TREATMENT. BLOOD, URINE AND SPUTUM CULTURE PENDING PULMO CONSULT WITH DR HERNÁNDEZ , ORDERED CONTINUE NONINVASIVE VENTILATOR SUPPORT ,TAMIFLU ,ASPIRATION PRECAUTION ,INHALED BRONCHODILATORS. PROGNOSIS IS VERY POOR SECONDARY TO SEVER SEPSIS AND ACUTE RESP FAILURE . DC PLAN TO DISCUSS HOSPICE WITH FAMILY. CM TO FOLLOW Addendum: 09/25/19 at 1136 by Soumya Hedrick CM RECEIVED AN ORDER FOR [facility] EVALUATION. CONTACTED PATIENT'S SON MYRA WEBBER AT [phone] TO DISCUSS DC PLANNING AND IS AGREEMENT WITH [facility] EVALUATION. RADHA TRACY MADE AWARE OF THE REFERRAL, HE STATED TO GO AHEAD AND SENT IT. REFERRAL SENT. Addendum: 09/25/19 at 1937 by Soumya Hedrick CM PER JENNY GARCIA, THEIR MEDICARE SYSTEM IS DOWN AT THE MOMENT AND UNABLE TO RUN PATIENT'S ELIGIBILITY. WILL FOLLOW UP TOMORROW. DR. MELENDEZ MADE AWARE. Addendum: 09/26/19 at 1044 by Soumya Hedrick CM PER JENNY GARCIA, THEY ARE ABLE TO ACCEPT PATIENT PENDING ROOM NUMBER. THEY ARE IN THE PROCESS OF MOVING PATIENT. WILL CALL ONCE ROOM IS AVAILABLE. Addendum: 09/26/19 at 1227 by Soumya Hedrick CM PER GAUDENCIO, PATIENT WILL GO TO [facility] ROOM [address] UNDER [address] RODRÍGUEZ. PER MARA OF [facility], CHIP UNLOADER WILL BE AT 1430. PATIENT'S SON MRYA MADE AWARE AT [phone] AND IS IN AGREEMENT. PRIMARY RN AND DR. MELENDEZ MADE AWARE. Addendum: 09/26/19 at 1234 by Soumya Hedrick CM NUMBER TO CALL FOR REPORT [phone]. PRIMARY RN KIA MADE AWARE.
[2019-09-22 16:00] VITALS: BP 123/46
[2019-09-22 17:18] LABS: ANION GAP 5.4 (8-16); CARBON DIOXIDE 37.6 mmol/L (21-32); CHLORIDE 102 mmol/L (98-107); CREATININE 0.5 mg/dL (0.6-1.3); GLUCOSE 127 mg/dL (74-106); SODIUM SERUM 142 mmol/L (136-145); UREA NITROGEN, BLOOD 12 mg/dL (7-18)
--- NOTE | 2019-09-22 19:15 | NUR ---
GAVE BEDSIDE REPORT TO NIGHT NURSE FOR CONTINUITY OF CARE, PT IS ON BIPAP, DAUGHTER AT BEDSIDE.
--- NOTE | 2019-09-22 19:16 | NUR ---
RECEIVED BEDSIDE REPORT FROM DAY SHIFT NURSE FOR CONTINUITY OF CARE. PT AO X 0, LETHARGIC, BEDBOUND. RESPIRATIONS EVEN, UNLABORED. CONTINUES ON BIPAP, O2 SAT 100%. IV SITE ON RH 24G, POTASSIUM RUNNING. PATENT/INTACT. IV STARTED ON LEFT SHOULDER, 22G. GOOD BLOOD RETURN NOTED. CONTINUES ON ENTERAL FEEDING, TOLERATING WELL. RESIDUAL 5 CC, FLUSHED. HOOVER CATHETER PATENT WITH YELLOW URINE DRAINING TO GRAVITY. DROPLET ISOLATION PRECAUTIONS OBSERVED. CALL LIGHT WITHIN REACH. WILL CONTINUE TO MONITOR.
[2019-09-22 20:00] VITALS: BP 131/66
[2019-09-22] MEDS ORDERED: MAG SULF 2000 MG/WATER PREMIX 50 ML IV SCH (20:00)
--- NOTE | 2019-09-22 20:23 | NUR ---
GIVEN VANCOMYCIN, TAMIFLU AND HEPARIN MD ORDERED. PT TOLERATED WELL. HELD MIDODRINE D/T NORMAL BP 131/66. WILL CONTINUE TO MONITOR.
--- NOTE | 2019-09-22 21:29 | NUR ---
GIVEN MAG MD ORDERED. PT TOLERATED WELL.
--- NOTE | 2019-09-22 21:38 | NUR ---
GIVEN ZOSYN MD ORDERED. PT TOLERATED WELL.
--- NOTE | 2019-09-22 23:55 | NUR ---
VS CHECKED, WITHIN PT'S BASELINE. WILL CONTINUE TO MONITOR.
[2019-09-23] VITALS (7 sets, daily range): BP systolic 98–148; BP diastolic 54–74
--- NOTE | 2019-09-23 02:37 | NUR ---
PT SLEEPING IN BED COMFORTABLY. NO ACUTE DISTRESS NOTED.
[2019-09-23] MEDS: NACL 0.9% 1,000 ML IV SCH (03:00)
[2019-09-23] MEDS: MIDODRINE 5 MG TAB GT SCH ×3 (04:02→21:18)
[2019-09-23] MEDS: PIPERACILLIN/TAZOBACTAM 3.375 GM in DEXTROSE 5% 50 ML IV SCH ×2 (04:02→13:25)
--- NOTE | 2019-09-23 04:02 | NUR ---
VS CHECKED, WITHIN PT'S BASELINE. GIVEN ZOSYN AND MIDODRINE MD ORDERED. PT TOLERATED WELL.
[2019-09-23] MEDS ORDERED: CRUSHER, PILL MC ONE (04:05)
--- NOTE | 2019-09-23 06:39 | NUR ---
PT SLEEPING IN BED COMFORTABLY. NO ACUTE DISTRESS NOTED. WILL ENDORSE PT TO DAY SHIFT NURSE FOR CONTINUOUS CARE.
[2019-09-23 06:47] LABS: BASOPHILS % (AUTO) 0.1 % (0.0-2.0); EOSINOPHILS # (AUTO) 0.1 K/uL (0-0.4); EOSINOPHILS % (AUTO) 1.4 % (0.0-4.0); HEMATOCRIT 35.4 % (36-48); HEMOGLOBIN 11.4 g/dL (12.0-16.0); LYMPHOCYTES % (AUTO) 13.5 % (20.5-51.1); MEAN CORPUSCULAR HEMOGLOBIN 28 pg (27-31); MEAN CORPUSCULAR HGB CONC 32 g/dL (33-37); MONOCYTES # (AUTO) 0.7 K/uL (0.8-1.0); MONOCYTES % (AUTO) 9.2 % (1.7-9.3); NEUTROPHILS # (AUTO) 5.7 K/uL (1.8-7.7); NEUTROPHILS % (AUTO) 75.8 % (42.2-75.2); PLATELET COUNT (AUTO) 184 K/uL (140-450); RED BLOOD CELL COUNT(AUTO) 4.12 MIL/uL (4.20-5.40); RED CELL DISTRIBUTION WIDTH 15.9 % (11.6-13.7); WHITE BLOOD COUNT (AUTO) 7.6 K/uL (4.8-10.8)
[2019-09-23] MEDS: ALBUTEROL SULFATE/IPRATROPIU 3 ML SOL IH SCH ×3 (06:52→20:21)
--- NOTE | 2019-09-23 07:15 | NUR ---
RECEIVED BEDSIDE REPORT FROM NIGHTSHIFT NURSE. PT LYING IN BED UPON ARRIVAL. ABLE TO MAKE NEEDS KNOWN. SKIN WARM AND DRY TO TOUCH. RESPIRATIONS EVEN AND UNLABORED WITH NO SOB OR RESPIRATORY DISTRESS. IV SITE IN R HAND 24G AND SUBCLAVIAN 24G IS CLEAN, DRY, AND INTACT. SAFETY MEASURES IN PLACE. WILL CONTINUE TO MONITOR.
[2019-09-23 07:37] LABS: ANION GAP 5.9 (8-16); CARBON DIOXIDE 39.1 mmol/L (21-32); CHLORIDE 101 mmol/L (98-107); CREATININE 0.6 mg/dL (0.6-1.3); GLUCOSE 128 mg/dL (74-106); SODIUM SERUM 143 mmol/L (136-145); UREA NITROGEN, BLOOD 11 mg/dL (7-18)
[2019-09-23 07:50] LABS: MAGNESIUM 2.2 mg/dL (1.8-2.4)
[2019-09-23] MEDS: OSELTAMIVIR PHOSPHATE 30 MG CAP PO SCH ×2 (09:10→21:18)
[2019-09-23] MEDS: LACTOBACILLUS RHAMNOSUS GG 1 EACH CAP GT SCH (09:10)
[2019-09-23] MEDS: VANCOMYCIN 1,000 MG in DEXTROSE 5% 250 ML IV SCH ×2 (09:10→23:28)
--- NOTE | 2019-09-23 09:15 | NUR ---
ADMINISTERED SCHED MED PRESCRIBED PER MD ORDER. PT TOLERATED WELL. MEDICATION EDUCATION PERFORMED. PT APHASIC AND UNABLE TO VERBALIZED UNDERSTANDING. WILL CONTINUE TO MONITOR.
--- NOTE | 2019-09-23 09:40 | NUR ---
DECREASED FIO2 TO 30
--- NOTE | 2019-09-23 10:32 | NUR ---
HOURLY ROUNDING. PT LYING IN BED UPON ARRIVAL. ABLE TO MAKE NEEDS KNOWN. SKIN WARM AND DRY TO TOUCH. RESPIRATIONS EVEN AND UNLABORED WITH NO SOB OR RESPIRATORY DISTRESS. SAFETY MEASURES IN PLACE. WILL CONTINUE TO MONITOR.
--- NOTE | 2019-09-23 11:24 | NUR ---
09/23/2019 RD FOLLOW UP COMPLETED PLEASE REFER TO NUTRITION PROGRESS NOTE UNDER CARE ACTIVITY FOR ESTIMATED NUTRITION NEEDS. RD RECOMMENDATIONS: 1. CONTINUE NEPRO @ 40 ML/HR -THIS WILL PROVIDE 960 ML IN VOLUME, 1728 KCALS AND 78 GM OF PROTEIN. THIS MEETS >100 % OF PTS PROTEIN AND CALORIC NEEDS. 2. CONTINUE WATER FLUSH TO [address] TO FOLLOW-UP 2-3 DAYS, HIGH RISK SARAH KANG MBA,RD
--- NOTE | 2019-09-23 11:54 | NUR ---
ADMINISTERED SCHED MED PRESCRIBED PER MD ORDER. PT TOLERATED WELL. MEDICATION EDUCATION PERFORMED. PT APHASIC AND UNABLE TO VERBALIZED UNDERSTANDING. WILL CONTINUE TO MONITOR.
[2019-09-23] MEDS ORDERED: POTASSIUM CHLORIDE 40 MEQ, LIDOCAINE MPF 1% 25 MG in NACL 0.9% 250 ML IV SCH ×2 (12:00→14:00)
[2019-09-23] MEDS ORDERED: POTASSIUM CHLORIDE 20% 40 MEQ/15 ML UDC GT SCH (12:52)
--- NOTE | 2019-09-23 12:53 | NUR ---
ADMINISTERED SCHED MED PRESCRIBED PER MD ORDER. PT TOLERATED WELL. MEDICATION EDUCATION PERFORMED. PT APHASIC AND UNABLE TO VERBALIZED UNDERSTANDING. WILL CONTINUE TO MONITOR.
[2019-09-23] MEDS: Z-GUARD PASTE TP SCH (13:24)
[2019-09-23] MEDS: FUROSEMIDE 20 MG/2 ML VIAL IVP SCH ×2 (13:24→21:11)
[2019-09-23] MEDS: SKINTEGRITY HYDROGEL TP SCH (13:24)
--- NOTE | 2019-09-23 13:35 | NUR ---
ADMINISTERED SCHED MED PRESCRIBED PER MD ORDER. PT TOLERATED WELL. MEDICATION EDUCATION PERFORMED. PT APHASIC AND UNABLE TO VERBALIZED UNDERSTANDING. WILL CONTINUE TO MONITOR.
[2019-09-23] MEDS: ALBUTEROL SULFATE/IPRATROPIU 3 ML SOL IH PRN (16:37)
[2019-09-23] MEDS ORDERED: methylPREDNISolone SS 125 MG/2 ML VIAL IVP SCH (16:40)
--- NOTE | 2019-09-23 16:42 | NUR ---
CALLED TO PTS ROOM FOR LOW O2SAT DR. ALAN AT BEDSIDE INCREASE FIO2 TO 50% ON BIPAP AND GAVE PRN BREATHING TX FAMILY AT BEDSIDE
--- NOTE | 2019-09-23 17:37 | NUR ---
ADMINISTERED SCHED MED PRESCRIBED PER MD ORDER. PT TOLERATED WELL. MEDICATION EDUCATION PERFORMED. PT APHASIC AND UNABLE TO VERBALIZED UNDERSTANDING. WILL CONTINUE TO MONITOR.
--- NOTE | 2019-09-23 19:05 | NUR ---
RECEIVED ENDORSEMENT FORM ANNIE ENCINAS DAYSHIFT NURSE AT BEDSIDE FOR CONTINUITY OF CARE, PT IN STABLE CONDITION.
--- NOTE | 2019-09-23 19:30 | NUR ---
RECEIVED REPORT FORM ANNIE ENCINAS DAYSHIFT NURSE AT BEDSIDE FOR CONTINUITY OF CARE, PT IN STABLE CONDITION.
--- NOTE | 2019-09-23 19:30 | NUR ---
ENDORSED TO NIGHTSHIFT NURSE. PT LYING IN BED UPON ARRIVAL. FLACC 0 . SKIN WARM AND DRY TO TOUCH. RESPIRATIONS EVEN AND UNLABORED WITH NO SOB OR RESPIRATORY DISTRESS. SAFETY MEASURES IN PLACE. PT IS STABLE
--- NOTE | 2019-09-23 20:30 | NUR ---
PT IN BED, AOX1 WITH BIPAP ON PT CONTINUES ON CURRENT SETTINGS WITH FI02 AT 70%. PT HAS IV SITE ON LEFT SUBCLAVIAN RUNNING N/S AT 20MLS/HR. PT HAS HOOVER CATHETER IN PLACE AND DRAINING LIGHT YELLOW URINE.PT HAS G TUBE IN PLACE AND RUNNING NEPHRO AT 40MLS/HR ORDERED, NO RESIDUAL NOTED. PT HAD A BM X1 AND WAS TURNED, CHANGED AND REPOSITIONED IN BED. PT R/R ARE AT 20 AND SHE IS NOTED TO BE USING ACCESSORY MUSCLES WELL.V/S FOLLOWS: T 97.8 P 92 R 18 B/P 98/54 02 98% WITH ALL CURRENT BIPAP SETTINGS.
--- NOTE | 2019-09-23 21:30 | NUR ---
PT IV SITE ON LEFT SUBCLAVIAN NOTED TO BE REDDENED AND SLIGHTLY SWOLLEN. IV SITE TAKEN OUT AND NEW IV SITE INSERTED ON LEFT WRIST 24G. VANCOCIN HUNG AND RUNNING ORDERED AT 165MLS/HR. PT ALSO GIVEN ORDERED MEDS OF MIDODRINE, LASIX TAMIFLU AND HEPARIN NEPHRO CONTINUES TO RUN ORDERED AND PT CONTINUES TO BREATH AT RR WITH USE OF ACCESSORY MUSCLES. PT STATING AT 98% WITH ALL CURRENT BIPAP SETTINGS. ALL FALLS PRECAUTIONS IN PLACE.
--- NOTE | 2019-09-23 23:00 | NUR ---
ZOSYN HUNG AND RUNNING ORDERED. NO ADVERSE EFFECTS NOTED. NEW IV SITE INTACT AND ASYMPTOMATIC. PT CONTINUES TO USE ACCESSORY MUSCLES TO BREATHE AND RR OF 20 WITH ALL CURRENT BIPAP SETTINGS. NEPHRO CONTINUES ORDERED. ALL FALLS PRECAUTIONS IN PLACE.
[2019-09-24] VITALS: BP 156/78
--- NOTE | 2019-09-24 00:30 | NUR ---
PT TURNED ANDS REPOSITIONED DIN BED V/S FOLLOWS; T 97 P 85 R 20 B/P 156/78 02 99% WITH ALL CURRENT BIPAP SETTINGS CT OF CHEST CANCELLED DUE TO PT BEING UNSTABLE OFF BIPAP. ALL FALLS PRECAUTIONS IN PLACE.
[2019-09-24] MEDS: PIPERACILLIN/TAZOBACTAM 3.375 GM in DEXTROSE 5% 50 ML IV SCH ×4 (01:06→23:28)
[2019-09-24 04:00] VITALS: BP 116/65
--- NOTE | 2019-09-24 04:30 | NUR ---
PT WAS TURNED, CHANGED AND REPOSITIONED IN BED V/S FOLLOWS: T 98.3 P 94 R20 B/P 116/65. MIDODRINE HELD DUE TO B/P IN NORMAL RANGE. ALL FALLS PRECAUTIONS IN PLACE .
[2019-09-24] MEDS: MIDODRINE 5 MG TAB GT SCH ×3 (05:00→21:00)
[2019-09-24] MEDS: FUROSEMIDE 20 MG/2 ML VIAL IVP SCH ×3 (05:52→21:23)
[2019-09-24] MEDS: NACL 0.9% 1,000 ML IV SCH (06:08)
[2019-09-24 06:19] LABS: EOSINOPHILS % (AUTO) 0.1 % (0.0-4.0); HEMATOCRIT 40.1 % (36-48); HEMOGLOBIN 12.7 g/dL (12.0-16.0); LYMPHOCYTES % (AUTO) 11.1 % (20.5-51.1); MEAN CORPUSCULAR HEMOGLOBIN 28 pg (27-31); MEAN CORPUSCULAR HGB CONC 32 g/dL (33-37); MEAN CORPUSCULAR VOLUME 88.1 fL (80-94); MONOCYTES # (AUTO) 0.3 K/uL (0.8-1.0); MONOCYTES % (AUTO) 3.2 % (1.7-9.3); NEUTROPHILS % (AUTO) 85.6 % (42.2-75.2); PLATELET COUNT (AUTO) 291 K/uL (140-450); RED BLOOD CELL COUNT(AUTO) 4.55 MIL/uL (4.20-5.40); RED CELL DISTRIBUTION WIDTH 15.9 % (11.6-13.7); WHITE BLOOD COUNT (AUTO) 9.4 K/uL (4.8-10.8)
[2019-09-24] MEDS: ALBUTEROL SULFATE/IPRATROPIU 3 ML SOL IH SCH ×3 (06:32→20:16)
--- NOTE | 2019-09-24 06:32 | NUR ---
rec'd pt on vision bipap settings 2/5 rr 14 fio2 70% alarms on and audible and ambu bag at [facility] and bipap is plugged into red outlet,i\l tx given with duoneb 3ml with no adverse reaction post tx, b\s are diminished bilaterally pt is wearing face mask and skin integrity is intact pt is sleeping dr. aleman at bedside
[2019-09-24 06:53] LABS: MAGNESIUM 2.2 mg/dL (1.8-2.4); PHOSPHORUS 4.9 mg/dL (2.5-4.9)
[2019-09-24 06:58] LABS: CREATININE 0.6 mg/dL (0.6-1.3); GLUCOSE 195 mg/dL (74-106); UREA NITROGEN, BLOOD 16 mg/dL (7-18)
--- NOTE | 2019-09-24 07:21 | NUR ---
RECIEVED CALL WITH A CRITICAL LAB OF CO2 BEING 44.5. RESIDENTS MADE AWARE. WILL CONTINUE TO MONITOR
[2019-09-24 07:27] LABS: ANION GAP 2.2 (8-16); CHLORIDE 99 mmol/L (98-107); POTASSIUM 3.7 mmol/L (3.5-5.1); SODIUM SERUM 142 mmol/L (136-145)
[2019-09-24 07:34] LABS: CARBON DIOXIDE 44.5 mmol/L (21-32)
--- NOTE | 2019-09-24 07:36 | NUR ---
RECEIVED BEDSIDE REPORT FROM NIGHTSHIFT NURSE. PT RESTING IN BED UPON ARRIVAL. FLACC 0. RESPIRATIONS EVEN AND WITH SOME LABORED BREATHING. NO SOB OR RESPIRATORY DISTRESS. PT ON BIPAP 70% AND SATURATING AT 98%. SKIN WARM AND DRY TO TOUCH. IV SITE IN LEFT WRIST 24G IS CLEAN, DRY, AND INTACT. G-TUBE RUNNING NEPHRO. G-TUBE IS PATENT AND RUNNING AT 40MLS. SAFETY MEASURES IN PLACE. WILL CONTINUE TO MONITOR.
[2019-09-24 08:00] VITALS: BP 109/57
[2019-09-24] MEDS: VANCOMYCIN 1,000 MG in DEXTROSE 5% 250 ML IV SCH ×2 (08:12→21:16)
[2019-09-24] MEDS: LACTOBACILLUS RHAMNOSUS GG 1 EACH CAP GT SCH (08:12)
[2019-09-24] MEDS: OSELTAMIVIR PHOSPHATE 30 MG CAP PO SCH ×2 (08:13→21:38)
--- NOTE | 2019-09-24 08:13 | NUR ---
ADMINISTERED SCHED MED PRESCRIBED PER MD ORDER. PT TOLERATED WELL. MEDICATION EDUCATION PERFORMED. PT APHASIC AND UNABLE TO VERBALIZE UNDERSTANDING. SAFETY MEASURES IN PLACE. WILL CONTINUE TO MONITOR
--- NOTE | 2019-09-24 10:20 | NUR ---
HOURLY ROUNDING. PT RESTING IN BED UPON ARRIVAL. FLACC 0. RESPIRATIONS EVEN WITH SOME LABORED BREATHING. NO SOB OR RESPIRATORY DISTRESS AT THIS TIME. SKIN WARM AND DRY TO TOUCH. SAFETY MEASURES IN PLACE. WILL CONTINUE TO MONITOR
[2019-09-24 12:00] VITALS: BP 105/62
--- NOTE | 2019-09-24 13:04 | NUR ---
ASSISTED ELECTRO PLATER WITH BED BATH AND REPOSITIONING. WOUND CARE PERFORMED ON SACRAL PRESSURE ULCER PRESCRIBED PER MD ORDER.. PT TOLERATED WELL. SAFETY MEASURES IN PLACE. WILL CONTINUE TO MONITOR
--- NOTE | 2019-09-24 13:11 | NUR ---
ADMINISTERED SCHED MED PRESCRIBED PER MD ORDER. PT TOLERATED WELL. MEDICATION EDUCATION PERFORMED. PT APHASIC AND UNABLE TO VERBALIZE UNDERSTANDING. SAFETY MEASURES IN PLACE. WILL CONTINUE TO MONITOR.
[2019-09-24] MEDS: Z-GUARD PASTE TP SCH (13:13)
[2019-09-24] MEDS: SKINTEGRITY HYDROGEL TP SCH (13:13)
[2019-09-24 16:00] VITALS: BP 120/81
--- NOTE | 2019-09-24 17:32 | NUR ---
PT ASLEEP IN BED. RESPONSIVE TO VERBAL AND TACTILE STIMULI. FAMILY AT BEDSIDE. FLACC 0. RESPIRATIONS EVEN WITH SOME LABORED BREATHING. NO SOB OR RESPIRATORY DISTRESS AT THIS TIME. SKIN WARM AND DRY TO TOUCH. SAFETY MEASURES IN PLACE. WILL CONTINUE TO MONITOR
--- NOTE | 2019-09-24 19:05 | NUR ---
ENDORSED TO NIGHTSHIFT NURSE. PT RESTING IN BED WITH FAMILY AT BEDSIDE. RESPIRATIONS EVEN AND LABORED. NO SOB OR RESPIRATORY DISTRESS. SAFETY MEASURES IN PLACE. WILL CONTINUE TO MONITOR.
[2019-09-24 19:45] VITALS: BP 122/57
--- NOTE | 2019-09-24 20:00 | NUR ---
PT IN BED AOX1, WITH BIPAP ON ALL CURRENT SETTINGS, 02 IS AT 95% HEART RATE 88 B/P 122/57 T 97.7 RR 24. PT NOTED WITH SHALLOW BREATH AND USING ACCESSORY MUSCLES TO BREATH. PT HAS GT INTACT AND RUNNING NEPHRO AT 40MLS/HR. IV SITE ON LEFT WRIST INTACT AND FLUSHED PATENT. IV SITE RUNNING NORMAL SALINE AT 20MLS/HR. ALL FALLS PRECAUTIONS IN PLACE.
--- NOTE | 2019-09-24 20:23 | NUR ---
RECEIVED FROM DAY SHIFT ON BIPAP 07/27,14,70%. BIPAP PLUGGED INTO RED OUTLET. ALARMS AUDIBLE AND WORKING. DAUGHTER AT BEDSIDE. WILL CONT TO MONITOR
--- NOTE | 2019-09-24 21:00 | NUR ---
IV ABT VANCO HUNG AND RUNNING AT 165MLS/HR. PT GIVEN DUE MEDS OF LASIX, IVP HEPARIN SQ AND TAMIFLU VIA GT. GT SITE FLUSHED PATENT AND HAS 20MLS OF RESIDUAL. PT CONTINUES ON BIPAP STATING 97% WITH ALL SETTINGS , PT CONTINUES TO USE ACCESSORY MUSCLES TO BREATH. ALL FALLS PRECAUTIONS IN PLACE. PT TURNED, CHANGED AND REPOSITIONED IN BED.
--- NOTE | 2019-09-24 22:30 | NUR ---
PT IN BED AND CONTINUES WITH IV ABT ZOSYN, PT TURNED AND REPOSITIONED IN BED, SHE CONTINUES WITH ALL BIPAP SETTINGS AND NEPHRO RUNNING ORDERED. HOOVER CATHETER IN PLACE AND DRAINING LIGHT YELLOW URINE.
[2019-09-25] VITALS: BP 105/57
--- NOTE | 2019-09-25 00:19 | NUR ---
PT IN BED AOX1 , SHE CONTINUES ON BIPAP WITH ALL CURRENT SETTINGS 02 IS AT 97% P 90 R 20 B/P 105/57 T 97.0 . IV FLUID CONTINUES TO RUN ORDERED, IV SITE INTACT AND ASYMPTOMATIC. HOOVER CATHETER DRAINING YELLOW URINE.
[2019-09-25] MEDS: NACL 0.9% 1,000 ML IV SCH (03:00)
[2019-09-25 04:00] VITALS: BP 129/66
[2019-09-25] MEDS: FUROSEMIDE 20 MG/2 ML VIAL IVP SCH (05:00)
[2019-09-25] MEDS: PIPERACILLIN/TAZOBACTAM 3.375 GM in DEXTROSE 5% 50 ML IV SCH ×3 (05:00→21:02)
[2019-09-25] MEDS: MIDODRINE 5 MG TAB GT SCH ×3 (05:00→21:02)
--- NOTE | 2019-09-25 05:07 | NUR ---
PT REMAINS ON BIPAP ON CURRENT SETTING. PT SATS ARE GOOD. B/S IS CLEAN/ DIMINISHED. PT IS NOT ALERT. ACCESSORY MUSCLE BEING USED. WILL CONT TO MONITOR.
--- NOTE | 2019-09-25 06:00 | NUR ---
PAYAL HUNG AND RUNNING ORDERED. DAILY WOUND CARE PIC COULD NOT BE TALEN DUE TO [place] BATTERIES NEED CHARGING.
[2019-09-25] MEDS ORDERED: FUROSEMIDE 40 MG/4 ML VIAL IVP ONE (06:20)
[2019-09-25] MEDS: LACTOBACILLUS RHAMNOSUS GG 1 EACH CAP GT SCH ×2 (06:23→09:11)
[2019-09-25] MEDS: ALBUTEROL SULFATE/IPRATROPIU 3 ML SOL IH SCH ×3 (06:40→19:56)
[2019-09-25 06:58] LABS: BASOPHILS % (AUTO) 0.1 % (0.0-2.0); EOSINOPHILS % (AUTO) 0.4 % (0.0-4.0); HEMATOCRIT 38.5 % (36-48); HEMOGLOBIN 12.4 g/dL (12.0-16.0); LYMPHOCYTES # (AUTO) 0.9 K/uL (2.5-16.5); LYMPHOCYTES % (AUTO) 8.3 % (20.5-51.1); MEAN CORPUSCULAR HEMOGLOBIN 28 pg (27-31); MEAN CORPUSCULAR HGB CONC 32 g/dL (33-37); MEAN CORPUSCULAR VOLUME 86.3 fL (80-94); MONOCYTES # (AUTO) 1.1 K/uL (0.8-1.0); MONOCYTES % (AUTO) 10.6 % (1.7-9.3); NEUTROPHILS # (AUTO) 8.4 K/uL (1.8-7.7); NEUTROPHILS % (AUTO) 80.6 % (42.2-75.2); PLATELET COUNT (AUTO) 231 K/uL (140-450); RED BLOOD CELL COUNT(AUTO) 4.46 MIL/uL (4.20-5.40); RED CELL DISTRIBUTION WIDTH 15.2 % (11.6-13.7); WHITE BLOOD COUNT (AUTO) 10.4 K/uL (4.8-10.8)
[2019-09-25 07:02] LABS: CHLORIDE 93 mmol/L (98-107); CREATININE 0.7 mg/dL (0.6-1.3); GLUCOSE 113 mg/dL (74-106); SODIUM SERUM 140 mmol/L (136-145); UREA NITROGEN, BLOOD 24 mg/dL (7-18)
[2019-09-25 07:06] LABS: ANION GAP 4.2 (8-16); POTASSIUM 2.6 mmol/L (3.5-5.1)
[2019-09-25 07:07] LABS: CARBON DIOXIDE 45.4 mmol/L (21-32)
[2019-09-25 07:08] LABS: MAGNESIUM 1.9 mg/dL (1.8-2.4); PHOSPHORUS 2.6 mg/dL (2.5-4.9)
--- NOTE | 2019-09-25 07:10 | NUR ---
RECEIVED BEDSIDE REPORT FROM NIGHTSHIFT NURSE. PT RESTING IN BED UPON ARRIVAL. FLACC 0. RESPIRATIONS EVEN AND LABORED WITH NO SOB OR RESPIRATORY DISTRESS. SKIN WARM AND DRY TO TOUCH. IV SITE IN LEFT WRIST 24G IS CLEAN, DRY, AND INTACT. SAFETY MEASURES IN PLACE. WILL CONTINUE TO MONITOR.
[2019-09-25 08:00] VITALS: BP 119/63
[2019-09-25] MEDS ORDERED: POTASSIUM CHLORIDE 10 MEQ TABER PO SCH (09:00)
[2019-09-25] MEDS: KCL 20 MEQ/WATER INJ PREMIX 200 ML IV PRN (09:09)
[2019-09-25] MEDS: OSELTAMIVIR PHOSPHATE 30 MG CAP PO SCH (09:10)
--- NOTE | 2019-09-25 09:10 | NUR ---
ADMINISTERED SCHED MED PRESCRIBED PER MD ORDER.PT TOLERATED WELL. MEDICATION EDUCATION PERFORMED. PT APHASIC AND UNABLE TO VERBALIZE UNDERSTANDING. SAFETY MEASURES IN PLACE. WILL CONTINUE TO MONITOR
--- NOTE | 2019-09-25 10:54 | NUR ---
DECREASE FIO2 TO 50 SPO2 100
[2019-09-25] MEDS: VANCOMYCIN 1,000 MG in DEXTROSE 5% 250 ML IV SCH ×2 (11:21→19:48)
[2019-09-25 12:00] VITALS: BP 115/73
[2019-09-25] MEDS: INTERDRY CLOTH TP SCH (12:13)
[2019-09-25] MEDS: Z-GUARD PASTE TP SCH (13:31)
[2019-09-25] MEDS: SKINTEGRITY HYDROGEL TP SCH (13:31)
--- NOTE | 2019-09-25 14:35 | NUR ---
PT IV NO LONGER WORKING. IV SITE IN LEFT WRIST 24G WON'T FLUSH AND IT APPEARS TO HAVE INFILTRATED. NEW IV WILL BE RESTARTED. SAFETY MEASURES IN PLACE. WILL CONTINUE TO MONITOR.
--- NOTE | 2019-09-25 14:55 | NUR ---
NEW IV STARTED. RIGHT WRIST 24G IS CLEAN, DRY, AND INTACT. SAFETY MEASURES IN PLACE. WILL CONTINUE TO MONITOR.
--- NOTE | 2019-09-25 15:45 | NUR ---
HOURLY ROUNDING. PT RESTING IN BED UPON ARRIVAL. FLACC 0. RESPIRATIONS EVEN AND LABORED WITH NO SOB OR RESPIRATORY DISTRESS. SKIN WARM AND DRY TO TOUCH. SAFETY MEASURES IN PLACE. WILL CONTINUE TO MONITOR.
[2019-09-25 16:00] VITALS: BP 122/78
--- NOTE | 2019-09-25 17:50 | NUR ---
PT SLEEPING IN BED. RESPONSIVE TO VERBAL AND TACTILE STIMULI. FLACC 0. RESPIRATIONS EVEN AND LABORED WITH NO SOB OR RESPIRATORY DISTRESS. SKIN WARM AND DRY TO TOUCH. SAFETY MEASURES IN PLACE. WILL CONTINUE TO MONITOR.
--- NOTE | 2019-09-25 19:05 | NUR ---
ENDORSED AT BEDSIDE WITH NIGHTSHIFT NURSE. PT RESTING IN BED UPON ARRIVAL. FLACC 0. RESPIRATIONS EVEN AND LABORED WITH NO SOB OR RESPIRATORY DISTRESS. SKIN WARM AND DRY TO TOUCH. SAFETY MEASURES IN PLACE. PT IS STABLE
--- NOTE | 2019-09-25 19:06 | NUR ---
PT IN BED AOXO, LETHARGIC WITH BIPAP 50 % FI02 02 IS AT 98% HEART RATE 88 B/P 107/48 T 97.7 RR 24. PT NOTED WITH SHALLOW BREATH AND USING ACCESSORY MUSCLES TO BREATH. PT HAS GT INTACT AND RUNNING NEPRO AT 40MLS/HR. IV SITE ON RIGHT HAND G 24, INTACT AND FLUSHED PATENT. IV SITE RUNNING NORMAL SALINE AT 20MLS/HR. ALL FALLS PRECAUTIONS IN PLACE.
--- NOTE | 2019-09-25 19:07 | NUR ---
PT RECEIVED W/ A LEAKING CATHETER, REINFORCED FR 16 CATHETER, FLUSHED W/ SALINE, THEN REINFORCED LOCK W/ 5 CC WATER.
--- NOTE | 2019-09-25 19:28 | NUR ---
DAUGHTER AT BEDSIDE,PT STILL SLEEPING, LETHARGIC. NOT IN RESPIRATORY DISTRESS AND NO S/ SX'S OF PAIN.
--- NOTE | 2019-09-25 19:29 | NUR ---
PT'S NECK CLEANED, PT DROOLING. EARLIER HUANG VALENCIA CHANGED THE INTER DRY DRESSING, REINFORCED DRESSING
[2019-09-25 20:00] VITALS: BP 107/48
--- NOTE | 2019-09-25 20:08 | NUR ---
RECEIVED PATIENT ON BIPAP AT DOCUMENTED SETTINGS. BIPAP CHECK DONE. BIPAP PLUGGED INTO CORRECT OUTLET WITH WHEELS LOCKED. ALARMS ON AND AUDIBLE. CONTINUOUS PULSE OX AT BEDSIDE; ALARMS ON AND AUDIBLE. AMBU BAG AT BEDSIDE. FAMILY AT BEDSIDE. SCHEDULED BREATHING TREATMENT ADMINISTERED. TOLERATED TX WELL WITHOUT ADVERSE SIDE EFFECTS. WILL CONTINUE TO MONITOR.
--- NOTE | 2019-09-25 21:00 | NUR ---
PT MEDS ADMINISTERED, 5 ML RESIDUAL NOTED. FLUSHED AND PATIENT TOLERATED MEDICATIONS, PLACED BACK FEEDING ON
[2019-09-26] VITALS: BP 130/61
--- NOTE | 2019-09-26 02:00 | NUR ---
PT CLEANED AND STILL WITH LEAKING URINE, WILL CHANGE THE CATHETER LATER
--- NOTE | 2019-09-26 02:46 | NUR ---
SCD DEVICE CANNOT BE ATTACHED DUE TO BILATERAL LE CELLULITIS W/ OPEN WOUNDS. DR. PERSAUD AWARE Addendum: 09/26/19 at 0247 by Annita Adamson RN VALERIE MAK
--- NOTE | 2019-09-26 03:50 | NUR ---
INFORMED RT THAT SPO2 AT 88%; ANABELLE AWARE.
--- NOTE | 2019-09-26 03:51 | NUR ---
2 RT'S AT BEDSIDE, INCREASED THE BIPAP TO 80% ( 87% O2 SAT). RT INFORMED DR. PERSAUD
[2019-09-26 04:00] VITALS: BP 132/62
--- NOTE | 2019-09-26 04:30 | NUR ---
INFORMED DR. PERSAUD ON THE 02 SAT, AND THE MODIFIED CODE, WILL ORDER MORPHINE
[2019-09-26] MEDS ORDERED: MORPHINE SULFATE 2 MG/ML SYR IVP PRN (04:40)
[2019-09-26] MEDS: NACL 0.9% 1,000 ML IV SCH (04:44)
[2019-09-26] MEDS: PIPERACILLIN/TAZOBACTAM 3.375 GM in DEXTROSE 5% 50 ML IV SCH ×2 (04:45→14:10)
[2019-09-26] MEDS: MIDODRINE 5 MG TAB GT SCH ×2 (04:46→12:49)
--- NOTE | 2019-09-26 04:52 | NUR ---
IPAFransico ----HR= 92; WITH RESP=14 MORPHINE NOT GIVEN; WITH ORDERS TO GIVE MORPHINE TO PATIENT FOR HR GREATER 100; RR GREATER 20. Addendum: 09/26/19 at 0458 by Annita Adamson RN VALERIE MAK
--- NOTE | 2019-09-26 04:58 | NUR ---
CLARIFIED W/ DR. PERSAUD; TO GIVE MOPRHINE SO4 FOR RR= > 20 OR HR> 100; PT;S RR NOW IS 30, HR 92. WILL GIVE MORPHINE Addendum: 09/26/19 at 0629 by Annita Adamson RN CONTINUE NOTES... WILL GIVE MORPHINE WHEN RR >30;
--- NOTE | 2019-09-26 05:54 | NUR ---
HR= 76; RR=30 MORPHINE ADMINISTERED Addendum: 09/26/19 at 0557 by Annita Adamson RN AMEND RR-34
--- NOTE | 2019-09-26 06:00 | NUR ---
CHANGED CATHETER TO A NEW ONJE; USING FR. 14,FOR OBSERVATION
--- NOTE | 2019-09-26 07:05 | NUR ---
RECEIVED BEDSIDE REPORT FROM NIGHT NURSE. PATIENT IN BED AOX0, SKIN IS WARM AND DRY TOUCH. PATIENT IN STABLE CONDITION. PATIENT ON BIPAP 80% WITH O2 SAT @ 99%, HR 74. IV INTACT AND PATENT TO RIGHT WRIST. GT INTACT AND PATENT WITH NEPRO FEEDING @ 40ML/HR. [place] CATHETER IN PLACE DRAINING WITH CLEAR YELLOW COLORED URINE. SAFETY PRECAUTIONS IN PLACE.
[2019-09-26] MEDS: ALBUTEROL SULFATE/IPRATROPIU 3 ML SOL IH SCH ×2 (07:49→13:30)
[2019-09-26] MEDS: VANCOMYCIN 1,000 MG in DEXTROSE 5% 250 ML IV SCH (08:00)
[2019-09-26 08:22] LABS: BASOPHILS % (AUTO) 0.2 % (0.0-2.0); EOSINOPHILS % (AUTO) 0.4 % (0.0-4.0); HEMATOCRIT 37.7 % (36-48); LYMPHOCYTES # (AUTO) 0.8 K/uL (2.5-16.5); LYMPHOCYTES % (AUTO) 5.8 % (20.5-51.1); MEAN CORPUSCULAR HEMOGLOBIN 28 pg (27-31); MEAN CORPUSCULAR HGB CONC 32 g/dL (33-37); MEAN CORPUSCULAR VOLUME 86.2 fL (80-94); MONOCYTES % (AUTO) 7.7 % (1.7-9.3); NEUTROPHILS # (AUTO) 11.5 K/uL (1.8-7.7); NEUTROPHILS % (AUTO) 85.9 % (42.2-75.2); PLATELET COUNT (AUTO) 241 K/uL (140-450); RED BLOOD CELL COUNT(AUTO) 4.38 MIL/uL (4.20-5.40); RED CELL DISTRIBUTION WIDTH 15.6 % (11.6-13.7); WHITE BLOOD COUNT (AUTO) 13.4 K/uL (4.8-10.8)
[2019-09-26 08:41] LABS: ANION GAP 6.6 (8-16); CHLORIDE 92 mmol/L (98-107); CREATININE 0.7 mg/dL (0.6-1.3); GLUCOSE 177 mg/dL (74-106); SODIUM SERUM 140 mmol/L (136-145); UREA NITROGEN, BLOOD 21 mg/dL (7-18)
[2019-09-26 08:51] LABS: CARBON DIOXIDE 44.4 mmol/L (21-32)
--- NOTE | 2019-09-26 08:53 | NUR ---
SPOKE WITH SONI IN PHARMACY IN REGARDS TO VANCO TROUGH LEVEL 31.8. PER PHARMACY PROTOCOL HOLD VANCOMYCIN. DR. LE ALSO NOTIFIED.
[2019-09-26] MEDS: KCL 20 MEQ/WATER INJ PREMIX 200 ML IV PRN ×2 (09:42→12:07)
--- NOTE | 2019-09-26 09:42 | NUR ---
PATIENT POTASSIUM LEVEL 3.0, K RIDER STARTED ORDERED PRN TO GIVE FOR K LEVEL < 3.5. WILL CONTINUE TO MONITOR. PATIENT ON BIPAP. CONTINUOUS PULSE OX IN PLACE. O2 SAT 100% HR 94.
[2019-09-26] MEDS: LACTOBACILLUS RHAMNOSUS GG 1 EACH CAP GT SCH (09:43)
--- NOTE | 2019-09-26 11:23 | NUR ---
DECREASED FIO2 TO 70 SPO2 100
--- NOTE | 2019-09-26 11:34 | NUR ---
RADHA REINSTATEMENT CLERK FROM [facility] HERE TO ASSESS PATIENT.
[2019-09-26 12:00] VITALS: BP 98/59
--- NOTE | 2019-09-26 12:00 | NUR ---
PATIENT REMAINS STABLE. BIPAP @ 70%. O2 SAT 99%. NO S/S OF DISTRESS NOTED. WILL CONTINUE TO MONITOR.
[2019-09-26] MEDS: SKINTEGRITY HYDROGEL TP SCH (13:00)
[2019-09-26] MEDS: Z-GUARD PASTE TP SCH (13:00)
[2019-09-26] MEDS ORDERED: ALBU3SOL83 IH ×2 (13:11)
[2019-09-26] MEDS ORDERED: PIPE1PDS26 IV (13:11)
--- NOTE | 2019-09-26 13:30 | NUR ---
REPORT GIVEN TO HUANG MCMANUS FROM [facility] RE: TRANSFER DISCHARGE.
--- NOTE | 2019-09-26 13:48 | NUR ---
FOLLOW UP DONE WITH HUANG ADAM FOR IMMUNIZATION STATUS.
--- NOTE | 2019-09-26 14:00 | NUR ---
PATIENT REMAINS STABLE. BIPAP @ 70%. O2 SAT 99%. NO S/S OF DISTRESS NOTED. WILL CONTINUE TO MONITOR.
--- NOTE | 2019-09-26 14:50 | NUR ---
PATIENT PICKED UP BY [facility] VIA GURNEY. ALL DISCHARGE PACKET, INSTRUCTIONS AND BELONGINGS GIVEN TO THE EMT. PATIENT UNABLE TO SIGN PAPERWORK. SON AWARE OF TRANSFER. REPORT ALREADY GIVEN TO HUANG MCMANUS. GT INTACT, F/C LEFT IN PLACE. IV INTACT FOR CONTINUED IV ABT TREATMENT UPON TRANSFER TO [facility]. PATIENT IN STABLE CONDITION.
== END 2019-09-26 14:55 | DRG 871 ==
LOC: MED 23:02 → MTU 09-17 01:00
PROVIDERS: ADMIT General Practice; ATTEND General Practice
PROC: 5A09357 Assistance with Respiratory Ventilation, Less than 24 Consecutive Hours, Continuous Positive Airway Pressure (ICD-10-PCS; principal; 2019-09-17)
PROC: 5A09357 Assistance with Respiratory Ventilation, Less than 24 Consecutive Hours, Continuous Positive Airway Pressure (ICD-10-PCS; 2019-09-20)
PROC: 5A09357 Assistance with Respiratory Ventilation, Less than 24 Consecutive Hours, Continuous Positive Airway Pressure (ICD-10-PCS; 2019-09-21)
PROC: 5A09357 Assistance with Respiratory Ventilation, Less than 24 Consecutive Hours, Continuous Positive Airway Pressure (ICD-10-PCS; 2019-09-22)
PROC: 5A09457 Assistance with Respiratory Ventilation, 24-96 Consecutive Hours, Continuous Positive Airway Pressure (ICD-10-PCS; 2019-09-24)
DX: A41.9 Sepsis, unspecified organism (principal); L89.154 Pressure ulcer of sacral region, stage 4; J69.0 Pneumonitis due to inhalation of food and vomit; R53.2 Functional quadriplegia; J10.00 Influenza due to other identified influenza virus with unspecified type of pneumonia; J96.21 Acute and chronic respiratory failure with hypoxia; J96.22 Acute and chronic respiratory failure with hypercapnia; N39.0 Urinary tract infection, site not specified; E66.01 Morbid (severe) obesity due to excess calories; G20 Parkinson's disease; K21.9 Gastro-esophageal reflux disease without esophagitis; M19.90 Unspecified osteoarthritis, unspecified site; M40.209 Unspecified kyphosis, site unspecified; R13.10 Dysphagia, unspecified; N18.9 Chronic kidney disease, unspecified; I12.9 Hypertensive chronic kidney disease with stage 1 through stage 4 chronic kidney disease, or unspecified chronic kidney disease; L89.629 Pressure ulcer of left heel, unspecified stage; L89.619 Pressure ulcer of right heel, unspecified stage; R65.20 Severe sepsis without septic shock; E87.6 Hypokalemia; Z86.73 Personal history of transient ischemic attack (TIA), and cerebral infarction without residual deficits; Z88.2 Allergy status to sulfonamides; Z93.1 Gastrostomy status; Z88.1 Allergy status to other antibiotic agents; Z79.899 Other long term (current) drug therapy; Z68.28 Body mass index [BMI] 28.0-28.9, adult
CPT/HCPCS: 36415; 36600; 51702; 71045; 80048; 80053; 80202; 81001; 82803; 83036; 83605; 83690; 83735; 83880; 84100; 84443; 85025; 85610; 85730; 87040; 87070; 87081; 87086; 87205; 87804; 89220; 93005; 94640; 94660; 96361; 96365; 96375; 99285; A6248; J0692; J1644; J1940; J2001; J2270; J2543; J2930; J3370; J3475; J3480; J7030; J7060; J7613; J7620; Q0092